=== PATIENT | male | born 1945 | race Caucasian/White ===

== ENCOUNTER 2018-05-15 08:52 | Emergency (ER) | payer MEDICARE, OTHER ==
[2018-05-15 09:02] VITALS: BP 146/81
[2018-05-15] MEDS ORDERED: LIDOCAINE PATCH 5% TOP STA (09:40)
--- NOTE | 2018-05-15 09:42 | ED Physician Documentation ---
History of Present Illness - Stated complaint Stated Complaint: BACK PX - Chief complaint Chief Complaint: Back Pain - Additonal information Additional information: hx from pt 73 male hx HNP periodically his back "goes out" recent move from [facility] pain to low left back with limited ROM similar to prior episodes he is hoping to get a medrol dose pack as that has worked well before no fever no abd pain no numbness including no saddle anesthesia no weakness no urinary sx Review of Systems Constitutional: denies: Fever Cardiac: denies: Chest pain / pressure Respiratory: denies: Dyspnea GI: denies: Abdominal Pain : denies: Incontinent Musculoskeletal: reports: Back pain Neurologic: denies: Focal weakness, Numbness Endocrine: denies: Easy bruising / bleeding Immunocompromised: denies: Immunocompromised PD PAST MEDICAL HISTORY - Past Medical History Past Medical History: No - Past Surgical History Past Surgical History: No - Present Medications Home Medications: Ambulatory Orders Medication Instructions Recorded Confirmed Amitriptyline [Elavil] 25 mg PO HS 05/15/18 05/15/18 Lidocaine Patch 5% [Lidoderm Patch] 1 patch TOP DAILY PRN #10 patch 05/15/18 Methylprednisolone [Medrol] 4 mg PO DAILY #21 tab.ds.pk 05/15/18 - Allergies Allergies/Adverse Reactions: Allergies Allergy/AdvReac Type Severity Reaction Status Date / Time No Known Drug Allergies Allergy Verified 05/15/18 09:02 - Social History Does the pt smoke?: No Smoking Status: Never smoker Does the pt drink ETOH?: No Does the pt have substance abuse?: No - Immunizations Immunizations are current?: Yes PD ED PE NORMAL - Vitals Vital signs reviewed: Yes - Neck Neck: Supple, no meningeal sign - Cardiac Cardiac: RRR - Respiratory Respiratory: No respiratory distress, Clear bilaterally - Abdomen Abdomen: Soft, Non tender, Other (no pulsatile mass) - Back Back: No spinal TTP, Other (TTP low left soft tissue near PIS, limited ROM, no focal redenss swelling warmth) - Neuro Neuro: Alert and oriented X 3, No motor deficit, No sensory deficit, Other (nl sensation, denies saddle anesthesia, hip flex knee ext foot dorsi plantar and great toe ext 5/5, neg SLR, no clonus, patellar DTR 2/4 nilo) Results - Vitals Vitals: Vital Signs - 24 hr 05/15/18 08:59 Temperature 36.3 C L Heart Rate 96 Respiratory 16 Rate Blood Pressure 146/81 H O2 Saturation 100 Oxygen O2 Source Room air PD MEDICAL DECISION MAKING - ED course ED course: muscular back pain with hx same 73 but no concerning features on hx and exam will tx symptomatically and dc Departure - Departure Disposition: Home, Self Care Clinical Impression: Back pain Qualifiers: Back pain location: low back pain Chronicity: acute Back pain laterality: left Sciatica presence: without sciatica Qualified Code(s): M54.5 - Low back pain Condition: Good Instructions: ED Neck Back Pain General Prescriptions: Lidocaine Patch 5% [Lidoderm Patch] 1 patch TOP DAILY PRN #10 patch PRN Reason: pain Methylprednisolone [Medrol] 4 mg PO DAILY #21 tab.ds.pk
== END 2018-05-15 09:55 | disposition home or self-care (01) ==
LOC: ED 08:52
DX: M54.5 Low back pain (principal)
CPT/HCPCS: 99283; A9270

== ENCOUNTER 2021-04-24 13:34 | Inpatient (IN) | payer MEDICARE, OTHER ==
[2021-04-24 14:35] LABS: BASOPHILS # (AUTO) 0.1 10^3/uL (0.0-0.1); BASOPHILS % (AUTO) 0.3 %; EOSINOPHILS % (AUTO) 0.1 %; HCT - HEMATOCRIT 46.4 % (42.0-52.0); HGB - HEMOGLOBIN 15.4 g/dL (14.0-18.0); LYMPHOCYTES # (AUTO) 2.2 10^3/uL (1.5-3.5); LYMPHOCYTES % (AUTO) 15.3 %; MEAN CORPUSCULAR HEMOGLOBIN 30.4 pg (27.0-31.0); MEAN CORPUSCULAR HGB CONC 33.2 g/dL (32.0-36.0); MEAN CORPUSCULAR VOLUME 91.7 fL (80.0-94.0); MEAN PLATELET VOLUME 8.5 fL (7.4-11.4); MONOCYTES # (AUTO) 0.6 10^3/uL (0.0-1.0); MONOCYTES % (AUTO) 4.4 %; NEUTROPHILS # (AUTO) 11.4 10^3/uL (1.5-6.6); NEUTROPHILS % (AUTO) 79.3 %; PLT - PLATELET COUNT 308 10^3/uL (130-450); RED BLOOD COUNT 5.06 10^6/uL (4.70-6.10); RED CELL DISTRIBUTION WIDTH 11.9 % (12.0-15.0); WHITE BLOOD COUNT 14.3 x10^3/uL (4.8-10.8)
[2021-04-24 14:49] LABS: ALBUMIN 4.5 g/dL (3.2-5.5); ALBUMIN/GLOBULIN RATIO 1.3 (1.0-2.2); CALCIUM 9.7 mg/dL (8.5-10.3); CREATININE 1.2 mg/dL (0.6-1.2); TOTAL PROTEIN 7.9 g/dL (6.7-8.2)
[2021-04-24 14:53] LABS: BILIRUBIN,URINE NEGATIVE (NEGATIVE); GLUCOSE, URINE (UA) NEGATIVE (NEGATIVE); KETONES,URINE (UA) TRACE mg/dL (NEGATIVE); LEUKOCYTE ESTERASE, URINE NEGATIVE (NEGATIVE); NITRITE,URINE NEGATIVE (NEGATIVE); OCCULT BLOOD,URINE NEGATIVE (NEGATIVE); PH,URINE 7.5 PH (5.0-7.5); PROTEIN,URINE NEGATIVE (NEGATIVE); UROBILINOGEN,URINE 0.2 (NORMAL) E.U./dL (NORMAL)
[2021-04-24] MEDS ORDERED: SODIUM CHLORIDE 0.9% 1,000 ML IV STA ×2 (14:58→20:16)
[2021-04-24] MEDS ORDERED: ONDANSETRON 4 MG/2 ML VIAL IVP STA ×2 (14:58→20:53)
[2021-04-24] MEDS ORDERED: HYDROmorphone 1 MG/ML CARPUJECT IVP STA ×3 (14:58→19:49)
[2021-04-24 15:00] LABS: CLARITY,URINE CLEAR (CLEAR)
--- NOTE | 2021-04-24 15:05 | ED Physician Documentation ---
History of Present Illness - Stated complaint Stated Complaint: STOMACH PX - Chief complaint Chief Complaint: Abd Pain - Additonal information Additional information: 76-year-old male presents emergency department for evaluation of acute severe left upper quadrant abdominal pain with associated uncontrolled nausea and vomiting. Patient went to bed feeling well and woke up feeling well. He ate cereal for breakfast and shortly thereafter developed this sudden abdominal pain. He has had uncontrolled retching. His reports that he has been burping uncontrollably which is new for him. 76-year-old male presents emergency department for evaluation of acute severe left upper quadrant abdominal pain with associated uncontrolled nausea and vomiting. Patient went to bed feeling well and woke up feeling well. He ate cereal for breakfast and shortly thereafter developed this sudden abdominal pain. He has had uncontrolled retching. His reports that he has been burping uncontrollably which is new for him. No pertinent past surgical history. He did have a myocardial infarction about 1 year ago. He reportedly received a stent in his LAD. He is denying chest pain or shortness of air at this time. Denies any fevers melena. No pertinent past surgical history. He did have a myocardial infarction about 1 year ago. He reportedly received a stent in his LAD. He is denying chest pain or shortness of air at this time. Denies any fevers melena. Review of Systems Constitutional: denies: Fever, Chills Eyes: reports: Reviewed and negative Ears: reports: Reviewed and negative Nose: reports: Reviewed and negative Throat: reports: Reviewed and negative Cardiac: reports: Reviewed and negative Respiratory: reports: Reviewed and negative GI: reports: Abdominal Pain, Nausea, Vomiting. denies: Constipation, Diarrhea, Hematemesis, Bloody / black stool : denies: Dysuria, Frequency, Hesitancy PD PAST MEDICAL HISTORY - Past Surgical History Past Surgical History: No - Present Medications Home Medications: Ambulatory Orders Medication Instructions Recorded Confirmed Atorvastatin Calcium 40 mg PO QPM 04/24/21 Clopidogrel [Plavix] 75 mg PO DAILY 04/24/21 Lisinopril [Zestril] 2.5 mg PO DAILY 04/24/21 Metoprolol Tartrate [Lopressor] 12.5 mg PO BID 04/24/21 - Allergies Allergies/Adverse Reactions: Allergies Allergy/AdvReac Type Severity Reaction Status Date / Time No Known Drug Allergies Allergy Verified 04/24/21 13:59 - Social History Does the pt smoke?: No Smoking Status: Never smoker Does the pt drink ETOH?: No Does the pt have substance abuse?: No - Immunizations Immunizations are current?: Yes PD ED PE EXPANDED - General General: Alert, In Pain - Cardiac Cardiac: Regular Rate, Radial strong equal, Pedal strong equal, Cap refill < 2 sec - Respiratory Respiratory: Clear to ausultation nilo. No: Distress, Labored - Abdomen Abdomen: Normal Bowel sounds, Tender to palpation, Rebound, Guarding, LLQ (Severe tenderness with light palpation to the left upper quadrant. Positive guarding and rebound.) - Derm Derm: Normal color, Warm and dry. No: Rash - Extremities Extremities: Normal. No: Deformity, Tenderness - Neuro Neuro: Alert and Oriented X 3, CNII-XII intact - GCS Eye Opening: Spontaneous Motor: Obeys Commands Verbal: Oriented Total: 15 Results - Vitals Vitals: Vital Signs - 24 hr 04/24/21 04/24/21 04/24/21 13:59 14:47 16:08 Temperature 36 C L 36.5 C Heart Rate 92 88 90 Respiratory 20 18 18 Rate Blood Pressure 121/68 121/68 140/74 H O2 Saturation 100 100 97 04/24/21 18:00 Temperature Heart Rate 100 Respiratory 22 Rate Blood Pressure 132/71 H O2 Saturation 97 Oxygen O2 Source Room air - EKG (time done) 1449 Rate: Rate (enter#) (89) Rhythm: NSR O'Brien: Normal Intervals: Normal RI QRS: Normal Ischemia: Normal ST segments Compare to prior EKG: Old EKG unavailable Computer interpretation: Agree with computer - Labs Labs: Laboratory Tests 04/24/21 04/24/21 04/24/21 14:28 14:29 14:29 WBC 14.3 H RBC 5.06 Hgb 15.4 Hct 46.4 MCV 91.7 MCH 30.4 MCHC 33.2 RDW 11.9 L Plt Count 308 MPV 8.5 Neut # (Auto) 11.4 H Lymph # (Auto) 2.2 [place] # (Auto) 0.6 Eos # (Auto) 0.0 Baso # (Auto) 0.1 Absolute Nucleated RBC 0.00 Nucleated RBC % 0.0 Sodium 138 Potassium 4.0 Chloride 96 L Carbon Dioxide 26 Anion Gap 16.0 H BUN 24 H Creatinine 1.2 Estimated GFR (MDRD) 59 L Glucose 143 H Lactic Acid Calcium 9.7 Total Bilirubin 1.0 AST 22 ALT 32 Alkaline Phosphatase 57 Troponin I High Sens Total Protein 7.9 Albumin 4.5 Globulin 3.4 Albumin/Globulin Ratio 1.3 Lipase 19 L Urine Color YELLOW Urine Clarity CLEAR Urine pH 7.5 Ur Specific [place] 1.020 Urine Protein NEGATIVE Urine Glucose (UA) NEGATIVE Urine Ketones TRACE Urine Occult Blood NEGATIVE Urine Nitrite NEGATIVE Urine Bilirubin NEGATIVE Urine Urobilinogen 0.2 (NORMAL) Ur Leukocyte Esterase NEGATIVE Ur Microscopic Review NOT INDICATED Urine Culture Comments NOT INDICATED 04/24/21 04/24/21 14:29 15:13 WBC RBC Hgb Hct MCV MCH MCHC RDW Plt Count MPV Neut # (Auto) Lymph # (Auto) [place] # (Auto) Eos # (Auto) Baso # (Auto) Absolute Nucleated RBC Nucleated RBC % Sodium Potassium Chloride Carbon Dioxide Anion Gap BUN Creatinine Estimated GFR (MDRD) Glucose Lactic Acid 1.6 Calcium Total Bilirubin AST ALT Alkaline Phosphatase Troponin I High Sens < 2.3 L Total Protein Albumin Globulin Albumin/Globulin Ratio Lipase Urine Color Urine Clarity Urine pH Ur Specific [place] Urine Protein Urine Glucose (UA) Urine Ketones Urine Occult Blood Urine Nitrite Urine Bilirubin Urine Urobilinogen Ur Leukocyte Esterase Ur Microscopic Review Urine Culture Comments - Rads (name of study) CT abd Radiology: Final report received (Small bowel obstruction. Suspect transition point in the right lower quadrant. Small volume of free fluid in the lower abdomen pelvis this is likely reactive. No pneumoperitoneum. Diverticulosis. No- itis. Hepatic hypodensities likely benign cyst. Large renal cyst bilaterally nonobstructing) PD MEDICAL DECISION MAKING - ED course Complexity details: reviewed old records, reviewed results, re-evaluated patient ED course: 76-year-old male who has a past medical history most significant for hypertension as well as coronary artery disease status post LAD stenting about 1 year ago presents emergency department for evaluation of acute left upper quadrant abdominal pain and uncontrolled nausea and vomiting that began shortly after eating breakfast this a.m. He denies any pertinent past surgical history. Screening labs are most significant for a mild leukocytosis however his electrolytes are otherwise preserved. Screening EKG is nonischemic and high- sensitivity troponin is negative. This gentleman was exquisitely tender in the left upper quadrant of his abdomen. A CT did show a small bowel obstruction with a transition point somewhere in the right lower quadrant. 1615: I have it ordered and nasogastric tube to be placed. Unfortunately given our local bed situation it is unlikely that this gentleman will be able to receive an inpatient bed at our hospital for quite some time. I have asked surgery to consult but in the short-term I will also evaluate for the possibility of transfer to an outlying facility that may have the ability to manage a small bowel obstruction. 1730: In an attempt to propel hsi care we have called [facility], [facility], [facility], and They have all indicated that there are no beds available for transfer. Some have requested that we call back in 24 hours. Others have placed us on a wait list. 1830: Patient has been seen by on-call surgeon Dr. Flores. She has verbally reported to me that she feels the patient is appropriate for inpatient admission for further evaluation and treatment of the small bowel obstruction. She recommends hospitalist to admit given his history of coronary artery disease that he is to be n.p.o. for now with NG tube to low continuous suction. I have spoken with Dr. Lo who stated that the night hospitalist with write admission orders. Pt will contine to hold in the ED until a inpatient bed is available Departure - Departure Disposition: [facility] DC/Emma
[2021-04-24] MEDS ORDERED: IOPAMIDOL-300 100 ML VIAL ONE (15:14)
--- NOTE | 2021-04-24 16:07 | CT Report ---
PROCEDURE: Abdomen/Pelvis W INDICATIONS: LUQ abd pain; n/v CONTRAST: IV CONTRAST: Isovue 300 ml: 100 PO CONTRAST: *NO PO CONTRAST TECHNIQUE: After the administration of intravenous contrast, 5 mm thick sections acquired from the diaphragms to the symphysis. 5 mm thick coronal and sagittal reformats were acquired. For radiation dose reducti on, the following was used: automated exposure control, adjustment of mA and/or kV according to cecy ent size. COMPARISON: None. FINDINGS: Image quality: Excellent. ABDOMEN: Lung bases: Bibasilar atelectasis. No pleural effusion. Heart size is normal. Small hiatal hernia. Solid organs: Liver and spleen are normal in size. Small hepatic hypodensities. The majority of thes e are well-circumscribed and have the appearance of benign cysts there is one cyst in the right lobe liver at the dome that is likely a benign cyst but not as hypodense as the other foci. Gallbladder i s not distended. No calcified gallstones. Biliary system is non dilated. Pancreas enhances normally . No adrenal nodules. Kidneys demonstrate normal size and enhancement, without hydronephrosis. Smal l nonobstructing kidney stones at the inferior pole the left kidney. Large simple renal cysts bilater ally. Right renal cyst measures 11.4 cm. Left renal cyst measures 9.8 cm. Possible trace peripheral c alcification. Peritoneum and bowel: Diverticulosis. No diverticulitis. The appendix is not dilated. Multiple dilate d loops of small bowel. Suspect a transition point the right lower quadrant. This is consistent with a small bowel obstruction. There is a small amount of fluid in the lower abdomen and pelvis. No pneum operitoneum. Nodes and vessels: No retroperitoneal or mesenteric adenopathy by size criteria. Aorta and inferior vena cava are normal in size. Miscellaneous: No ventral hernias. PELVIS: Genitourinary: Bladder is unremarkable. Right hydrocele. Prostatomegaly. Prostate calcifications. Miscellaneous: No inguinal hernias or adenopathy. Bones: No suspicious bony lesions. No vertebral body compression fractures. IMPRESSION: 1. Small bowel obstruction. Suspect transition point in the right lower quadrant. 2. Small volume of free fluid in the lower abdomen/pelvis. This is likely reactive. No pneumoperitone um. 3. Diverticulosis. 4. Hepatic hypodensities which are most likely benign cysts. 5. Large renal cysts bilaterally. Nonobstructing left kidney stones. 6. Right hydrocele. Prostatomegaly. Results were communicated to Dr. Meaghan Soria at 04/24/2021 4:05 PM PST. Reviewed by: Brock Ureña MD on 04/24/2021 4:06 PM PST Approved by: Brock Ureña MD on 04/24/2021 4:06 PM PST Station ID: [id number]
[2021-04-24] MEDS ORDERED: LIDOCAINE 2% URO-JET 5 ML SYRINGE UR STA (16:24)
[2021-04-24 20:04] LABS: B. PARAPERTUSSIS- RESP PCR PAN NOT DETECTED; B. PERTUSSIS- RESP PCR PANEL NOT DETECTED; C. PNEUMONIAE- RESP PCR PANEL NOT DETECTED; CORONAVIRUS 229E-RESP PCR NOT DETECTED; CORONAVIRUS HKU1-RESP PCR NOT DETECTED; CORONAVIRUS NL63-RESP PCR NOT DETECTED; CORONAVIRUS OC43-RESP PCR NOT DETECTED; HUMAN METAPNEUMOVIRUS NOT DETECTED; INFLUENZA A- RESP PCR PANEL NOT DETECTED; INFLUENZA B - RESP PCR PANEL NOT DETECTED; M. PNEUMONIAE- RESP PCR PANEL NOT DETECTED; PARAINFLUENZA VIRUS 1 NOT DETECTED; PARAINFLUENZA VIRUS 2 NOT DETECTED; PARAINFLUENZA VIRUS 3 NOT DETECTED; PARAINFLUENZA VIRUS 4 NOT DETECTED; RHINOVIRUS/ENTEROVIRUS NOT DETECTED; RSV- RESP PCR PANEL NOT DETECTED; SARS-CoV-2 -RESP PCR PANEL NOT DETECTED
[2021-04-24] MEDS ORDERED: SODIUM CHLORIDE FLUSH 0.9% 10 ML SYRINGE IVP PRN (20:23)
[2021-04-24] MEDS ORDERED: MORPHINE 2 MG/ML CARPUJECT IVP STA (20:53)
--- NOTE | 2021-04-24 20:54 | CONSULTATION NOTE ---
Surgery Consult - Admit Date Hospital Admission Date: 04/24/21 - Consult Date Consult Date: 04/24/21 - Chief Complaint Chief Complaint: 76M with abdominal pain and distension - Home Meds/Allergies Home Medications: Patient History Medication Instructions Recorded Confirmed Atorvastatin Calcium 40 mg PO QPM 04/24/21 Clopidogrel [Plavix] 75 mg PO DAILY 04/24/21 Lisinopril [Zestril] 2.5 mg PO DAILY 04/24/21 Metoprolol Tartrate [Lopressor] 12.5 mg PO BID 04/24/21 Allergies/Adverse Reactions: Allergies Allergy/AdvReac Type Severity Reaction Status Date / Time No Known Drug Allergies Allergy Verified 04/24/21 13:59 - Vital Signs Vital Signs: Last Vital Signs Temp 36.5 C 04/24/21 14:47 Pulse 100 04/24/21 20:00 Resp 22 04/24/21 20:00 BP 140/77 H 04/24/21 20:00 Pulse Ox 96 04/24/21 20:00 Intake & Output: Intake & Output 04/21/21 04/22/21 04/23/21 04/24/21 23:59 23:59 23:59 23:59 Intake Total 1000 Balance 1000 - Lab Results Result Diagrams: 04/24/21 14:29 04/24/21 14:29 - Consultation Note Consultation Note: Mr. Nieto is a 76 year old man with a history of CAD and DC 5 months ago s/p stent (on asa/plavix) who presents with abdominal pain, located in the left side, which began this morning after eating cereal. He denies emesis but was nauseated. He had a small BM shortly after the pain started, but this did not help the pain and he has not passed any gas since yesterday. The patient has no history of abdominal surgery. In the ED, patient was afebrile with normal vitals. Labs were remarkable for a WBC of 14 and creatinine of 1.2. CTAP with IV contrast demonstrated some dilated small bowel loops and a possible transition point in the right lower quadrant. No pneumoperitoneum. NG tube was placed and general surgery consulted. Exam: GENERAL: Elderly man in no acute distress HEENT: NG tube in place. Normocephalic, atraumatic. RESPIRATORY: Breathing comfortably on room air CARDIAC: Regular rate and rhythm. ABDOMINAL: Soft, mildly distended, mildly tender in the left abdomen, without rebound or guarding. No scars. No abdominal or inguinal hernias. EXTREMITIES: Normal tone and range of motion. NEUROLOGIC: Alert and oriented, no focal deficits. Assessment and Plan: 76 year old man with history of CAD and DC (s/p stent 5 months ago on DAPT) who presents with SBO. No indication for urgent surgery. Recommend NPO, IVF, and NG tube decompression. We will follow along. Jony Flores MD General Surgery
[2021-04-24] MEDS ORDERED: IOPAMIDOL-300 100 ML VIAL IVP ONE (21:06)
--- NOTE | 2021-04-24 21:26 | HISTORY & PHYSICAL EXAMINATION ---
Chief Complaint - Chief Complaint Chief Complaint: abd pain History of Present Illness - Admitted From Admitted From:: ED - History Obtained From History obtained from: ED provider and the patient - History of Present Illness HPI Comment/Other: 76-year-old WM with history of old VA, CAD with stent on aspirin and Plavix. Patient developed sudden abdominal pain after eating breakfast then had nausea with vomiting. He has continued abd pain and retching and nausea in the ED. The ED work-up reveals small bowel obstruction with dilated loops of small bowel and a transition point in the right lower quadrant. The patient denies ever having prior abdominal surgery. He has been seen by general surgery who recommends bowel rest and NG tube for decompression, no need for urgent surgery and surgery is following along with us. History - Past Medical History Cardiovascular: reports: Coronary artery disease, VA MRSA Hx?: No - Past Surgical History Cardiovascular: reports: Coronary stent - Family & Social History Living arrangement: At home Living Situation: With spouse/s.o. Meds/Allgy - Home Medications Home Medications: Ambulatory Orders Medication Instructions Recorded Confirmed Atorvastatin Calcium 40 mg PO QPM 04/24/21 Clopidogrel [Plavix] 75 mg PO DAILY 04/24/21 Lisinopril [Zestril] 2.5 mg PO DAILY 04/24/21 Metoprolol Tartrate [Lopressor] 12.5 mg PO BID 04/24/21 - Allergies Allergies/Adverse Reactions: Allergies Allergy/AdvReac Type Severity Reaction Status Date / Time No Known Drug Allergies Allergy Verified 04/24/21 13:59 Review of Systems - Gastrointestinal Gastrointestinal: reports: Abdominal pain, Nausea Exam - Vital Signs Reviewed Vital Signs: Yes Vital Signs: Vital Signs x48h Temp Pulse Resp BP Pulse Ox 04/24/21 20:00 100 22 140/77 H 96 04/24/21 18:00 100 22 132/71 H 97 04/24/21 16:08 90 18 140/74 H 97 04/24/21 14:47 36.5 C 88 18 121/68 100 04/24/21 13:59 36 C L 92 20 121/68 100 - Physical Exam General Appearance: positive: No acute distress Eyes Bilateral: positive: Normal inspection ENT: positive: No signs of dehydration Neck: positive: Nml inspection, No JVD Respiratory: positive: No respiratory distress Cardiovascular: positive: Regular rate & rhythm Abdomen: positive: Non-tender, No distention Skin: positive: Warm, Dry Neurologic/Psychiatric: positive: Oriented x3 Conclusion/Plan - Problem List (1) SBO (small bowel obstruction) Conclusion/Plan: Will admit the patient to MedSurg status, start bowel rest with n.p.o. status except for ice chips and give bowel rest with an NG tube for decompression. Give IV fluids while he is n.p.o. and follow daily electrolytes. Give IV pain meds and as needed antiemetics. General surgery is following along with us. (2) Old VA (myocardial infarction) Conclusion/Plan: Will hold the Plavix in case of need for urgent GI surgery. Continue with his other usual cardiac medications. - Lab Results Fish Bones: 04/24/21 14:29 04/24/21 14:29 - Diagnostic Imaging Results Diagnostic Imaging Results: positive: Final report reviewed - Other Other Results/Comments: Attestation: The patient is expected to be discharged or transferred to another facility within 96 hours: Yes
[2021-04-25] MEDS: HYDROmorphone 0.5 MG/0.5 ML SYRINGE IVP PRN ×8 (00:26→23:35)
[2021-04-25] MEDS: LACTATED RINGERS 1,000 ML IV SCH ×3 (00:27→18:09)
[2021-04-25] MEDS: ONDANSETRON 4 MG/2 ML VIAL IVP PRN ×2 (00:28→07:31)
[2021-04-25] MEDS: SODIUM CHLORIDE FLUSH 0.9% 10 ML SYRINGE IVP SCH ×3 (01:32→18:09)
[2021-04-25] MEDS ORDERED: METOPROLOL 5 MG/5 ML VIAL IVP ONE (02:00)
[2021-04-25] MEDS: PROCHLORPERAZINE 10 MG/2 ML VIAL IVP PRN ×2 (04:38→12:26)
[2021-04-25 05:41] LABS: BASOPHILS % (AUTO) 0.2 %; HCT - HEMATOCRIT 44.6 % (42.0-52.0); HGB - HEMOGLOBIN 14.8 g/dL (14.0-18.0); LYMPHOCYTES # (AUTO) 1.4 10^3/uL (1.5-3.5); LYMPHOCYTES % (AUTO) 12.8 %; MEAN CORPUSCULAR HEMOGLOBIN 30.8 pg (27.0-31.0); MEAN CORPUSCULAR HGB CONC 33.2 g/dL (32.0-36.0); MEAN CORPUSCULAR VOLUME 92.7 fL (80.0-94.0); MEAN PLATELET VOLUME 8.5 fL (7.4-11.4); MONOCYTES # (AUTO) 0.6 10^3/uL (0.0-1.0); MONOCYTES % (AUTO) 5.4 %; NEUTROPHILS # (AUTO) 8.9 10^3/uL (1.5-6.6); NEUTROPHILS % (AUTO) 81.2 %; PLT - PLATELET COUNT 258 10^3/uL (130-450); RED BLOOD COUNT 4.81 10^6/uL (4.70-6.10)
[2021-04-25 05:50] LABS: CALCIUM 8.5 mg/dL (8.5-10.3); POTASSIUM 4.1 mmol/L (3.5-5.0)
[2021-04-25] MEDS ORDERED: METOPROLOL 5 MG/5 ML VIAL IVP PRN (08:41)
--- NOTE | 2021-04-25 12:08 | PHARMACY PROGRESS NOTE ---
- Best Possible Medication History Admit Date and Time: 04/24/212020 Processed by: Pharmacy Medication History completed: Yes Patient Interview: Completed (CALLED , READ OFF MEDICATION BOTTLES) As the person ultimately responsible for medication therapy, providers are able to order a medication from an existing home medication list in [facility] via the "Reconcile Routine" prior to Confirmation of that medication by intranet support. Such practice is discouraged except when the physician, in their clinical judgment, deems that a medical need exists for a medication without regard to previous use.
[2021-04-25] MEDS ORDERED: BENZOCAINE/MENTHOL LOZENGE MM PRN (14:19)
--- NOTE | 2021-04-25 14:28 | PROVIDER PROGRESS NOTE ---
Assessment/Plan - Problem List (1) SBO (small bowel obstruction) Assessment/Plan: 04/25 pt still did not pass gas or bowel movement yet, but he report his abdominal pain is better and released after he had NG tube. discussed with pt and nurse, strongly encourage pt ambulate safely as he can, minimum reduced opiates usage as possible continue IVF, pain control, NPO, and NG tube management. pt complain of sore throat, add Cepacol for his sore throat pain control as needed. continue followup with surgeon's recommendations. (2) Old [place] (myocardial infarction) Conclusion/Plan: 04/25 continue to hold the Plavix/aspirin in case of need for urgent GI surgery. as soon as pt can tolerate diet, we will resume Plavix/aspirin and statin. pt had cardiac stent about 5 months ago. add PRN IV of metoprolol for BP and pause control. - Current Meds Current Meds: Current Medications Generic Name Dose Route Start Last Admin Trade Name Freq PRN Reason Stop Dose Admin Hydromorphone HCl 0.5 mg 04/24/21 20:23 04/25/21 12:26 Hydromorphone 0.5 Mg/0.5 Ml Syringe IVP 0.5 mg Q2H PRN Administration Pain 8 to 10 Lactated Ringer's 1,000 mls @ 100 mls/hr 04/24/21 21:00 04/25/21 07:36 Lr IV 100 mls/hr .Q10H ANTHONY Administration Ondansetron HCl 4 mg 04/24/21 20:23 04/25/21 07:31 Ondansetron 4 Mg/2 Ml Vial IVP 4 mg Q6HR PRN Administration Nausea / Vomiting Prochlorperazine Edisylate 10 mg 04/24/21 20:23 04/25/21 12:26 Prochlorperazine 10 Mg/2 Ml Vial IVP 10 mg Q6HR PRN Administration Nausea / Vomiting Sodium Chloride 10 ml 04/24/21 20:23 04/25/21 12:27 Sodium Chloride Flush 0.9% 10 Ml Syringe IVP 10 ml PRN PRN Administration NEEDED PER PROVIDER ORDERS Sodium Chloride 10 ml 04/25/21 01:00 04/25/21 09:27 Sodium Chloride Flush 0.9% 10 Ml Syringe IVP 10 ml 0100,0900,1700 ANTHONY Administration - Lab Result Fish Bone Diagrams: 04/25/21 05:19 04/25/21 05:19 - Additional Planning My Orders: My Active Orders 04/25/21 08:41 Metoprolol Inj [Lopressor Inj] 5 mg IVP Q6H PRN 04/25/21 08:44 Out of bed 6+ hours [RC] QID 04/25/21 12:04 Miscellaenous Nursing Order [RC] QSHIFT Ng [NG Tube Care] [RC] Q4HR 04/25/21 14:19 Benzocaine/Menthol [Cepacol] 1 lozenge MM Q2HR PRN 04/25/21 21:00 Metoprolol Tartrate [Lopressor] 12.5 mg PO BID Subjective - Subjective Patient Reports: Resting Comfortably Objective Vital Signs: Vital Signs - 24 hr 04/24/21 04/24/21 04/24/21 14:47 16:08 18:00 Temperature 36.5 C Heart Rate 88 90 100 Heart Rate [ Brachial] Respiratory 18 18 22 Rate Blood Pressure 121/68 140/74 H 132/71 H Blood Pressure [Right Brachial artery] O2 Saturation 100 97 97 04/24/21 04/24/21 04/25/21 20:00 22:00 00:24 Temperature Heart Rate 100 90 108 H Heart Rate [ Brachial] Respiratory 22 12 14 Rate Blood Pressure 140/77 H 134/72 H 130/85 H Blood Pressure [Right Brachial artery] O2 Saturation 96 100 98 04/25/21 04/25/21 04/25/21 01:34 02:00 03:00 Temperature Heart Rate 94 77 75 Heart Rate [ Brachial] Respiratory 12 12 14 Rate Blood Pressure 138/77 H 126/82 H Blood Pressure [Right Brachial artery] O2 Saturation 100 98 96 04/25/21 04/25/21 04/25/21 05:00 07:02 07:39 Temperature Heart Rate 90 88 102 H Heart Rate [ Brachial] Respiratory 12 16 16 Rate Blood Pressure 125/67 116/56 L 119/82 H Blood Pressure [Right Brachial artery] O2 Saturation 96 98 95 04/25/21 04/25/21 09:00 11:45 Temperature 36.7 C Heart Rate 109 H Heart Rate [ 88 Brachial] Respiratory 19 17 Rate Blood Pressure 130/68 Blood Pressure 145/71 H [Right Brachial artery] O2 Saturation 96 93 Oxygen O2 Source Room air I&O (Last 24 Hrs): Intake and Output Totals x24h 04/23/21 04/24/21 04/25/21 23:59 23:59 23:59 Intake Total 1000 1322 Balance 1000 1322 General: Alert, Oriented x3, Cooperative, No acute distress HEENT: Atraumatic Neck: Supple Lymphatic: no adenopathy Neuro: Alert, Non Focal, Oriented Times 3 Cardiovascular: Regular rate, Normal S1, Normal S2 Respiratory: Chest non-tender, No respiratory distress Abdomen: Normal bowel sounds, Soft, Other (tenderness at left lower quadrant of abdomen) Extremities: Normal pulses - Results Results: Laboratory Results WBC 11.0 x10^3/uL (4.8-10.8) H 04/25/21 05:19 RBC 4.81 10^6/uL (4.70-6.10) 04/25/21 05:19 Hgb 14.8 g/dL (14.0-18.0) 04/25/21 05:19 Hct 44.6 % (42.0-52.0) 04/25/21 05:19 MCV 92.7 fL (80.0-94.0) 04/25/21 05:19 MCH 30.8 pg (27.0-31.0) 04/25/21 05:19 MCHC 33.2 g/dL (32.0-36.0) 04/25/21 05:19 RDW 12.0 % (12.0-15.0) 04/25/21 05:19 Plt Count 258 10^3/uL (130-450) 04/25/21 05:19 MPV 8.5 fL (7.4-11.4) 04/25/21 05:19 Neut # (Auto) 8.9 10^3/uL (1.5-6.6) H 04/25/21 05:19 Lymph # (Auto) 1.4 10^3/uL (1.5-3.5) L 04/25/21 05:19 [place] # (Auto) 0.6 10^3/uL (0.0-1.0) 04/25/21 05:19 Eos # (Auto) 0.0 10^3/uL (0.0-0.7) 04/25/21 05:19 Baso # (Auto) 0.0 10^3/uL (0.0-0.1) 04/25/21 05:19 Absolute Nucleated RBC 0.00 x10^3/uL 04/25/21 05:19 Nucleated RBC % 0.0 /100WBC 04/25/21 05:19 Sodium 135 mmol/L (135-145) 04/25/21 05:19 Potassium 4.1 mmol/L (3.5-5.0) 04/25/21 05:19 Chloride 100 mmol/L (101-111) L 04/25/21 05:19 Carbon Dioxide 23 mmol/L (21-32) 04/25/21 05:19 Anion Gap 12.0 (6-13) 04/25/21 05:19 BUN 24 mg/dL (6-20) H 04/25/21 05:19 Creatinine 1.0 mg/dL (0.6-1.2) 04/25/21 05:19 Estimated GFR (MDRD) 73 (>89) L 04/25/21 05:19 Glucose 146 mg/dL (70-100) H 04/25/21 05:19 Lactic Acid 1.6 mmol/L (0.5-2.2) 04/24/21 15:13 Calcium 8.5 mg/dL (8.5-10.3) 04/25/21 05:19 Total Bilirubin 1.0 mg/dL (0.2-1.0) 04/24/21 14:29 AST 22 IU/L (10-42) 04/24/21 14:29 ALT 32 IU/L (10-60) 04/24/21 14:29 Alkaline Phosphatase 57 IU/L (42-121) 04/24/21 14:29 Troponin I High Sens < 2.3 ng/L (2.3-19.7) L 04/24/21 14:29 Total Protein 7.9 g/dL (6.7-8.2) 04/24/21 14:29 Albumin 4.5 g/dL (3.2-5.5) 04/24/21 14:29 Globulin 3.4 g/dL (2.1-4.2) 04/24/21 14:29 Albumin/Globulin Ratio 1.3 (1.0-2.2) 04/24/21 14: Lipase 19 U/L (22-51) L 04/24/21 14:29 Urine Color YELLOW 04/24/21 14:28 Urine Clarity CLEAR (CLEAR) 04/24/21 14:28 Urine pH 7.5 PH (5.0-7.5) 04/24/21 14:28 Ur Specific [place] 1.020 (1.002-1.030) 04/24/21 14:28 Urine Protein NEGATIVE mg/dL (NEGATIVE) 04/24/21 14:28 Urine Glucose (UA) NEGATIVE mg/dL (NEGATIVE) 04/24/21 14:28 Urine Ketones TRACE mg/dL (NEGATIVE) 04/24/21 14:28 Urine Occult Blood NEGATIVE (NEGATIVE) 04/24/21 14: Urine Nitrite NEGATIVE (NEGATIVE) 04/24/21 14: Urine Bilirubin NEGATIVE (NEGATIVE) 04/24/21 14:28 Urine Urobilinogen 0.2 (NORMAL) E.U./dL (NORMAL) 04/24/21 14:28 Ur Leukocyte Esterase NEGATIVE (NEGATIVE) 04/24/21 14:28 Ur Microscopic Review NOT INDICATED 04/24/21 14:28 Urine Culture Comments NOT INDICATED 04/24/21 14:28 Nasal Adenovirus (PCR) NOT DETECTED 04/24/21 18:40 Nasal B. parapertussis DNA (PCR) NOT DETECTED 04/24/21 18:40 Nasal Coronavir 229E PCR NOT DETECTED 04/24/21 18:40 Nasal Coronavir HKU1 PCR NOT DETECTED 04/24/21 18:40 Nasal Coronavir NL63 PCR NOT DETECTED 04/24/21 18:40 Nasal Coronavir OC43 PCR NOT DETECTED 04/24/21 18:40 Nasal Enterovir/Rhinovir PCR NOT DETECTED 04/24/21 18:40 Nasal Influenza B PCR NOT DETECTED 04/24/21 18:40 Nasal Influenza A PCR NOT DETECTED 04/24/21 18:40 Nasal Parainfluen 1 PCR NOT DETECTED 04/24/21 18:40 Nasal Parainfluen 2 PCR NOT DETECTED 04/24/21 18:40 Nasal Parainfluen 3 PCR NOT DETECTED 04/24/21 18:40 Nasal Parainfluen 4 PCR NOT DETECTED 04/24/21 18:40 Nasal RSV (PCR) NOT DETECTED 04/24/21 18:40 Nasal B.pertussis DNA PCR NOT DETECTED 04/24/21 18:40 Nasal C.pneumoniae (PCR) NOT DETECTED 04/24/21 18:40 Benny Human Metapneumo PCR NOT DETECTED 04/24/21 18:40 Nasal M.pneumoniae (PCR) NOT DETECTED 04/24/21 18:40 Nasal SARS-CoV-2 (PCR) NOT DETECTED 04/24/21 18:40 ABX Reporting Has patient been on IV antibiotics over the past 48 hours?: No Current Medications - Current Medications Current Medications: Active Medications Hydromorphone HCl (Hydromorphone 0.5 Mg/0.5 Ml Syringe) 0.5 mg IVP Q2H PRN PRN Reason: Pain 8 to 10 Last Admin: 04/25/21 12:26 Dose: 0.5 mg Documented by: Lactated Ringer's (Lr) 1,000 mls @ 100 mls/hr IV .Q10H ANTHONY Last Admin: 04/25/21 07:36 Dose: 100 mls/hr Documented by: Metoprolol Tartrate (Metoprolol 5 Mg/5 Ml Vial) 5 mg IVP Q6H PRN PRN Reason: Tachycardia Ondansetron HCl (Ondansetron 4 Mg/2 Ml Vial) 4 mg IVP Q6HR PRN PRN Reason: Nausea / Vomiting Last Admin: 04/25/21 07:31 Dose: 4 mg Documented by: Prochlorperazine Edisylate (Prochlorperazine 10 Mg/2 Ml Vial) 10 mg IVP Q6HR PRN PRN Reason: Nausea / Vomiting Last Admin: 04/25/21 12:26 Dose: 10 mg Documented by: Sodium Chloride (Sodium Chloride Flush 0.9% 10 Ml Syringe) 10 ml IVP PRN PRN PRN Reason: NEEDED PER PROVIDER ORDERS Last Admin: 04/25/21 12:27 Dose: 10 ml Documented by: Sodium Chloride (Sodium Chloride Flush 0.9% 10 Ml Syringe) 10 ml IVP 0100,0900,1700 [facility] Last Admin: 04/25/21 09:27 Dose: 10 ml Documented by: Throat Lozenges (Benzocaine/Menthol Lozenge) 1 lozenge MM Q2HR PRN PRN Reason: Mouth Sore Pain Atorvastatin Calcium 40 mg PO QPM 04/24/21 Clopidogrel [Plavix] 75 mg PO DAILY 04/24/21 Lisinopril [Zestril] 2.5 mg PO DAILY 04/24/21 Metoprolol Tartrate [Lopressor] 12.5 mg PO BID 04/24/21 Aspirin [Aspirin EC] 81 mg PO DAILY 04/25/21
[2021-04-25] MEDS ORDERED: ASPIRIN 300 MG SUPP PR SCH (16:42)
[2021-04-25] MEDS ORDERED: METOPROLOL TARTRATE 25 MG TABLET PO SCH (21:00)
[2021-04-26] MEDS: LACTATED RINGERS 1,000 ML IV SCH (03:50)
[2021-04-26] MEDS: HYDROmorphone 0.5 MG/0.5 ML SYRINGE IVP PRN ×2 (04:24→09:48)
[2021-04-26] MEDS: ONDANSETRON 4 MG/2 ML VIAL IVP PRN (05:07)
[2021-04-26] MEDS: SODIUM CHLORIDE FLUSH 0.9% 10 ML SYRINGE IVP SCH ×2 (05:30→09:48)
--- NOTE | 2021-04-26 09:22 | XRAY Report ---
PROCEDURE: Abdomen 1 View X-Ray INDICATIONS: if still SBO? TECHNIQUE: 1 view of the abdomen were acquired. COMPARISON: CT abdomen and pelvis dated 04/14/2021 FINDINGS: Surgical changes and devices: None. Bowel: There continues to be a dilated small bowel loop to the right of midline in the mid to lower a bdomen. Gas is present in the rectum. Findings are consistent with a partial small bowel obstruction. Soft tissues: No masses; visualized solid organ contours appear normal in size. No suspicious abdom inal calcifications. Bones: No suspicious bony abnormalities. IMPRESSION: Partial small bowel obstruction. Reviewed by: Jan Anderson MD on 04/26/2021 9:21 AM PST Approved by: Jan Anderson MD on 04/26/2021 9:21 AM PST Station ID: [id number]
[2021-04-26] MEDS: PROCHLORPERAZINE 10 MG/2 ML VIAL IVP PRN (09:48)
--- NOTE | 2021-04-26 10:11 | PROVIDER PROGRESS NOTE ---
Subjective - Prog Note Date Prog Note Date: 04/26/21 - Subjective Subjective: denies abdominal discomfort. not passing gas no nausea Objective - Vital Signs/Intake & Output Reviewed Vital Signs: Yes Vital Signs: Vital Signs x48h Temp Pulse Resp BP Pulse Ox 04/26/21 07:35 37.4 C 93 18 132/63 H 92 04/26/21 04:40 37.1 C 100 18 139/69 H 94 Intake & Output: Intake & Output 04/23/21 04/24/21 04/25/21 04/26/21 23:59 23:59 23:59 23:59 Intake Total 1000 2748.667 541.667 Output Total 50 Balance 1000 2698.667 541.667 - Objective General Appearance: positive: No acute distress, Alert Eyes Bilateral: positive: PERRL, EOMI Neck: positive: No JVD Respiratory: positive: No respiratory distress Abdomen: positive: Non-tender, No distention Neurologic/Psychiatric: positive: Oriented x3 - Lab Results Fish Bones: 04/25/21 05:19 04/25/21 05:19 - Diagnostic Imaging Diagnostic Imaging Results: positive: Read independently Assessment/Plan - Problem List (1) SBO (small bowel obstruction) Impression: minimal ng tube output which is clear. non distended abdomen. I have written for ngt removal and clears up to 250 ml per shift. He appears to have more of an ileus than a bowel obstruction. If not able to tolerate adequate nutrition in several days he may need tpn. I am hopeful tomorrow he will be able to tolerate clears and boost well.
[2021-04-26] MEDS ORDERED: ASPIRIN EC 81 MG TABLET PO SCH (11:00)
[2021-04-26] MEDS ORDERED: CLOPIDOGREL 75 MG TABLET PO SCH (11:00)
[2021-04-26 11:51] VITALS: BP 133/67
--- NOTE | 2021-04-26 14:09 | DISCHARGE SUMMARY ---
Discharge Summary Admit Date: 04/24/21 Discharge Date: 04/26/21 Discharging Provider: Darwin Plasencia Discharge Disposition: 07 Against Medical Advice Discharge Facility Name: home - DIAGNOSES Discharge Diagnoses with Status of Each Condition: (1) SBO (small bowel obstruction) KUB still show pt had partial SBO. but pt persist to want to go to home. pt signed AMA to home. advise pt if he still has symptoms, he may come back ER. (2) Old [place] (myocardial infarction) stable, pt may continue his home meds (3)AMA pt state he can "palliative manage" in his home. he want to sign AMA to go to home. pt was explained risks of AMA, but pt persist to want to go to home, and he signed AMA. advise pt if he still has symptoms, he may come back to ER. - HPI History of Present Illness: 76-year-old WM with history of old [place], CAD with stent on aspirin and Plavix. Patient developed sudden abdominal pain after eating breakfast then had nausea with vomiting. He has continued abd pain and retching and nausea in the ED. The ED work-up reveals small bowel obstruction with dilated loops of small bowel and a transition point in the right lower quadrant. The patient denies ever having prior abdominal surgery. He has been seen by general surgery who recommends bowel rest and NG tube for decompression, no need for urgent surgery and surgery is following along with us. - ALLERGIES Allergies/Adverse Reactions: Allergies Allergy/AdvReac Type Severity Reaction Status Date / Time No Known Drug Allergies Allergy Verified 04/24/21 13:59 - MEDICATIONS Home Medications: Ambulatory Orders Medication Instructions Recorded Confirmed Atorvastatin Calcium 40 mg PO QPM 04/24/21 04/26/21 Clopidogrel [Plavix] 75 mg PO DAILY 04/24/21 04/26/21 Lisinopril [Zestril] 2.5 mg PO DAILY 04/24/21 04/26/21 Metoprolol Tartrate [Lopressor] 12.5 mg PO BID 04/24/21 04/26/21 Aspirin [Aspirin EC] 81 mg PO DAILY 04/25/21 04/26/21 - PHYSICAL EXAM AT DISCHARGE Physical Exam Other/Comments: pt signed AMA and quickly left hospital to home. - LABS Result Diagrams: 04/25/21 05:19 04/25/21 05:19 - FOLLOW UP Follow Up: advise pt if he still has symptoms, he may come back to ER - TIME SPENT Time Spent in Discharge (Minutes): 30
[2021-04-26] MEDS ORDERED: METOPROLOL TARTRATE 25 MG TABLET PO SCH (21:00)
[2021-04-26] MEDS ORDERED: ATORVASTATIN 40 MG TABLET PO SCH (21:00)
== END 2021-04-26 14:00 | disposition left against medical advice (07) | DRG 390 ==
LOC: ED 13:34 → MS2 04-25 11:59
PROVIDERS: ADMIT Internal Medicine; ATTEND Nurse Practitioner Gerontology
DX: K56.609 Unspecified intestinal obstruction, unspecified as to partial versus complete obstruction (principal); K56.600 Partial intestinal obstruction, unspecified as to cause; I25.2 Old myocardial infarction; Z20.822 Contact with and (suspected) exposure to COVID-19; Z95.5 Presence of coronary angioplasty implant and graft; I25.10 Atherosclerotic heart disease of native coronary artery without angina pectoris; Z79.01 Long term (current) use of anticoagulants; Z79.82 Long term (current) use of aspirin; Z53.29 Procedure and treatment not carried out because of patient's decision for other reasons
CPT/HCPCS: 36415; 43753; 74018; 74177; 80048; 80053; 81003; 83605; 83690; 84484; 85025; 87631; 93005; 96374; 96375; 96376; 99284; 99285; A9270; J1170; J7120; Q9967; 0202U; 81001; 87086

== ENCOUNTER 2021-04-26 19:56 | Inpatient (IN) | payer MEDICARE ==
[2021-04-26 20:43] LABS: BASOPHILS % (AUTO) 0.4 %; EOSINOPHILS # (AUTO) 0.1 10^3/uL (0.0-0.7); EOSINOPHILS % (AUTO) 0.5 %; HCT - HEMATOCRIT 40.7 % (42.0-52.0); HGB - HEMOGLOBIN 13.5 g/dL (14.0-18.0); LYMPHOCYTES # (AUTO) 1.6 10^3/uL (1.5-3.5); MEAN CORPUSCULAR HEMOGLOBIN 30.8 pg (27.0-31.0); MEAN CORPUSCULAR HGB CONC 33.2 g/dL (32.0-36.0); MEAN CORPUSCULAR VOLUME 92.9 fL (80.0-94.0); MEAN PLATELET VOLUME 8.5 fL (7.4-11.4); MONOCYTES # (AUTO) 0.7 10^3/uL (0.0-1.0); MONOCYTES % (AUTO) 7.6 %; NEUTROPHILS # (AUTO) 6.9 10^3/uL (1.5-6.6); NEUTROPHILS % (AUTO) 74.2 %; PLT - PLATELET COUNT 237 10^3/uL (130-450); RED BLOOD COUNT 4.38 10^6/uL (4.70-6.10); RED CELL DISTRIBUTION WIDTH 11.9 % (12.0-15.0); WHITE BLOOD COUNT 9.3 x10^3/uL (4.8-10.8)
[2021-04-26 20:56] LABS: ALBUMIN 3.7 g/dL (3.2-5.5); ALBUMIN/GLOBULIN RATIO 1.3 (1.0-2.2); BILIRUBIN,TOTAL 1.2 mg/dL (0.2-1.0); CALCIUM 8.4 mg/dL (8.5-10.3); CREATININE 1.1 mg/dL (0.6-1.2); POTASSIUM 3.4 mmol/L (3.5-5.0); TOTAL PROTEIN 6.5 g/dL (6.7-8.2)
[2021-04-26] MEDS ORDERED: ONDANSETRON 4 MG/2 ML VIAL IVP STA (22:03)
[2021-04-26] MEDS ORDERED: SODIUM CHLORIDE 0.9% 1,000 ML IV STA (22:03)
--- NOTE | 2021-04-26 22:07 | ED Physician Documentation ---
PD HPI NVD - Stated complaint Stated Complaint: ABD PX - Chief complaint Chief Complaint: Abd Pain - History obtained from History obtained from: Patient - History of Present Illness Timing - onset: How many days ago (2) Timing - duration: Days (2) Timing - details: Gradual onset, Still present, Waxing and waning Associated symptoms: Abdominal pain. No: Fever Contributing factors: Other (left ama from the hospital today). No: Sick contact, Bad food, Travel, Recent antibiotics, Alcohol use, Anticoagulated, Diabetes Improved by: Laying still, Vomiting Worsened by: Moving, Position, Palpation Similar symptoms before: Diagnosis (SBO) Recently seen: Admitted - Additonal information Additional information: 76-year-old male with no prior history of abdominal surgery has developed a small bowel obstruction was seen in the emergency department here 2 days ago admitted in the hospital and he had an NG tube placed he had some improvement in his pain and symptoms and today he left AGAINST MEDICAL ADVICE feeling that he may build to treat this at home. He got home he had some flatus and felt that he was in the right and then subsequently developed worsening pain nausea and vomiting. His return to the emergency department this evening feeling that he should not of gone home. Review of Systems Constitutional: denies: Fever Eyes: denies: Decreased vision Ears: denies: Ear pain Nose: denies: Congestion Throat: denies: Sore throat Cardiac: denies: Chest pain / pressure, Palpitations Respiratory: denies: Dyspnea, Cough GI: reports: Abdominal Pain, Abdominal Swelling, Nausea, Vomiting. denies: Constipation, Diarrhea : denies: Dysuria, Frequency PD PAST MEDICAL HISTORY - Past Medical History Past Medical History: Yes Cardiovascular: Coronary artery disease, [place] Respiratory: None Neuro: None Endocrine/Autoimmune: None GI: Other : None HEENT: None Psych: None Musculoskeletal: None Derm: None Other Past Medical History: SBO - Past Surgical History Past Surgical History: Yes Cardiovascular: Coronary stent - Present Medications Home Medications: Ambulatory Orders Medication Instructions Recorded Confirmed Atorvastatin Calcium 40 mg PO QPM 04/24/21 04/26/21 Clopidogrel [Plavix] 75 mg PO DAILY 04/24/21 04/26/21 Lisinopril [Zestril] 2.5 mg PO DAILY 04/24/21 04/26/21 Metoprolol Tartrate [Lopressor] 12.5 mg PO BID 04/24/21 04/26/21 Aspirin [Aspirin EC] 81 mg PO DAILY 04/25/21 04/26/21 - Allergies Allergies/Adverse Reactions: Allergies Allergy/AdvReac Type Severity Reaction Status Date / Time No Known Drug Allergies Allergy Verified 04/24/21 13:59 - Social History Does the pt smoke?: No Smoking Status: Never smoker Does the pt drink ETOH?: No Does the pt have substance abuse?: No - Immunizations Immunizations are current?: Yes PD ED PE NORMAL - Vitals Vital signs reviewed: Yes - General General: Alert and oriented X 3, Well developed/nourished, Other (Deeply furloughed brow and flattend affect consistent with chronic pain) - HEENT HEENT: Atraumatic, PERRL, EOMI - Neck Neck: Supple, no meningeal sign, No bony TTP - Cardiac Cardiac: No murmur, Other (tachy to 110) - Respiratory Respiratory: No respiratory distress, Clear bilaterally - Abdomen Abdomen: Soft, Other (decreased bowel sounds distened and generally tender without garding or specific point tenderness.) - Back Back: No CVA TTP, No spinal TTP - Derm Derm: Normal color, Warm and dry, No rash - Extremities Extremities: No deformity, No edema - Neuro Neuro: Alert and oriented 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, 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, No motor deficit, No sensory deficit, Normal speech Eye Opening: Spontaneous Motor: Obeys Commands Verbal: Oriented GCS Score: 15 - Psych Psych: Normal mood, Other (affect is flattend) Results - Vitals Vitals: Vital Signs - 24 hr 04/26/21 04/26/21 20:08 22:35 Temperature 37.3 C Heart Rate 121 H 96 Respiratory 22 18 Rate Blood Pressure 138/79 H 142/86 H O2 Saturation 98 98 Oxygen O2 Source Room air - Labs Labs: Laboratory Tests 04/26/21 04/26/21 20:38 20:38 WBC 9.3 RBC 4.38 L Hgb 13.5 L Hct 40.7 L MCV 92.9 MCH 30.8 MCHC 33.2 RDW 11.9 L Plt Count 237 MPV 8.5 Neut # (Auto) 6.9 H Lymph # (Auto) 1.6 [place] # (Auto) 0.7 Eos # (Auto) 0.1 Baso # (Auto) 0.0 Absolute Nucleated RBC 0.00 Nucleated RBC % 0.0 Sodium 134 L Potassium 3.4 L Chloride 97 L Carbon Dioxide 26 Anion Gap 11.0 BUN 19 Creatinine 1.1 Estimated GFR (MDRD) 65 L Glucose 131 H Calcium 8.4 L Total Bilirubin 1.2 H AST 20 ALT 19 Alkaline Phosphatase 46 Total Protein 6.5 L Albumin 3.7 Globulin 2.8 Albumin/Globulin Ratio 1.3 Lipase 16 L Procedures - IVC sono (time) 2200 Bedside IVC sono: IVC measures (cm) (0.72), Dehydration (est 2 liter deficit) PD MEDICAL DECISION MAKING - ED course Complexity details: reviewed old records, reviewed results, re-evaluated patient, considered differential, d/w patient ED course: 76-year-old male with an recent admission into the hospital for small bowel obstruction has left the emergency has left hospital AGAINST MEDICAL ADVICE and after half a day at home he has returned with persistent symptoms. He is administered intravenous saline as his volume appears contracted and he is administered pain medication, nausea medicine and an NG tube was placed. Dr. Santos is consulted in the case and will place the patient back into the hospital. Departure - Departure Disposition: [facility] DC/Xfer Clinical Impression: SBO (small bowel obstruction)
[2021-04-26] MEDS ORDERED: HYDROmorphone 1 MG/ML CARPUJECT IVP STA (22:37)
[2021-04-26] MEDS ORDERED: SODIUM CHLORIDE FLUSH 0.9% 10 ML SYRINGE IVP PRN (23:29)
--- NOTE | 2021-04-26 23:32 | HISTORY & PHYSICAL EXAMINATION ---
Chief Complaint - Chief Complaint Chief Complaint: abd pain recurrent, says he "should not have left AMA" earlier today History of Present Illness - Admitted From Admitted From:: ED - History Obtained From History obtained from: ED provider - History of Present Illness HPI Comment/Other: 76-year-old WM with history of old [place] this past summer, CAD with stent on aspirin and Plavix. Patient presented to this ER 2 days ago with abdominal pain then had nausea with vomiting and was admitted for small bowel obstruction vs ileus. The patient denied ever having prior abdominal surgery. He was seen by general surgery. He improved somewhat with ng tube decompression, pain meds and with walking, and was on clear liquids, then decided to leave AMA, which was just earlier today. At home, his abdominal pain worsened and again he had nausea and vomited several times and thus he has returned to the ED. He stated he realizes it was wrong to leave AMA. He received pain meds, anti-emetics, iv fluids in the ED and ng tube has been placed. Imaging was not repeated. History - Past Medical History Cardiovascular: reports: Coronary artery disease, [place] Respiratory: reports: None Neuro: reports: None Endocrine/Autoimmune: reports: None GI: reports: Other : reports: None HEENT: reports: None Psych: reports: None Musculoskeletal: reports: None Derm: reports: None MRSA Hx?: No Other Past Medical History: SBO - Past Surgical History Cardiovascular: reports: Coronary stent - Family & Social History Living arrangement: At home Living Situation: With spouse/s.o. Meds/Allgy - Home Medications Home Medications: Ambulatory Orders Medication Instructions Recorded Confirmed Atorvastatin Calcium 40 mg PO QPM 04/24/21 04/26/21 Clopidogrel [Plavix] 75 mg PO DAILY 04/24/21 04/26/21 Lisinopril [Zestril] 2.5 mg PO DAILY 04/24/21 04/26/21 Metoprolol Tartrate [Lopressor] 12.5 mg PO BID 04/24/21 04/26/21 Aspirin [Aspirin EC] 81 mg PO DAILY 04/25/21 04/26/21 - Allergies Allergies/Adverse Reactions: Allergies Allergy/AdvReac Type Severity Reaction Status Date / Time No Known Drug Allergies Allergy Verified 04/24/21 13:59 Review of Systems - Gastrointestinal Gastrointestinal: reports: Abdominal pain, Nausea, Vomiting - All Other Systems All Other Systems: reports: Reviewed and negative Exam - Vital Signs Vital Signs: Vital Signs x48h Temp Pulse Resp BP Pulse Ox 04/26/21 22:35 96 18 142/86 H 98 04/26/21 20:08 37.3 C 121 H 22 138/79 H 98 - Physical Exam General Appearance: positive: Mild distress (currently nauseated and rates his a bd pain 5/10) Eyes Bilateral: positive: Normal inspection ENT: positive: Dry mucous membranes Neck: positive: Nml inspection Respiratory: positive: No respiratory distress, Breath sounds nml Cardiovascular: positive: Regular rate & rhythm, No murmur Abdomen: positive: Other (Mildly distended, tender minimally, no guarding or rebound, bowel sounds are present but faint in all 4 quadrants) Skin: positive: Warm, Dry Extremities: positive: No pedal edema Neurologic/Psychiatric: positive: Oriented x3 (non-focal) Conclusion/Plan - Problem List (1) SBO (small bowel obstruction) Conclusion/Plan: SBO vs ileus. Since he left AMA this morning, we will resume his same plan: ng tube for decompression and bowel rest, pain med and antiemetics prn, walk to try to produce peristalsis and improve the ileus vs SBO, than advance diet as tolerated. Give iv fluids while NPO. (2) Hx of coronary artery disease Conclusion/Plan: Oral meds will be on hold, substituted with iv forms. No Plavix, in case surgery is needed. - Lab Results Fish Bones: 04/26/21 20:38 04/26/21 20:38 - Other Other Results/Comments: Attestation: The patient is expected to be discharged or transferred to another facility within 96 hours: Yes.
[2021-04-27 00:47] LABS: B. PARAPERTUSSIS- RESP PCR PAN NOT DETECTED; B. PERTUSSIS- RESP PCR PANEL NOT DETECTED; C. PNEUMONIAE- RESP PCR PANEL NOT DETECTED; CORONAVIRUS 229E-RESP PCR NOT DETECTED; CORONAVIRUS HKU1-RESP PCR NOT DETECTED; CORONAVIRUS NL63-RESP PCR NOT DETECTED; CORONAVIRUS OC43-RESP PCR NOT DETECTED; HUMAN METAPNEUMOVIRUS NOT DETECTED; INFLUENZA A- RESP PCR PANEL NOT DETECTED; INFLUENZA B - RESP PCR PANEL NOT DETECTED; M. PNEUMONIAE- RESP PCR PANEL NOT DETECTED; PARAINFLUENZA VIRUS 1 NOT DETECTED; PARAINFLUENZA VIRUS 2 NOT DETECTED; PARAINFLUENZA VIRUS 3 NOT DETECTED; PARAINFLUENZA VIRUS 4 NOT DETECTED; RHINOVIRUS/ENTEROVIRUS NOT DETECTED; RSV- RESP PCR PANEL NOT DETECTED; SARS-CoV-2 -RESP PCR PANEL NOT DETECTED
[2021-04-27] MEDS: D5NS W/20 MEQ KCL 1,000 ML IV SCH ×3 (01:30→21:40)
[2021-04-27] MEDS: METOPROLOL 5 MG/5 ML VIAL IVP SCH ×5 (01:39→23:46)
[2021-04-27] MEDS: PROCHLORPERAZINE 10 MG/2 ML VIAL IVP PRN ×3 (01:43→20:00)
[2021-04-27] MEDS: SODIUM CHLORIDE FLUSH 0.9% 10 ML SYRINGE IVP SCH ×4 (01:45→23:57)
[2021-04-27] MEDS: HYDROmorphone 0.5 MG/0.5 ML SYRINGE IVP PRN ×4 (01:53→22:56)
[2021-04-27 04:37] LABS: GLUCOSE, URINE (UA) NEGATIVE (NEGATIVE); KETONES,URINE (UA) >=80 mg/dL (NEGATIVE); LEUKOCYTE ESTERASE, URINE NEGATIVE (NEGATIVE); NITRITE,URINE NEGATIVE (NEGATIVE); OCCULT BLOOD,URINE TRACE-INTA (NEGATIVE); PH,URINE 6.5 PH (5.0-7.5); PROTEIN,URINE NEGATIVE (NEGATIVE); UROBILINOGEN,URINE 1 (NORMAL) E.U./dL (NORMAL)
[2021-04-27 04:40] LABS: BILIRUBIN,URINE NEGATIVE (NEGATIVE); CLARITY,URINE CLEAR (CLEAR); ICTOTEST,URINE NEGATIVE
[2021-04-27 06:30] LABS: BASOPHILS % (AUTO) 0.2 %; EOSINOPHILS % (AUTO) 0.4 %; HCT - HEMATOCRIT 36.7 % (42.0-52.0); HGB - HEMOGLOBIN 12.1 g/dL (14.0-18.0); LYMPHOCYTES # (AUTO) 1.7 10^3/uL (1.5-3.5); LYMPHOCYTES % (AUTO) 19.8 %; MEAN CORPUSCULAR VOLUME 90.8 fL (80.0-94.0); MEAN PLATELET VOLUME 8.7 fL (7.4-11.4); MONOCYTES # (AUTO) 0.7 10^3/uL (0.0-1.0); NEUTROPHILS # (AUTO) 6.1 10^3/uL (1.5-6.6); NEUTROPHILS % (AUTO) 71.4 %; PLT - PLATELET COUNT 223 10^3/uL (130-450); RED BLOOD COUNT 4.04 10^6/uL (4.70-6.10); WHITE BLOOD COUNT 8.5 x10^3/uL (4.8-10.8)
[2021-04-27 06:43] LABS: CALCIUM 8.1 mg/dL (8.5-10.3); CREATININE 0.8 mg/dL (0.6-1.2); MAGNESIUM 2.1 mg/dL (1.7-2.8); POTASSIUM 3.5 mmol/L (3.5-5.0)
[2021-04-27] MEDS: ONDANSETRON 4 MG/2 ML VIAL IVP PRN ×2 (06:51→16:00)
--- NOTE | 2021-04-27 12:02 | XRAY Report ---
PROCEDURE: Abdomen 1 View X-Ray INDICATIONS: NG location? any improve for SBO? TECHNIQUE: 1 view of the abdomen were acquired. COMPARISON: April 26, 2021 FINDINGS: ABDOMEN: Redemonstrated dilatation of the small bowel, which may reflect ileus or partial obstruction . An enteric tube is seen extending below the left diaphragm with sidehole in the region of the gastr oesophageal junction. BONES/SOFT TISSUES: No acute abnormality. IMPRESSION: 1.Enteric tube as detailed above. Reviewed by: César Otero MD on 04/27/2021 12:00 PM [facility] Approved by: César Otero MD on 04/27/2021 12:00 PM [facility] Station ID: [id number]
--- NOTE | 2021-04-27 15:23 | PROVIDER PROGRESS NOTE ---
Assessment/Plan - Problem List (1) SBO (small bowel obstruction) Assessment/Plan: 04/27 pt report he return to hospital 6 hours after he signed AMA to home. he report he had abdominal pain, N/V at home, "I just can not hold any more." pt had good bowel sound. KUB show ileus or partial obstruction. 700cc dark green fluid from NG tube. continue NPO, IVF, NG tube, pain control, Antiemesis as needed, NG tube should be approximately 10 cm beyond the Gastro oesophageal junction as shown in KUB, but now NG tube is located at sidehole at gastroesophageal junction. continue consult with GI surgeon (2) Hx of coronary artery disease Conclusion/Plan: 04/27, Oral meds will be on hold, substituted with Aspirin CT form. pt had [place] and stent about 5 months ago, continue IV Metoprolol, add tele monitor. No Plavix, in case surgery is needed. - Current Meds Current Meds: Current Medications Generic Name Dose Route Start Last Admin Trade Name Freq PRN Reason Stop Dose Admin Hydromorphone HCl 0.5 mg 04/27/21 00:32 04/27/21 10:24 Hydromorphone 0.5 Mg/0.5 Ml Syringe IVP 0.5 mg Q2H PRN Administration Severe Pain Potassium Chloride/Dextrose/Sod Cl 1,000 mls @ 100 mls/hr 04/26/21 23:45 04/27/21 11:02 D5ns W/20 Meq Kcl IV 100 mls/hr .Q10H ANTHONY Administration Metoprolol Tartrate 5 mg 04/27/21 00:00 04/27/21 12:37 Metoprolol 5 Mg/5 Ml Vial IVP 5 mg Q6HR ANTHONY Administration Ondansetron HCl 4 mg 04/26/21 23:31 04/27/21 06:51 Ondansetron 4 Mg/2 Ml Vial IVP 4 mg Q6HR PRN Administration Nausea / Vomiting Prochlorperazine Edisylate 10 mg 04/27/21 00:33 04/27/21 08:10 Prochlorperazine 10 Mg/2 Ml Vial IVP 10 mg Q6HR PRN Administration Nausea / Vomiting Sodium Chloride 10 ml 04/27/21 01:00 04/27/21 11:03 Sodium Chloride Flush 0.9% 10 Ml Syringe IVP Not Given 0100,0900,1700 ANTHONY - Lab Result Fish Bone Diagrams: 04/27/21 06:13 04/27/21 06:13 - Additional Planning My Orders: My Active Orders 04/27/21 General Surgery Consult [CONS] Routine 04/27/21 09:08 Echo Transthoracic Complete [ECHO] Stat 04/27/21 14:42 Miscellaenous Nursing Order [RC] ONCE 04/28/21 09:00 Aspirin Supp [Aspirin] [address] DAILY Subjective - Subjective Patient Reports: Resting Comfortably Objective Vital Signs: Vital Signs - 24 hr 04/26/21 04/26/21 04/27/21 20:08 22:35 00:34 Temperature 37.3 C 36.8 C Heart Rate 121 H 96 Heart Rate [ 104 H Brachial] Respiratory 22 18 20 Rate Blood Pressure 138/79 H 142/86 H Blood Pressure [Left Brachial artery] Blood Pressure 160/76 H [Right Brachial artery] O2 Saturation 98 98 100 04/27/21 04/27/21 04/27/21 01:39 01:43 01:45 Temperature Heart Rate Heart Rate [ 98 95 Brachial] Respiratory Rate Blood Pressure 149/75 H Blood Pressure [Left Brachial artery] Blood Pressure 146/71 H 149/75 H [Right Brachial artery] O2 Saturation 04/27/21 04/27/21 04/27/21 01:50 02:00 06:57 Temperature Heart Rate Heart Rate [ 76 67 Brachial] Respiratory Rate Blood Pressure 142/80 H Blood Pressure [Left Brachial artery] Blood Pressure 134/68 H 130/68 [Right Brachial artery] O2 Saturation 04/27/21 04/27/21 04/27/21 06:59 07:04 07:16 Temperature 37.0 C Heart Rate Heart Rate [ 68 64 69 Brachial] Respiratory 18 Rate Blood Pressure Blood Pressure 129/66 [Left Brachial artery] Blood Pressure 135/71 H 137/73 H [Right Brachial artery] O2 Saturation 94 04/27/21 04/27/21 04/27/21 12:32 12:37 12:39 Temperature Heart Rate Heart Rate [ 87 93 Brachial] Respiratory Rate Blood Pressure 127/62 Blood Pressure 127/62 129/71 [Left Brachial artery] Blood Pressure [Right Brachial artery] O2 Saturation 96 04/27/21 04/27/21 04/27/21 12:45 12:50 12:55 Temperature Heart Rate Heart Rate [ 60 57 L 67 Brachial] Respiratory Rate Blood Pressure Blood Pressure 124/61 120/60 123/64 [Left Brachial artery] Blood Pressure [Right Brachial artery] O2 Saturation 04/27/21 04/27/21 13:09 13:25 Temperature Heart Rate Heart Rate [ 79 84 Brachial] Respiratory Rate Blood Pressure Blood Pressure 130/65 122/71 [Left Brachial artery] Blood Pressure [Right Brachial artery] O2 Saturation Oxygen O2 Source Room air I&O (Last 24 Hrs): Intake and Output Totals x24h 04/25/21 04/26/21 04/27/21 23:59 23:59 23:59 Intake Total 1000 1494.333 Output Total 700 Balance 1000 794.333 General: Alert, Oriented x3, No acute distress HEENT: Atraumatic Neck: Supple Lymphatic: no adenopathy Neuro: Alert, Non Focal, Oriented Times 3 Cardiovascular: Regular rate, Normal S1, Normal S2 Respiratory: Chest non-tender, No respiratory distress Abdomen: Normal bowel sounds, Soft Extremities: Normal pulses - Results Results: Laboratory Results WBC 8.5 x10^3/uL (4.8-10.8) 04/27/21 06:13 RBC 4.04 10^6/uL (4.70-6.10) L 04/27/21 06:13 Hgb 12.1 g/dL (14.0-18.0) L 04/27/21 06:13 Hct 36.7 % (42.0-52.0) L 04/27/21 06:13 MCV 90.8 fL (80.0-94.0) 04/27/21 06:13 MCH 30.0 pg (27.0-31.0) 04/27/21 06:13 MCHC 33.0 g/dL (32.0-36.0) 04/27/21 06:13 RDW 12.0 % (12.0-15.0) 04/27/21 06:13 Plt Count 223 10^3/uL (130-450) 04/27/21 06:13 MPV 8.7 fL (7.4-11.4) 04/27/21 06:13 Neut # (Auto) 6.1 10^3/uL (1.5-6.6) 04/27/21 06:13 Lymph # (Auto) 1.7 10^3/uL (1.5-3.5) 04/27/21 06:13 [place] # (Auto) 0.7 10^3/uL (0.0-1.0) 04/27/21 06:13 Eos # (Auto) 0.0 10^3/uL (0.0-0.7) 04/27/21 06:13 Baso # (Auto) 0.0 10^3/uL (0.0-0.1) 04/27/21 06:13 Absolute Nucleated RBC 0.00 x10^3/uL 04/27/21 06:13 Nucleated RBC % 0.0 /100WBC 04/27/21 06:13 Sodium 137 mmol/L (135-145) 04/27/21 06:13 Potassium 3.5 mmol/L (3.5-5.0) 04/27/21 06:13 Chloride 102 mmol/L (101-111) 04/27/21 06:13 Carbon Dioxide 26 mmol/L (21-32) 04/27/21 06:13 Anion Gap 9.0 (6-13) 04/27/21 06:13 BUN 17 mg/dL (6-20) 04/27/21 06:13 Creatinine 0.8 mg/dL (0.6-1.2) 04/27/21 06:13 Estimated GFR (MDRD) 94 (>89) 04/27/21 06:13 Glucose 140 mg/dL (70-100) H 04/27/21 06:13 Calcium 8.1 mg/dL (8.5-10.3) L 04/27/21 06:13 Magnesium 2.1 mg/dL (1.7-2.8) 04/27/21 06:13 Total Bilirubin 1.2 mg/dL (0.2-1.0) H 04/26/21 20:38 AST 20 IU/L (10-42) 04/26/21 20:38 ALT 19 IU/L (10-60) 04/26/21 20:38 Alkaline Phosphatase 46 IU/L (42-121) 04/26/21 20:38 Total Protein 6.5 g/dL (6.7-8.2) L 04/26/21 20:38 Albumin 3.7 g/dL (3.2-5.5) 04/26/21 20:38 Globulin 2.8 g/dL (2.1-4.2) 04/26/21 20:38 Albumin/Globulin Ratio 1.3 (1.0-2.2) 04/26/21 20:38 Lipase 16 U/L (22-51) L 04/26/21 20:38 Urine Color YELLOW 04/26/21 04:20 Urine Clarity CLEAR (CLEAR) 04/26/21 04:20 Urine pH 6.5 PH (5.0-7.5) 04/26/21 04:20 Ur Specific [place] 1.020 (1.002-1.030) 04/26/21 04:20 Urine Protein NEGATIVE mg/dL (NEGATIVE) 04/26/21 04:20 Urine Glucose (UA) NEGATIVE mg/dL (NEGATIVE) 04/26/21 04:20 Urine Ketones >=80 mg/dL (NEGATIVE) H 04/26/21 04:20 Urine Occult Blood TRACE-INTA (NEGATIVE) 04/26/21 04:20 Urine Nitrite NEGATIVE (NEGATIVE) 04/26/21 04:20 Urine Bilirubin NEGATIVE (NEGATIVE) 04/26/21 04:20 Urine Urobilinogen 1 (NORMAL) E.U./dL (NORMAL) 04/26/21 04:20 Ur Leukocyte Esterase NEGATIVE (NEGATIVE) 04/26/21 04:20 Ur Microscopic Review NOT INDICATED 04/26/21 04:20 Urine Culture Comments NOT INDICATED 04/26/21 04:20 Nasal Adenovirus (PCR) NOT DETECTED 04/26/21 23:47 Nasal B. parapertussis DNA (PCR) NOT DETECTED 04/26/21 23:47 Nasal Coronavir 229E PCR NOT DETECTED 04/26/21 23:47 Nasal Coronavir HKU1 PCR NOT DETECTED 04/26/21 23:47 Nasal Coronavir NL63 PCR NOT DETECTED 04/26/21 23:47 Nasal Coronavir OC43 PCR NOT DETECTED 04/26/21 23:47 Nasal Enterovir/Rhinovir PCR NOT DETECTED 04/26/21 23:47 Nasal Influenza B PCR NOT DETECTED 04/26/21 23:47 Nasal Influenza A PCR NOT DETECTED 04/26/21 23:47 Nasal Parainfluen 1 PCR NOT DETECTED 04/26/21 23:47 Nasal Parainfluen 2 PCR NOT DETECTED 04/26/21 23:47 Nasal Parainfluen 3 PCR NOT DETECTED 04/26/21 23:47 Nasal Parainfluen 4 PCR NOT DETECTED 04/26/21 23:47 Nasal RSV (PCR) NOT DETECTED 04/26/21 23:47 Nasal B.pertussis DNA PCR NOT DETECTED 04/26/21 23:47 Nasal C.pneumoniae (PCR) NOT DETECTED 04/26/21 23:47 [place] Human Metapneumo PCR NOT DETECTED 04/26/21 23:47 Nasal M.pneumoniae (PCR) NOT DETECTED 04/26/21 23:47 Nasal SARS-CoV-2 (PCR) NOT DETECTED 04/26/21 23:47 ABX Reporting Has patient been on IV antibiotics over the past 48 hours?: No Current Medications - Current Medications Current Medications: Active Medications Aspirin (Aspirin 300 Mg Supp) [address] DAILY [facility] Hydromorphone HCl (Hydromorphone 0.5 Mg/0.5 Ml Syringe) 0.5 mg IVP Q2H PRN PRN Reason: Severe Pain Last Admin: 04/27/21 10:24 Dose: 0.5 mg Documented by: Potassium Chloride/Dextrose/Sod Cl (D5ns W/20 Meq Kcl) 1,000 mls @ 100 mls/hr IV .Q10H [facility] Last Admin: 04/27/21 11:02 Dose: 100 mls/hr Documented by: Metoprolol Tartrate (Metoprolol 5 Mg/5 Ml Vial) 5 mg IVP Q6HR [facility] Last Admin: 04/27/21 12:37 Dose: 5 mg Documented by: Ondansetron HCl (Ondansetron 4 Mg/2 Ml Vial) 4 mg IVP Q6HR PRN PRN Reason: Nausea / Vomiting Last Admin: 04/27/21 06:51 Dose: 4 mg Documented by: Prochlorperazine Edisylate (Prochlorperazine 10 Mg/2 Ml Vial) 10 mg IVP Q6HR PRN PRN Reason: Nausea / Vomiting Last Admin: 04/27/21 08:10 Dose: 10 mg Documented by: Sodium Chloride (Sodium Chloride Flush 0.9% 10 Ml Syringe) 10 ml IVP PRN PRN PRN Reason: NEEDED PER PROVIDER ORDERS Sodium Chloride (Sodium Chloride Flush 0.9% 10 Ml Syringe) 10 ml IVP 0100,0900,1700 [facility] Last Admin: 04/27/21 11:03 Dose: Not Given Documented by: Atorvastatin Calcium 40 mg PO QPM 04/24/21 Clopidogrel [Plavix] 75 mg PO DAILY 04/24/21 Lisinopril [Zestril] 2.5 mg PO DAILY 04/24/21 Metoprolol Tartrate [Lopressor] 12.5 mg PO BID 04/24/21 Aspirin [Aspirin EC] 81 mg PO DAILY 04/25/21
[2021-04-27] MEDS ORDERED: PHENOL THROAT SPRAY 177 ML MM PRN (19:01)
[2021-04-28] MEDS: METOPROLOL 5 MG/5 ML VIAL IVP SCH ×4 (05:02→23:38)
[2021-04-28] MEDS: HYDROmorphone 0.5 MG/0.5 ML SYRINGE IVP PRN ×2 (05:07→08:50)
[2021-04-28] MEDS: PROCHLORPERAZINE 10 MG/2 ML VIAL IVP PRN ×4 (05:11→23:37)
[2021-04-28 07:05] LABS: CALCIUM 7.6 mg/dL (8.5-10.3); POTASSIUM 3.3 mmol/L (3.5-5.0)
[2021-04-28 07:16] LABS: BASOPHILS % (AUTO) 0.5 %; EOSINOPHILS # (AUTO) 0.1 10^3/uL (0.0-0.7); EOSINOPHILS % (AUTO) 1.2 %; HCT - HEMATOCRIT 33.6 % (42.0-52.0); HGB - HEMOGLOBIN 11.3 g/dL (14.0-18.0); LYMPHOCYTES # (AUTO) 1.2 10^3/uL (1.5-3.5); LYMPHOCYTES % (AUTO) 20.6 %; MEAN CORPUSCULAR HEMOGLOBIN 30.7 pg (27.0-31.0); MEAN CORPUSCULAR HGB CONC 33.6 g/dL (32.0-36.0); MEAN CORPUSCULAR VOLUME 91.3 fL (80.0-94.0); MEAN PLATELET VOLUME 8.9 fL (7.4-11.4); MONOCYTES # (AUTO) 0.5 10^3/uL (0.0-1.0); NEUTROPHILS # (AUTO) 3.8 10^3/uL (1.5-6.6); NEUTROPHILS % (AUTO) 67.8 %; PLT - PLATELET COUNT 211 10^3/uL (130-450); RED BLOOD COUNT 3.68 10^6/uL (4.70-6.10); RED CELL DISTRIBUTION WIDTH 11.9 % (12.0-15.0); WHITE BLOOD COUNT 5.7 x10^3/uL (4.8-10.8)
[2021-04-28] MEDS: POTASSIUM CHLOR 10 MEQ/100 ML 10 MEQ/100 ML BAG IV SCH ×2 (08:54→09:58)
[2021-04-28] MEDS ORDERED: ASPIRIN 300 MG SUPP PR SCH (09:00)
--- NOTE | 2021-04-28 09:53 | XRAY Report ---
PROCEDURE: Abdomen 1 View X-Ray INDICATIONS: if SBO improved TECHNIQUE: 1 view of the abdomen were acquired. COMPARISON: 04/27/2021 FINDINGS: Surgical changes and devices: None. Bowel: Dilated loops of small bowel are seen measuring up to 4 cm. No free air, pneumatosis, or nevin l venous gas. Soft tissues: No masses; visualized solid organ contours appear normal in size. No suspicious abdom inal calcifications. Bones: No suspicious bony abnormalities. IMPRESSION: Dilated air-filled loops of small bowel consistent with small bowel obstruction, [facility]. Reviewed by: Erasmo Santana on 04/28/2021 8:52 AM MIS Approved by: Erasmo Santana on 04/28/2021 8:52 AM [facility] Station ID: [id number]
[2021-04-28] MEDS: D5NS W/20 MEQ KCL 1,000 ML IV SCH ×2 (09:58→17:12)
[2021-04-28] MEDS: SODIUM CHLORIDE FLUSH 0.9% 10 ML SYRINGE IVP SCH ×3 (09:59→23:38)
--- NOTE | 2021-04-28 10:22 | CONSULTATION NOTE ---
Surgery Consult - Admit Date Hospital Admission Date: 04/26/21 - Consult Date Consult Date: 04/28/21 Requesting Provider: Wally - Chief Complaint Chief Complaint: N/V/abdominal distention - Home Meds/Allergies Home Medications: Patient History Medication Instructions Recorded Confirmed Atorvastatin Calcium 40 mg PO QPM 04/24/21 04/26/21 Clopidogrel [Plavix] 75 mg PO DAILY 04/24/21 04/26/21 Lisinopril [Zestril] 2.5 mg PO DAILY 04/24/21 04/26/21 Metoprolol Tartrate [Lopressor] 12.5 mg PO BID 04/24/21 04/26/21 Aspirin [Aspirin EC] 81 mg PO DAILY 04/25/21 04/26/21 Allergies/Adverse Reactions: Allergies Allergy/AdvReac Type Severity Reaction Status Date / Time No Known Drug Allergies Allergy Verified 04/24/21 13:59 - Vital Signs Vital Signs: Last Vital Signs Temp 36.8 C 04/28/21 07:43 Pulse 87 04/28/21 07:43 Resp 18 04/28/21 07:43 BP 111/57 L 04/28/21 07:43 Pulse Ox 93 04/28/21 07:43 Intake & Output: Intake & Output 04/25/21 04/26/21 04/27/21 04/28/21 23:59 23:59 23:59 23:59 Intake Total 1000 2524.333 1100 Output Total 900 Balance 1000 0654.649 7981 - Lab Results Result Diagrams: 04/28/21 06:36 04/28/21 06:36 - Consultation Note Consultation Note: 76 yo male has had N/V and abdominal distention for past 4-5 days. Admitted briefly here and CT done 04/24 showing probable SBO. Patient left AMA but returned six hours later because of persistent symptoms. NG placed with initial large output, then decreased output and NG pulled last night due to partial removal. Today he feels better and had a few small BMs last night, but abdominal films continue to show dilated loops of small bowel. No previous abdominal surgery. Hx of CAD s/p ND with stent placed about 6 months ago. On ASA and Plavix, plavix held. Exam: VS normal Alert and oriented Chest clear CV RRsM Abdomen: slightly distended, nontender, no masses Ext: no edema Abdominal xray today shows SB loops distended to 4 cm. Assess: Small bowel obstruction Hx of ND with stent placed 6 months ago. Cardiac echo OK. Plan: GG SBFT study today to rule out complete SBO
--- NOTE | 2021-04-28 11:22 | PROVIDER PROGRESS NOTE ---
Assessment/Plan - Problem List (1) SBO (small bowel obstruction) Assessment/Plan: 04/28 pt had no NG after he accident took off on today cloth hand. pt had small bowel movements. KUB show Dilated air-filled loops of small bowel consistent with small bowel obstruction. followup with surgeon, surgeon plan after having gastrografin study, have surgery for pt on today afternoon. will follow pt for s/p surgery care. called pt's and left message to her pt had [place] and stent done about 5 months ago. ECHO study show normal EF and no evidence for aortic stenosis. estimated risk of adverse outcome with non cardiac surgery is low risk. Estimated rate of myocardia infarction, pulmonary edema, ventricular fibrillation, cardiac arrest or complete heart block is 0.9% 04/27 pt report he return to hospital 6 hours after he signed AMA to home. he report he had abdominal pain, N/V at home, "I just can not hold any more." pt had good bowel sound. KUB show ileus or partial obstruction. 700cc dark green fluid from NG tube. continue NPO, IVF, NG tube, pain control, Antiemesis as needed, NG tube should be approximately 10 cm beyond the Gastro oesophageal junction as shown in KUB, but now NG tube is located at sidehole at gastroesophageal junction. continue consult with GI surgeon (2) Hx of coronary artery disease Conclusion/Plan: 04/28 pt is stable, denies chest pain. pt plan to have surgery on today, hold his home Plavix now, will resume home meds soon after surgery. 04/27, Oral meds will be on hold, substituted with Aspirin AL form. pt had [place] and stent about 5 months ago, continue IV Metoprolol, add tele monitor. No Plavix, in case surgery is needed. - Current Meds Current Meds: Current Medications Generic Name Dose Route Start Last Admin Trade Name Freq PRN Reason Stop Dose Admin Aspirin 300 mg 04/28/21 09:00 04/28/21 11:07 Aspirin 300 Mg Supp AL Not Given DAILY ANTHONY Hydromorphone HCl 0.5 mg 04/27/21 00:32 04/28/21 08:50 Hydromorphone 0.5 Mg/0.5 Ml Syringe IVP 0.5 mg Q2H PRN Administration Severe Pain Potassium Chloride/Dextrose/Sod Cl 1,000 mls @ 100 mls/hr 04/26/21 23:45 04/28/21 09:58 D5ns W/20 Meq Kcl IV 100 mls/hr .Q10H ANTHONY Administration Metoprolol Tartrate 5 mg 04/27/21 00:00 04/28/21 05:02 Metoprolol 5 Mg/5 Ml Vial IVP Not Given Q6HR ANTHONY Ondansetron HCl 4 mg 04/26/21 23:31 04/27/21 16:00 Ondansetron 4 Mg/2 Ml Vial IVP 4 mg Q6HR PRN Administration Nausea / Vomiting Phenol/Menthol 2 sprays 04/27/21 19:01 04/27/21 19:17 Phenol Throat [place] 177 Ml MM 2 sprays Q2HR PRN Administration Throat Pain Prochlorperazine Edisylate 10 mg 04/27/21 00:33 04/28/21 05:11 Prochlorperazine 10 Mg/2 Ml Vial IVP 10 mg Q6HR PRN Administration Nausea / Vomiting Sodium Chloride 10 ml 04/27/21 01:00 04/28/21 09:59 Sodium Chloride Flush 0.9% 10 Ml Syringe IVP Not Given 0100,0900,1700 ANTHONY - Lab Result Fish Bone Diagrams: 04/28/21 06:36 04/28/21 06:36 - Additional Planning My Orders: My Active Orders 04/27/21 15:30 Telemetry- [RC] Q4HR 04/27/21 19:01 phenoL [Chloraseptic] 2 sprays MM Q2HR PRN 04/28/21 09:00 Aspirin Supp [Aspirin] 300 mg AL DAILY Subjective - Subjective Patient Reports: Resting Comfortably Objective Vital Signs: Vital Signs - 24 hr 04/27/21 04/27/21 04/27/21 12:32 12:37 12:39 Temperature Heart Rate [ 87 93 Brachial] Respiratory Rate Blood Pressure 127/62 Blood Pressure 127/62 129/71 [Left Brachial artery] O2 Saturation 96 04/27/21 04/27/21 04/27/21 12:45 12:50 12:55 Temperature Heart Rate [ 60 57 L 67 Brachial] Respiratory Rate Blood Pressure Blood Pressure 124/61 120/60 123/64 [Left Brachial artery] O2 Saturation 04/27/21 04/27/21 04/27/21 13:09 13:25 16:30 Temperature 36.7 C Heart Rate [ 79 84 79 Brachial] Respiratory 16 Rate Blood Pressure Blood Pressure 130/65 122/71 133/70 H [Left Brachial artery] O2 Saturation 98 04/27/21 04/27/21 04/27/21 18:58 20:53 23:46 Temperature 36.6 C Heart Rate [ 72 Brachial] Respiratory 16 Rate Blood Pressure 143/72 H 107/61 Blood Pressure 119/72 [Left Brachial artery] O2 Saturation 96 04/27/21 04/28/21 04/28/21 23:50 04:36 05:02 Temperature 37.1 C 37.0 C Heart Rate [ 94 84 Brachial] Respiratory 16 20 Rate Blood Pressure 103/60 Blood Pressure 107/61 103/60 [Left Brachial artery] O2 Saturation 92 95 04/28/21 07:43 Temperature 36.8 C Heart Rate [ 87 Brachial] Respiratory 18 Rate Blood Pressure Blood Pressure 111/57 L [Left Brachial artery] O2 Saturation 93 Oxygen O2 Source Room air I&O (Last 24 Hrs): Intake and Output Totals x24h 04/26/21 04/27/21 04/28/21 23:59 23:59 23:59 Intake Total 1000 2524.333 1200 Output Total 900 Balance 1000 7765.213 1722 General: Alert, Oriented x3, Cooperative, No acute distress HEENT: Atraumatic Neck: Supple Lymphatic: no adenopathy Neuro: Alert, Non Focal, Oriented Times 3 Cardiovascular: Regular rate, Normal S1, Normal S2 Respiratory: Chest non-tender, No respiratory distress Abdomen: Normal bowel sounds, Soft, No tenderness Extremities: Normal pulses - Results Results: Laboratory Results WBC 5.7 x10^3/uL (4.8-10.8) 04/28/21 06:36 RBC 3.68 10^6/uL (4.70-6.10) L 04/28/21 06:36 Hgb 11.3 g/dL (14.0-18.0) L 04/28/21 06:36 Hct 33.6 % (42.0-52.0) L 04/28/21 06:36 MCV 91.3 fL (80.0-94.0) 04/28/21 06:36 MCH 30.7 pg (27.0-31.0) 04/28/21 06:36 MCHC 33.6 g/dL (32.0-36.0) 04/28/21 06:36 RDW 11.9 % (12.0-15.0) L 04/28/21 06:36 Plt Count 211 10^3/uL (130-450) 04/28/21 06:36 MPV 8.9 fL (7.4-11.4) 04/28/21 06:36 Neut # (Auto) 3.8 10^3/uL (1.5-6.6) 04/28/21 06:36 Lymph # (Auto) 1.2 10^3/uL (1.5-3.5) L 04/28/21 06:36 [place] # (Auto) 0.5 10^3/uL (0.0-1.0) 04/28/21 06:36 Eos # (Auto) 0.1 10^3/uL (0.0-0.7) 04/28/21 06:36 Baso # (Auto) 0.0 10^3/uL (0.0-0.1) 04/28/21 06:36 Absolute Nucleated RBC 0.00 x10^3/uL 04/28/21 06:36 Nucleated RBC % 0.0 /100WBC 04/28/21 06:36 Sodium 134 mmol/L (135-145) L 04/28/21 06:36 Potassium 3.3 mmol/L (3.5-5.0) L 04/28/21 06:36 Chloride 103 mmol/L (101-111) 04/28/21 06:36 Carbon Dioxide 25 mmol/L (21-32) 04/28/21 06:36 Anion Gap 6.0 (6-13) 04/28/21 06:36 BUN 11 mg/dL (6-20) 04/28/21 06:36 Creatinine 1.0 mg/dL (0.6-1.2) 04/28/21 06:36 Estimated GFR (MDRD) 73 (>89) L 04/28/21 06:36 Glucose 133 mg/dL (70-100) H 04/28/21 06:36 Calcium 7.6 mg/dL (8.5-10.3) L 04/28/21 06:36 Magnesium 2.1 mg/dL (1.7-2.8) 04/27/21 06:13 Total Bilirubin 1.2 mg/dL (0.2-1.0) H 04/26/21 20:38 AST 20 IU/L (10-42) 04/26/21 20:38 ALT 19 IU/L (10-60) 04/26/21 20:38 Alkaline Phosphatase 46 IU/L (42-121) 04/26/21 20:38 Total Protein 6.5 g/dL (6.7-8.2) L 04/26/21 20:38 Albumin 3.7 g/dL (3.2-5.5) 04/26/21 20:38 Globulin 2.8 g/dL (2.1-4.2) 04/26/21 20:38 Albumin/Globulin Ratio 1.3 (1.0-2.2) 04/26/21 20:38 Lipase 16 U/L (22-51) L 04/26/21 20:38 Urine Color YELLOW 04/26/21 04:20 Urine Clarity CLEAR (CLEAR) 04/26/21 04:20 Urine pH 6.5 PH (5.0-7.5) 04/26/21 04:20 Ur Specific [place] 1.020 (1.002-1.030) 04/26/21 04:20 Urine Protein NEGATIVE mg/dL (NEGATIVE) 04/26/21 04:20 Urine Glucose (UA) NEGATIVE mg/dL (NEGATIVE) 04/26/21 04:20 Urine Ketones >=80 mg/dL (NEGATIVE) H 04/26/21 04:20 Urine Occult Blood TRACE-INTA (NEGATIVE) 04/26/21 04:20 Urine Nitrite NEGATIVE (NEGATIVE) 04/26/21 04:20 Urine Bilirubin NEGATIVE (NEGATIVE) 04/26/21 04:20 Urine Urobilinogen 1 (NORMAL) E.U./dL (NORMAL) 04/26/21 04:20 Ur Leukocyte Esterase NEGATIVE (NEGATIVE) 04/26/21 04:20 Ur Microscopic Review NOT INDICATED 04/26/21 04:20 Urine Culture Comments NOT INDICATED 04/26/21 04:20 Nasal Adenovirus (PCR) NOT DETECTED 04/26/21 23:47 Nasal B. parapertussis DNA (PCR) NOT DETECTED 04/26/21 23:47 Nasal Coronavir 229E PCR NOT DETECTED 04/26/21 23:47 Nasal Coronavir HKU1 PCR NOT DETECTED 04/26/21 23:47 Nasal Coronavir NL63 PCR NOT DETECTED 04/26/21 23:47 Nasal Coronavir OC43 PCR NOT DETECTED 04/26/21 23:47 Nasal Enterovir/Rhinovir PCR NOT DETECTED 04/26/21 23:47 Nasal Influenza B PCR NOT DETECTED 04/26/21 23:47 Nasal Influenza A PCR NOT DETECTED 04/26/21 23:47 Nasal Parainfluen 1 PCR NOT DETECTED 04/26/21 23:47 Nasal Parainfluen 2 PCR NOT DETECTED 04/26/21 23:47 Nasal Parainfluen 3 PCR NOT DETECTED 04/26/21 23:47 Nasal Parainfluen 4 PCR NOT DETECTED 04/26/21 23:47 Nasal RSV (PCR) NOT DETECTED 04/26/21 23:47 Nasal B.pertussis DNA PCR NOT DETECTED 04/26/21 23:47 Nasal C.pneumoniae (PCR) NOT DETECTED 04/26/21 23:47 Benny Human Metapneumo PCR NOT DETECTED 04/26/21 23:47 Nasal M.pneumoniae (PCR) NOT DETECTED 04/26/21 23:47 Nasal SARS-CoV-2 (PCR) NOT DETECTED 04/26/21 23:47 ABX Reporting Has patient been on IV antibiotics over the past 48 hours?: No Current Medications - Current Medications Current Medications: Active Medications Aspirin (Aspirin 300 Mg Supp) 300 mg AL DAILY [facility] Last Admin: 04/28/21 11:07 Dose: Not Given Documented by: Hydromorphone HCl (Hydromorphone 0.5 Mg/0.5 Ml Syringe) 0.5 mg IVP Q2H PRN PRN Reason: Severe Pain Last Admin: 04/28/21 08:50 Dose: 0.5 mg Documented by: Potassium Chloride/Dextrose/Sod Cl (D5ns W/20 Meq Kcl) 1,000 mls @ 100 mls/hr IV .Q10H ANTHONY Last Admin: 04/28/21 09:58 Dose: 100 mls/hr Documented by: Metoprolol Tartrate (Metoprolol 5 Mg/5 Ml Vial) 5 mg IVP Q6HR ANTHONY Last Admin: 04/28/21 05:02 Dose: Not Given Documented by: Ondansetron HCl (Ondansetron 4 Mg/2 Ml Vial) 4 mg IVP Q6HR PRN PRN Reason: Nausea / Vomiting Last Admin: 04/27/21 16:00 Dose: 4 mg Documented by: Phenol/Menthol (Phenol Throat [place] 177 Ml) 2 sprays MM Q2HR PRN PRN Reason: Throat Pain Last Admin: 04/27/21 19:17 Dose: 2 sprays Documented by: Prochlorperazine Edisylate (Prochlorperazine 10 Mg/2 Ml Vial) 10 mg IVP Q6HR PRN PRN Reason: Nausea / Vomiting Last Admin: 04/28/21 11:24 Dose: 10 mg Documented by: Sodium Chloride (Sodium Chloride Flush 0.9% 10 Ml Syringe) 10 ml IVP PRN PRN PRN Reason: NEEDED PER PROVIDER ORDERS Sodium Chloride (Sodium Chloride Flush 0.9% 10 Ml Syringe) 10 ml IVP 0100,0900,1700 ANTHONY Last Admin: 04/28/21 09:59 Dose: Not Given Documented by: Atorvastatin Calcium 40 mg PO QPM 04/24/21 Clopidogrel [Plavix] 75 mg PO DAILY 04/24/21 Lisinopril [Zestril] 2.5 mg PO DAILY 04/24/21 Metoprolol Tartrate [Lopressor] 12.5 mg PO BID 04/24/21 Aspirin [Aspirin EC] 81 mg PO DAILY 04/25/21
[2021-04-28] MEDS: ONDANSETRON 4 MG/2 ML VIAL IVP PRN (12:35)
[2021-04-28] MEDS ORDERED: DIATR MEGLU/DIATRIZOATE SODIUM 120 ML BOTTLE PO ONE (14:30)
--- NOTE | 2021-04-28 15:23 | XRAY Report ---
PROCEDURE: Small Bowel Follow Through INDICATIONS: rule out SBO COMPARISON: CONTRAST: CONTRAST: Gastrografin FINDINGS: KUB: Preprocedural under water assistant film demonstrates air-filled loops of small and large bowel. No suspicious abdominal calcifications. Visualized solid organ contours appear normal. No suspicious bony abnorma lities. Small bowel: Gastrografin contrast reached the large bowel and is present in the rectum on the 4 hour film. Small bowel loops are mildly distended throughout. Mucosal folds are smooth and of normal thic kness. No strictures, intraluminal masses, or extrinsic mass effects are noted. IMPRESSION: Small bowel follow-through demonstrates Gastrografin progressing to the large bowel in 4 hours. Reviewed by: Erasmo Santana on 04/28/2021 2:22 PM [facility]IS Approved by: Erasmo Santana on 04/28/2021 2:22 PM [facility] Station ID: [id number]
--- NOTE | 2021-04-28 16:18 | PROVIDER PROGRESS NOTE ---
Assessment/Plan - Problem List (1) SBO (small bowel obstruction) Assessment/Plan: Gastrografin study shows contrast present in colon after 4 hours. Patient continues to have mild nausea but no vomiting. Abdomen not distended, not tender. A: SBO ruled out. P: D/C hydromorphone. Start clears as tolerated. - Current Meds Current Meds: Current Medications Generic Name Dose Route Start Last Admin Trade Name Freq PRN Reason Stop Dose Admin Aspirin 300 mg 04/28/21 09:00 04/28/21 11:07 Aspirin 300 Mg Supp TN Not Given DAILY ANTHONY Potassium Chloride/Dextrose/Sod Cl 1,000 mls @ 100 mls/hr 04/26/21 23:45 04/28/21 09:58 D5ns W/20 Meq Kcl IV 100 mls/hr .Q10H ANTHONY Administration Metoprolol Tartrate 5 mg 04/27/21 00:00 04/28/21 12:16 Metoprolol 5 Mg/5 Ml Vial IVP 5 mg Q6HR ANTHONY Administration Ondansetron HCl 4 mg 04/26/21 23:31 04/28/21 12:35 Ondansetron 4 Mg/2 Ml Vial IVP 4 mg Q6HR PRN Administration Nausea / Vomiting Phenol/Menthol 2 sprays 04/27/21 19:01 04/27/21 19:17 Phenol Throat [place] 177 Ml MM 2 sprays Q2HR PRN Administration Throat Pain Prochlorperazine Edisylate 10 mg 04/27/21 00:33 04/28/21 11:24 Prochlorperazine 10 Mg/2 Ml Vial IVP 10 mg Q6HR PRN Administration Nausea / Vomiting Sodium Chloride 10 ml 04/27/21 01:00 04/28/21 09:59 Sodium Chloride Flush 0.9% 10 Ml Syringe IVP Not Given 0100,0900,1700 ANTHONY - Lab Result Fish Bone Diagrams: 04/28/21 06:36 04/28/21 06:36 - Additional Planning My Orders: My Active Orders 04/28/21 Dinner Clear Liquid Diet [DIET] Objective Vital Signs: Vital Signs - 24 hr 04/27/21 04/27/21 04/27/21 16:30 18:58 20:53 Temperature 36.7 C 36.6 C Heart Rate [ 79 72 Brachial] Respiratory 16 16 Rate Blood Pressure 143/72 H Blood Pressure 133/70 H 119/72 [Left Brachial artery] O2 Saturation 98 96 04/27/21 04/27/21 04/28/21 23:46 23:50 04:36 Temperature 37.1 C 37.0 C Heart Rate [ 94 84 Brachial] Respiratory 16 20 Rate Blood Pressure 107/61 Blood Pressure 107/61 103/60 [Left Brachial artery] O2 Saturation 92 95 04/28/21 04/28/21 04/28/21 05:02 07:43 12:16 Temperature 36.8 C Heart Rate [ 87 Brachial] Respiratory 18 Rate Blood Pressure 103/60 129/67 Blood Pressure 111/57 L [Left Brachial artery] O2 Saturation 93 04/28/21 04/28/21 04/28/21 12:17 12:21 12:26 Temperature Heart Rate [ 79 66 59 L Brachial] Respiratory Rate Blood Pressure Blood Pressure 129/67 144/69 H 127/70 [Left Brachial artery] O2 Saturation 04/28/21 04/28/21 04/28/21 12:32 12:47 13:02 Temperature Heart Rate [ 57 L 79 76 Brachial] Respiratory Rate Blood Pressure Blood Pressure 122/60 139/70 H 138/75 H [Left Brachial artery] O2 Saturation 04/28/21 15:51 Temperature 36.5 C Heart Rate [ 86 Brachial] Respiratory 21 Rate Blood Pressure Blood Pressure 141/68 H [Left Brachial artery] O2 Saturation 97 Oxygen O2 Source Room air I&O (Last 24 Hrs): Intake and Output Totals x24h 04/26/21 04/27/21 04/28/21 23:59 23:59 23:59 Intake Total 1000 2524.333 1200 Output Total 900 Balance 1000 7047.967 9814 - Results Results: Laboratory Results WBC 5.7 x10^3/uL (4.8-10.8) 04/28/21 06:36 RBC 3.68 10^6/uL (4.70-6.10) L 04/28/21 06:36 Hgb 11.3 g/dL (14.0-18.0) L 04/28/21 06:36 Hct 33.6 % (42.0-52.0) L 04/28/21 06:36 MCV 91.3 fL (80.0-94.0) 04/28/21 06:36 MCH 30.7 pg (27.0-31.0) 04/28/21 06:36 MCHC 33.6 g/dL (32.0-36.0) 04/28/21 06:36 RDW 11.9 % (12.0-15.0) L 04/28/21 06:36 Plt Count 211 10^3/uL (130-450) 04/28/21 06:36 MPV 8.9 fL (7.4-11.4) 04/28/21 06:36 Neut # (Auto) 3.8 10^3/uL (1.5-6.6) 04/28/21 06:36 Lymph # (Auto) 1.2 10^3/uL (1.5-3.5) L 04/28/21 06:36 [place] # (Auto) 0.5 10^3/uL (0.0-1.0) 04/28/21 06:36 Eos # (Auto) 0.1 10^3/uL (0.0-0.7) 04/28/21 06:36 Baso # (Auto) 0.0 10^3/uL (0.0-0.1) 04/28/21 06:36 Absolute Nucleated RBC 0.00 x10^3/uL 04/28/21 06:36 Nucleated RBC % 0.0 /100WBC 04/28/21 06:36 INR (Fingerstick) 1.1 (0.8-1.2) 04/28/21 11:49 Sodium 134 mmol/L (135-145) L 04/28/21 06:36 Potassium 3.3 mmol/L (3.5-5.0) L 04/28/21 06:36 Chloride 103 mmol/L (101-111) 04/28/21 06:36 Carbon Dioxide 25 mmol/L (21-32) 04/28/21 06:36 Anion Gap 6.0 (6-13) 04/28/21 06:36 BUN 11 mg/dL (6-20) 04/28/21 06:36 Creatinine 1.0 mg/dL (0.6-1.2) 04/28/21 06:36 Estimated GFR (MDRD) 73 (>89) L 04/28/21 06:36 Glucose 133 mg/dL (70-100) H 04/28/21 06:36 Calcium 7.6 mg/dL (8.5-10.3) L 04/28/21 06:36 Magnesium 2.1 mg/dL (1.7-2.8) 04/27/21 06:13 Total Bilirubin 1.2 mg/dL (0.2-1.0) H 04/26/21 20:38 AST 20 IU/L (10-42) 04/26/21 20:38 ALT 19 IU/L (10-60) 04/26/21 20:38 Alkaline Phosphatase 46 IU/L (42-121) 04/26/21 20:38 Total Protein 6.5 g/dL (6.7-8.2) L 04/26/21 20:38 Albumin 3.7 g/dL (3.2-5.5) 04/26/21 20:38 Globulin 2.8 g/dL (2.1-4.2) 04/26/21 20:38 Albumin/Globulin Ratio 1.3 (1.0-2.2) 04/26/21 20:38 Lipase 16 U/L (22-51) L 04/26/21 20:38 Urine Color YELLOW 04/26/21 04:20 Urine Clarity CLEAR (CLEAR) 04/26/21 04:20 Urine pH 6.5 PH (5.0-7.5) 04/26/21 04:20 Ur Specific [place] 1.020 (1.002-1.030) 04/26/21 04:20 Urine Protein NEGATIVE mg/dL (NEGATIVE) 04/26/21 04:20 Urine Glucose (UA) NEGATIVE mg/dL (NEGATIVE) 04/26/21 04:20 Urine Ketones >=80 mg/dL (NEGATIVE) H 04/26/21 04:20 Urine Occult Blood TRACE-INTA (NEGATIVE) 04/26/21 04:20 Urine Nitrite NEGATIVE (NEGATIVE) 04/26/21 04:20 Urine Bilirubin NEGATIVE (NEGATIVE) 04/26/21 04:20 Urine Urobilinogen 1 (NORMAL) E.U./dL (NORMAL) 04/26/21 04:20 Ur Leukocyte Esterase NEGATIVE (NEGATIVE) 04/26/21 04:20 Ur Microscopic Review NOT INDICATED 04/26/21 04:20 Urine Culture Comments NOT INDICATED 04/26/21 04:20 Nasal Adenovirus (PCR) NOT DETECTED 04/26/21 23:47 Nasal B. parapertussis DNA (PCR) NOT DETECTED 04/26/21 23:47 Nasal Coronavir 229E PCR NOT DETECTED 04/26/21 23:47 Nasal Coronavir HKU1 PCR NOT DETECTED 04/26/21 23:47 Nasal Coronavir NL63 PCR NOT DETECTED 04/26/21 23:47 Nasal Coronavir OC43 PCR NOT DETECTED 04/26/21 23:47 Nasal Enterovir/Rhinovir PCR NOT DETECTED 04/26/21 23:47 Nasal Influenza B PCR NOT DETECTED 04/26/21 23:47 Nasal Influenza A PCR NOT DETECTED 04/26/21 23:47 Nasal Parainfluen 1 PCR NOT DETECTED 04/26/21 23:47 Nasal Parainfluen 2 PCR NOT DETECTED 04/26/21 23:47 Nasal Parainfluen 3 PCR NOT DETECTED 04/26/21 23:47 Nasal Parainfluen 4 PCR NOT DETECTED 04/26/21 23:47 Nasal RSV (PCR) NOT DETECTED 04/26/21 23:47 Nasal B.pertussis DNA PCR NOT DETECTED 04/26/21 23:47 Nasal C.pneumoniae (PCR) NOT DETECTED 04/26/21 23:47 [place]enny Human Metapneumo PCR NOT DETECTED 04/26/21 23:47 Nasal M.pneumoniae (PCR) NOT DETECTED 04/26/21 23:47 Nasal SARS-CoV-2 (PCR) NOT DETECTED 04/26/21 23:47 ABX Reporting Has patient been on IV antibiotics over the past 48 hours?: No
[2021-04-29] MEDS: D5NS W/20 MEQ KCL 1,000 ML IV SCH ×3 (02:56→23:45)
[2021-04-29] MEDS: ONDANSETRON 4 MG/2 ML VIAL IVP PRN ×2 (03:02→19:49)
[2021-04-29] MEDS: PROCHLORPERAZINE 10 MG/2 ML VIAL IVP PRN ×3 (05:34→15:33)
[2021-04-29] MEDS: METOPROLOL 5 MG/5 ML VIAL IVP SCH (05:34)
[2021-04-29 06:32] LABS: BASOPHILS % (AUTO) 0.5 %; EOSINOPHILS # (AUTO) 0.1 10^3/uL (0.0-0.7); HCT - HEMATOCRIT 36.3 % (42.0-52.0); HGB - HEMOGLOBIN 12.3 g/dL (14.0-18.0); LYMPHOCYTES # (AUTO) 1.4 10^3/uL (1.5-3.5); LYMPHOCYTES % (AUTO) 23.6 %; MEAN CORPUSCULAR HEMOGLOBIN 30.8 pg (27.0-31.0); MEAN CORPUSCULAR HGB CONC 33.9 g/dL (32.0-36.0); MEAN PLATELET VOLUME 8.8 fL (7.4-11.4); MONOCYTES # (AUTO) 0.5 10^3/uL (0.0-1.0); MONOCYTES % (AUTO) 8.4 %; NEUTROPHILS # (AUTO) 3.9 10^3/uL (1.5-6.6); NEUTROPHILS % (AUTO) 65.2 %; PLT - PLATELET COUNT 241 10^3/uL (130-450); RED BLOOD COUNT 3.99 10^6/uL (4.70-6.10); RED CELL DISTRIBUTION WIDTH 11.9 % (12.0-15.0); WHITE BLOOD COUNT 5.9 x10^3/uL (4.8-10.8)
[2021-04-29 06:42] LABS: CREATININE 0.8 mg/dL (0.6-1.2); POTASSIUM 3.2 mmol/L (3.5-5.0)
[2021-04-29] MEDS: POTASSIUM CHLOR 10 MEQ/100 ML 10 MEQ/100 ML BAG IV SCH ×4 (08:06→11:07)
[2021-04-29] MEDS ORDERED: ZINC OXIDE 20% OINT 30 GM TUBE TOP PRN (08:10)
[2021-04-29] MEDS: METOPROLOL TARTRATE 25 MG TABLET PO SCH ×2 (09:24→23:15)
[2021-04-29] MEDS: ASPIRIN EC 81 MG TABLET PO SCH (09:24)
--- NOTE | 2021-04-29 09:54 | PROVIDER PROGRESS NOTE ---
Assessment/Plan - Problem List (1) SBO (small bowel obstruction) Assessment/Plan: Patient had one episode of nausea and vomiting last night at 2 am. He feels better this morning. He continues to have loose bowel movements after the GG SBFT, which did not demonstrate obstruction. He is taking clear liquids today. Exam: Abdomen soft, nontender, not distended A: Resolving SBO Plan: Continue clear liquids as tolerated, slow diet advance D/C telemetry - Current Meds Current Meds: Current Medications Generic Name Dose Route Start Last Admin Trade Name Freq PRN Reason Stop Dose Admin Aspirin 81 mg 04/29/21 10:00 04/29/21 09:24 Aspirin Ec 81 Mg Tablet PO 81 mg DAILY ANTHONY Administration Clopidogrel Bisulfate 75 mg 04/29/21 10:00 04/29/21 09:24 Clopidogrel 75 Mg Tablet PO 75 mg DAILY ANTHONY Administration Potassium Chloride/Dextrose/Sod Cl 1,000 mls @ 100 mls/hr 04/26/21 23:45 04/29/21 02:56 D5ns W/20 Meq Kcl IV 100 mls/hr .Q10H ANTHONY Administration Potassium Chloride 10 meq in 100 mls @ 100 mls/hr 04/29/21 08:00 04/29/21 09:05 Potassium Chloride IV 04/29/21 11:59 100 mls/hr Q1H ANTHONY Administration Lisinopril 2.5 mg 04/29/21 10:00 04/29/21 09:25 Lisinopril 5 Mg Tablet PO 2.5 mg DAILY ANTHONY Administration Metoprolol Tartrate 5 mg 04/27/21 00:00 04/29/21 05:34 Metoprolol 5 Mg/5 Ml Vial IVP 5 mg Q6HR ANTHONY Administration Metoprolol Tartrate 12.5 mg 04/29/21 10:00 04/29/21 09:24 Metoprolol Tartrate 25 Mg Tablet PO 12.5 mg BID ANTHONY Administration Ondansetron HCl 4 mg 04/26/21 23:31 04/29/21 03:02 Ondansetron 4 Mg/2 Ml Vial IVP 4 mg Q6HR PRN Administration Nausea / Vomiting Phenol/Menthol 2 sprays 04/27/21 19:01 04/27/21 19:17 Phenol Throat [place] 177 Ml MM 2 sprays Q2HR PRN Administration Throat Pain Prochlorperazine Edisylate 10 mg 04/27/21 00:33 04/29/21 05:34 Prochlorperazine 10 Mg/2 Ml Vial IVP 10 mg Q6HR PRN Administration Nausea / Vomiting Sodium Chloride 10 ml 04/27/21 01:00 04/28/21 23:38 Sodium Chloride Flush 0.9% 10 Ml Syringe IVP 10 ml 0100,0900,1700 ANTHONY Administration - Lab Result Fish Bone Diagrams: 04/29/21 05:45 04/29/21 05:45 - Additional Planning My Orders: My Active Orders 04/28/21 Dinner Clear Liquid Diet [DIET] Objective Vital Signs: Vital Signs - 24 hr 04/28/21 04/28/21 04/28/21 12:16 12:17 12:21 Temperature Heart Rate [ 79 66 Brachial] Respiratory Rate Blood Pressure 129/67 Blood Pressure 129/67 144/69 H [Left Brachial artery] Blood Pressure [Right Brachial artery] O2 Saturation 04/28/21 04/28/21 04/28/21 12:26 12:32 12:47 Temperature Heart Rate [ 59 L 57 L 79 Brachial] Respiratory Rate Blood Pressure Blood Pressure 127/70 122/60 139/70 H [Left Brachial artery] Blood Pressure [Right Brachial artery] O2 Saturation 04/28/21 04/28/21 04/28/21 13:02 15:51 17:17 Temperature 36.5 C Heart Rate [ 76 86 Brachial] Respiratory 21 Rate Blood Pressure 135/61 H Blood Pressure 138/75 H 141/68 H [Left Brachial artery] Blood Pressure [Right Brachial artery] O2 Saturation 97 04/28/21 04/28/21 04/28/21 17:23 17:26 21:33 Temperature 36.7 C Heart Rate [ 81 63 90 Brachial] Respiratory 20 Rate Blood Pressure Blood Pressure 129/57 L 129/66 129/67 [Left Brachial artery] Blood Pressure 129/66 [Right Brachial artery] O2 Saturation 96 04/28/21 04/28/21 04/29/21 23:38 23:42 04:30 Temperature 36.6 C 36.7 C Heart Rate [ 84 77 Brachial] Respiratory 20 19 Rate Blood Pressure 133/77 H Blood Pressure 133/77 H 135/70 H [Left Brachial artery] Blood Pressure [Right Brachial artery] O2 Saturation 95 93 04/29/21 04/29/21 04/29/21 05:34 07:26 09:24 Temperature 36.5 C Heart Rate [ 81 Brachial] Respiratory 18 Rate Blood Pressure 135/70 H 140/79 H Blood Pressure 140/79 H [Left Brachial artery] Blood Pressure [Right Brachial artery] O2 Saturation 94 Oxygen O2 Source Room air I&O (Last 24 Hrs): Intake and Output Totals x24h 04/27/21 04/28/21 04/29/21 23:59 23:59 23:59 Intake Total 2524.333 8087.764 2426.666 Output Total 900 300 Balance 3495.011 7878.333 771.666 - Results Results: Laboratory Results WBC 5.9 x10^3/uL (4.8-10.8) 04/29/21 05:45 RBC 3.99 10^6/uL (4.70-6.10) L 04/29/21 05:45 Hgb 12.3 g/dL (14.0-18.0) L 04/29/21 05:45 Hct 36.3 % (42.0-52.0) L 04/29/21 05:45 MCV 91.0 fL (80.0-94.0) 04/29/21 05:45 MCH 30.8 pg (27.0-31.0) 04/29/21 05:45 MCHC 33.9 g/dL (32.0-36.0) 04/29/21 05:45 RDW 11.9 % (12.0-15.0) L 04/29/21 05:45 Plt Count 241 10^3/uL (130-450) 04/29/21 05:45 MPV 8.8 fL (7.4-11.4) 04/29/21 05:45 Neut # (Auto) 3.9 10^3/uL (1.5-6.6) 04/29/21 05:45 Lymph # (Auto) 1.4 10^3/uL (1.5-3.5) L 04/29/21 05:45 [place] # (Auto) 0.5 10^3/uL (0.0-1.0) 04/29/21 05:45 Eos # (Auto) 0.1 10^3/uL (0.0-0.7) 04/29/21 05:45 Baso # (Auto) 0.0 10^3/uL (0.0-0.1) 04/29/21 05:45 Absolute Nucleated RBC 0.00 x10^3/uL 04/29/21 05:45 Nucleated RBC % 0.0 /100WBC 04/29/21 05:45 INR (Fingerstick) 1.1 (0.8-1.2) 04/28/21 11:49 Sodium 136 mmol/L (135-145) 04/29/21 05:45 Potassium 3.2 mmol/L (3.5-5.0) L 04/29/21 05:45 Chloride 103 mmol/L (101-111) 04/29/21 05:45 Carbon Dioxide 24 mmol/L (21-32) 04/29/21 05:45 Anion Gap 9.0 (6-13) 04/29/21 05:45 BUN 8 mg/dL (6-20) 04/29/21 05:45 Creatinine 0.8 mg/dL (0.6-1.2) 04/29/21 05:45 Estimated GFR (MDRD) 94 (>89) 04/29/21 05:45 Glucose 133 mg/dL (70-100) H 04/29/21 05:45 Calcium 8.0 mg/dL (8.5-10.3) L 04/29/21 05:45 Magnesium 2.1 mg/dL (1.7-2.8) 04/27/21 06:13 Total Bilirubin 1.2 mg/dL (0.2-1.0) H 04/26/21 20:38 AST 20 IU/L (10-42) 04/26/21 20:38 ALT 19 IU/L (10-60) 04/26/21 20:38 Alkaline Phosphatase 46 IU/L (42-121) 04/26/21 20:38 Total Protein 6.5 g/dL (6.7-8.2) L 04/26/21 20:38 Albumin 3.7 g/dL (3.2-5.5) 04/26/21 20:38 Globulin 2.8 g/dL (2.1-4.2) 04/26/21 20:38 Albumin/Globulin Ratio 1.3 (1.0-2.2) 04/26/21 20:38 Lipase 16 U/L (22-51) L 04/26/21 20:38 Urine Color YELLOW 04/26/21 04:20 Urine Clarity CLEAR (CLEAR) 04/26/21 04:20 Urine pH 6.5 PH (5.0-7.5) 04/26/21 04:20 Ur Specific [place] 1.020 (1.002-1.030) 04/26/21 04:20 Urine Protein NEGATIVE mg/dL (NEGATIVE) 04/26/21 04:20 Urine Glucose (UA) NEGATIVE mg/dL (NEGATIVE) 04/26/21 04:20 Urine Ketones >=80 mg/dL (NEGATIVE) H 04/26/21 04:20 Urine Occult Blood TRACE-INTA (NEGATIVE) 04/26/21 04:20 Urine Nitrite NEGATIVE (NEGATIVE) 04/26/21 04:20 Urine Bilirubin NEGATIVE (NEGATIVE) 04/26/21 04:20 Urine Urobilinogen 1 (NORMAL) E.U./dL (NORMAL) 04/26/21 04:20 Ur Leukocyte Esterase NEGATIVE (NEGATIVE) 04/26/21 04:20 Ur Microscopic Review NOT INDICATED 04/26/21 04:20 Urine Culture Comments NOT INDICATED 04/26/21 04:20 Nasal Adenovirus (PCR) NOT DETECTED 04/26/21 23:47 Nasal B. parapertussis DNA (PCR) NOT DETECTED 04/26/21 23:47 Nasal Coronavir 229E PCR NOT DETECTED 04/26/21 23:47 Nasal Coronavir HKU1 PCR NOT DETECTED 04/26/21 23:47 Nasal Coronavir NL63 PCR NOT DETECTED 04/26/21 23:47 Nasal Coronavir OC43 PCR NOT DETECTED 04/26/21 23:47 Nasal Enterovir/Rhinovir PCR NOT DETECTED 04/26/21 23:47 Nasal Influenza B PCR NOT DETECTED 04/26/21 23:47 Nasal Influenza A PCR NOT DETECTED 04/26/21 23:47 Nasal Parainfluen 1 PCR NOT DETECTED 04/26/21 23:47 Nasal Parainfluen 2 PCR NOT DETECTED 04/26/21 23:47 Nasal Parainfluen 3 PCR NOT DETECTED 04/26/21 23:47 Nasal Parainfluen 4 PCR NOT DETECTED 04/26/21 23:47 Nasal RSV (PCR) NOT DETECTED 04/26/21 23:47 Nasal B.pertussis DNA PCR NOT DETECTED 04/26/21 23:47 Nasal C.pneumoniae (PCR) NOT DETECTED 04/26/21 23:47 [place]enny Human Metapneumo PCR NOT DETECTED 04/26/21 23:47 Nasal M.pneumoniae (PCR) NOT DETECTED 04/26/21 23:47 Nasal SARS-CoV-2 (PCR) NOT DETECTED 04/26/21 23:47 ABX Reporting Has patient been on IV antibiotics over the past 48 hours?: No
[2021-04-29] MEDS ORDERED: lisinopriL 5 MG TABLET PO SCH (10:00)
[2021-04-29] MEDS ORDERED: CLOPIDOGREL 75 MG TABLET PO SCH (10:00)
[2021-04-29] MEDS: SODIUM CHLORIDE FLUSH 0.9% 10 ML SYRINGE IVP SCH ×5 (11:10→23:49)
[2021-04-29] MEDS ORDERED: MAG HYDROX/AL HYDROX/SIMETH 30 ML UDC PO PRN (11:29)
--- NOTE | 2021-04-29 17:18 | PROVIDER PROGRESS NOTE ---
Assessment/Plan - Problem List (1) SBO (small bowel obstruction) Assessment/Plan: Patient had a Gastrografin challenge and small bowel follow-through yesterday. He has been having bowel movements earlier this morning. He was on a clear liquid diet this morning. Zofran and Compazine as needed. Repeat Lumbar x-ray ordered today after patient's episode of vomiting. Awaiting results. General surgery following (2) Hx of coronary artery disease Assessment/Plan: Patient underwent a PCI with stent placement 5 months ago. Aspirin daily, Plavix 75 mg p.o. daily, atorvastatin 40 mg p.o. every afternoon, lisinopril 2.5 mg p.o. daily, metoprolol tartrate 12.5 mg p.o. twice daily. All of the patient's cardiac Will resume today. - Current Meds Current Meds: Current Medications Generic Name Dose Route Start Last Admin Trade Name Freq PRN Reason Stop Dose Admin Al Hydroxide/Mg Hydroxide 30 ml 04/29/21 11:29 04/29/21 13:39 Mag Hydrox/Al Hydrox/Simeth 30 Ml Udc PO 30 ml Q4HR PRN Administration INDIGESTION Aspirin 81 mg 04/29/21 10:00 04/29/21 09:24 Aspirin Ec 81 Mg Tablet PO 81 mg DAILY ANTHONY Administration Clopidogrel Bisulfate 75 mg 04/29/21 10:00 04/29/21 09:24 Clopidogrel 75 Mg Tablet PO 75 mg DAILY ANTHONY Administration Potassium Chloride/Dextrose/Sod Cl 1,000 mls @ 100 mls/hr 04/26/21 23:45 04/29/21 12:36 D5ns W/20 Meq Kcl IV 100 mls/hr .Q10H ANTHONY Administration Lisinopril 2.5 mg 04/29/21 10:00 04/29/21 09:25 Lisinopril 5 Mg Tablet PO 2.5 mg DAILY ANTHONY Administration Metoprolol Tartrate 12.5 mg 04/29/21 10:00 04/29/21 09:24 Metoprolol Tartrate 25 Mg Tablet PO 12.5 mg BID ANTHONY Administration Ondansetron HCl 4 mg 04/26/21 23:31 04/29/21 03:02 Ondansetron 4 Mg/2 Ml Vial IVP 4 mg Q6HR PRN Administration Nausea / Vomiting Phenol/Menthol 2 sprays 04/27/21 19:01 04/27/21 19:17 Phenol Throat [place] 177 Ml MM 2 sprays Q2HR PRN Administration Throat Pain Prochlorperazine Edisylate 10 mg 04/27/21 00:33 04/29/21 15:33 Prochlorperazine 10 Mg/2 Ml Vial IVP 10 mg Q6HR PRN Administration Nausea / Vomiting Sodium Chloride 10 ml 04/27/21 01:00 04/29/21 11:10 Sodium Chloride Flush 0.9% 10 Ml Syringe IVP Not Given 0100,0900,1700 ANTHONY - Lab Result Fish Bone Diagrams: 04/29/21 05:45 04/29/21 05:45 - Additional Planning My Orders: My Active Orders 04/29/21 09:29 Telemetry-Discontinue [RC] .ONCE 04/29/21 10:00 Aspirin EC [Ecotrin] 81 mg PO DAILY Clopidogrel [Plavix] 75 mg PO DAILY Metoprolol Tartrate [Lopressor] 12.5 mg PO BID lisinopriL [Zestril] 2.5 mg PO DAILY 04/29/21 11:29 Mag Hydrox/Al Hydrox/Simeth [Mylanta Plus] 30 ml PO Q4HR PRN 04/29/21 21:00 Atorvastatin [Lipitor] 40 mg PO QPM Subjective - Subjective Patient Reports: Other (Patient appeared slightly uncomfortable at time of visit today. He complained of waves of nausea. He was on a clear liquid diet at the time. Later in the afternoon patient vomited. He also complained of feeling cold.) Objective Vital Signs: Vital Signs - 24 hr 04/28/21 04/28/21 04/28/21 17:17 17:23 17:26 Temperature Heart Rate [ 81 63 Brachial] Respiratory Rate Blood Pressure 135/61 H Blood Pressure 129/57 L 129/66 [Left Brachial artery] Blood Pressure 129/66 [Right Brachial artery] O2 Saturation 04/28/21 04/28/21 04/28/21 21:33 23:38 23:42 Temperature 36.7 C 36.6 C Heart Rate [ 90 84 Brachial] Respiratory 20 20 Rate Blood Pressure 133/77 H Blood Pressure 129/67 133/77 H [Left Brachial artery] Blood Pressure [Right Brachial artery] O2 Saturation 96 95 04/29/21 04/29/21 04/29/21 04:30 05:34 07:26 Temperature 36.7 C 36.5 C Heart Rate [ 77 81 Brachial] Respiratory 19 18 Rate Blood Pressure 135/70 H Blood Pressure 135/70 H 140/79 H [Left Brachial artery] Blood Pressure [Right Brachial artery] O2 Saturation 93 94 04/29/21 04/29/21 04/29/21 09:24 12:58 15:55 Temperature 36.4 C L 36.7 C Heart Rate [ 88 107 H Brachial] Respiratory 18 20 Rate Blood Pressure 140/79 H Blood Pressure 138/78 H [Left Brachial artery] Blood Pressure 138/74 H [Right Brachial artery] O2 Saturation 99 94 Oxygen O2 Source Room air I&O (Last 24 Hrs): Intake and Output Totals x24h 04/27/21 04/28/21 04/29/21 23:59 23:59 23:59 Intake Total 2524.333 1825.077 6340.333 Output Total 900 300 Balance 0872.115 7059.333 2238.333 General: Alert, Oriented x3, Mild distress HEENT: PERRLA, EOMI Neck: Supple, No JVD Neuro: Alert, Non Focal, Oriented Times 3 Cardiovascular: Regular rate, Normal S1, Normal S2 Respiratory: Chest non-tender, No respiratory distress, Breath sounds nml Abdomen: Normal bowel sounds, Soft, No tenderness Extremities: No clubbing, No cyanosis, No edema Skin: No rashes, No breakdown, No significant lesion - Results Results: Laboratory Results WBC 5.9 x10^3/uL (4.8-10.8) 04/29/21 05:45 RBC 3.99 10^6/uL (4.70-6.10) L 04/29/21 05:45 Hgb 12.3 g/dL (14.0-18.0) L 04/29/21 05:45 Hct 36.3 % (42.0-52.0) L 04/29/21 05:45 MCV 91.0 fL (80.0-94.0) 04/29/21 05:45 MCH 30.8 pg (27.0-31.0) 04/29/21 05:45 MCHC 33.9 g/dL (32.0-36.0) 04/29/21 05:45 RDW 11.9 % (12.0-15.0) L 04/29/21 05:45 Plt Count 241 10^3/uL (130-450) 04/29/21 05:45 MPV 8.8 fL (7.4-11.4) 04/29/21 05:45 Neut # (Auto) 3.9 10^3/uL (1.5-6.6) 04/29/21 05:45 Lymph # (Auto) 1.4 10^3/uL (1.5-3.5) L 04/29/21 05:45 [place] # (Auto) 0.5 10^3/uL (0.0-1.0) 04/29/21 05:45 Eos # (Auto) 0.1 10^3/uL (0.0-0.7) 04/29/21 05:45 Baso # (Auto) 0.0 10^3/uL (0.0-0.1) 04/29/21 05:45 Absolute Nucleated RBC 0.00 x10^3/uL 04/29/21 05:45 Nucleated RBC % 0.0 /100WBC 04/29/21 05:45 INR (Fingerstick) 1.1 (0.8-1.2) 04/28/21 11:49 Sodium 136 mmol/L (135-145) 04/29/21 05:45 Potassium 3.2 mmol/L (3.5-5.0) L 04/29/21 05:45 Chloride 103 mmol/L (101-111) 04/29/21 05:45 Carbon Dioxide 24 mmol/L (21-32) 04/29/21 05:45 Anion Gap 9.0 (6-13) 04/29/21 05:45 BUN 8 mg/dL (6-20) 04/29/21 05:45 Creatinine 0.8 mg/dL (0.6-1.2) 04/29/21 05:45 Estimated GFR (MDRD) 94 (>89) 04/29/21 05:45 Glucose 133 mg/dL (70-100) H 04/29/21 05:45 Calcium 8.0 mg/dL (8.5-10.3) L 04/29/21 05:45 Magnesium 2.1 mg/dL (1.7-2.8) 04/27/21 06:13 Total Bilirubin 1.2 mg/dL (0.2-1.0) H 04/26/21 20:38 AST 20 IU/L (10-42) 04/26/21 20:38 ALT 19 IU/L (10-60) 04/26/21 20:38 Alkaline Phosphatase 46 IU/L (42-121) 04/26/21 20:38 Total Protein 6.5 g/dL (6.7-8.2) L 04/26/21 20:38 Albumin 3.7 g/dL (3.2-5.5) 04/26/21 20:38 Globulin 2.8 g/dL (2.1-4.2) 04/26/21 20:38 Albumin/Globulin Ratio 1.3 (1.0-2.2) 04/26/21 20:38 Lipase 16 U/L (22-51) L 04/26/21 20:38 Urine Color YELLOW 04/26/21 04:20 Urine Clarity CLEAR (CLEAR) 04/26/21 04:20 Urine pH 6.5 PH (5.0-7.5) 04/26/21 04:20 Ur Specific [place] 1.020 (1.002-1.030) 04/26/21 04:20 Urine Protein NEGATIVE mg/dL (NEGATIVE) 04/26/21 04:20 Urine Glucose (UA) NEGATIVE mg/dL (NEGATIVE) 04/26/21 04:20 Urine Ketones >=80 mg/dL (NEGATIVE) H 04/26/21 04:20 Urine Occult Blood TRACE-INTA (NEGATIVE) 04/26/21 04:20 Urine Nitrite NEGATIVE (NEGATIVE) 04/26/21 04:20 Urine Bilirubin NEGATIVE (NEGATIVE) 04/26/21 04:20 Urine Urobilinogen 1 (NORMAL) E.U./dL (NORMAL) 04/26/21 04:20 Ur Leukocyte Esterase NEGATIVE (NEGATIVE) 04/26/21 04:20 Ur Microscopic Review NOT INDICATED 04/26/21 04:20 Urine Culture Comments NOT INDICATED 04/26/21 04:20 Nasal Adenovirus (PCR) NOT DETECTED 04/26/21 23:47 Nasal B. parapertussis DNA (PCR) NOT DETECTED 04/26/21 23:47 Nasal Coronavir 229E PCR NOT DETECTED 04/26/21 23:47 Nasal Coronavir HKU1 PCR NOT DETECTED 04/26/21 23:47 Nasal Coronavir NL63 PCR NOT DETECTED 04/26/21 23:47 Nasal Coronavir OC43 PCR NOT DETECTED 04/26/21 23:47 Nasal Enterovir/Rhinovir PCR NOT DETECTED 04/26/21 23:47 Nasal Influenza B PCR NOT DETECTED 04/26/21 23:47 Nasal Influenza A PCR NOT DETECTED 04/26/21 23:47 Nasal Parainfluen 1 PCR NOT DETECTED 04/26/21 23:47 Nasal Parainfluen 2 PCR NOT DETECTED 04/26/21 23:47 Nasal Parainfluen 3 PCR NOT DETECTED 04/26/21 23:47 Nasal Parainfluen 4 PCR NOT DETECTED 04/26/21 23:47 Nasal RSV (PCR) NOT DETECTED 04/26/21 23:47 Nasal B.pertussis DNA PCR NOT DETECTED 04/26/21 23:47 Nasal C.pneumoniae (PCR) NOT DETECTED 04/26/21 23:47 Benny Human Metapneumo PCR NOT DETECTED 04/26/21 23:47 Nasal M.pneumoniae (PCR) NOT DETECTED 04/26/21 23:47 Nasal SARS-CoV-2 (PCR) NOT DETECTED 04/26/21 23:47 ABX Reporting Has patient been on IV antibiotics over the past 48 hours?: No
--- NOTE | 2021-04-29 17:25 | XRAY Report ---
PROCEDURE: Abdomen 2 View X-Ray INDICATIONS: follow up SBO TECHNIQUE: 3 views of the abdomen were acquired. COMPARISON: 04/28/2021 FINDINGS: Surgical changes and devices: None. Bowel: There are dilated loops of air-filled small bowel similar to the prior x-rays and small bowel follow-through. No free air, pneumatosis, or portal venous gas. Soft tissues: No masses; visualized solid organ contours appear normal in size. No suspicious abdom inal calcifications. Bones: No suspicious bony abnormalities. IMPRESSION: Persistent dilated loops of small bowel and large bowel consistent with ileus or partial small bowel obstruction. Reviewed by: Erasmo Santana on 04/29/2021 4:24 PM MIS Approved by: Erasmo Santana on 04/29/2021 4:24 PM [facility] Station ID: [id number]
[2021-04-29] MEDS: HYDROmorphone 0.5 MG/0.5 ML SYRINGE IVP PRN (20:19)
[2021-04-29] MEDS: ATORVASTATIN 40 MG TABLET PO SCH (23:15)
[2021-04-29] MEDS ORDERED: METOPROLOL 5 MG/5 ML VIAL IVP STA (23:36)
[2021-04-30] MEDS: ONDANSETRON 4 MG/2 ML VIAL IVP PRN (05:50)
[2021-04-30 05:51] LABS: BASOPHILS % (AUTO) 0.3 %; EOSINOPHILS # (AUTO) 0.1 10^3/uL (0.0-0.7); EOSINOPHILS % (AUTO) 0.7 %; HCT - HEMATOCRIT 35.2 % (42.0-52.0); HGB - HEMOGLOBIN 11.8 g/dL (14.0-18.0); LYMPHOCYTES # (AUTO) 1.6 10^3/uL (1.5-3.5); LYMPHOCYTES % (AUTO) 23.3 %; MEAN CORPUSCULAR HEMOGLOBIN 30.3 pg (27.0-31.0); MEAN CORPUSCULAR HGB CONC 33.5 g/dL (32.0-36.0); MEAN CORPUSCULAR VOLUME 90.3 fL (80.0-94.0); MEAN PLATELET VOLUME 8.8 fL (7.4-11.4); MONOCYTES # (AUTO) 0.7 10^3/uL (0.0-1.0); NEUTROPHILS # (AUTO) 4.4 10^3/uL (1.5-6.6); NEUTROPHILS % (AUTO) 65.4 %; PLT - PLATELET COUNT 234 10^3/uL (130-450); WHITE BLOOD COUNT 6.8 x10^3/uL (4.8-10.8)
[2021-04-30] MEDS: SODIUM CHLORIDE FLUSH 0.9% 10 ML SYRINGE IVP SCH ×2 (05:51→18:15)
[2021-04-30 05:56] LABS: CALCIUM 7.8 mg/dL (8.5-10.3); POTASSIUM 3.3 mmol/L (3.5-5.0)
--- NOTE | 2021-04-30 07:53 | PROVIDER PROGRESS NOTE ---
Assessment/Plan - Problem List (1) SBO (small bowel obstruction) Assessment/Plan: 04/30 Underwent an exploratory laparotomy today 04/30/2021 A single adhesive band was found across the base of the mesentery of the small bowel. The involved small bowel had some ecchymosis on the antimesenteric side surface but was otherwise healthy and viable. The adhesion was lysed. A moderate amount of serosanguineous ascites was noted. We will continue to hold patient's Plavix. 04/29 Patient had a Gastrografin challenge and small bowel follow-through yesterday. He has been having bowel movements earlier this morning. He was on a clear liquid diet this morning. Zofran and Compazine as needed. Repeat Lumbar x-ray ordered today after patient's episode of vomiting. Awaiting results. General surgery following (2) Hx of coronary artery disease Assessment/Plan: Patient underwent a PCI with stent placement 5 months ago. Patient's Aspirin daily and Plavix 75 mg p.o. daily had been resumed on 04/29/21. It was held today 04/30/21. Will continue to hold, Will resume atorvastatin 40 mg p.o. every afternoon, lisinopril 2.5 mg p.o. daily and metoprolol tartrate 12.5 mg p.o. twice daily when patient able to tolerate oral intake. - Current Meds Current Meds: Current Medications Generic Name Dose Route Start Last Admin Trade Name Freq PRN Reason Stop Dose Admin Al Hydroxide/Mg Hydroxide 30 ml 04/29/21 11:29 04/29/21 13:39 Mag Hydrox/Al Hydrox/Simeth 30 Ml Udc PO 30 ml Q4HR PRN Administration INDIGESTION Aspirin 81 mg 04/29/21 10:00 04/29/21 09:24 Aspirin Ec 81 Mg Tablet PO 81 mg DAILY ANTHONY Administration Atorvastatin Calcium 40 mg 04/29/21 21:00 04/29/21 23:15 Atorvastatin 40 Mg Tablet PO Not Given QPM ANTHONY Hydromorphone HCl 0.5 mg 04/29/21 20:08 04/29/21 20:19 Hydromorphone 0.5 Mg/0.5 Ml Syringe IVP 0.5 mg Q3H PRN Administration PAIN 5-7 Potassium Chloride/Dextrose/Sod Cl 1,000 mls @ 100 mls/hr 04/26/21 23:45 04/29/21 23:45 D5ns W/20 Meq Kcl IV 100 mls/hr .Q10H ANTHONY Administration Metoprolol Tartrate 12.5 mg 04/29/21 10:00 04/29/21 23:15 Metoprolol Tartrate 25 Mg Tablet PO Not Given BID ANTHONY Ondansetron HCl 4 mg 04/26/21 23:31 04/30/21 05:50 Ondansetron 4 Mg/2 Ml Vial IVP 4 mg Q6HR PRN Administration Nausea / Vomiting Phenol/Menthol 2 sprays 04/27/21 19:01 04/27/21 19:17 Phenol Throat [place] 177 Ml MM 2 sprays Q2HR PRN Administration Throat Pain Prochlorperazine Edisylate 10 mg 04/27/21 00:33 04/29/21 15:33 Prochlorperazine 10 Mg/2 Ml Vial IVP 10 mg Q6HR PRN Administration Nausea / Vomiting Sodium Chloride 10 ml 04/27/21 01:00 04/30/21 05:51 Sodium Chloride Flush 0.9% 10 Ml Syringe IVP 10 ml 0100,0900,1700 ANTHONY Administration - Lab Result Fish Bone Diagrams: 04/30/21 05:05 04/30/21 05:05 - Additional Planning My Orders: My Active Orders 04/29/21 09:29 Telemetry-Discontinue [RC] .ONCE 04/29/21 10:00 Aspirin EC [Ecotrin] 81 mg PO DAILY Metoprolol Tartrate [Lopressor] 12.5 mg PO BID 04/29/21 11:29 Mag Hydrox/Al Hydrox/Simeth [Mylanta Plus] 30 ml PO Q4HR PRN 04/29/21 21:00 Atorvastatin [Lipitor] 40 mg PO QPM 04/30/21 08:00 Potassium Chloride/Water 10 mEq/100 mL q1h (Enter # of bags) Potassium Chlor 10 Meq/100 ml [Potassium Chloride] 10 meq in 100 ml IV Q1H Subjective - Subjective Patient Reports: Other (Patient was seated at bedside chair at time of exam. was also at bedside. He denied any abdominal pain. Denied nausea or vomiting.) Objective Vital Signs: Vital Signs - 24 hr 04/29/21 04/29/21 04/29/21 09:24 12:58 15:55 Temperature 36.4 C L 36.7 C Heart Rate [ 88 107 H Brachial] Respiratory 18 20 Rate Blood Pressure 140/79 H Blood Pressure 138/78 H [Left Brachial artery] Blood Pressure 138/74 H [Right Brachial artery] O2 Saturation 99 94 04/29/21 04/29/21 04/29/21 20:07 23:47 23:48 Temperature 36.4 C L 37.5 C Heart Rate [ 100 99 98 Brachial] Respiratory 20 16 Rate Blood Pressure 132/76 H Blood Pressure 154/78 H 154/77 H 132/76 H [Left Brachial artery] Blood Pressure [Right Brachial artery] O2 Saturation 95 97 04/29/21 04/29/21 04/30/21 23:53 23:58 00:03 Temperature Heart Rate [ 73 71 71 Brachial] Respiratory Rate Blood Pressure Blood Pressure 130/61 126/61 117/59 L [Left Brachial artery] Blood Pressure [Right Brachial artery] O2 Saturation 04/30/21 04/30/21 04/30/21 00:18 00:33 00:48 Temperature Heart Rate [ 72 74 86 Brachial] Respiratory Rate Blood Pressure Blood Pressure 115/56 L 115/58 L 125/66 [Left Brachial artery] Blood Pressure [Right Brachial artery] O2 Saturation 04/30/21 05:10 Temperature 37.0 C Heart Rate [ 87 Brachial] Respiratory 16 Rate Blood Pressure Blood Pressure 108/58 L [Left Brachial artery] Blood Pressure [Right Brachial artery] O2 Saturation 92 Oxygen O2 Source Room air I&O (Last 24 Hrs): Intake and Output Totals x24h 04/28/21 04/29/21 04/30/21 23:59 23:59 23:59 Intake Total 1481.738 1523.333 Output Total 330 Balance 9382.526 6392.333 Comments/Notes: General: Alert, Oriented x3, Mild distress HEENT: PERRLA, EOMI Neck: Supple, No JVD Neuro: Alert, Non Focal, Oriented Times 3 Cardiovascular: Regular rate, Normal S1, Normal S2 Respiratory: Chest non-tender, No respiratory distress, Breath sounds nml Abdomen: Normal bowel sounds, Soft, No tenderness Extremities: No clubbing, No cyanosis, No edema Skin: No rashes, No breakdown, No significant lesion - Results Results: Laboratory Results WBC 6.8 x10^3/uL (4.8-10.8) 04/30/21 05:05 RBC 3.90 10^6/uL (4.70-6.10) L 04/30/21 05:05 Hgb 11.8 g/dL (14.0-18.0) L 04/30/21 05:05 Hct 35.2 % (42.0-52.0) L 04/30/21 05:05 MCV 90.3 fL (80.0-94.0) 04/30/21 05:05 MCH 30.3 pg (27.0-31.0) 04/30/21 05:05 MCHC 33.5 g/dL (32.0-36.0) 04/30/21 05:05 RDW 12.0 % (12.0-15.0) 04/30/21 05:05 Plt Count 234 10^3/uL (130-450) 04/30/21 05:05 MPV 8.8 fL (7.4-11.4) 04/30/21 05:05 Neut # (Auto) 4.4 10^3/uL (1.5-6.6) 04/30/21 05:05 Lymph # (Auto) 1.6 10^3/uL (1.5-3.5) 04/30/21 05:05 [place] # (Auto) 0.7 10^3/uL (0.0-1.0) 04/30/21 05:05 Eos # (Auto) 0.1 10^3/uL (0.0-0.7) 04/30/21 05:05 Baso # (Auto) 0.0 10^3/uL (0.0-0.1) 04/30/21 05:05 Absolute Nucleated RBC 0.00 x10^3/uL 04/30/21 05:05 Nucleated RBC % 0.0 /100WBC 04/30/21 05:05 INR (Fingerstick) 1.1 (0.8-1.2) 04/28/21 11:49 Sodium 136 mmol/L (135-145) 04/30/21 05:05 Potassium 3.3 mmol/L (3.5-5.0) L 04/30/21 05:05 Chloride 103 mmol/L (101-111) 04/30/21 05:05 Carbon Dioxide 24 mmol/L (21-32) 04/30/21 05:05 Anion Gap 9.0 (6-13) 04/30/21 05:05 BUN 9 mg/dL (6-20) 04/30/21 05:05 Creatinine 1.0 mg/dL (0.6-1.2) 04/30/21 05:05 Estimated GFR (MDRD) 73 (>89) L 04/30/21 05:05 Glucose 132 mg/dL (70-100) H 04/30/21 05:05 Calcium 7.8 mg/dL (8.5-10.3) L 04/30/21 05:05 Magnesium 2.1 mg/dL (1.7-2.8) 04/27/21 06:13 Total Bilirubin 1.2 mg/dL (0.2-1.0) H 04/26/21 20:38 AST 20 IU/L (10-42) 04/26/21 20:38 ALT 19 IU/L (10-60) 04/26/21 20:38 Alkaline Phosphatase 46 IU/L (42-121) 04/26/21 20:38 Total Protein 6.5 g/dL (6.7-8.2) L 04/26/21 20:38 Albumin 3.7 g/dL (3.2-5.5) 04/26/21 20:38 Globulin 2.8 g/dL (2.1-4.2) 04/26/21 20:38 Albumin/Globulin Ratio 1.3 (1.0-2.2) 04/26/21 20:38 Lipase 16 U/L (22-51) L 04/26/21 20:38 Urine Color YELLOW 04/26/21 04:20 Urine Clarity CLEAR (CLEAR) 04/26/21 04:20 Urine pH 6.5 PH (5.0-7.5) 04/26/21 04:20 Ur Specific [place] 1.020 (1.002-1.030) 04/26/21 04:20 Urine Protein NEGATIVE mg/dL (NEGATIVE) 04/26/21 04:20 Urine Glucose (UA) NEGATIVE mg/dL (NEGATIVE) 04/26/21 04:20 Urine Ketones >=80 mg/dL (NEGATIVE) H 04/26/21 04:20 Urine Occult Blood TRACE-INTA (NEGATIVE) 04/26/21 04:20 Urine Nitrite NEGATIVE (NEGATIVE) 04/26/21 04:20 Urine Bilirubin NEGATIVE (NEGATIVE) 04/26/21 04:20 Urine Urobilinogen 1 (NORMAL) E.U./dL (NORMAL) 04/26/21 04:20 Ur Leukocyte Esterase NEGATIVE (NEGATIVE) 04/26/21 04:20 Ur Microscopic Review NOT INDICATED 04/26/21 04:20 Urine Culture Comments NOT INDICATED 04/26/21 04:20 Nasal Adenovirus (PCR) NOT DETECTED 04/26/21 23:47 Nasal B. parapertussis DNA (PCR) NOT DETECTED 04/26/21 23:47 Nasal Coronavir 229E PCR NOT DETECTED 04/26/21 23:47 Nasal Coronavir HKU1 PCR NOT DETECTED 04/26/21 23:47 Nasal Coronavir NL63 PCR NOT DETECTED 04/26/21 23:47 Nasal Coronavir OC43 PCR NOT DETECTED 04/26/21 23:47 Nasal Enterovir/Rhinovir PCR NOT DETECTED 04/26/21 23:47 Nasal Influenza B PCR NOT DETECTED 04/26/21 23:47 Nasal Influenza A PCR NOT DETECTED 04/26/21 23:47 Nasal Parainfluen 1 PCR NOT DETECTED 04/26/21 23:47 Nasal Parainfluen 2 PCR NOT DETECTED 04/26/21 23:47 Nasal Parainfluen 3 PCR NOT DETECTED 04/26/21 23:47 Nasal Parainfluen 4 PCR NOT DETECTED 04/26/21 23:47 Nasal RSV (PCR) NOT DETECTED 04/26/21 23:47 Nasal B.pertussis DNA PCR NOT DETECTED 04/26/21 23:47 Nasal C.pneumoniae (PCR) NOT DETECTED 04/26/21 23:47 [place] Human Metapneumo PCR NOT DETECTED 04/26/21 23:47 Nasal M.pneumoniae (PCR) NOT DETECTED 04/26/21 23:47 Nasal SARS-CoV-2 (PCR) NOT DETECTED 04/26/21 23:47 ABX Reporting Has patient been on IV antibiotics over the past 48 hours?: No
[2021-04-30] MEDS: POTASSIUM CHLOR 10 MEQ/100 ML 10 MEQ/100 ML BAG IV SCH ×4 (08:27→11:46)
[2021-04-30] MEDS: ASPIRIN EC 81 MG TABLET PO SCH (10:10)
[2021-04-30] MEDS: lisinopriL 5 MG TABLET PO SCH (10:11)
[2021-04-30] MEDS: METOPROLOL TARTRATE 25 MG TABLET PO SCH ×2 (10:13→21:24)
--- NOTE | 2021-04-30 10:58 | ANESTHESIA ---
Pre-Anesthesia VS, & Labs - Diagnosis bowel obstruction - Procedure Exploratory laparotomy, Vital Signs: Temp Pulse Resp BP Pulse Ox 36.6 C 74 16 114/69 96 04/30/21 08:08 04/30/21 08:08 04/30/21 08:08 04/30/21 10:13 04/30/21 08:08 Height: 5 ft 11 in Weight (kg): 74.843 kg Body Mass Index: 23.0 BMI Classification: Healthy weight - NPO >8 hours - Lab Results Current Lab Results: Laboratory Tests 04/30/21 05:05: Sodium 136, Potassium 3.3 L, Chloride 103, Carbon Dioxide 24, Anion Gap 9.0, BUN 9, Creatinine 1.0, Estimated GFR (MDRD) 73 L, Glucose 132 H, Calcium 7.8 L 04/30/21 05:05: WBC 6.8, RBC 3.90 L, Hgb 11.8 L, Hct 35.2 L, MCV 90.3, MCH 30.3, MCHC 33.5, RDW 12.0, Plt Count 234, MPV 8.8, Neut # (Auto) 4.4, Lymph # (Auto) 1.6, [place] # (Auto) 0.7, Eos # (Auto) 0.1, Baso # (Auto) 0.0, Absolute Nucleated RBC 0.00, Nucleated RBC % 0.0 04/29/21 05:45: Sodium 136, Potassium 3.2 L, Chloride 103, Carbon Dioxide 24, Anion Gap 9.0, BUN 8, Creatinine 0.8, Estimated GFR (MDRD) 94, Glucose 133 H, Calcium 8.0 L 04/29/21 05:45: WBC 5.9, RBC 3.99 L, Hgb 12.3 L, Hct 36.3 L, MCV 91.0, MCH 30.8, MCHC 33.9, RDW 11.9 L, Plt Count 241, MPV 8.8, Neut # (Auto) 3.9, Lymph # (Auto) 1.4 L, [place] # (Auto) 0.5, Eos # (Auto) 0.1, Baso # (Auto) 0.0, Absolute Nucleated RBC 0.00, Nucleated RBC % 0.0 04/28/21 11:49: INR (Fingerstick) 1.1 04/28/21 06:36: Sodium 134 L, Potassium 3.3 L, Chloride 103, Carbon Dioxide 25, Anion Gap 6.0, BUN 11, Creatinine 1.0, Estimated GFR (MDRD) 73 L, Glucose 133 H, Calcium 7.6 L 04/28/21 06:36: WBC 5.7, RBC 3.68 L, Hgb 11.3 L, Hct 33.6 L, MCV 91.3, MCH 30.7, MCHC 33.6, RDW 11.9 L, Plt Count 211, MPV 8.9, Neut # (Auto) 3.8, Lymph # (Auto) 1.2 L, [place] # (Auto) 0.5, Eos # (Auto) 0.1, Baso # (Auto) 0.0, Absolute Nucleated RBC 0.00, Nucleated RBC % 0.0 04/27/21 06:13: Sodium 137, Potassium 3.5, Chloride 102, Carbon Dioxide 26, Anion Gap 9.0, BUN 17, Creatinine 0.8, Estimated GFR (MDRD) 94, Glucose 140 H, Calcium 8.1 L, Magnesium 2.1 04/27/21 06:13: WBC 8.5, RBC 4.04 L, Hgb 12.1 L, Hct 36.7 L, MCV 90.8, MCH 30.0, MCHC 33.0, RDW 12.0, Plt Count 223, MPV 8.7, Neut # (Auto) 6.1, Lymph # (Auto) 1.7, [place] # (Auto) 0.7, Eos # (Auto) 0.0, Baso # (Auto) 0.0, Absolute Nucleated RBC 0.00, Nucleated RBC % 0.0 04/26/21 20:38: Sodium 134 L, Potassium 3.4 L, Chloride 97 L, Carbon Dioxide 26, Anion Gap 11.0, BUN 19, Creatinine 1.1, Estimated GFR (MDRD) 65 L, Glucose 131 H , Calcium 8.4 L, Total Bilirubin 1.2 H, AST 20, ALT 19, Alkaline Phosphatase 46, Total Protein 6.5 L, Albumin 3.7, Globulin 2.8, Albumin/Globulin Ratio 1.3, Lipase 16 L 04/26/21 20:38: WBC 9.3, RBC 4.38 L, Hgb 13.5 L, Hct 40.7 L, MCV 92.9, MCH 30.8, MCHC 33.2, RDW 11.9 L, Plt Count 237, MPV 8.5, Neut # (Auto) 6.9 H, Lymph # (Auto) 1.6, [place] # (Auto) 0.7, Eos # (Auto) 0.1, Baso # (Auto) 0.0, Absolute Nucleated RBC 0.00, Nucleated RBC % 0.0 Lab results reviewed: Yes Fish Bones: 04/30/21 05:05 04/30/21 05:05 Home Medications and Allergies Active Medications Al Hydroxide/Mg Hydroxide (Mag Hydrox/Al Hydrox/Simeth 30 Ml Udc) 30 ml PO Q4HR PRN PRN Reason: INDIGESTION Last Admin: 04/29/21 13:39 Dose: 30 ml Documented by: Aspirin (Aspirin Ec 81 Mg Tablet) 81 mg PO DAILY COUNTS INCLUDE 234 BEDS AT THE [facility] Last Admin: 04/30/21 10:10 Dose: Not Given Documented by: Atorvastatin Calcium (Atorvastatin 40 Mg Tablet) 40 mg PO QPM COUNTS INCLUDE 234 BEDS AT THE [facility] Last Admin: 04/29/21 23:15 Dose: Not Given Documented by: Hydromorphone HCl (Hydromorphone 0.5 Mg/0.5 Ml Syringe) 0.5 mg IVP Q3H PRN PRN Reason: PAIN 5-7 Last Admin: 04/29/21 20:19 Dose: 0.5 mg Documented by: Potassium Chloride/Dextrose/Sod Cl (D5ns W/20 Meq Kcl) 1,000 mls @ 100 mls/hr IV .Q10H COUNTS INCLUDE 234 BEDS AT THE [facility] Last Infusion: 04/30/21 08:55 Dose: 0 mls/hr Documented by: Potassium Chloride (Potassium Chloride) 10 meq in 100 mls @ 100 mls/hr IV Q1H COUNTS INCLUDE 234 BEDS AT THE [facility] Stop: 04/30/21 11:59 Last Admin: 04/30/21 10:40 Dose: 100 mls/hr Documented by: Lisinopril (Lisinopril 5 Mg Tablet) 2.5 mg PO DAILY COUNTS INCLUDE 234 BEDS AT THE [facility] Last Admin: 04/30/21 10:11 Dose: Not Given Documented by: Metoprolol Tartrate (Metoprolol Tartrate 25 Mg Tablet) 12.5 mg PO BID COUNTS INCLUDE 234 BEDS AT THE [facility] Last Admin: 04/30/21 10:13 Dose: Not Given Documented by: Multi-Ingredient Ointment (Zinc Oxide 20% Oint 30 Gm Tube) 1 applic TOP PRN PRN PRN Reason: Skin Care Ondansetron HCl (Ondansetron 4 Mg/2 Ml Vial) 4 mg IVP Q6HR PRN PRN Reason: Nausea / Vomiting Last Admin: 04/30/21 05:50 Dose: 4 mg Documented by: Phenol/Menthol (Phenol Throat [place] 177 Ml) 2 sprays MM Q2HR PRN PRN Reason: Throat Pain Last Admin: 04/27/21 19:17 Dose: 2 sprays Documented by: Prochlorperazine Edisylate (Prochlorperazine 10 Mg/2 Ml Vial) 10 mg IVP Q6HR PRN PRN Reason: Nausea / Vomiting Last Admin: 04/29/21 15:33 Dose: 10 mg Documented by: Sodium Chloride (Sodium Chloride Flush 0.9% 10 Ml Syringe) 10 ml IVP PRN PRN PRN Reason: NEEDED PER PROVIDER ORDERS Sodium Chloride (Sodium Chloride Flush 0.9% 10 Ml Syringe) 10 ml IVP 0100,0900,1700 ANTHONY Last Admin: 04/30/21 05:51 Dose: 10 ml Documented by: Atorvastatin Calcium 40 mg PO QPM 04/24/21 Clopidogrel [Plavix] 75 mg PO DAILY 04/24/21 Lisinopril [Zestril] 2.5 mg PO DAILY 04/24/21 Metoprolol Tartrate [Lopressor] 12.5 mg PO BID 04/24/21 Aspirin [Aspirin EC] 81 mg PO DAILY 04/25/21 Allergies/Adverse Reactions: Allergies Allergy/AdvReac Type Severity Reaction Status Date / Time No Known Drug Allergies Allergy Verified 04/24/21 13:59 Anes History & Medical History - Anesthetic History Anesthesia Complications: reports: No previous complications Family history of Anesthesia Complications: Denies Family history of Malignant Hyperthermia: Denies - Medical History Cardiovascular: reports: Coronary artery disease (stent 10/2020), [place] Pulmonary: reports: None Gastrointestinal: reports: Other Urinary: reports: None Neuro: reports: None Musculoskeletal: reports: None Endocrine/Autoimmune: reports: None Blood Disorders: reports: None Skin: reports: None Smoking Status: Former smoker Other Past Medical History: SBO - Surgical History Cardiothoracic: reports: Coronary stent Results - Echo Results Echo Results: Report reviewed Exam General: Alert, Oriented x3, Cooperative, No acute distress Dental: WNL Mouth Openin Fingerbreadth Neck Mobility: Normal Mallampati classification: II Respiratory: Lungs clear, Normal breath sounds, No respiratory distress, No accessory muscle use Cardiovascular: Regular rate, Normal S1, Normal S2, No murmurs Plan Anesthesia Type: General Consent for Procedure(s) Verified and Reviewed: Yes Code Status: Attempt Resuscitation ASA classification: 3-Severe systemic disease Is this case an emergency?: No
[2021-04-30] MEDS ORDERED: SCOPOLAMINE PATCH TOP ONE (12:52)
[2021-04-30] MEDS ORDERED: ONDANSETRON 4 MG/2 ML VIAL ONE (13:04)
[2021-04-30] MEDS ORDERED: LIDOCAINE-MPF 2% 5 ML VIAL ONE (13:04)
[2021-04-30] MEDS ORDERED: fentaNYL 100 MCG/2 ML VIAL ONE ×2 (13:04→16:02)
[2021-04-30] MEDS ORDERED: PROPOFOL 200 MG/20 ML VIAL IVP ONE (13:04)
[2021-04-30] MEDS ORDERED: ROCURONIUM 50 MG/5 ML VIAL ONE (13:04)
[2021-04-30] MEDS ORDERED: DEXAMETHASONE 4 MG/ML VIAL ONE (13:04)
--- NOTE | 2021-04-30 13:39 | PROVIDER PROGRESS NOTE ---
Assessment/Plan - Problem List (1) SBO (small bowel obstruction) Assessment/Plan: Patient had abdominal pain and vomiting last night. Clear liquids held. Exam: Abdomen unchanged- no guarding or rigidity, mild distension. Abdominal films: unchanged, dilated SB loops Assess: SBO, high grade, not complete as gastrografin passed, but patient unable to take po and has persistentN/V. Plan: Ex lap today, possible small bowel resection. Patient consented. One dose of plavix given yesterday noted. - Current Meds Current Meds: Current Medications Generic Name Dose Route Start Last Admin Trade Name Freq PRN Reason Stop Dose Admin Al Hydroxide/Mg Hydroxide 30 ml 04/29/21 11:29 04/29/21 13:39 Mag Hydrox/Al Hydrox/Simeth 30 Ml Udc PO 30 ml Q4HR PRN Administration INDIGESTION Aspirin 81 mg 04/29/21 10:00 04/30/21 10:10 Aspirin Ec 81 Mg Tablet PO Not Given DAILY ANTHONY Atorvastatin Calcium 40 mg 04/29/21 21:00 04/29/21 23:15 Atorvastatin 40 Mg Tablet PO Not Given QPM ANTHONY Hydromorphone HCl 0.5 mg 04/29/21 20:08 04/29/21 20:19 Hydromorphone 0.5 Mg/0.5 Ml Syringe IVP 0.5 mg Q3H PRN Administration PAIN 5-7 Potassium Chloride/Dextrose/Sod Cl 1,000 mls @ 100 mls/hr 04/26/21 23:45 04/30/21 08:55 D5ns W/20 Meq Kcl IV 0 mls/hr .Q10H ANTHONY Infusion Lisinopril 2.5 mg 04/29/21 20:09 04/30/21 10:11 Lisinopril 5 Mg Tablet PO Not Given DAILY ANTHONY Metoprolol Tartrate 12.5 mg 04/29/21 10:00 04/30/21 10:13 Metoprolol Tartrate 25 Mg Tablet PO Not Given BID ANTHONY Ondansetron HCl 4 mg 04/26/21 23:31 04/30/21 05:50 Ondansetron 4 Mg/2 Ml Vial IVP 4 mg Q6HR PRN Administration Nausea / Vomiting Phenol/Menthol 2 sprays 04/27/21 19:01 04/27/21 19:17 Phenol Throat [place] 177 Ml MM 2 sprays Q2HR PRN Administration Throat Pain Prochlorperazine Edisylate 10 mg 04/27/21 00:33 04/29/21 15:33 Prochlorperazine 10 Mg/2 Ml Vial IVP 10 mg Q6HR PRN Administration Nausea / Vomiting Sodium Chloride 10 ml 04/27/21 01:00 04/30/21 05:51 Sodium Chloride Flush 0.9% 10 Ml Syringe IVP 10 ml 0100,0900,1700 [facility] Administration - Lab Result Fish Bone Diagrams: 04/30/21 05:05 04/30/21 05:05 Objective Vital Signs: Vital Signs - 24 hr 04/29/21 04/29/21 04/29/21 15:55 20:07 23:47 Temperature 36.7 C 36.4 C L 37.5 C Heart Rate [ 107 H 100 99 Brachial] Respiratory 20 20 16 Rate Blood Pressure Blood Pressure 138/78 H 154/78 H 154/77 H [Left Brachial artery] O2 Saturation 94 95 97 04/29/21 04/29/21 04/29/21 23:48 23:53 23:58 Temperature Heart Rate [ 98 73 71 Brachial] Respiratory Rate Blood Pressure 132/76 H Blood Pressure 132/76 H 130/61 126/61 [Left Brachial artery] O2 Saturation 04/30/21 04/30/21 04/30/21 00:03 00:18 00:33 Temperature Heart Rate [ 71 72 74 Brachial] Respiratory Rate Blood Pressure Blood Pressure 117/59 L 115/56 L 115/58 L [Left Brachial artery] O2 Saturation 04/30/21 04/30/21 04/30/21 00:48 05:10 08:08 Temperature 37.0 C 36.6 C Heart Rate [ 86 87 74 Brachial] Respiratory 16 16 Rate Blood Pressure Blood Pressure 125/66 108/58 L 114/64 [Left Brachial artery] O2 Saturation 92 96 04/30/21 04/30/21 10:13 11:42 Temperature 36.8 C Heart Rate [ 89 Brachial] Respiratory 18 Rate Blood Pressure 114/69 Blood Pressure 118/76 [Left Brachial artery] O2 Saturation 97 Oxygen O2 Source Room air I&O (Last 24 Hrs): Intake and Output Totals x24h 04/28/21 04/29/21 04/30/21 23:59 23:59 23:59 Intake Total 8897.369 5369.333 2100.000 Output Total 330 Balance 7571.053 2588.333 2100.000 - Results Results: Laboratory Results WBC 6.8 x10^3/uL (4.8-10.8) 04/30/21 05:05 RBC 3.90 10^6/uL (4.70-6.10) L 04/30/21 05:05 Hgb 11.8 g/dL (14.0-18.0) L 04/30/21 05:05 Hct 35.2 % (42.0-52.0) L 04/30/21 05:05 MCV 90.3 fL (80.0-94.0) 04/30/21 05:05 MCH 30.3 pg (27.0-31.0) 04/30/21 05:05 MCHC 33.5 g/dL (32.0-36.0) 04/30/21 05:05 RDW 12.0 % (12.0-15.0) 04/30/21 05:05 Plt Count 234 10^3/uL (130-450) 04/30/21 05:05 MPV 8.8 fL (7.4-11.4) 04/30/21 05:05 Neut # (Auto) 4.4 10^3/uL (1.5-6.6) 04/30/21 05:05 Lymph # (Auto) 1.6 10^3/uL (1.5-3.5) 04/30/21 05:05 [place] # (Auto) 0.7 10^3/uL (0.0-1.0) 04/30/21 05:05 Eos # (Auto) 0.1 10^3/uL (0.0-0.7) 04/30/21 05:05 Baso # (Auto) 0.0 10^3/uL (0.0-0.1) 04/30/21 05:05 Absolute Nucleated RBC 0.00 x10^3/uL 04/30/21 05:05 Nucleated RBC % 0.0 /100WBC 04/30/21 05:05 INR (Fingerstick) 1.1 (0.8-1.2) 04/28/21 11:49 Sodium 136 mmol/L (135-145) 04/30/21 05:05 Potassium 3.3 mmol/L (3.5-5.0) L 04/30/21 05:05 Chloride 103 mmol/L (101-111) 04/30/21 05:05 Carbon Dioxide 24 mmol/L (21-32) 04/30/21 05:05 Anion Gap 9.0 (6-13) 04/30/21 05:05 BUN 9 mg/dL (6-20) 04/30/21 05:05 Creatinine 1.0 mg/dL (0.6-1.2) 04/30/21 05:05 Estimated GFR (MDRD) 73 (>89) L 04/30/21 05:05 Glucose 132 mg/dL (70-100) H 04/30/21 05:05 Calcium 7.8 mg/dL (8.5-10.3) L 04/30/21 05:05 Magnesium 2.1 mg/dL (1.7-2.8) 04/27/21 06:13 Total Bilirubin 1.2 mg/dL (0.2-1.0) H 04/26/21 20:38 AST 20 IU/L (10-42) 04/26/21 20:38 ALT 19 IU/L (10-60) 04/26/21 20:38 Alkaline Phosphatase 46 IU/L (42-121) 04/26/21 20:38 Total Protein 6.5 g/dL (6.7-8.2) L 04/26/21 20:38 Albumin 3.7 g/dL (3.2-5.5) 04/26/21 20:38 Globulin 2.8 g/dL (2.1-4.2) 04/26/21 20:38 Albumin/Globulin Ratio 1.3 (1.0-2.2) 04/26/21 20:38 Lipase 16 U/L (22-51) L 04/26/21 20:38 Urine Color YELLOW 04/26/21 04:20 Urine Clarity CLEAR (CLEAR) 04/26/21 04:20 Urine pH 6.5 PH (5.0-7.5) 04/26/21 04:20 Ur Specific [place] 1.020 (1.002-1.030) 04/26/21 04:20 Urine Protein NEGATIVE mg/dL (NEGATIVE) 04/26/21 04:20 Urine Glucose (UA) NEGATIVE mg/dL (NEGATIVE) 04/26/21 04:20 Urine Ketones >=80 mg/dL (NEGATIVE) H 04/26/21 04:20 Urine Occult Blood TRACE-INTA (NEGATIVE) 04/26/21 04:20 Urine Nitrite NEGATIVE (NEGATIVE) 04/26/21 04:20 Urine Bilirubin NEGATIVE (NEGATIVE) 04/26/21 04:20 Urine Urobilinogen 1 (NORMAL) E.U./dL (NORMAL) 04/26/21 04:20 Ur Leukocyte Esterase NEGATIVE (NEGATIVE) 04/26/21 04:20 Ur Microscopic Review NOT INDICATED 04/26/21 04:20 Urine Culture Comments NOT INDICATED 04/26/21 04:20 Nasal Adenovirus (PCR) NOT DETECTED 04/26/21 23:47 Nasal B. parapertussis DNA (PCR) NOT DETECTED 04/26/21 23:47 Nasal Coronavir 229E PCR NOT DETECTED 04/26/21 23:47 Nasal Coronavir HKU1 PCR NOT DETECTED 04/26/21 23:47 Nasal Coronavir NL63 PCR NOT DETECTED 04/26/21 23:47 Nasal Coronavir OC43 PCR NOT DETECTED 04/26/21 23:47 Nasal Enterovir/Rhinovir PCR NOT DETECTED 04/26/21 23:47 Nasal Influenza B PCR NOT DETECTED 04/26/21 23:47 Nasal Influenza A PCR NOT DETECTED 04/26/21 23:47 Nasal Parainfluen 1 PCR NOT DETECTED 04/26/21 23:47 Nasal Parainfluen 2 PCR NOT DETECTED 04/26/21 23:47 Nasal Parainfluen 3 PCR NOT DETECTED 04/26/21 23:47 Nasal Parainfluen 4 PCR NOT DETECTED 04/26/21 23:47 Nasal RSV (PCR) NOT DETECTED 04/26/21 23:47 Nasal B.pertussis DNA PCR NOT DETECTED 04/26/21 23:47 Nasal C.pneumoniae (PCR) NOT DETECTED 04/26/21 23:47 Benny Human Metapneumo PCR NOT DETECTED 04/26/21 23:47 Nasal M.pneumoniae (PCR) NOT DETECTED 04/26/21 23:47 Nasal SARS-CoV-2 (PCR) NOT DETECTED 04/26/21 23:47 ABX Reporting Has patient been on IV antibiotics over the past 48 hours?: No
[2021-04-30] MEDS ORDERED: ceFAZolin 1 GM VIAL ONE (14:28)
[2021-04-30] MEDS ORDERED: BUPIVACAINE 0.25% PF 30 ML VIAL SUBQ ONE (14:45)
[2021-04-30] MEDS ORDERED: SUGAMMADEX 200 MG/2 ML VIAL IVP ONE (15:00)
--- NOTE | 2021-04-30 15:08 | OPERATIVE REPORT ---
Operative Report - General Admit Date: 04/26/21 Procedure Date: 04/30/21 Planned Procedure: Exploratory laparotomy Pre-Op Diagnosis: Small bowel obstruction Procedure Performed: Exploratory laparotomy with lysis of adhesions Post Op Diagnosis: Small bowel obstruction secondary to adhesions - Procedure Note Primary Surgeon: Anshu Thomas MD Secondary Surgeon: salma Anesthesia Provider: Clark GREGORIO Anesthesia Technique: General ET tube Estimated Blood Loss (mL): 30 Indications: This 76-year-old male was admitted with a history of abdominal pain, nausea, vomiting. He had a CT scan which suggested a possible small bowel obstruction. He left the hospital AMA but then returned the same day and had a nasogastric tube placed with improvement in symptoms. He had a Gastrografin small bowel follow-through on April 28 which showed passage of contrast into the colon on the forearm film. He was then started on clear liquids which he tolerated poorly. He had waves of nausea and some abdominal pain with the clear liquid diet. Plain abdominal films showed persistent dilated loops of small bowel and the patient was advised to have exploratory laparotomy. Findings: A single adhesive band was found across the base of the mesentery of the small bowel. The involved small bowel had some ecchymosis on the antimesenteric surface but was otherwise healthy and viable. There was a moderate amount of serosanguineous ascites.The small bowel was run from the ligament of Treitz to the ileocecal valve and no other abnormalities were found. Complications: none - Other Other Information/Narrative: The patient was taken to the operating room where general anesthesia was induced and the patient was intubated. The abdomen was prepped with ChloraPrep and sterilely draped in usual fashion. A Carter catheter was placed for surgery. A midline incision was made from the umbilicus to the symphysis pubis with a scalpel and cautery dissection was carried through the subcutaneous fat and the midline fascia. The peritoneum was entered sharply and findings were as above. The adhesive band at the base of the mesentery of the small bowel was lysed and the small bowel was eviscerated and carefully evaluated from ligament of Treitz to the ileocecal valve. 2 L of warm saline irrigation were used to irrigate the abdomen. The midline fascia was then closed with a running #2 double-stranded PDS suture and skin was closed with clips. A Mepilex dressing was placed over the midline incision and the patient was extubated and taken to recovery room in stable condition. Carter catheter was removed at the conclusion of the procedure.
[2021-04-30] MEDS ORDERED: LACTATED RINGERS 1,000 ML IV ONE (15:11)
[2021-04-30] MEDS ORDERED: NALOXONE 0.4 MG/ML VIAL IVP PRN (15:21)
[2021-04-30] MEDS ORDERED: MORPHINE 2 MG/ML CARPUJECT IVP PRN (15:21)
[2021-04-30] MEDS ORDERED: METOCLOPRAMIDE 10 MG/2 ML VIAL IVP PRN (15:21)
[2021-04-30] MEDS ORDERED: ATROPINE ABBOJECT 1 MG/10 ML SYRINGE IVP PRN (15:21)
[2021-04-30] MEDS ORDERED: fentaNYL 100 MCG/2 ML VIAL IVP PRN (15:21)
[2021-04-30] MEDS ORDERED: ONDANSETRON 4 MG/2 ML VIAL IVP PRN (15:21)
[2021-04-30] MEDS ORDERED: ePHEDrine 50 MG/ML VIAL IVP PRN (15:21)
[2021-04-30] MEDS: HYDROmorphone 0.5 MG/0.5 ML SYRINGE IVP PRN ×6 (15:33→22:07)
[2021-04-30] MEDS ORDERED: HYDROmorphone 1 MG/ML CARPUJECT ONE ×2 (15:35→15:55)
[2021-04-30] MEDS ORDERED: LACTATED RINGERS 1,000 ML IV SCH (16:00)
[2021-04-30] MEDS ORDERED: ACETAMINOPHEN 1,000 MG/100 ML 100 ML IV ONE ×2 (16:15→16:21)
[2021-04-30] MEDS: D5NS W/20 MEQ KCL 1,000 ML IV SCH ×2 (17:45→18:14)
[2021-04-30] MEDS: ATORVASTATIN 40 MG TABLET PO SCH (21:24)
[2021-05-01] MEDS: HYDROmorphone 0.5 MG/0.5 ML SYRINGE IVP PRN ×2 (01:43→06:22)
[2021-05-01] MEDS: ONDANSETRON 4 MG/2 ML VIAL IVP PRN ×2 (01:43→14:21)
[2021-05-01] MEDS: D5NS W/20 MEQ KCL 1,000 ML IV SCH (04:03)
[2021-05-01] MEDS: SODIUM CHLORIDE FLUSH 0.9% 10 ML SYRINGE IVP SCH ×3 (04:09→16:40)
[2021-05-01 06:12] LABS: BASOPHILS % (AUTO) 0.3 %; EOSINOPHILS # (AUTO) 0.1 10^3/uL (0.0-0.7); HCT - HEMATOCRIT 37.5 % (42.0-52.0); HGB - HEMOGLOBIN 12.7 g/dL (14.0-18.0); LYMPHOCYTES # (AUTO) 2.5 10^3/uL (1.5-3.5); LYMPHOCYTES % (AUTO) 28.7 %; MEAN CORPUSCULAR HEMOGLOBIN 30.7 pg (27.0-31.0); MEAN CORPUSCULAR HGB CONC 33.9 g/dL (32.0-36.0); MEAN CORPUSCULAR VOLUME 90.6 fL (80.0-94.0); MEAN PLATELET VOLUME 8.8 fL (7.4-11.4); MONOCYTES # (AUTO) 0.7 10^3/uL (0.0-1.0); MONOCYTES % (AUTO) 7.4 %; NEUTROPHILS # (AUTO) 5.5 10^3/uL (1.5-6.6); NEUTROPHILS % (AUTO) 62.3 %; PLT - PLATELET COUNT 253 10^3/uL (130-450); RED BLOOD COUNT 4.14 10^6/uL (4.70-6.10); WHITE BLOOD COUNT 8.8 x10^3/uL (4.8-10.8)
[2021-05-01 06:21] LABS: CREATININE 0.9 mg/dL (0.6-1.2); POTASSIUM 3.3 mmol/L (3.5-5.0)
[2021-05-01] MEDS: POTASSIUM CHLOR 10 MEQ/100 ML 10 MEQ/100 ML BAG IV SCH ×2 (08:06→09:18)
[2021-05-01] MEDS: ASPIRIN EC 81 MG TABLET PO SCH (08:07)
[2021-05-01] MEDS: METOPROLOL TARTRATE 25 MG TABLET PO SCH ×2 (08:08→20:26)
[2021-05-01] MEDS: lisinopriL 5 MG TABLET PO SCH (08:10)
[2021-05-01] MEDS: ENOXAPARIN 40 MG/0.4 ML SYRINGE SUBQ SCH (08:12)
[2021-05-01] MEDS ORDERED: CLOPIDOGREL 75 MG TABLET PO SCH (09:00)
[2021-05-01] MEDS: HYDROmorphone 1 MG/ML CARPUJECT IVP PRN ×2 (09:19→20:29)
--- NOTE | 2021-05-01 12:06 | PROVIDER PROGRESS NOTE ---
Assessment/Plan - Problem List (1) SBO (small bowel obstruction) Assessment/Plan: 05/01 Day 1 Status post of Exploratory laparotomy with lysis of adhesions surgery. pt report surgery site pain, denies nausea or vomiting and fever, or chill. he report he did not pass gas or bowel movement yet. pt has good bowel sound at whole abdomen, his bowel is soft. now pt is NPO. We will continue intravenous IV fluids. We will follow up with surgeon recommendations. Continue pain control, add incentive spirometry, encourage safely ambulate. (2) Hx of coronary artery disease Conclusion/Plan: 05/01 pt denies chest pain. Patientis hemodynamic stable. today it is day1 s/p of surgery, we may resume Plavis on tomorrow, add Lovenox, continue aspirin and Lipitor. 04/28 pt is stable, denies chest pain. pt plan to have surgery on today, hold his home Plavix now, will resume home meds soon after surgery. 04/27, Oral meds will be on hold, substituted with Aspirin [place] form. pt had SC and stent about 5 months ago, continue IV Metoprolol, add tele monitor. No Plavix, in case surgery is needed. - Current Meds Current Meds: Current Medications Generic Name Dose Route Start Last Admin Trade Name Freq PRN Reason Stop Dose Admin Al Hydroxide/Mg Hydroxide 30 ml 04/29/21 11:29 04/29/21 13:39 Mag Hydrox/Al Hydrox/Simeth 30 Ml Udc PO 30 ml Q4HR PRN Administration INDIGESTION Aspirin 81 mg 04/29/21 10:00 05/01/21 08:07 Aspirin Ec 81 Mg Tablet PO 81 mg DAILY ANTHONY Administration Atorvastatin Calcium 40 mg 04/29/21 21:00 04/30/21 21:24 Atorvastatin 40 Mg Tablet PO 40 mg QPM ANTHONY Administration Enoxaparin Sodium 40 mg 05/01/21 09:00 05/01/21 08:12 Enoxaparin 40 Mg/0.4 Ml Syringe SUBQ 40 mg DAILY ANTHONY Administration Hydromorphone HCl 1 mg 05/01/21 09:05 05/01/21 09:19 Hydromorphone 1 Mg/Ml Carpuject IVP 1 mg Q4H PRN Administration PAIN 5-7 Potassium Chloride/Dextrose/Sod Cl 1,000 mls @ 100 mls/hr 04/26/21 23:45 05/01/21 11:00 D5ns W/20 Meq Kcl IV 0 mls/hr .Q10H ANTHONY Infusion Lisinopril 2.5 mg 04/29/21 20:09 05/01/21 08:10 Lisinopril 5 Mg Tablet PO 2.5 mg DAILY ANTHONY Administration Metoprolol Tartrate 12.5 mg 04/29/21 10:00 05/01/21 08:08 Metoprolol Tartrate 25 Mg Tablet PO 12.5 mg BID ANTHONY Administration Ondansetron HCl 4 mg 04/26/21 23:31 05/01/21 01:43 Ondansetron 4 Mg/2 Ml Vial IVP 4 mg Q6HR PRN Administration Nausea / Vomiting Phenol/Menthol 2 sprays 04/27/21 19:01 04/27/21 19:17 Phenol Throat [place] 177 Ml MM 2 sprays Q2HR PRN Administration Throat Pain Prochlorperazine Edisylate 10 mg 04/27/21 00:33 04/29/21 15:33 Prochlorperazine 10 Mg/2 Ml Vial IVP 10 mg Q6HR PRN Administration Nausea / Vomiting Sodium Chloride 10 ml 04/30/21 17:00 05/01/21 08:11 Sodium Chloride Flush 0.9% 10 Ml Syringe IVP 10 ml 0100,0900,1700 ANTHONY Administration - Lab Result Fish Bone Diagrams: 05/01/21 05:30 05/01/21 05:30 - Additional Planning My Orders: My Active Orders 05/01/21 09:00 Enoxaparin [Lovenox] 40 mg SUBQ DAILY 05/01/21 09:05 HYDROmorphone 1MG CARP [Dilaudid 1Mg Carp] 1 mg IVP Q4H PRN 05/02/21 05:00 BMP - BASIC METABOLIC PANEL [CHEM] DAILYLAB CBC - COMP BLD CT W/AUTO DIFF [HEME] DAILYLAB 05/03/21 05:00 BMP - BASIC METABOLIC PANEL [CHEM] DAILYLAB CBC - COMP BLD CT W/AUTO DIFF [HEME] DAILYLAB Subjective - Subjective Patient Reports: Resting Comfortably Objective Vital Signs: Vital Signs - 24 hr 04/30/21 04/30/21 04/30/21 15:11 15:15 15:26 Temperature 36.5 C Heart Rate 88 99 90 Heart Rate [ Brachial] Respiratory 24 25 H 25 H Rate Blood Pressure 130/77 151/86 H 131/77 H Blood Pressure [Left Brachial artery] Blood Pressure [Right Brachial artery] O2 Saturation 100 100 100 04/30/21 04/30/21 04/30/21 15:30 15:36 15:40 Temperature 36.5 C Heart Rate 91 87 93 Heart Rate [ Brachial] Respiratory 20 22 20 Rate Blood Pressure 134/90 H 135/89 H 144/82 H Blood Pressure [Left Brachial artery] Blood Pressure [Right Brachial artery] O2 Saturation 97 96 95 04/30/21 04/30/21 04/30/21 15:46 15:51 16:00 Temperature Heart Rate 87 86 76 Heart Rate [ Brachial] Respiratory 24 24 10 L Rate Blood Pressure 136/83 H 147/78 H 137/74 H Blood Pressure [Left Brachial artery] Blood Pressure [Right Brachial artery] O2 Saturation 94 94 94 04/30/21 04/30/21 04/30/21 16:05 16:10 16:15 Temperature 36.7 C Heart Rate 68 86 71 Heart Rate [ Brachial] Respiratory 12 14 15 Rate Blood Pressure 136/69 H 149/76 H 135/73 H Blood Pressure [Left Brachial artery] Blood Pressure [Right Brachial artery] O2 Saturation 95 95 95 04/30/21 04/30/21 04/30/21 16:20 16:39 17:10 Temperature 37.1 C 36.6 C Heart Rate 73 Heart Rate [ 86 83 Brachial] Respiratory 12 14 16 Rate Blood Pressure 137/69 H Blood Pressure 141/75 H 132/72 H [Left Brachial artery] Blood Pressure [Right Brachial artery] O2 Saturation 94 94 94 04/30/21 04/30/21 04/30/21 18:54 21:21 21:24 Temperature 36.7 C 36.7 C Heart Rate Heart Rate [ 80 71 Brachial] Respiratory 14 18 Rate Blood Pressure 146/77 H Blood Pressure 128/74 [Left Brachial artery] Blood Pressure 146/77 H [Right Brachial artery] O2 Saturation 95 98 04/30/21 04/30/21 05/01/21 22:07 23:50 05:47 Temperature 36.7 C 36.8 C Heart Rate Heart Rate [ 78 75 Brachial] Respiratory 18 18 18 Rate Blood Pressure Blood Pressure 128/84 H 145/66 H [Left Brachial artery] Blood Pressure [Right Brachial artery] O2 Saturation 96 95 95 05/01/21 05/01/21 07:44 08:08 Temperature 36.8 C Heart Rate Heart Rate [ 70 Brachial] Respiratory 18 Rate Blood Pressure 132/63 H Blood Pressure 132/63 H [Left Brachial artery] Blood Pressure [Right Brachial artery] O2 Saturation 94 Oxygen O2 Source Room air I&O (Last 24 Hrs): Intake and Output Totals x24h 04/29/21 04/30/21 05/01/21 23:59 23:59 23:59 Intake Total 3538.333 2200.000 1776.667 Output Total 179 620 4997 Balance 3208.333 1225.000 -498.333 General: Alert, Oriented x3, Cooperative, No acute distress HEENT: Atraumatic Neck: Supple Lymphatic: no adenopathy Neuro: Alert, Non Focal, Oriented Times 3 Cardiovascular: Regular rate, Normal S1, Normal S2 Respiratory: Chest non-tender, No respiratory distress Abdomen: Normal bowel sounds, Soft, No tenderness Extremities: Normal pulses - Results Results: Laboratory Results WBC 8.8 x10^3/uL (4.8-10.8) 05/01/21 05:30 RBC 4.14 10^6/uL (4.70-6.10) L 05/01/21 05:30 Hgb 12.7 g/dL (14.0-18.0) L 05/01/21 05:30 Hct 37.5 % (42.0-52.0) L 05/01/21 05:30 MCV 90.6 fL (80.0-94.0) 05/01/21 05:30 MCH 30.7 pg (27.0-31.0) 05/01/21 05:30 MCHC 33.9 g/dL (32.0-36.0) 05/01/21 05:30 RDW 12.0 % (12.0-15.0) 05/01/21 05:30 Plt Count 253 10^3/uL (130-450) 05/01/21 05:30 MPV 8.8 fL (7.4-11.4) 05/01/21 05:30 Neut # (Auto) 5.5 10^3/uL (1.5-6.6) 05/01/21 05:30 Lymph # (Auto) 2.5 10^3/uL (1.5-3.5) 05/01/21 05:30 [place] # (Auto) 0.7 10^3/uL (0.0-1.0) 05/01/21 05:30 Eos # (Auto) 0.1 10^3/uL (0.0-0.7) 05/01/21 05:30 Baso # (Auto) 0.0 10^3/uL (0.0-0.1) 05/01/21 05:30 Absolute Nucleated RBC 0.00 x10^3/uL 05/01/21 05:30 Nucleated RBC % 0.0 /100WBC 05/01/21 05:30 INR (Fingerstick) 1.1 (0.8-1.2) 04/28/21 11:49 Sodium 133 mmol/L (135-145) L 05/01/21 05:30 Potassium 3.3 mmol/L (3.5-5.0) L 05/01/21 05:30 Chloride 99 mmol/L (101-111) L 05/01/21 05:30 Carbon Dioxide 24 mmol/L (21-32) 05/01/21 05:30 Anion Gap 10.0 (6-13) 05/01/21 05:30 BUN 9 mg/dL (6-20) 05/01/21 05:30 Creatinine 0.9 mg/dL (0.6-1.2) 05/01/21 05:30 Estimated GFR (MDRD) 82 (>89) L 05/01/21 05:30 Glucose 120 mg/dL (70-100) H 05/01/21 05:30 Calcium 8.0 mg/dL (8.5-10.3) L 05/01/21 05:30 Magnesium 2.1 mg/dL (1.7-2.8) 04/27/21 06:13 Total Bilirubin 1.2 mg/dL (0.2-1.0) H 04/26/21 20:38 AST 20 IU/L (10-42) 04/26/21 20:38 ALT 19 IU/L (10-60) 04/26/21 20:38 Alkaline Phosphatase 46 IU/L (42-121) 04/26/21 20:38 Total Protein 6.5 g/dL (6.7-8.2) L 04/26/21 20:38 Albumin 3.7 g/dL (3.2-5.5) 04/26/21 20:38 Globulin 2.8 g/dL (2.1-4.2) 04/26/21 20:38 Albumin/Globulin Ratio 1.3 (1.0-2.2) 04/26/21 20:38 Lipase 16 U/L (22-51) L 04/26/21 20:38 Urine Color YELLOW 04/26/21 04:20 Urine Clarity CLEAR (CLEAR) 04/26/21 04:20 Urine pH 6.5 PH (5.0-7.5) 04/26/21 04:20 Ur Specific [place] 1.020 (1.002-1.030) 04/26/21 04:20 Urine Protein NEGATIVE mg/dL (NEGATIVE) 04/26/21 04:20 Urine Glucose (UA) NEGATIVE mg/dL (NEGATIVE) 04/26/21 04:20 Urine Ketones >=80 mg/dL (NEGATIVE) H 04/26/21 04:20 Urine Occult Blood TRACE-INTA (NEGATIVE) 04/26/21 04:20 Urine Nitrite NEGATIVE (NEGATIVE) 04/26/21 04:20 Urine Bilirubin NEGATIVE (NEGATIVE) 04/26/21 04:20 Urine Urobilinogen 1 (NORMAL) E.U./dL (NORMAL) 04/26/21 04:20 Ur Leukocyte Esterase NEGATIVE (NEGATIVE) 04/26/21 04:20 Ur Microscopic Review NOT INDICATED 04/26/21 04:20 Urine Culture Comments NOT INDICATED 04/26/21 04:20 Nasal Adenovirus (PCR) NOT DETECTED 04/26/21 23:47 Nasal B. parapertussis DNA (PCR) NOT DETECTED 04/26/21 23:47 Nasal Coronavir 229E PCR NOT DETECTED 04/26/21 23:47 Nasal Coronavir HKU1 PCR NOT DETECTED 04/26/21 23:47 Nasal Coronavir NL63 PCR NOT DETECTED 04/26/21 23:47 Nasal Coronavir OC43 PCR NOT DETECTED 04/26/21 23:47 Nasal Enterovir/Rhinovir PCR NOT DETECTED 04/26/21 23:47 Nasal Influenza B PCR NOT DETECTED 04/26/21 23:47 Nasal Influenza A PCR NOT DETECTED 04/26/21 23:47 Nasal Parainfluen 1 PCR NOT DETECTED 04/26/21 23:47 Nasal Parainfluen 2 PCR NOT DETECTED 04/26/21 23:47 Nasal Parainfluen 3 PCR NOT DETECTED 04/26/21 23:47 Nasal Parainfluen 4 PCR NOT DETECTED 04/26/21 23:47 Nasal RSV (PCR) NOT DETECTED 04/26/21 23:47 Nasal B.pertussis DNA PCR NOT DETECTED 04/26/21 23:47 Nasal C.pneumoniae (PCR) NOT DETECTED 04/26/21 23:47 Benny Human Metapneumo PCR NOT DETECTED 04/26/21 23:47 Nasal M.pneumoniae (PCR) NOT DETECTED 04/26/21 23:47 Nasal SARS-CoV-2 (PCR) NOT DETECTED 04/26/21 23:47 ABX Reporting Has patient been on IV antibiotics over the past 48 hours?: No Current Medications - Current Medications Current Medications: Active Medications Al Hydroxide/Mg Hydroxide (Mag Hydrox/Al Hydrox/Simeth 30 Ml Udc) 30 ml PO Q4HR PRN PRN Reason: INDIGESTION Last Admin: 04/29/21 13:39 Dose: 30 ml Documented by: Aspirin (Aspirin Ec 81 Mg Tablet) 81 mg PO DAILY [facility] Last Admin: 05/01/21 08:07 Dose: 81 mg Documented by: Atorvastatin Calcium (Atorvastatin 40 Mg Tablet) 40 mg PO QPM [facility] Last Admin: 04/30/21 21:24 Dose: 40 mg Documented by: Enoxaparin Sodium (Enoxaparin 40 Mg/0.4 Ml Syringe) 40 mg SUBQ DAILY [facility] Last Admin: 05/01/21 08:12 Dose: 40 mg Documented by: Hydromorphone HCl (Hydromorphone 1 Mg/Ml Carpuject) 1 mg IVP Q4H PRN PRN Reason: PAIN 5-7 Last Admin: 05/01/21 09:19 Dose: 1 mg Documented by: Potassium Chloride/Dextrose/Sod Cl (D5ns W/20 Meq Kcl) 1,000 mls @ 100 mls/hr IV .Q10H [facility] Last Infusion: 05/01/21 11:00 Dose: 0 mls/hr Documented by: Lisinopril (Lisinopril 5 Mg Tablet) 2.5 mg PO DAILY [facility] Last Admin: 05/01/21 08:10 Dose: 2.5 mg Documented by: Metoprolol Tartrate (Metoprolol Tartrate 25 Mg Tablet) 12.5 mg PO BID [facility] Last Admin: 05/01/21 08:08 Dose: 12.5 mg Documented by: Multi-Ingredient Ointment (Zinc Oxide 20% Oint 30 Gm Tube) 1 applic TOP PRN PRN PRN Reason: Skin Care Ondansetron HCl (Ondansetron 4 Mg/2 Ml Vial) 4 mg IVP Q6HR PRN PRN Reason: Nausea / Vomiting Last Admin: 05/01/21 01:43 Dose: 4 mg Documented by: Phenol/Menthol (Phenol Throat [place] 177 Ml) 2 sprays MM Q2HR PRN PRN Reason: Throat Pain Last Admin: 04/27/21 19:17 Dose: 2 sprays Documented by: Prochlorperazine Edisylate (Prochlorperazine 10 Mg/2 Ml Vial) 10 mg IVP Q6HR PRN PRN Reason: Nausea / Vomiting Last Admin: 04/29/21 15:33 Dose: 10 mg Documented by: Sodium Chloride (Sodium Chloride Flush 0.9% 10 Ml Syringe) 10 ml IVP 0100,0900,1700 [facility] Last Admin: 05/01/21 08:11 Dose: 10 ml Documented by: Sodium Chloride (Sodium Chloride Flush 0.9% 10 Ml Syringe) 10 ml IVP PRN PRN PRN Reason: NEEDED PER PROVIDER ORDERS Atorvastatin Calcium 40 mg PO QPM 04/24/21 Clopidogrel [Plavix] 75 mg PO DAILY 04/24/21 Lisinopril [Zestril] 2.5 mg PO DAILY 04/24/21 Metoprolol Tartrate [Lopressor] 12.5 mg PO BID 04/24/21 Aspirin [Aspirin EC] 81 mg PO DAILY 04/25/21
--- NOTE | 2021-05-01 13:49 | PROVIDER PROGRESS NOTE ---
Subjective - Subjective Pt reports feeling: No change (no signficant nausea. incisional pain.) Objective - Vital Signs/Intake & Output Reviewed Vital Signs: Yes Vital Signs: Vital Signs x48h Temp Pulse Resp BP BP Pulse Ox 05/01/21 08:08 132/63 H 05/01/21 07:44 36.8 C 70 18 132/63 H 94 05/01/21 05:47 36.8 C 75 18 145/66 H 95 Intake & Output: Intake & Output 04/28/21 04/29/21 04/30/21 05/01/21 23:59 23:59 23:59 23:59 Intake Total 5194.133 3813.333 2200.000 1876.667 Output Total 951 413 5112 Balance 9778.961 8320.333 1225.000 -648.333 - Objective General Appearance: positive: No acute distress, Alert Eyes Bilateral: positive: PERRL, EOMI Neck: positive: No JVD Respiratory: positive: No respiratory distress Abdomen: positive: No distention Neurologic/Psychiatric: positive: Oriented x3 - Lab Results Fish Bones: 05/01/21 05:30 05/01/21 05:30 Other Labs: Lab Results x24hrs 05/01/21 05/01/21 Range/Units 05:30 05:30 WBC 8.8 (4.8-10.8) x10^3/uL RBC 4.14 L (4.70-6.10) 10^6/uL Hgb 12.7 L (14.0-18.0) g/dL Hct 37.5 L (42.0-52.0) % MCV 90.6 (80.0-94.0) fL MCH 30.7 (27.0-31.0) pg MCHC 33.9 (32.0-36.0) g/dL RDW 12.0 (12.0-15.0) % Plt Count 253 (130-450) 10^3/uL MPV 8.8 (7.4-11.4) fL Neut # (Auto) 5.5 (1.5-6.6) 10^3/uL Lymph # (Auto) 2.5 (1.5-3.5) 10^3/uL [place] # (Auto) 0.7 (0.0-1.0) 10^3/uL Eos # (Auto) 0.1 (0.0-0.7) 10^3/uL Baso # (Auto) 0.0 (0.0-0.1) 10^3/uL Absolute Nucleated RBC 0.00 x10^3/uL Nucleated RBC % 0.0 /100WBC Sodium 133 L (135-145) mmol/L Potassium 3.3 L (3.5-5.0) mmol/L Chloride 99 L (101-111) mmol/L Carbon Dioxide 24 (21-32) mmol/L Anion Gap 10.0 (6-13) BUN 9 (6-20) mg/dL Creatinine 0.9 (0.6-1.2) mg/dL Estimated GFR (MDRD) 82 L (>89) Glucose 120 H (70-100) mg/dL Calcium 8.0 L (8.5-10.3) mg/dL Assessment/Plan - Problem List (1) SBO (small bowel obstruction) Impression: no significant nausea. plan thin liquid boost as tolerated. I have ordered this. if not able to tolerate some nutrition soon he may need tpn. this is discussed with him and his .
[2021-05-01] MEDS: PROCHLORPERAZINE 10 MG/2 ML VIAL IVP PRN (18:13)
[2021-05-01] MEDS: SODIUM CHLORIDE FLUSH 0.9% 10 ML SYRINGE IVP PRN ×2 (18:14→20:29)
[2021-05-01] MEDS: ATORVASTATIN 40 MG TABLET PO SCH (20:26)
[2021-05-02] MEDS: SODIUM CHLORIDE FLUSH 0.9% 10 ML SYRINGE IVP SCH ×3 (01:12→17:28)
[2021-05-02] MEDS: HYDROmorphone 1 MG/ML CARPUJECT IVP PRN ×3 (02:08→13:29)
[2021-05-02 07:40] LABS: BASOPHILS % (AUTO) 0.4 %; EOSINOPHILS # (AUTO) 0.2 10^3/uL (0.0-0.7); EOSINOPHILS % (AUTO) 1.5 %; HCT - HEMATOCRIT 45.7 % (42.0-52.0); LYMPHOCYTES # (AUTO) 2.5 10^3/uL (1.5-3.5); LYMPHOCYTES % (AUTO) 24.8 %; MEAN CORPUSCULAR HEMOGLOBIN 30.3 pg (27.0-31.0); MEAN CORPUSCULAR HGB CONC 32.8 g/dL (32.0-36.0); MEAN CORPUSCULAR VOLUME 92.3 fL (80.0-94.0); MEAN PLATELET VOLUME 8.6 fL (7.4-11.4); MONOCYTES # (AUTO) 0.8 10^3/uL (0.0-1.0); MONOCYTES % (AUTO) 8.5 %; NEUTROPHILS # (AUTO) 6.4 10^3/uL (1.5-6.6); NEUTROPHILS % (AUTO) 64.3 %; PLT - PLATELET COUNT 285 10^3/uL (130-450); RED BLOOD COUNT 4.95 10^6/uL (4.70-6.10); RED CELL DISTRIBUTION WIDTH 12.3 % (12.0-15.0); WHITE BLOOD COUNT 9.9 x10^3/uL (4.8-10.8)
[2021-05-02 07:46] LABS: CALCIUM 8.1 mg/dL (8.5-10.3); POTASSIUM 3.7 mmol/L (3.5-5.0)
--- NOTE | 2021-05-02 07:55 | PROVIDER PROGRESS NOTE ---
Subjective - Prog Note Date Prog Note Date: 05/02/21 - Subjective Pt reports feeling: Improved (denies nausea. feeling better) Objective - Vital Signs/Intake & Output Reviewed Vital Signs: Yes Vital Signs: Vital Signs x48h Temp Pulse Resp BP Pulse Ox 05/02/21 00:33 37 C 65 18 106/60 93 Intake & Output: Intake & Output 04/29/21 04/30/21 05/01/21 05/02/21 23:59 23:59 23:59 23:59 Intake Total 3538.333 2200.000 2281.667 Output Total 802 029 5822 200 Balance 3208.333 1225.000 -1268.333 -200 - Objective General Appearance: positive: Alert, Mild distress ENT: positive: No signs of dehydration Neck: positive: No JVD Respiratory: positive: No respiratory distress Abdomen: positive: Non-tender, No distention Neurologic/Psychiatric: positive: Oriented x3 - Lab Results Fish Bones: 05/02/21 07:10 05/02/21 07:10 Other Labs: Lab Results x24hrs 05/02/21 05/02/21 Range/Units 07:10 07:10 WBC 9.9 (4.8-10.8) x10^3/uL RBC 4.95 (4.70-6.10) 10^6/uL Hgb 15.0 (14.0-18.0) g/dL Hct 45.7 (42.0-52.0) % MCV 92.3 (80.0-94.0) fL MCH 30.3 (27.0-31.0) pg MCHC 32.8 (32.0-36.0) g/dL RDW 12.3 (12.0-15.0) % Plt Count 285 (130-450) 10^3/uL MPV 8.6 (7.4-11.4) fL Neut # (Auto) 6.4 (1.5-6.6) 10^3/uL Lymph # (Auto) 2.5 (1.5-3.5) 10^3/uL [place] # (Auto) 0.8 (0.0-1.0) 10^3/uL Eos # (Auto) 0.2 (0.0-0.7) 10^3/uL Baso # (Auto) 0.0 (0.0-0.1) 10^3/uL Absolute Nucleated RBC 0.00 x10^3/uL Nucleated RBC % 0.0 /100WBC Sodium 131 L (135-145) mmol/L Potassium 3.7 (3.5-5.0) mmol/L Chloride 98 L (101-111) mmol/L Carbon Dioxide 22 (21-32) mmol/L Anion Gap 11.0 (6-13) BUN 15 (6-20) mg/dL Creatinine 1.0 (0.6-1.2) mg/dL Estimated GFR (MDRD) 73 L (>89) Glucose 90 (70-100) mg/dL Calcium 8.1 L (8.5-10.3) mg/dL Assessment/Plan - Problem List (1) SBO (small bowel obstruction) Impression: slowly improving diet as tolerated
[2021-05-02] MEDS: CLOPIDOGREL 75 MG TABLET PO SCH (08:07)
[2021-05-02] MEDS: ASPIRIN EC 81 MG TABLET PO SCH (08:07)
[2021-05-02] MEDS: METOPROLOL TARTRATE 25 MG TABLET PO SCH ×2 (08:08→21:30)
[2021-05-02] MEDS: ENOXAPARIN 40 MG/0.4 ML SYRINGE SUBQ SCH (08:10)
[2021-05-02] MEDS: lisinopriL 5 MG TABLET PO SCH (08:13)
--- NOTE | 2021-05-02 14:17 | PROVIDER PROGRESS NOTE ---
Assessment/Plan - Problem List (1) SBO (small bowel obstruction) Assessment/Plan: 05/02 Patient had 40% of his breakfast with full liquid diet, patient denied nausea or vomiting, denies abdominal pain. but patient also report no pass gas or bowel movement yet. Slowly improved, will continue consult with GI surgeon, Encourage patient ambulate Safely. 05/01 Day 1 Status post of Exploratory laparotomy with lysis of adhesions surgery. pt report surgery site pain, denies nausea or vomiting and fever, or chill. he report he did not pass gas or bowel movement yet. pt has good bowel sound at whole abdomen, his bowel is soft. now pt is NPO. We will continue intravenous IV fluids. We will follow up with surgeon recommendations. Continue pain control, add incentive spirometry, encourage safely ambulate. (2) Hx of coronary artery disease Conclusion/Plan: 1220, resume home medication aspirin, Plavix, statin, Lisinopril, metoprolol 05/01 pt denies chest pain. Patientis hemodynamic stable. today it is day1 s/p of surgery, we may resume Plavis on tomorrow, add Lovenox, continue aspirin and Lipitor. 04/28 pt is stable, denies chest pain. pt plan to have surgery on today, hold his home Plavix now, will resume home meds soon after surgery. 04/27, Oral meds will be on hold, substituted with Aspirin [place] form. pt had [place] and stent about 5 months ago, continue IV Metoprolol, add tele monitor. No Plavix, in case surgery is needed. - Current Meds Current Meds: Current Medications Generic Name Dose Route Start Last Admin Trade Name Baron PRN Reason Stop Dose Admin Al Hydroxide/Mg Hydroxide 30 ml 04/29/21 11:29 04/29/21 13:39 Mag Hydrox/Al Hydrox/Simeth 30 Ml Udc PO 30 ml Q4HR PRN Administration INDIGESTION Aspirin 81 mg 04/29/21 10:00 05/02/21 08:07 Aspirin Ec 81 Mg Tablet PO 81 mg DAILY ANTHONY Administration Atorvastatin Calcium 40 mg 04/29/21 21:00 05/01/21 20:26 Atorvastatin 40 Mg Tablet PO 40 mg QPM ANTHONY Administration Clopidogrel Bisulfate 75 mg 05/02/21 09:00 05/02/21 08:07 Clopidogrel 75 Mg Tablet PO 75 mg DAILY ANTHONY Administration Enoxaparin Sodium 40 mg 05/01/21 09:00 05/02/21 08:10 Enoxaparin 40 Mg/0.4 Ml Syringe SUBQ 40 mg DAILY ANTHONY Administration Hydromorphone HCl 1 mg 05/01/21 09:05 05/02/21 13:29 Hydromorphone 1 Mg/Ml Carpuject IVP 1 mg Q4H PRN Administration PAIN 5-7 Lisinopril 2.5 mg 04/29/21 20:09 05/02/21 08:13 Lisinopril 5 Mg Tablet PO Not Given DAILY ANTHONY Metoprolol Tartrate 12.5 mg 04/29/21 10:00 05/02/21 08:08 Metoprolol Tartrate 25 Mg Tablet PO 12.5 mg BID ANTHONY Administration Ondansetron HCl 4 mg 04/26/21 23:31 05/01/21 14:21 Ondansetron 4 Mg/2 Ml Vial IVP 4 mg Q6HR PRN Administration Nausea / Vomiting Phenol/Menthol 2 sprays 04/27/21 19:01 04/27/21 19:17 Phenol Throat [place] 177 Ml MM 2 sprays Q2HR PRN Administration Throat Pain Prochlorperazine Edisylate 10 mg 04/27/21 00:33 05/01/21 18:13 Prochlorperazine 10 Mg/2 Ml Vial IVP 10 mg Q6HR PRN Administration Nausea / Vomiting Sodium Chloride 10 ml 04/30/21 17:00 05/02/21 08:10 Sodium Chloride Flush 0.9% 10 Ml Syringe IVP 10 ml 0100,0900,1700 ANTHONY Administration Sodium Chloride 10 ml 04/30/21 15:15 05/01/21 20:29 Sodium Chloride Flush 0.9% 10 Ml Syringe IVP 10 ml PRN PRN Administration NEEDED PER PROVIDER ORDERS - Lab Result Fish Bone Diagrams: 05/02/21 07:10 05/02/21 07:10 - Additional Planning My Orders: My Active Orders 05/02/21 09:00 Clopidogrel [Plavix] 75 mg PO DAILY 05/03/21 05:00 BMP - BASIC METABOLIC PANEL [CHEM] DAILYLAB CBC - COMP BLD CT W/AUTO DIFF [HEME] DAILYLAB Subjective - Subjective Patient Reports: Feeling Better, Resting Comfortably Objective Vital Signs: Vital Signs - 24 hr 05/01/21 05/01/21 05/01/21 15:48 20:10 20:26 Temperature 36.7 C 36.4 C L Heart Rate [ 84 120 H Brachial] Respiratory 24 18 Rate Blood Pressure 132/84 H Blood Pressure 126/68 [Left Brachial artery] Blood Pressure 132/84 H [Right Brachial artery] O2 Saturation 97 98 05/02/21 05/02/21 00:33 07:56 Temperature 37 C 36.6 C Heart Rate [ 65 73 Brachial] Respiratory 18 20 Rate Blood Pressure Blood Pressure [Left Brachial artery] Blood Pressure 106/60 112/56 L [Right Brachial artery] O2 Saturation 93 94 Oxygen O2 Source Room air I&O (Last 24 Hrs): Intake and Output Totals x24h 04/30/21 05/01/21 05/02/21 23:59 23:59 23:59 Intake Total 2200.000 2281.667 280 Output Total 975 3550 200 Balance 1225.000 -1268.333 80 General: Alert, Oriented x3, Cooperative, No acute distress HEENT: Atraumatic Neck: Supple Lymphatic: no adenopathy Neuro: Alert, Non Focal, Oriented Times 3 Cardiovascular: Regular rate, Normal S1, Normal S2 Respiratory: Chest non-tender, No respiratory distress Abdomen: Normal bowel sounds, Soft Extremities: Normal pulses - Results Results: Laboratory Results WBC 9.9 x10^3/uL (4.8-10.8) 05/02/21 07:10 RBC 4.95 10^6/uL (4.70-6.10) 05/02/21 07:10 Hgb 15.0 g/dL (14.0-18.0) 05/02/21 07:10 Hct 45.7 % (42.0-52.0) 05/02/21 07:10 MCV 92.3 fL (80.0-94.0) 05/02/21 07:10 MCH 30.3 pg (27.0-31.0) 05/02/21 07:10 MCHC 32.8 g/dL (32.0-36.0) 05/02/21 07:10 RDW 12.3 % (12.0-15.0) 05/02/21 07:10 Plt Count 285 10^3/uL (130-450) 05/02/21 07:10 MPV 8.6 fL (7.4-11.4) 05/02/21 07:10 Neut # (Auto) 6.4 10^3/uL (1.5-6.6) 05/02/21 07:10 Lymph # (Auto) 2.5 10^3/uL (1.5-3.5) 05/02/21 07:10 [place] # (Auto) 0.8 10^3/uL (0.0-1.0) 05/02/21 07:10 Eos # (Auto) 0.2 10^3/uL (0.0-0.7) 05/02/21 07:10 Baso # (Auto) 0.0 10^3/uL (0.0-0.1) 05/02/21 07:10 Absolute Nucleated RBC 0.00 x10^3/uL 05/02/21 07:10 Nucleated RBC % 0.0 /100WBC 05/02/21 07:10 INR (Fingerstick) 1.1 (0.8-1.2) 04/28/21 11:49 Sodium 131 mmol/L (135-145) L 05/02/21 07:10 Potassium 3.7 mmol/L (3.5-5.0) 05/02/21 07:10 Chloride 98 mmol/L (101-111) L 05/02/21 07:10 Carbon Dioxide 22 mmol/L (21-32) 05/02/21 07:10 Anion Gap 11.0 (6-13) 05/02/21 07:10 BUN 15 mg/dL (6-20) 05/02/21 07:10 Creatinine 1.0 mg/dL (0.6-1.2) 05/02/21 07:10 Estimated GFR (MDRD) 73 (>89) L 05/02/21 07:10 Glucose 90 mg/dL (70-100) 05/02/21 07:10 Calcium 8.1 mg/dL (8.5-10.3) L 05/02/21 07:10 Magnesium 2.1 mg/dL (1.7-2.8) 04/27/21 06:13 Total Bilirubin 1.2 mg/dL (0.2-1.0) H 04/26/21 20:38 AST 20 IU/L (10-42) 04/26/21 20:38 ALT 19 IU/L (10-60) 04/26/21 20:38 Alkaline Phosphatase 46 IU/L (42-121) 04/26/21 20:38 Total Protein 6.5 g/dL (6.7-8.2) L 04/26/21 20:38 Albumin 3.7 g/dL (3.2-5.5) 04/26/21 20:38 Globulin 2.8 g/dL (2.1-4.2) 04/26/21 20:38 Albumin/Globulin Ratio 1.3 (1.0-2.2) 04/26/21 20:38 Lipase 16 U/L (22-51) L 04/26/21 20:38 Urine Color YELLOW 04/26/21 04:20 Urine Clarity CLEAR (CLEAR) 04/26/21 04:20 Urine pH 6.5 PH (5.0-7.5) 04/26/21 04:20 Ur Specific [place] 1.020 (1.002-1.030) 04/26/21 04:20 Urine Protein NEGATIVE mg/dL (NEGATIVE) 04/26/21 04:20 Urine Glucose (UA) NEGATIVE mg/dL (NEGATIVE) 04/26/21 04:20 Urine Ketones >=80 mg/dL (NEGATIVE) H 04/26/21 04:20 Urine Occult Blood TRACE-INTA (NEGATIVE) 04/26/21 04:20 Urine Nitrite NEGATIVE (NEGATIVE) 04/26/21 04:20 Urine Bilirubin NEGATIVE (NEGATIVE) 04/26/21 04:20 Urine Urobilinogen 1 (NORMAL) E.U./dL (NORMAL) 04/26/21 04:20 Ur Leukocyte Esterase NEGATIVE (NEGATIVE) 04/26/21 04:20 Ur Microscopic Review NOT INDICATED 04/26/21 04:20 Urine Culture Comments NOT INDICATED 04/26/21 04:20 Nasal Adenovirus (PCR) NOT DETECTED 04/26/21 23:47 Nasal B. parapertussis DNA (PCR) NOT DETECTED 04/26/21 23:47 Nasal Coronavir 229E PCR NOT DETECTED 04/26/21 23:47 Nasal Coronavir HKU1 PCR NOT DETECTED 04/26/21 23:47 Nasal Coronavir NL63 PCR NOT DETECTED 04/26/21 23:47 Nasal Coronavir OC43 PCR NOT DETECTED 04/26/21 23:47 Nasal Enterovir/Rhinovir PCR NOT DETECTED 04/26/21 23:47 Nasal Influenza B PCR NOT DETECTED 04/26/21 23:47 Nasal Influenza A PCR NOT DETECTED 04/26/21 23:47 Nasal Parainfluen 1 PCR NOT DETECTED 04/26/21 23:47 Nasal Parainfluen 2 PCR NOT DETECTED 04/26/21 23:47 Nasal Parainfluen 3 PCR NOT DETECTED 04/26/21 23:47 Nasal Parainfluen 4 PCR NOT DETECTED 04/26/21 23:47 Nasal RSV (PCR) NOT DETECTED 04/26/21 23:47 Nasal B.pertussis DNA PCR NOT DETECTED 04/26/21 23:47 Nasal C.pneumoniae (PCR) NOT DETECTED 04/26/21 23:47 Benny Human Metapneumo PCR NOT DETECTED 04/26/21 23:47 Nasal M.pneumoniae (PCR) NOT DETECTED 04/26/21 23:47 Nasal SARS-CoV-2 (PCR) NOT DETECTED 04/26/21 23:47 ABX Reporting Has patient been on IV antibiotics over the past 48 hours?: No Current Medications - Current Medications Current Medications: Active Medications Al Hydroxide/Mg Hydroxide (Mag Hydrox/Al Hydrox/Simeth 30 Ml Udc) 30 ml PO Q4HR PRN PRN Reason: INDIGESTION Last Admin: 04/29/21 13:39 Dose: 30 ml Documented by: Aspirin (Aspirin Ec 81 Mg Tablet) 81 mg PO DAILY [facility] Last Admin: 05/02/21 08:07 Dose: 81 mg Documented by: Atorvastatin Calcium (Atorvastatin 40 Mg Tablet) 40 mg PO QPM [facility] Last Admin: 05/01/21 20:26 Dose: 40 mg Documented by: Clopidogrel Bisulfate (Clopidogrel 75 Mg Tablet) 75 mg PO DAILY [facility] Last Admin: 05/02/21 08:07 Dose: 75 mg Documented by: Enoxaparin Sodium (Enoxaparin 40 Mg/0.4 Ml Syringe) 40 mg SUBQ DAILY [facility] Last Admin: 05/02/21 08:10 Dose: 40 mg Documented by: Hydromorphone HCl (Hydromorphone 1 Mg/Ml Carpuject) 1 mg IVP Q4H PRN PRN Reason: PAIN 5-7 Last Admin: 05/02/21 13:29 Dose: 1 mg Documented by: Lisinopril (Lisinopril 5 Mg Tablet) 2.5 mg PO DAILY [facility] Last Admin: 05/02/21 08:13 Dose: Not Given Documented by: Metoprolol Tartrate (Metoprolol Tartrate 25 Mg Tablet) 12.5 mg PO BID [facility] Last Admin: 05/02/21 08:08 Dose: 12.5 mg Documented by: Multi-Ingredient Ointment (Zinc Oxide 20% Oint 30 Gm Tube) 1 applic TOP PRN PRN PRN Reason: Skin Care Ondansetron HCl (Ondansetron 4 Mg/2 Ml Vial) 4 mg IVP Q6HR PRN PRN Reason: Nausea / Vomiting Last Admin: 05/01/21 14:21 Dose: 4 mg Documented by: Phenol/Menthol (Phenol Throat [place] 177 Ml) 2 sprays MM Q2HR PRN PRN Reason: Throat Pain Last Admin: 04/27/21 19:17 Dose: 2 sprays Documented by: Prochlorperazine Edisylate (Prochlorperazine 10 Mg/2 Ml Vial) 10 mg IVP Q6HR PRN PRN Reason: Nausea / Vomiting Last Admin: 05/01/21 18:13 Dose: 10 mg Documented by: Sodium Chloride (Sodium Chloride Flush 0.9% 10 Ml Syringe) 10 ml IVP 0100,0900,1700 [facility] Last Admin: 05/02/21 08:10 Dose: 10 ml Documented by: Sodium Chloride (Sodium Chloride Flush 0.9% 10 Ml Syringe) 10 ml IVP PRN PRN PRN Reason: NEEDED PER PROVIDER ORDERS Last Admin: 05/01/21 20:29 Dose: 10 ml Documented by: Atorvastatin Calcium 40 mg PO QPM 04/24/21 Clopidogrel [Plavix] 75 mg PO DAILY 04/24/21 Lisinopril [Zestril] 2.5 mg PO DAILY 04/24/21 Metoprolol Tartrate [Lopressor] 12.5 mg PO BID 04/24/21 Aspirin [Aspirin EC] 81 mg PO DAILY 04/25/21
[2021-05-02] MEDS: SODIUM CHLORIDE 0.9% 1,000 ML IV SCH (19:25)
[2021-05-02] MEDS: ONDANSETRON 4 MG/2 ML VIAL IVP PRN (19:30)
[2021-05-02] MEDS: ATORVASTATIN 40 MG TABLET PO SCH (21:30)
[2021-05-03] MEDS: HYDROmorphone 1 MG/ML CARPUJECT IVP PRN ×3 (00:18→20:24)
[2021-05-03] MEDS: SODIUM CHLORIDE FLUSH 0.9% 10 ML SYRINGE IVP SCH ×4 (00:19→23:27)
[2021-05-03 06:25] LABS: BASOPHILS # (AUTO) 0.1 10^3/uL (0.0-0.1); BASOPHILS % (AUTO) 0.5 %; EOSINOPHILS # (AUTO) 0.3 10^3/uL (0.0-0.7); EOSINOPHILS % (AUTO) 2.5 %; HCT - HEMATOCRIT 42.8 % (42.0-52.0); HGB - HEMOGLOBIN 14.3 g/dL (14.0-18.0); LYMPHOCYTES # (AUTO) 4.7 10^3/uL (1.5-3.5); LYMPHOCYTES % (AUTO) 40.3 %; MEAN CORPUSCULAR HEMOGLOBIN 30.6 pg (27.0-31.0); MEAN CORPUSCULAR HGB CONC 33.4 g/dL (32.0-36.0); MEAN CORPUSCULAR VOLUME 91.5 fL (80.0-94.0); MEAN PLATELET VOLUME 8.6 fL (7.4-11.4); MONOCYTES # (AUTO) 0.9 10^3/uL (0.0-1.0); MONOCYTES % (AUTO) 7.3 %; NEUTROPHILS # (AUTO) 5.8 10^3/uL (1.5-6.6); NEUTROPHILS % (AUTO) 49.1 %; PLT - PLATELET COUNT 413 10^3/uL (130-450); RED BLOOD COUNT 4.68 10^6/uL (4.70-6.10); RED CELL DISTRIBUTION WIDTH 12.2 % (12.0-15.0); WHITE BLOOD COUNT 11.8 x10^3/uL (4.8-10.8)
[2021-05-03 06:33] LABS: CALCIUM 8.4 mg/dL (8.5-10.3); CREATININE 1.1 mg/dL (0.6-1.2); POTASSIUM 3.3 mmol/L (3.5-5.0)
[2021-05-03] MEDS: SODIUM CHLORIDE 0.9% 1,000 ML IV SCH (08:57)
[2021-05-03] MEDS: CLOPIDOGREL 75 MG TABLET PO SCH (08:58)
[2021-05-03] MEDS: ENOXAPARIN 40 MG/0.4 ML SYRINGE SUBQ SCH (08:58)
[2021-05-03] MEDS: ASPIRIN EC 81 MG TABLET PO SCH (08:58)
[2021-05-03] MEDS: METOPROLOL TARTRATE 25 MG TABLET PO SCH ×2 (09:00→20:21)
[2021-05-03] MEDS: lisinopriL 5 MG TABLET PO SCH (09:01)
--- NOTE | 2021-05-03 11:34 | PROVIDER PROGRESS NOTE ---
Assessment/Plan - Problem List (1) SBO (small bowel obstruction) Assessment/Plan: 05/03, improved. pt ate 60 % of his full liquid diet, pt report he pass lots of gas but still no bowel movement yet. pt denies abdominal pain, denies nausea or vomiting. we will continue consult and followup with surgeon's recommendations, pain control, encourage pt ambulate safely 05/02 Patient had 40% of his breakfast with full liquid diet, patient denied nausea or vomiting, denies abdominal pain. but patient also report no pass gas or bowel movement yet. Slowly improved, will continue consult with GI surgeon, Encourage patient ambulate Safely. 05/01 Day 1 Status post of Exploratory laparotomy with lysis of adhesions surgery. pt report surgery site pain, denies nausea or vomiting and fever, or chill. he report he did not pass gas or bowel movement yet. pt has good bowel sound at whole abdomen, his bowel is soft. now pt is NPO. We will continue intravenous IV fluids. We will follow up with surgeon recommendations. Continue pain control, add incentive spirometry, encourage safely ambulate. (2) Hx of coronary artery disease Conclusion/Plan: 1220, resume home medication aspirin, Plavix, statin, Lisinopril, metoprolol 05/01 pt denies chest pain. Patientis hemodynamic stable. today it is day1 s/p of surgery, we may resume Plavis on tomorrow, add Lovenox, continue aspirin and Lipitor. 04/28 pt is stable, denies chest pain. pt plan to have surgery on today, hold his home Plavix now, will resume home meds soon after surgery. 04/27, Oral meds will be on hold, substituted with Aspirin [place] form. pt had [place] and stent about 5 months ago, continue IV Metoprolol, add tele monitor. No Plavix, in case surgery is needed. - Current Meds Current Meds: Current Medications Generic Name Dose Route Start Last Admin Trade Name Freq PRN Reason Stop Dose Admin Al Hydroxide/Mg Hydroxide 30 ml 04/29/21 11:29 04/29/21 13:39 Mag Hydrox/Al Hydrox/Simeth 30 Ml Udc PO 30 ml Q4HR PRN Administration INDIGESTION Aspirin 81 mg 04/29/21 10:00 05/03/21 08:58 Aspirin Ec 81 Mg Tablet PO 81 mg DAILY ANTHONY Administration Atorvastatin Calcium 40 mg 04/29/21:00 05/02/21 21:30 Atorvastatin 40 Mg Tablet PO 40 mg QPM ANTHONY Administration Clopidogrel Bisulfate 75 mg 05/02/21 09:00 05/03/21 08:58 Clopidogrel 75 Mg Tablet PO 75 mg DAILY ANTHONY Administration Enoxaparin Sodium 40 mg 05/01/21 09:00 05/03/21 08:58 Enoxaparin 40 Mg/0.4 Ml Syringe SUBQ 40 mg DAILY ANTHONY Administration Hydromorphone HCl 1 mg 05/01/21 09:05 05/03/21 04:22 Hydromorphone 1 Mg/Ml Carpuject IVP 1 mg Q4H PRN Administration PAIN 5-7 Sodium Chloride 1,000 mls @ 75 mls/hr 05/02/21 19:00 05/03/21 08:57 Normal Saline 0.9% IV 05/03/21 21:39 75 mls/hr .[id number] ANTHONY Administration Lisinopril 2.5 mg 04/29/21 20:09 05/03/21 09:01 Lisinopril 5 Mg Tablet PO 2.5 mg DAILY ANTHONY Administration Metoprolol Tartrate 12.5 mg 04/29/21 10:00 05/03/21 09:00 Metoprolol Tartrate 25 Mg Tablet PO 12.5 mg BID ANTHONY Administration Ondansetron HCl 4 mg 04/26/21 23:31 05/02/21 19:30 Ondansetron 4 Mg/2 Ml Vial IVP 4 mg Q6HR PRN Administration Nausea / Vomiting Phenol/Menthol 2 sprays 04/27/21 19:01 04/27/21 19:17 Phenol Throat [place] 177 Ml MM 2 sprays Q2HR PRN Administration Throat Pain Prochlorperazine Edisylate 10 mg 04/27/21 00:33 05/01/21 18:13 Prochlorperazine 10 Mg/2 Ml Vial IVP 10 mg Q6HR PRN Administration Nausea / Vomiting Sodium Chloride 10 ml 04/30/21 17:00 05/03/21 09:05 Sodium Chloride Flush 0.9% 10 Ml Syringe IVP Not Given 0100,0900,1700 ANTHONY Sodium Chloride 10 ml 04/30/21 15:15 05/01/21 20:29 Sodium Chloride Flush 0.9% 10 Ml Syringe IVP 10 ml PRN PRN Administration NEEDED PER PROVIDER ORDERS - Lab Result Fish Bone Diagrams: 05/03/21 06:13 05/03/21 06:13 - Additional Planning My Orders: My Active Orders 05/02/21 15:04 Miscellaenous Nursing Order [RC] ONCE 05/02/21 19:00 Sodium Chloride 0.9% [Normal Saline 0.9%] 1,000 ml IV 75 mls/hr 05/03/21 07:33 Incentive Spirometry - RT [RC] TID Out of bed 6+ hours [RC] QID Subjective - Subjective Patient Reports: Feeling Better, Resting Comfortably Objective Vital Signs: Vital Signs - 24 hr 05/02/21 05/02/21 05/02/21 16:22 20:44 23:49 Temperature 36.7 C 36.7 C 37.2 C Heart Rate Heart Rate [ 81 90 84 Brachial] Respiratory 20 24 18 Rate Blood Pressure Blood Pressure 131/72 H 128/70 108/40 L [Left Brachial artery] O2 Saturation 97 93 91 L 05/03/21 05/03/21 05/03/21 07:48 09:00 10:18 Temperature 36.5 C Heart Rate 85 Heart Rate [ 91 Brachial] Respiratory 20 18 Rate Blood Pressure 132/77 H Blood Pressure 132/77 H [Left Brachial artery] O2 Saturation 94 95 Oxygen O2 Source Room air I&O (Last 24 Hrs): Intake and Output Totals x24h 05/01/21 05/02/21 05/03/21 23:59 23:59 23:59 Intake Total 2281.400 363 0057 Output Total 3550 500 800 Balance -1268.333 -120 360 General: Alert, Oriented x3, Cooperative, No acute distress HEENT: Atraumatic Neck: Supple Lymphatic: no adenopathy Neuro: Alert, Non Focal, Oriented Times 3 Cardiovascular: Regular rate, Normal S1, Normal S2 Respiratory: Chest non-tender, No respiratory distress, Breath sounds nml Abdomen: Normal bowel sounds, Soft, No tenderness Extremities: Normal pulses - Results Results: Laboratory Results WBC 11.8 x10^3/uL (4.8-10.8) H 05/03/21 06:13 RBC 4.68 10^6/uL (4.70-6.10) L 05/03/21 06:13 Hgb 14.3 g/dL (14.0-18.0) 05/03/21 06:13 Hct 42.8 % (42.0-52.0) 05/03/21 06:13 MCV 91.5 fL (80.0-94.0) 05/03/21 06:13 MCH 30.6 pg (27.0-31.0) 05/03/21 06:13 MCHC 33.4 g/dL (32.0-36.0) 05/03/21 06:13 RDW 12.2 % (12.0-15.0) 05/03/21 06:13 Plt Count 413 10^3/uL (130-450) 05/03/21 06:13 MPV 8.6 fL (7.4-11.4) 05/03/21 06:13 Neut # (Auto) 5.8 10^3/uL (1.5-6.6) 05/03/21 06:13 Lymph # (Auto) 4.7 10^3/uL (1.5-3.5) H 05/03/21 06:13 [place] # (Auto) 0.9 10^3/uL (0.0-1.0) 05/03/21 06:13 Eos # (Auto) 0.3 10^3/uL (0.0-0.7) 05/03/21 06:13 Baso # (Auto) 0.1 10^3/uL (0.0-0.1) 05/03/21 06:13 Absolute Nucleated RBC 0.00 x10^3/uL 05/03/21 06:13 Nucleated RBC % 0.0 /100WBC 05/03/21 06:13 INR (Fingerstick) 1.1 (0.8-1.2) 04/28/21 11:49 Sodium 133 mmol/L (135-145) L 05/03/21 06:13 Potassium 3.3 mmol/L (3.5-5.0) L 05/03/21 06:13 Chloride 96 mmol/L (101-111) L 05/03/21 06:13 Carbon Dioxide 25 mmol/L (21-32) 05/03/21 06:13 Anion Gap 12.0 (6-13) 05/03/21 06:13 BUN 16 mg/dL (6-20) 05/03/21 06:13 Creatinine 1.1 mg/dL (0.6-1.2) 05/03/21 06:13 Estimated GFR (MDRD) 65 (>89) L 05/03/21 06:13 Glucose 107 mg/dL (70-100) H 05/03/21 06:13 Calcium 8.4 mg/dL (8.5-10.3) L 05/03/21 06:13 Magnesium 2.1 mg/dL (1.7-2.8) 04/27/21 06:13 Total Bilirubin 1.2 mg/dL (0.2-1.0) H 04/26/21 20:38 AST 20 IU/L (10-42) 04/26/21 20:38 ALT 19 IU/L (10-60) 04/26/21 20:38 Alkaline Phosphatase 46 IU/L (42-121) 04/26/21 20:38 Total Protein 6.5 g/dL (6.7-8.2) L 04/26/21 20:38 Albumin 3.7 g/dL (3.2-5.5) 04/26/21 20:38 Globulin 2.8 g/dL (2.1-4.2) 04/26/21 20:38 Albumin/Globulin Ratio 1.3 (1.0-2.2) 04/26/21 20:38 Lipase 16 U/L (22-51) L 04/26/21 20:38 Urine Color YELLOW 04/26/21 04:20 Urine Clarity CLEAR (CLEAR) 04/26/21 04:20 Urine pH 6.5 PH (5.0-7.5) 04/26/21 04:20 Ur Specific [place] 1.020 (1.002-1.030) 04/26/21 04:20 Urine Protein NEGATIVE mg/dL (NEGATIVE) 04/26/21 04:20 Urine Glucose (UA) NEGATIVE mg/dL (NEGATIVE) 04/26/21 04:20 Urine Ketones >=80 mg/dL (NEGATIVE) H 04/26/21 04:20 Urine Occult Blood TRACE-INTA (NEGATIVE) 04/26/21 04:20 Urine Nitrite NEGATIVE (NEGATIVE) 04/26/21 04:20 Urine Bilirubin NEGATIVE (NEGATIVE) 04/26/21 04:20 Urine Urobilinogen 1 (NORMAL) E.U./dL (NORMAL) 04/26/21 04:20 Ur Leukocyte Esterase NEGATIVE (NEGATIVE) 04/26/21 04:20 Ur Microscopic Review NOT INDICATED 04/26/21 04:20 Urine Culture Comments NOT INDICATED 04/26/21 04:20 Nasal Adenovirus (PCR) NOT DETECTED 04/26/21 23:47 Nasal B. parapertussis DNA (PCR) NOT DETECTED 04/26/21 23:47 Nasal Coronavir 229E PCR NOT DETECTED 04/26/21 23:47 Nasal Coronavir HKU1 PCR NOT DETECTED 04/26/21 23:47 Nasal Coronavir NL63 PCR NOT DETECTED 04/26/21 23:47 Nasal Coronavir OC43 PCR NOT DETECTED 04/26/21 23:47 Nasal Enterovir/Rhinovir PCR NOT DETECTED 04/26/21 23:47 Nasal Influenza B PCR NOT DETECTED 04/26/21 23:47 Nasal Influenza A PCR NOT DETECTED 04/26/21 23:47 Nasal Parainfluen 1 PCR NOT DETECTED 04/26/21 23:47 Nasal Parainfluen 2 PCR NOT DETECTED 04/26/21 23:47 Nasal Parainfluen 3 PCR NOT DETECTED 04/26/21 23:47 Nasal Parainfluen 4 PCR NOT DETECTED 04/26/21 23:47 Nasal RSV (PCR) NOT DETECTED 04/26/21 23:47 Nasal B.pertussis DNA PCR NOT DETECTED 04/26/21 23:47 Nasal C.pneumoniae (PCR) NOT DETECTED 04/26/21 23:47 Benny Human Metapneumo PCR NOT DETECTED 04/26/21 23:47 Nasal M.pneumoniae (PCR) NOT DETECTED 04/26/21 23:47 Nasal SARS-CoV-2 (PCR) NOT DETECTED 04/26/21 23:47 ABX Reporting Has patient been on IV antibiotics over the past 48 hours?: No
--- NOTE | 2021-05-03 17:02 | PROVIDER PROGRESS NOTE ---
Subjective - Prog Note Date Prog Note Date: 05/03/21 - Subjective Pt reports feeling: Improved (tolerating full liquid diet. ambulating more. no nausea) Objective - Vital Signs/Intake & Output Reviewed Vital Signs: Yes Vital Signs: Vital Signs x48h Temp Pulse Pulse Resp BP BP Pulse Ox 05/03/21 15:48 36.9 C 80 20 126/66 95 05/03/21 14:58 36.8 C 89 18 127/78 97 05/03/21 10:18 85 18 95 05/03/21 09:00 132/77 H Intake & Output: Intake & Output 04/30/21 05/01/21 05/02/21 05/03/21 23:59 23:59 23:59 23:59 Intake Total 2200.000 2281.074 630 9183 Output Total 975 3550 500 1000 Balance 1225.000 -1268.333 -120 410 - Objective General Appearance: positive: No acute distress Eyes Bilateral: positive: PERRL, EOMI Respiratory: positive: No respiratory distress Abdomen: positive: Non-tender, No distention, Other (dressing c/d/i no erythema) Neurologic/Psychiatric: positive: Oriented x3 - Lab Results Fish Bones: 05/03/21 06:13 05/03/21 06:13 Other Labs: Lab Results x24hrs 05/03/21 05/03/21 Range/Units 06:13 06:13 WBC 11.8 H (4.8-10.8) x10^3/uL RBC 4.68 L (4.70-6.10) 10^6/uL Hgb 14.3 (14.0-18.0) g/dL Hct 42.8 (42.0-52.0) % MCV 91.5 (80.0-94.0) fL MCH 30.6 (27.0-31.0) pg MCHC 33.4 (32.0-36.0) g/dL RDW 12.2 (12.0-15.0) % Plt Count 413 (130-450) 10^3/uL MPV 8.6 (7.4-11.4) fL Neut # (Auto) 5.8 (1.5-6.6) 10^3/uL Lymph # (Auto) 4.7 H (1.5-3.5) 10^3/uL [place] # (Auto) 0.9 (0.0-1.0) 10^3/uL Eos # (Auto) 0.3 (0.0-0.7) 10^3/uL Baso # (Auto) 0.1 (0.0-0.1) 10^3/uL Absolute Nucleated RBC 0.00 x10^3/uL Nucleated RBC % 0.0 /100WBC Sodium 133 L (135-145) mmol/L Potassium 3.3 L (3.5-5.0) mmol/L Chloride 96 L (101-111) mmol/L Carbon Dioxide 25 (21-32) mmol/L Anion Gap 12.0 (6-13) BUN 16 (6-20) mg/dL Creatinine 1.1 (0.6-1.2) mg/dL Estimated GFR (MDRD) 65 L (>89) Glucose 107 H (70-100) mg/dL Calcium 8.4 L (8.5-10.3) mg/dL Assessment/Plan - Problem List (1) SBO (small bowel obstruction) Impression: doing well. slowly advancing diet as tolerated. anticipate home tomorrow and follow up surgery office next week for staple removal he should call the office friday and make a follow up appt [phone]
[2021-05-03] MEDS: ATORVASTATIN 40 MG TABLET PO SCH (20:21)
[2021-05-03] MEDS: SODIUM CHLORIDE FLUSH 0.9% 10 ML SYRINGE IVP PRN (21:40)
[2021-05-04] MEDS: HYDROmorphone 1 MG/ML CARPUJECT IVP PRN (00:48)
[2021-05-04] MEDS ORDERED: POTASSIUM CHLORIDE 20 MEQ TABLET PO ONE (07:15)
[2021-05-04 07:57] VITALS: BP 124/69
[2021-05-04] MEDS ORDERED: SODIUM CHLORIDE 0.9% 1,000 ML IV SCH (08:00)
[2021-05-04] MEDS: lisinopriL 5 MG TABLET PO SCH (08:16)
[2021-05-04] MEDS: ASPIRIN EC 81 MG TABLET PO SCH (08:16)
[2021-05-04] MEDS: METOPROLOL TARTRATE 25 MG TABLET PO SCH (08:17)
[2021-05-04] MEDS: ENOXAPARIN 40 MG/0.4 ML SYRINGE SUBQ SCH (08:18)
[2021-05-04] MEDS: SODIUM CHLORIDE FLUSH 0.9% 10 ML SYRINGE IVP SCH (08:18)
[2021-05-04] MEDS: CLOPIDOGREL 75 MG TABLET PO SCH (08:18)
--- NOTE | 2021-05-04 09:00 | Discharge Plan ---
Discharge Plan Problem Reviewed?: Yes Disposition: Home, Self Care Condition: Stable Diet: Soft Activity Restrictions: Activity as Tolerated Shower Restrictions: No (fall precaution) Instruction Topics: Obstruction Sm Bowel Health Concerns: small bowel obstruction Plan of Treatment: You were found to have small bowel obstruction. You had surgery for your small bowel obstruction. Now you tolerated diet without nausea, vomiting, abdominal pain, and you have bowel movement. You may try to eat smaller amounts of food more, Chew your food very well, Avoid high-fibre foods and raw vegetables and fruits with skins, husks, strings, or seeds. You may Resume your home medications, followup with your PCP in one to two weeks. Care Goals: Stabilization and resolve of your small bowel obstruction Assessment: discussed the care plan with you, answered your questions, you understood Additional Instructions or Follow Up instructions: You may follow-up with your PCP in 1 to 2 weeks. should your symptoms return or worsen, you may present to ER or call 911 for help No Smoking: If you smoke, Please STOP! Call for help.
--- NOTE | 2021-05-04 09:05 | DISCHARGE SUMMARY ---
"Discharge Summary Admit Date: 04/26/21 Discharge Date: 05/04/21 Discharging Provider: Dawrin Plasencia Condition at Discharge: Stable Discharge Disposition: 01 Home, Self Care Discharge Facility Name: home - DIAGNOSES Discharge Diagnoses with Status of Each Condition: (1) SBO (small bowel obstruction) resolved. You had surgery for your small bowel obstruction. you tolerated diet without nausea, vomiting, abdominal pain, and you have bowel movement. Called Dr. Thomas, he agreed pt can be d/c home on today. (2) Hx of coronary artery disease stable, resume home meds, followup with PCP and his director of consumer marketing as out-pt. - HPI History of Present Illness: refer from Krysta Cleveland's HPI on 04/26/21 76-year-old WM with history of old [place] this past summer, CAD with stent on aspirin and Plavix. Patient presented to this ER 2 days ago with abdominal pain then had nausea with vomiting and was admitted for small bowel obstruction vs ileus. The patient denied ever having prior abdominal surgery. He was seen by general surgery. He improved somewhat with ng tube decompression, pain meds and with walking, and was on clear liquids, then decided to leave AMA, which was just earlier today. At home, his abdominal pain worsened and again he had nausea and vomited several times and thus he has returned to the ED. He stated he realizes it was wrong to leave AMA. He received pain meds, anti-emetics, iv fluids in the ED and ng tube has been placed. Imaging was not repeated. - CONSULTS | PROCEDURES Consultations: Dr. Thomas Procedures: Exploratory laparotomy with lysis of adhesions - ALLERGIES Allergies/Adverse Reactions: Allergies Allergy/AdvReac Type Severity Reaction Status Date / Time No Known Drug Allergies Allergy Verified 04/24/21 13:59 - MEDICATIONS Home Medications: Ambulatory Orders Medication Instructions Recorded Confirmed Atorvastatin Calcium 40 mg PO QPM 04/24/21 04/26/21 Clopidogrel [Plavix] 75 mg PO DAILY 04/24/21 04/26/21 Lisinopril [Zestril] 2.5 mg PO DAILY 04/24/21 04/26/21 Metoprolol Tartrate [Lopressor] 12.5 mg PO BID 04/24/21 04/26/21 Aspirin [Aspirin EC] 81 mg PO DAILY 04/25/21 04/26/21 - PHYSICAL EXAM AT DISCHARGE General Appearance: positive: No acute distress, Alert. negative: Lethargic Eyes Bilateral: positive: Normal inspection, No lid inflammation ENT: positive: ENT inspection nml, No signs of dehydration. negative: Purulent nasal drainage Neck: positive: Nml inspection, Trachea midline. negative: Tracheal deviation Respiratory: positive: Chest non-tender, No respiratory distress, Breath sounds nml. negative: Wheezes Cardiovascular: positive: Regular rate & rhythm. negative: Tachycardia, Bradycardia, Systolic murmur Peripheral Pulses: positive: 2+ Abdomen: positive: Non-tender, Nml bowel sounds, No distention. negative: Tenderness Back: positive: Nml inspection Skin: positive: Color nml, Warm, Dry. negative: Cyanosis Extremities: positive: Non-tender, Full ROM, Nml appearance Neurologic/Psychiatric: positive: Oriented x3, Motor nml, Sensation nml, Mood/affect nml. negative: Weakness, Sensory loss, Facial droop, Slurred/abnml speech, Depressed mood/affect - LABS Result Diagrams: 05/03/21 06:13 05/03/21 06:13 - FOLLOW UP Follow Up: You were found to have small bowel obstruction. You had surgery for your small bowel obstruction. Now you tolerated diet without nausea, vomiting, abdominal pain, and you have bowel movement. You may try to eat smaller amounts of food more, Chew your food very well, Avoid high-fibre foods and raw vegetables and fruits with skins, husks, strings, or seeds. You may Resume your home medications, followup with your PCP in one to two weeks. You may follow-up with your PCP in 1 to 2 weeks. should your symptoms return or worsen, you may present to ER or call 911 for help - TIME SPENT Time Spent in Discharge (Minutes): 30"
--- NOTE | 2021-05-08 11:55 | ANESTHESIA POST OP EVALUATION ---
Anesthesia Post Eval - Post Anesthesia Eval Vitals: Last Vital Signs Temp 36.3 C L 05/04/21 07:56 Pulse 93 05/04/21 07:56 Resp 16 05/04/21 07:56 BP 124/69 05/04/21 08:17 Pulse Ox 98 05/04/21 07:56 CV Function Including HR & BP: Stable Pain Control: Satisfactory Nausea & Vomiting: Negative Mental Status: Baseline Respiratory Status: Airway Patent Hydration Status: Satisfactory Anesthesia Complications: None
== END 2021-05-04 10:16 | disposition home or self-care (01) | DRG 337 ==
LOC: ED 19:56 → MS2 23:29
PROVIDERS: ADMIT Internal Medicine; ATTEND Nurse Practitioner Gerontology
PROC: 0DN80ZZ Release Small Intestine, Open Approach (ICD-10-PCS; principal; 2021-04-26)
DX: K56.609 Unspecified intestinal obstruction, unspecified as to partial versus complete obstruction (principal); K56.51 Intestinal adhesions [bands], with partial obstruction; I25.10 Atherosclerotic heart disease of native coronary artery without angina pectoris; I25.2 Old myocardial infarction; Z79.02 Long term (current) use of antithrombotics/antiplatelets; Z79.82 Long term (current) use of aspirin; Z95.5 Presence of coronary angioplasty implant and graft
CPT/HCPCS: 36415; 43753; 74018; 74019; 74250; 80048; 80053; 81003; 83690; 83735; 85025; 85610; 87631; 93306; 96361; 96374; 96375; 99284; 99285; A9270; J0131; J1170; J1650; J3490; J7120; Q9963; 0202U; 81001; 87086

== ENCOUNTER 2021-05-06 14:21 | Emergency (ER) | payer MEDICARE ==
--- NOTE | 2021-05-06 14:47 | ED Physician Documentation ---
History of Present Illness - Stated complaint Stated Complaint: S/P SURGERY-FEVER - Chief complaint Chief Complaint: General - History obtained from History obtained from: Patient - Additonal information Additional information: 76-year-old gentleman with history of NH is 6 days postop from small bowel obstruction repair with lysis of adhesions. Today he started to feel nauseated which he had been feeling and had a temperature of 100.0 at home. His bowels are working normally. He does have a runny nose and a mild cough. Review of Systems Ten Systems: 10 systems reviewed and negative Constitutional: denies: Fever, Chills Nose: reports: Reviewed and negative Throat: reports: Reviewed and negative PD PAST MEDICAL HISTORY - Past Medical History Cardiovascular: Coronary artery disease (stent 10/2020), [place] Respiratory: None Neuro: None Endocrine/Autoimmune: None GI: Other : None HEENT: None Psych: None Musculoskeletal: None Derm: None - Past Surgical History Past Surgical History: Yes Cardiovascular: Coronary stent - Present Medications Home Medications: Ambulatory Orders Medication Instructions Recorded Confirmed Atorvastatin Calcium 40 mg PO QPM 04/24/21 04/26/21 Clopidogrel [Plavix] 75 mg PO DAILY 04/24/21 04/26/21 Lisinopril [Zestril] 2.5 mg PO DAILY 04/24/21 04/26/21 Metoprolol Tartrate [Lopressor] 12.5 mg PO BID 04/24/21 04/26/21 Aspirin [Aspirin EC] 81 mg PO DAILY 04/25/21 04/26/21 Ondansetron Odt [Zofran] 4 mg TL Q6H PRN #10 tablet 05/06/21 - Allergies Allergies/Adverse Reactions: Allergies Allergy/AdvReac Type Severity Reaction Status Date / Time No Known Drug Allergies Allergy Verified 05/06/21 14:39 - Social History Does the pt smoke?: No Smoking Status: Former smoker Does the pt drink ETOH?: No Does the pt have substance abuse?: No - Immunizations Immunizations are current?: Yes PD ED PE NORMAL - Vitals Vital signs reviewed: Yes - General General: Alert and oriented X 3, No acute distress - HEENT HEENT: Other (runny nose) - Cardiac Cardiac: RRR, No murmur - Respiratory Respiratory: No respiratory distress, Clear bilaterally - Abdomen Abdomen: Normal bowel sounds, Soft, Other (Ex lap incision with lele in place, appropriate bruising but no signs of infection. Mild diffuse tenderness which may be appropriate for his postop status.) - Derm Derm: Normal color, Warm and dry - Neuro Neuro: Alert and oriented X 3, Normal speech - Psych Psych: Normal mood, Normal affect Results - Vitals Vitals: Vital Signs - 24 hr 05/06/21 05/06/21 14:31 15:43 Temperature 36.9 C Heart Rate 84 70 Respiratory 16 15 Rate Blood Pressure 107/66 122/75 O2 Saturation 100 97 Oxygen O2 Source Room air - Labs Labs: Laboratory Tests 05/06/21 05/06/21 14:57 14:57 WBC 8.4 RBC 4.37 L Hgb 13.4 L Hct 40.2 L MCV 92.0 MCH 30.7 MCHC 33.3 RDW 12.1 Plt Count 358 MPV 8.5 Neut # (Auto) 5.7 Lymph # (Auto) 1.7 [place] # (Auto) 0.7 Eos # (Auto) 0.1 Baso # (Auto) 0.0 Absolute Nucleated RBC 0.00 Nucleated RBC % 0.0 Sodium 137 Potassium 3.7 Chloride 99 L Carbon Dioxide 25 Anion Gap 13.0 BUN 16 Creatinine 1.1 Estimated GFR (MDRD) 65 L Glucose 133 H Calcium 8.8 PD MEDICAL DECISION MAKING - ED course ED course: He was seen by Dr. Thomas, his surgeon who felt there was nothing serious going on and recommended we provide some Zofran and close return precautions which were done. Departure - Departure Disposition: 01 Home, Self Care Clinical Impression: Nausea Condition: Good Record reviewed to determine appropriate education?: Yes Instructions: ED Post Op Pain Prescriptions: Ondansetron Odt [Zofran] 4 mg TL Q6H PRN #10 tablet PRN Reason: Nausea / Vomiting Comments: Followup with Dr Thomas as scheduled. Return if worse Discharge Date/Time: 05/06/21 15:50
[2021-05-06 15:02] LABS: BASOPHILS % (AUTO) 0.5 %; EOSINOPHILS # (AUTO) 0.1 10^3/uL (0.0-0.7); EOSINOPHILS % (AUTO) 1.4 %; HCT - HEMATOCRIT 40.2 % (42.0-52.0); HGB - HEMOGLOBIN 13.4 g/dL (14.0-18.0); LYMPHOCYTES # (AUTO) 1.7 10^3/uL (1.5-3.5); LYMPHOCYTES % (AUTO) 20.2 %; MEAN CORPUSCULAR HEMOGLOBIN 30.7 pg (27.0-31.0); MEAN CORPUSCULAR HGB CONC 33.3 g/dL (32.0-36.0); MEAN PLATELET VOLUME 8.5 fL (7.4-11.4); MONOCYTES # (AUTO) 0.7 10^3/uL (0.0-1.0); MONOCYTES % (AUTO) 8.8 %; NEUTROPHILS # (AUTO) 5.7 10^3/uL (1.5-6.6); NEUTROPHILS % (AUTO) 68.6 %; PLT - PLATELET COUNT 358 10^3/uL (130-450); RED BLOOD COUNT 4.37 10^6/uL (4.70-6.10); RED CELL DISTRIBUTION WIDTH 12.1 % (12.0-15.0); WHITE BLOOD COUNT 8.4 x10^3/uL (4.8-10.8)
[2021-05-06 15:12] LABS: CALCIUM 8.8 mg/dL (8.5-10.3); CREATININE 1.1 mg/dL (0.6-1.2); POTASSIUM 3.7 mmol/L (3.5-5.0)
[2021-05-06] MEDS ORDERED: ONDANSETRON ODT 4 MG TABLET TL STA (15:26)
--- NOTE | 2021-05-06 15:38 | CONSULTATION NOTE ---
Surgery Consult - Consult Date Consult Date: 05/06/21 Requesting Provider: Kori - Chief Complaint Chief Complaint: postop fever, nausea - Home Meds/Allergies Home Medications: Patient History Medication Instructions Recorded Confirmed Atorvastatin Calcium 40 mg PO QPM 04/24/21 04/26/21 Clopidogrel [Plavix] 75 mg PO DAILY 04/24/21 04/26/21 Lisinopril [Zestril] 2.5 mg PO DAILY 04/24/21 04/26/21 Metoprolol Tartrate [Lopressor] 12.5 mg PO BID 04/24/21 04/26/21 Aspirin [Aspirin EC] 81 mg PO DAILY 04/25/21 04/26/21 Allergies/Adverse Reactions: Allergies Allergy/AdvReac Type Severity Reaction Status Date / Time No Known Drug Allergies Allergy Verified 05/06/21 14:39 - Vital Signs Vital Signs: Last Vital Signs Temp 36.9 C 05/06/21 14:31 Pulse 84 05/06/21 14:31 Resp 16 05/06/21 14:31 BP 107/66 05/06/21 14:31 Pulse Ox 100 05/06/21 14:31 - Lab Results Result Diagrams: 05/06/21 14:57 05/06/21 14:57 - Consultation Note Consultation Note: This 76-year-old male is 6 days status post exploratory laparotomy with lysis of adhesions for small bowel obstruction. He was discharged from the hospital 2 days ago. He ate a general diet once he went home with chicken and dumplings t he first day home and small steaks yesterday. This morning he woke and felt nauseated. He had no vomiting. He had no abdominal pain. He has had regular bowel movements this discharge. His took his temperature at home and it was 100 degrees. So he came to the emergency room for evaluation. He is on Plavix, 6 months after coronary artery stent placement Physical exam: Afebrile. Alert and cooperative with exam. Abdomen not distended. Soft and nontender. There is some ecchymosis around his midline incision with a small area of blood oozing from the mid incision but no erythema or signs of drainage. Laboratory studies showed normal white count. Assessment: 6 days status post exploratory laparotomy through a midline abdominal incision with nausea but no vomiting. No evidence for fever or wound infection or peritonitis. Plan: The patient will be given Zofran in the emergency room and sent home with this medication if it is effective in controlling his nausea. He was advised that his diet advance was probably too rapid and he should go back to a clear liquid or full liquid diet at this time. He will call tomorrow to make a follow-up visit in the clinic to have his lele removed and to be rechecked. The oozing from his incision is not surprising given his use of Plavix and he was instructed to change the dressing and apply compress if there is additional oozing.
[2021-05-06 15:46] VITALS: BP 122/75
== END 2021-05-06 15:50 | disposition home or self-care (01) ==
LOC: ED 14:21
DX: R11.0 Nausea (principal); Z87.891 Personal history of nicotine dependence; Z98.890 Other specified postprocedural states
CPT/HCPCS: 36415; 80048; 85025; 99283; Q0162

== ENCOUNTER 2021-05-07 02:26 | Inpatient (IN) | payer MEDICARE ==
[2021-05-07] MEDS ORDERED: MORPHINE 2 MG/ML CARPUJECT IVP STA ×2 (04:43→06:20)
[2021-05-07] MEDS ORDERED: ONDANSETRON 4 MG/2 ML VIAL IVP STA (04:48)
[2021-05-07] MEDS ORDERED: FAMOTIDINE 20 MG/2 ML VIAL IVP STA (04:48)
[2021-05-07] MEDS ORDERED: SODIUM CHLORIDE 0.9% 1,000 ML IV STA (04:48)
--- NOTE | 2021-05-07 04:48 | ED Physician Documentation ---
History of Present Illness - Stated complaint Stated Complaint: ABD PX - Chief complaint Chief Complaint: Abd Pain - History obtained from History obtained from: Patient - Additonal information Additional information: 76yM with pmh SBO s/p surgery with Dr. Thomas pod 7 p/w sudden onset periumbilical abd pain waking him from sleep at 11pm last night, 8/10 at the time and peaking at 2am, prompting him to come in. Patient was seen here yesterday for possible fever and uri symptoms but states "that was a fake temperature". Endorses severe aching constant periumbilical pain similar to when he had the SBO, radiating diffusely to midabdomen, without relieving symptoms. worse with pressing. no fevers. patient had a stringy BM at 1am. +nausea but no vomiting. Review of Systems Ten Systems: 10 systems reviewed and negative Constitutional: denies: Fever GI: reports: Abdominal Pain, Nausea. denies: Vomiting PD PAST MEDICAL HISTORY - Past Medical History Past Medical History: Yes Cardiovascular: Coronary artery disease, [place] Respiratory: None Neuro: None Endocrine/Autoimmune: None GI: Other : None HEENT: None Psych: None Musculoskeletal: None Derm: None - Past Surgical History Past Surgical History: Yes Cardiovascular: Coronary stent - Present Medications Home Medications: Ambulatory Orders Medication Instructions Recorded Confirmed Atorvastatin Calcium 40 mg PO QPM 04/24/21 05/07/21 Clopidogrel [Plavix] 75 mg PO DAILY 04/24/21 05/07/21 Lisinopril [Zestril] 2.5 mg PO DAILY 04/24/21 05/07/21 Metoprolol Tartrate [Lopressor] 12.5 mg PO BID 04/24/21 05/07/21 Aspirin [Aspirin EC] 81 mg PO DAILY 04/25/21 05/07/21 Ondansetron Odt [Zofran] 4 mg TL Q6H PRN #10 tablet 05/06/21 05/07/21 - Allergies Allergies/Adverse Reactions: Allergies Allergy/AdvReac Type Severity Reaction Status Date / Time No Known Drug Allergies Allergy Verified 05/07/21 02:51 - Social History Does the pt smoke?: No Smoking Status: Never smoker Does the pt drink ETOH?: No Does the pt have substance abuse?: No - Immunizations Immunizations are current?: Yes PD ED PE NORMAL - Vitals Vital signs reviewed: Yes - General General: Alert and oriented X 3, Well developed/nourished, Other (uncomfortable appearing) - HEENT HEENT: Atraumatic, PERRL, EOMI - Neck Neck: Supple, no meningeal sign - Cardiac Cardiac: RRR - Respiratory Respiratory: No respiratory distress, Clear bilaterally - Abdomen Abdomen: Other (diffusely ttp. lele clean and in place. no wound site infection. ) - Derm Derm: Normal color, Warm and dry, Other (midline abdominal wound healing well) - Extremities Extremities: No deformity - Neuro Neuro: Alert and oriented X 3 - Psych Psych: Normal mood, Normal affect Results - Vitals Vitals: Vital Signs - 24 hr 05/07/21 05/07/21 05/07/21 02:40 04:08 06:00 Temperature 36.4 C L 37.0 C Heart Rate 94 84 79 Respiratory 18 15 15 Rate Blood Pressure 121/71 138/78 H 122/66 O2 Saturation 100 97 100 Oxygen O2 Source Room air - Labs Labs: Laboratory Tests 05/07/21 05/07/21 04:40 04:40 WBC 9.5 RBC 4.41 L Hgb 13.8 L Hct 40.1 L MCV 90.9 MCH 31.3 H MCHC 34.4 RDW 12.1 Plt Count 373 MPV 8.5 Neut # (Auto) 7.0 H Lymph # (Auto) 1.8 [place] # (Auto) 0.6 Eos # (Auto) 0.1 Baso # (Auto) 0.0 Absolute Nucleated RBC 0.00 Nucleated RBC % 0.0 Sodium 138 Potassium 3.9 Chloride 102 Carbon Dioxide 25 Anion Gap 11.0 BUN 15 Creatinine 0.9 Estimated GFR (MDRD) 82 L Glucose 130 H Calcium 8.6 Total Bilirubin 0.6 AST 56 H ALT 84 H Alkaline Phosphatase 88 Total Protein 6.8 Albumin 3.7 Globulin 3.1 Albumin/Globulin Ratio 1.2 Lipase 22 PD MEDICAL DECISION MAKING - ED course ED course: 76yM p/w abdominal pain s/o SBO surgery 7 days ago. will obtain labs, imaging, evaluate. Patient with persistent pain s/p morphine. rates it /10. will give 2nd dose of morphine. CT with persistent or recurrent SBO with air fluid levels. d/w Dr. Thomas who will see the patient.
[2021-05-07 04:57] LABS: BASOPHILS % (AUTO) 0.4 %; EOSINOPHILS # (AUTO) 0.1 10^3/uL (0.0-0.7); EOSINOPHILS % (AUTO) 0.5 %; HCT - HEMATOCRIT 40.1 % (42.0-52.0); HGB - HEMOGLOBIN 13.8 g/dL (14.0-18.0); LYMPHOCYTES # (AUTO) 1.8 10^3/uL (1.5-3.5); MEAN CORPUSCULAR HEMOGLOBIN 31.3 pg (27.0-31.0); MEAN CORPUSCULAR HGB CONC 34.4 g/dL (32.0-36.0); MEAN CORPUSCULAR VOLUME 90.9 fL (80.0-94.0); MEAN PLATELET VOLUME 8.5 fL (7.4-11.4); MONOCYTES # (AUTO) 0.6 10^3/uL (0.0-1.0); NEUTROPHILS % (AUTO) 73.5 %; PLT - PLATELET COUNT 373 10^3/uL (130-450); RED BLOOD COUNT 4.41 10^6/uL (4.70-6.10); RED CELL DISTRIBUTION WIDTH 12.1 % (12.0-15.0); WHITE BLOOD COUNT 9.5 x10^3/uL (4.8-10.8)
[2021-05-07] MEDS ORDERED: IOPAMIDOL-300 50 ML VIAL ONE (05:01)
[2021-05-07 05:08] LABS: ALBUMIN 3.7 g/dL (3.2-5.5); ALBUMIN/GLOBULIN RATIO 1.2 (1.0-2.2); BILIRUBIN,TOTAL 0.6 mg/dL (0.2-1.0); CALCIUM 8.6 mg/dL (8.5-10.3); CREATININE 0.9 mg/dL (0.6-1.2); POTASSIUM 3.9 mmol/L (3.5-5.0); TOTAL PROTEIN 6.8 g/dL (6.7-8.2)
[2021-05-07] MEDS ORDERED: IOPAMIDOL-300 100 ML VIAL ONE (05:21)
[2021-05-07] MEDS ORDERED: IOPAMIDOL-300 100 ML VIAL IVP ONE (05:53)
[2021-05-07 06:29] LABS: BILIRUBIN,URINE NEGATIVE (NEGATIVE); GLUCOSE, URINE (UA) NEGATIVE (NEGATIVE); KETONES,URINE (UA) NEGATIVE (NEGATIVE); LEUKOCYTE ESTERASE, URINE NEGATIVE (NEGATIVE); NITRITE,URINE NEGATIVE (NEGATIVE); OCCULT BLOOD,URINE NEGATIVE (NEGATIVE); PROTEIN,URINE NEGATIVE (NEGATIVE); UROBILINOGEN,URINE 0.2 (NORMAL) E.U./dL (NORMAL)
[2021-05-07 06:35] LABS: CLARITY,URINE CLEAR (CLEAR)
--- NOTE | 2021-05-07 07:21 | SURGERY HX AND PHYSICAL(T) ---
Surgical History & Physical - Chief Complaint/HPI Chief Complaint: abdominal pain History of Present Illness: 76 yo male on Plavix six months post angioplasty and stent had an exploratory laparotomy one week ago for SBO secondary to an adhesive band across the base of two or three loops of small bowel. He did well postop and was discharged home three days ago. He advanced his diet quicly and came in yesterday with complaint of nausea, no abdominal pain, and had a benign abdominal exam. He was given Zofran and sent home with caution to stay on liquids. He then had an episode of abdominal cramping pain very similar to his initial presentation and came back to the ER. No vomiting. He took his Plavix yesterday. - PMH/PSH/Social Hx Does the pt have a hx of MRSA?: No Neurological History: None Eyes, Ears, Nose, Throat: None Cardiovascular: Coronary artery disease, [place] Respiratory: None Skin: None Endocrine/Autoimmune: None Gastrointestinal: Other Urinary: None Musculoskeletal: None Blood Disorders: None Psychiatric: None Cardiothoracic: Coronary stent Smoking Status: Never smoker Does the pt drink ETOH?: No Does the pt have substance abuse?: No - Home Meds and Allergies Home Medications: Atorvastatin Calcium 40 mg PO QPM 04/24/21 Clopidogrel [Plavix] 75 mg PO DAILY 04/24/21 Lisinopril [Zestril] 2.5 mg PO DAILY 04/24/21 Metoprolol Tartrate [Lopressor] 12.5 mg PO BID 04/24/21 Aspirin [Aspirin EC] 81 mg PO DAILY 04/25/21 Allergies/Adverse Reactions: Allergies Allergy/AdvReac Type Severity Reaction Status Date / Time No Known Drug Allergies Allergy Verified 05/07/21 02:51 - Review of Systems Gastrointestinal: Abdominal pain - Vital Signs Heart Rate: 79 Blood Pressure: 122/66 Temperature: 37.0 C Respiratory Rate: 15 O2 Saturation: 100 Weight (kg): 69.853 kg Height: 1.8 m - Physical Exam General Appearance: positive: No acute distress ENT: positive: ENT inspection nml Respiratory: positive: No respiratory distress Cardiovascular: positive: Regular rate & rhythm Abdomen: positive: Other (Mild distention, no guarding or rebound. Soft, but mild tenderness.) Comments/Other: CT scan abdomen and pelvis reviewed and shows some mildly distended loop of small bowel. Distal SB is not dilated. Some fluid in pelvis and RLL atelectasis. - Patient Review Patient Review: Problems were reviewed with the patient during this visit. Medications were reviewed with the patient during this visit. Allergies were reviewed this patient during this visit. Pertinent Tests Reviewed: All pertitent test for this patient were reviewed. - Assessment & Plan Assessment and Plan: 76 yo male presenting with abdominal pain one week after ex lap and lysis of adhesions. Abdominal exam does not show peritonitis but mildly distended with some diffuse tenderness. Patient had a BM at home before coming to hospital. Suspect ileus versus repeat obstruction. Will place NGT, consult hospitalist, admit for IV fluids, repeat films in AM. Will sign patient out to Dr Mancera this morning.
--- NOTE | 2021-05-07 07:53 | CT Report ---
PROCEDURE: Abdomen/Pelvis W INDICATIONS: pod 7, SBO surgery CONTRAST: IV CONTRAST: Isovue 300 ml: 100 PO CONTRAST: *NO PO CONTRAST TECHNIQUE: After the administration of IV contrast, 5 mm thick sections acquired from the diaphragms to the symp hysis. 5 mm thick coronal and sagittal reformats were acquired. For radiation dose reduction, the f ollowing was used: automated exposure control, adjustment of mA and/or kV according to patient size. COMPARISON: X-ray abdomen 04/29/2021, CT abdomen pelvis 04/24/2021 FINDINGS: Image quality: Excellent. ABDOMEN: Lung bases: Lung bases demonstrate minimal effusion with superimposed consolidative changes in the r ight base with minimal dependent change in the left base. Heart size is normal. Solid organs: Liver demonstrates diffuse steatosis. Low-attenuation foci are present, unchanged. The spleen is normal in size and enhancement. Gallbladder is unremarkable Biliary system is non dilate d. Pancreas enhances normally. No adrenal nodules. Kidneys demonstrate normal size and enhancement , without hydronephrosis. Bilateral exophytic renal cysts are present, unchanged. Multiple punctate calcifications are present within the inferior pole of the left kidney without obstruction, without c hange Peritoneum and bowel: Bowel loops demonstrate moderate colonic diverticula particularly within the r ight colon. No free air. Mild dependent free pelvic fluid is present. There are dilated loops of smal l bowel largest measuring approximately 3.6 cm, increased from prior exam at which time largest bowel loop dimension measures approximately 2.9 cm. The ascending and transverse colon, as well as proxima l left colon appears thickened and are poorly distended. Surgical midline infraumbilical surgical venessa nges are noted. Nodes and vessels: No retroperitoneal or mesenteric adenopathy by size criteria. Aorta and inferior vena cava are normal in size. Miscellaneous: No ventral hernias. PELVIS: Genitourinary: Bladder wall thickness is normal. Right hydrocele is present. Prostate is enlarged w ith calcifications. Miscellaneous: Small fat-containing inguinal hernias. Bones: No suspicious bony lesions. No vertebral body compression fractures. IMPRESSION: 1. Partial small bowel obstruction with bowel loops appearing more prominent when compared to prior e xam. 2. Appearance of thickening within the ascending, transverse and proximal descending colon as above. While this is suspected to be secondary to incomplete distention, inflammatory change cannot be defin itively excluded. 3. Colonic diverticula. 4. Minimal right effusion with superimposed dependent change likely atelectasis. 5. Unchanged hepatic cysts. The above findings are concordant with preliminary report. Reviewed by: Giana Jalloh MD on 05/07/2021 7:52 AM PST Approved by: Giana Jalloh MD on 05/07/2021 7:52 AM PST Station ID: [id number]
--- NOTE | 2021-05-07 08:00 | CONSULTATION NOTE ---
Referring Provider Name of Referring Provider:: Dr. Anshu Thomas Consult Date: 05/07/21 Chief Complaint - Chief Complaint Chief Complaint: Nausea and abdominal pain History of Present Illness - Admitted From Admitted From:: Home - History Obtained From Records Reviewed: Yes History obtained from: Patient, General Surgeon, EMR - History of Present Illness HPI Comment/Other: This is a 76-year-old male with a past medical history significant for coronary artery disease with stenting in October 2020, small bowel obstruction status post exploratory laparotomy with lysis of adhesions who presents today complaining of nausea and vomiting. He was admitted last week for the small bowel obstruction and after failing conservative management, he went to the OR on the for an expiratory laparotomy with lysis of adhesions. He did well postoperatively and was discharged home. He now presents emerged from yesterday due to nausea. He was discharged home but later returned due to ongoing nausea and abdominal pain and repeat CT revealed ileus versus partial small bowel obstruction. He states since he has been home, he has had minimal appetite and has not ate very much. He has felt nauseous with occasional vomiting. He has had abdominal pain at the site of the incision. He does not feel much better compared to his initial presentation about 2 weeks ago. He is frustrated and worried about his lack of improvement. He reports no fevers, chills. Denies any dyspnea, dysuria, hematuria. He has been taking aspirin and Plavix. Given his medical comorbidities, medicine was consulted for admission. We discussed goals of care and he would like to be a full code. History - Past Medical History Cardiovascular: reports: Coronary artery disease, [place] Respiratory: reports: None Neuro: reports: None Endocrine/Autoimmune: reports: None GI: reports: Other (Small bowel obstruction) : reports: None HEENT: reports: None Psych: reports: None Musculoskeletal: reports: None Derm: reports: None MRSA Hx?: No - Past Surgical History General: reports: Bowel surgery (Expiratory laparotomy with lysis of adhesions) Cardiovascular: reports: Coronary stent, Cardiac catheterization - Family & Social History Family History Comment/Other: He reports his mother from dementia. Living arrangement: At home Living Situation: With spouse/s.o. Social History Notes: He smoked in the past but quit over 20 years ago. Reports no drug or alcohol use. Meds/Allgy - Home Medications Home Medications: Ambulatory Orders Medication Instructions Recorded Confirmed Atorvastatin Calcium 40 mg PO QPM 04/24/21 05/07/21 Clopidogrel [Plavix] 75 mg PO DAILY 04/24/21 05/07/21 Lisinopril [Zestril] 2.5 mg PO DAILY 04/24/21 05/07/21 Metoprolol Tartrate [Lopressor] 12.5 mg PO BID 04/24/21 05/07/21 Aspirin [Aspirin EC] 81 mg PO DAILY 04/25/21 05/07/21 Ondansetron Odt [Zofran] 4 mg TL Q6H PRN #10 tablet 05/06/21 05/07/21 - Allergies Allergies/Adverse Reactions: Allergies Allergy/AdvReac Type Severity Reaction Status Date / Time No Known Drug Allergies Allergy Verified 05/07/21 02:51 Review of Systems - Constitutional Constitutional: denies: Fever, Chills - Ears, Nose & Throat Ears, Nose & Throat: denies: Nasal discharge, Postnasal drainage - Cardiovascular Cariovascular: denies: Chest pain, Exertional dyspnea, Decr. exercise tolerance - Respiratory Respiratory: denies: Cough, SOB at rest, SOB with exertion - Gastrointestinal Gastrointestinal: reports: Abdominal pain, Change in bowel habits, Nausea, Vomiting. denies: Diarrhea - Genitourinary Genitourinary: denies: Dysuria, Frequency, Urgency - Neurological Neurological: denies: Focal weakness - Hematologic/Lymphatic Hematologic/Lymphatic: reports: Bruising - All Other Systems All Other Systems: reports: Reviewed and negative Exam - Vital Signs Reviewed Vital Signs: Yes Vital Signs: Vital Signs x48h Temp Pulse Resp BP Pulse Ox 05/07/21 07:39 76 15 177/90 H 93 05/07/21 07:27 37.0 C 79 15 122/66 100 05/07/21 06:00 79 15 122/66 100 05/07/21 04:08 37.0 C 84 15 138/78 H 97 05/07/21 02:40 36.4 C L 94 18 121/71 100 - Physical Exam General Appearance: positive: Alert, Mild distress Eyes Bilateral: positive: Conjunctivae nml ENT: positive: ENT inspection nml, Other (NG tube in place.) Neck: positive: Nml inspection Respiratory: positive: No respiratory distress. negative: Wheezes, Rales Cardiovascular: positive: Regular rate & rhythm, No murmur. negative: Tachycardia Abdomen: positive: Nml bowel sounds, No distention, Tenderness (Over mid abdomen.), Other (Incision with surrounding ecchymosis. No erythema.) Skin: positive: Warm, Dry Extremities: positive: No pedal edema Neurologic/Psychiatric: negative: Disoriented to person, Disoriented to place Conclusion/Plan - Problem List (1) Ileus Conclusion/Plan: He has ileus after the small bowel obstruction with exploratory laparotomy and lysis of adhesions. The NG tube has been placed with minimal output. We will keep him n.p.o. and general surgery is considering starting TPN. Pain control with Dilaudid as needed. Zofran and Compazine as needed for nausea. Continue IV fluids. Management as per general surgery. (2) Hx of coronary artery disease Conclusion/Plan: He is known history of coronary artery disease with stenting in October 2020. Given it has been 6 months, it is okay to hold the Plavix for the time being. We will recommend continuing the aspirin and if he can take this p.o. and this can be given rectally. 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 - Lab Results Lab results reviewed: Yes Fish Bones: 05/07/21 04:40 05/07/21 04:40 - Diagnostic Imaging Results Diagnostic Imaging Results: positive: Final report reviewed
[2021-05-07] MEDS: SODIUM CHLORIDE FLUSH 0.9% 10 ML SYRINGE IVP SCH ×2 (09:18→16:05)
[2021-05-07] MEDS: LACTATED RINGERS 1,000 ML IV SCH ×2 (09:18→18:54)
[2021-05-07 10:13] LABS: B. PARAPERTUSSIS- RESP PCR PAN NOT DETECTED; B. PERTUSSIS- RESP PCR PANEL NOT DETECTED; C. PNEUMONIAE- RESP PCR PANEL NOT DETECTED; CORONAVIRUS 229E-RESP PCR NOT DETECTED; CORONAVIRUS HKU1-RESP PCR NOT DETECTED; CORONAVIRUS NL63-RESP PCR NOT DETECTED; CORONAVIRUS OC43-RESP PCR NOT DETECTED; HUMAN METAPNEUMOVIRUS NOT DETECTED; INFLUENZA A- RESP PCR PANEL NOT DETECTED; INFLUENZA B - RESP PCR PANEL NOT DETECTED; M. PNEUMONIAE- RESP PCR PANEL NOT DETECTED; PARAINFLUENZA VIRUS 1 NOT DETECTED; PARAINFLUENZA VIRUS 2 NOT DETECTED; PARAINFLUENZA VIRUS 3 NOT DETECTED; PARAINFLUENZA VIRUS 4 NOT DETECTED; RHINOVIRUS/ENTEROVIRUS NOT DETECTED; RSV- RESP PCR PANEL NOT DETECTED; SARS-CoV-2 -RESP PCR PANEL NOT DETECTED
--- NOTE | 2021-05-07 10:56 | PHARMACY PROGRESS NOTE ---
- Best Possible Medication History Admit Date and Time: 05/07/21 0751 Processed by: Nursing Medication History completed: Yes Secondary Source(s): Insurance records, Previous admit records As the person ultimately responsible for medication therapy, providers are able to order a medication from an existing home medication list in [facility] via the "Reconcile Routine" prior to Confirmation of that medication by administrative support clerk. Such practice is discouraged except when the physician, in their clinical judgment, deems that a medical need exists for a medication without regard to previous use.
[2021-05-07] MEDS: MORPHINE 2 MG/ML CARPUJECT IVP PRN ×3 (11:20→16:10)
[2021-05-07] MEDS: ONDANSETRON 4 MG/2 ML VIAL IVP PRN ×2 (11:23→16:03)
[2021-05-07] MEDS: BENZOCAINE/MENTHOL LOZENGE MM PRN (11:58)
--- NOTE | 2021-05-07 12:34 | XRAY Report ---
PROCEDURE: Chest for Line Placement INDICATIONS: NG tube placement for verification TECHNIQUE: One view of the chest was acquired. COMPARISON: None FINDINGS: Surgical changes and devices: Nasogastric tube is present distal tip projecting below the left hemidi aphragm. Lungs and pleura: No pleural effusions or pneumothorax. Lungs are clear. Mediastinum: Mediastinal contours appear normal. Heart size is mildly prominent. Bones and chest wall: No suspicious bony lesions. Overlying soft tissues appear unremarkable. IMPRESSION: No acute pulmonary process. Reviewed by: Giana Jalloh MD on 05/07/2021 12:33 PM PST Approved by: Giana Jalloh MD on 05/07/2021 12:33 PM PST Station ID: [id number]
[2021-05-07] MEDS ORDERED: HYDROmorphone 2 MG/ML VIAL IVP PRN (18:16)
[2021-05-07] MEDS: PROCHLORPERAZINE 10 MG/2 ML VIAL IVP PRN (22:16)
[2021-05-07] MEDS: LORazepam 2 MG/ML VIAL IVP PRN (22:16)
[2021-05-08] MEDS: HYDROmorphone 2 MG/ML VIAL IVP PRN ×5 (01:08→20:10)
[2021-05-08] MEDS: SODIUM CHLORIDE FLUSH 0.9% 10 ML SYRINGE IVP SCH ×4 (01:09→23:16)
[2021-05-08] MEDS: LORazepam 2 MG/ML VIAL IVP PRN ×2 (03:46→23:15)
[2021-05-08] MEDS: LACTATED RINGERS 1,000 ML IV SCH (03:46)
[2021-05-08] MEDS: ONDANSETRON 4 MG/2 ML VIAL IVP PRN ×2 (03:46→15:56)
[2021-05-08 06:17] LABS: BASOPHILS % (AUTO) 0.3 %; EOSINOPHILS # (AUTO) 0.1 10^3/uL (0.0-0.7); EOSINOPHILS % (AUTO) 0.5 %; HCT - HEMATOCRIT 41.2 % (42.0-52.0); HGB - HEMOGLOBIN 13.7 g/dL (14.0-18.0); LYMPHOCYTES % (AUTO) 21.8 %; MEAN CORPUSCULAR HEMOGLOBIN 30.2 pg (27.0-31.0); MEAN CORPUSCULAR HGB CONC 33.3 g/dL (32.0-36.0); MEAN CORPUSCULAR VOLUME 90.9 fL (80.0-94.0); MEAN PLATELET VOLUME 8.4 fL (7.4-11.4); MONOCYTES # (AUTO) 0.6 10^3/uL (0.0-1.0); NEUTROPHILS # (AUTO) 6.4 10^3/uL (1.5-6.6); PLT - PLATELET COUNT 368 10^3/uL (130-450); RED BLOOD COUNT 4.53 10^6/uL (4.70-6.10); RED CELL DISTRIBUTION WIDTH 12.2 % (12.0-15.0); WHITE BLOOD COUNT 9.1 x10^3/uL (4.8-10.8)
[2021-05-08 06:27] LABS: CALCIUM 8.3 mg/dL (8.5-10.3)
[2021-05-08] MEDS: LACTOBACILLUS RHAMNOSUS GG CAPSULE PO SCH (10:45)
[2021-05-08] MEDS ORDERED: DEXTROSE 5%-0.9% NACL 1,000 ML IV SCH (11:00)
--- NOTE | 2021-05-08 11:02 | PROVIDER PROGRESS NOTE ---
Assessment/Plan - Problem List (1) Ileus Assessment/Plan: 05/08, pt still has 700cc fluid from NG tube, mild hypoactive bowel sound. surgeon order PICC line and consult with cow trimmer for TPN (2) Hx of coronary artery disease Conclusion/Plan: stable, resume home Aspirin by FL, switch to IV of Metoprolol of pt's home PO Metoprolol. tele monitor for first 24 hours, Continue DVT prophylaxis. pt had cardiac stenting in October 2020, it is okay to hold the Plavix for now. 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 - Current Meds Current Meds: Current Medications Generic Name Dose Route Start Last Admin Trade Name Freq PRN Reason Stop Dose Admin Hydromorphone HCl 1 mg 05/07/21 18:58 05/08/21 08:10 Hydromorphone 2 Mg/Ml Vial IVP 1 mg Q4H PRN Administration PAIN Lactobacillus Rhamnosus 1 cap 05/08/21 09:00 05/08/21 10:45 Lactobacillus Rhamnosus Gg Capsule PO Not Given DAILY ANTHONY Lorazepam 0.5 mg 05/07/21 18:33 05/08/21 03:46 Lorazepam 2 Mg/Ml Vial IVP 0.5 mg Q2H PRN Administration Anxiety Ondansetron HCl 4 mg 05/07/21 11:12 05/08/21 03:46 Ondansetron 4 Mg/2 Ml Vial IVP 4 mg Q4HR PRN Administration Nausea / Vomiting Prochlorperazine Edisylate 10 mg 05/07/21 18:23 05/07/21 22:16 Prochlorperazine 10 Mg/2 Ml Vial IVP 10 mg Q6HR PRN Administration Nausea / Vomiting Sodium Chloride 10 ml 05/07/21 09:00 05/08/21 01:09 Sodium Chloride Flush 0.9% 10 Ml Syringe IVP Not Given 0100,0900,1700 ANTHONY Throat Lozenges 1 lozenge 05/07/21 11:46 05/07/21 11:58 Benzocaine/Menthol Lozenge MM 1 lozenge Q2HR PRN Administration Throat pain - Lab Result Fish Bone Diagrams: 05/08/21 05:55 05/08/21 05:55 - Additional Planning My Orders: My Active Orders 05/08/21 11:00 Aspirin Supp [Aspirin] 300 mg FL DAILY Dextrose 5%-0.9% NaCl [D5ns] 1,000 ml IV 100 mls/hr 05/09/21 09:00 Enoxaparin [Lovenox] 40 mg SUBQ DAILY Subjective - Subjective Patient Reports: Resting Comfortably Objective Vital Signs: Vital Signs - 24 hr 05/07/21 05/07/21 05/07/21 13:00 16:10 21:05 Temperature 36.2 C L 36.6 C Heart Rate [ Brachial] Heart Rate [ 96 92 72 Radial] Respiratory 18 18 19 Rate Blood Pressure [Left Brachial artery] Blood Pressure 150/71 H 139/75 H 144/68 H [Left] O2 Saturation 97 93 95 05/07/21 05/08/21 05/08/21 21:06 00:32 06:21 Temperature 36.7 C 37.0 C 37.1 C Heart Rate [ 95 82 Brachial] Heart Rate [ Radial] Respiratory 17 16 Rate Blood Pressure 154/82 H 127/62 [Left Brachial artery] Blood Pressure [Left] O2 Saturation 95 97 05/08/21 07:57 Temperature 36.8 C Heart Rate [ 102 H Brachial] Heart Rate [ Radial] Respiratory 18 Rate Blood Pressure 147/76 H [Left Brachial artery] Blood Pressure [Left] O2 Saturation 95 Oxygen O2 Source Room air I&O (Last 24 Hrs): Intake and Output Totals x24h 05/06/21 05/07/21 05/08/21 23:59 23:59 23:59 Intake Total 1980 916.667 Output Total 450 650 Balance 1530 266.667 General: Alert, Oriented x3, Cooperative, No acute distress HEENT: Atraumatic Neck: Supple Lymphatic: no adenopathy Neuro: Alert, Non Focal, Oriented Times 3 Cardiovascular: Regular rate, Normal S1, Normal S2 Respiratory: Chest non-tender, No respiratory distress Abdomen: Soft, Other (hypoactive bowel sound) Extremities: Normal pulses - Results Results: Laboratory Results WBC 9.1 x10^3/uL (4.8-10.8) 05/08/21 05:55 RBC 4.53 10^6/uL (4.70-6.10) L 05/08/21 05:55 Hgb 13.7 g/dL (14.0-18.0) L 05/08/21 05:55 Hct 41.2 % (42.0-52.0) L 05/08/21 05:55 MCV 90.9 fL (80.0-94.0) 05/08/21 05:55 MCH 30.2 pg (27.0-31.0) 05/08/21 05:55 MCHC 33.3 g/dL (32.0-36.0) 05/08/21 05:55 RDW 12.2 % (12.0-15.0) 05/08/21 05:55 Plt Count 368 10^3/uL (130-450) 05/08/21 05:55 MPV 8.4 fL (7.4-11.4) 05/08/21 05:55 Neut # (Auto) 6.4 10^3/uL (1.5-6.6) 05/08/21 05:55 Lymph # (Auto) 2.0 10^3/uL (1.5-3.5) 05/08/21 05:55 [place] # (Auto) 0.6 10^3/uL (0.0-1.0) 05/08/21 05:55 Eos # (Auto) 0.1 10^3/uL (0.0-0.7) 05/08/21 05:55 Baso # (Auto) 0.0 10^3/uL (0.0-0.1) 05/08/21 05:55 Absolute Nucleated RBC 0.00 x10^3/uL 05/08/21 05:55 Nucleated RBC % 0.0 /100WBC 05/08/21 05:55 Sodium 135 mmol/L (135-145) 05/08/21 05:55 Potassium 4.0 mmol/L (3.5-5.0) 05/08/21 05:55 Chloride 99 mmol/L (101-111) L 05/08/21 05:55 Carbon Dioxide 27 mmol/L (21-32) 05/08/21 05:55 Anion Gap 9.0 (6-13) 05/08/21 05:55 BUN 16 mg/dL (6-20) 05/08/21 05:55 Creatinine 1.0 mg/dL (0.6-1.2) 05/08/21 05:55 Estimated GFR (MDRD) 73 (>89) L 05/08/21 05:55 Glucose 119 mg/dL (70-100) H 05/08/21 05:55 Calcium 8.3 mg/dL (8.5-10.3) L 05/08/21 05:55 Total Bilirubin 0.6 mg/dL (0.2-1.0) 05/07/21 04:40 AST 56 IU/L (10-42) H 05/07/21 04:40 ALT 84 IU/L (10-60) H 05/07/21 04:40 Alkaline Phosphatase 88 IU/L (42-121) 05/07/21 04:40 Total Protein 6.8 g/dL (6.7-8.2) 05/07/21 04:40 Albumin 3.7 g/dL (3.2-5.5) 05/07/21 04:40 Globulin 3.1 g/dL (2.1-4.2) 05/07/21 04:40 Albumin/Globulin Ratio 1.2 (1.0-2.2) 05/07/21 04:40 Lipase 22 U/L (22-51) 05/07/21 04:40 Urine Color YELLOW 05/07/21 05:20 Urine Clarity CLEAR (CLEAR) 05/07/21 05:20 Urine pH 6.0 PH (5.0-7.5) 05/07/21 05:20 Ur Specific [place] 1.015 (1.002-1.030) 05/07/21 05:20 Urine Protein NEGATIVE mg/dL (NEGATIVE) 05/07/21 05:20 Urine Glucose (UA) NEGATIVE mg/dL (NEGATIVE) 05/07/21 05:20 Urine Ketones NEGATIVE mg/dL (NEGATIVE) 05/07/21 05:20 Urine Occult Blood NEGATIVE (NEGATIVE) 05/07/21 05:20 Urine Nitrite NEGATIVE (NEGATIVE) 05/07/21 05:20 Urine Bilirubin NEGATIVE (NEGATIVE) 05/07/21 05:20 Urine Urobilinogen 0.2 (NORMAL) E.U./dL (NORMAL) 05/07/21 05:20 Ur Leukocyte Esterase NEGATIVE (NEGATIVE) 05/07/21 05:20 Ur Microscopic Review NOT INDICATED 05/07/21 05:20 Urine Culture Comments NOT INDICATED 05/07/21 05:20 Nasal Adenovirus (PCR) NOT DETECTED 05/07/21 08:30 Nasal B. parapertussis DNA (PCR) NOT DETECTED 05/07/21 08:30 Nasal Coronavir 229E PCR NOT DETECTED 05/07/21 08:30 Nasal Coronavir HKU1 PCR NOT DETECTED 05/07/21 08:30 Nasal Coronavir NL63 PCR NOT DETECTED 05/07/21 08:30 Nasal Coronavir OC43 PCR NOT DETECTED 05/07/21 08:30 Nasal Enterovir/Rhinovir PCR NOT DETECTED 05/07/21 08:30 Nasal Influenza B PCR NOT DETECTED 05/07/21 08:30 Nasal Influenza A PCR NOT DETECTED 05/07/21 08:30 Nasal Parainfluen 1 PCR NOT DETECTED 05/07/21 08:30 Nasal Parainfluen 2 PCR NOT DETECTED 05/07/21 08:30 Nasal Parainfluen 3 PCR NOT DETECTED 05/07/21 08:30 Nasal Parainfluen 4 PCR NOT DETECTED 05/07/21 08:30 Nasal RSV (PCR) NOT DETECTED 05/07/21 08:30 Nasal B.pertussis DNA PCR NOT DETECTED 05/07/21 08:30 Nasal C.pneumoniae (PCR) NOT DETECTED 05/07/21 08:30 Benny Human Metapneumo PCR NOT DETECTED 05/07/21 08:30 Nasal M.pneumoniae (PCR) NOT DETECTED 05/07/21 08:30 Nasal SARS-CoV-2 (PCR) NOT DETECTED 05/07/21 08:30 ABX Reporting Has patient been on IV antibiotics over the past 48 hours?: No Current Medications - Current Medications Current Medications: Active Medications Aspirin (Aspirin 300 Mg Supp) 300 mg FL DAILY ANTHONY Enoxaparin Sodium (Enoxaparin 40 Mg/0.4 Ml Syringe) 40 mg SUBQ DAILY ANTHONY Hydromorphone HCl (Hydromorphone 2 Mg/Ml Vial) 1 mg IVP Q4H PRN PRN Reason: PAIN Last Admin: 05/08/21 08:10 Dose: 1 mg Documented by: Dextrose/Sodium Chloride (D5ns) 1,000 mls @ 100 mls/hr IV .Q10H ANTHONY Lactobacillus Rhamnosus (Lactobacillus Rhamnosus Gg Capsule) 1 cap PO DAILY ANTHONY Last Admin: 05/08/21 10:45 Dose: Not Given Documented by: Lorazepam (Lorazepam 2 Mg/Ml Vial) 0.5 mg IVP Q2H PRN PRN Reason: Anxiety Last Admin: 05/08/21 03:46 Dose: 0.5 mg Documented by: Metoprolol Tartrate (Metoprolol 5 Mg/5 Ml Vial) 5 mg IVP Q6HR ANTHONY Ondansetron HCl (Ondansetron 4 Mg/2 Ml Vial) 4 mg IVP Q4HR PRN PRN Reason: Nausea / Vomiting Last Admin: 05/08/21 03:46 Dose: 4 mg Documented by: Prochlorperazine Edisylate (Prochlorperazine 10 Mg/2 Ml Vial) 10 mg IVP Q6HR PRN PRN Reason: Nausea / Vomiting Last Admin: 05/07/21 22:16 Dose: 10 mg Documented by: Sodium Chloride (Sodium Chloride Flush 0.9% 10 Ml Syringe) 10 ml IVP PRN PRN PRN Reason: NEEDED PER PROVIDER ORDERS Sodium Chloride (Sodium Chloride Flush 0.9% 10 Ml Syringe) 10 ml IVP 0100,0900,1700 ANTHONY Last Admin: 05/08/21 01:09 Dose: Not Given Documented by: Throat Lozenges (Benzocaine/Menthol Lozenge) 1 lozenge MM Q2HR PRN PRN Reason: Throat pain Last Admin: 05/07/21 11:58 Dose: 1 lozenge Documented by: Atorvastatin Calcium 40 mg PO QPM 04/24/21 Clopidogrel [Plavix] 75 mg PO DAILY 04/24/21 Lisinopril [Zestril] 2.5 mg PO DAILY 04/24/21 Metoprolol Tartrate [Lopressor] 12.5 mg PO BID 04/24/21 Aspirin [Aspirin EC] 81 mg PO DAILY 04/25/21
--- NOTE | 2021-05-08 11:31 | XRAY Report ---
PROCEDURE: Abdomen 1 View X-Ray INDICATIONS: SBO TECHNIQUE: 1 view of the abdomen were acquired. COMPARISON: 04/28/2021 and 04/29/2021 FINDINGS: Surgical changes and devices: Nasogastric tube is in placed and appropriately positioned. Multiple ve rtical skin lele are noted in the lower abdomen/pelvis. Bowel: No pneumoperitoneum. Persistent but decreased degree of gaseous distention of multiple loops of small bowel. Soft tissues: No masses; visualized solid organ contours appear normal in size. No suspicious abdom inal calcifications. Bones: No suspicious bony abnormalities. IMPRESSION: Interval postsurgical changes of the lower abdomen/pelvis with placement of nasogastric tube. Persist ent but decreased degree of small bowel distention throughout the imaged abdomen. Findings may repres ent resolving small bowel obstruction although postsurgical ileus may have a similar appearance. Jaime mmend continued clinical surveillance with follow-up imaging as needed. Reviewed by: Pratik Boothe MD on 05/08/2021 11:29 AM PST Approved by: Pratik Boothe MD on 05/08/2021 11:29 AM PST Station ID: [id number]
--- NOTE | 2021-05-08 11:48 | PROVIDER PROGRESS NOTE ---
Subjective - General Admit Date: 05/07/21 Procedure Date: 04/30/21 Post Op Days: 8 - Review of Systems Wound/Incisions: positive: Healing well, No drainage General: positive: Weakness, Fatigue HEENT: positive: No symptoms Pulmonary: positive: No symptoms Cardiovascular: positive: No symptoms Gastrointestinal: positive: Abdominal pain. negative: Nausea, Vomiting Genitourinary: positive: No symptoms All Other Systems: positive: Reviewed and negative Objective - Patient Data Reviewed Vital Signs: Yes Vital Signs: Vital Signs x48h Temp Pulse Resp BP Pulse Ox 05/08/21 11:16 36.6 C 79 18 132/64 H 96 05/08/21 07:57 36.8 C 102 H 18 147/76 H 95 05/08/21 06:21 37.1 C 82 16 127/62 97 Weight: Weight 05/06/21 05/07/21 05/08/21 23:59 23:59 23:59 Weight (kg) 69.853 kg Intake & Output: Intake and Output Totals x24h 05/06/21 05/07/21 05/08/21 23:59 23:59 23:59 Intake Total 1980 916.667 Output Total 450 650 Balance 1530 266.667 - Lab Results Lab Results: 05/08/21 05:55 05/08/21 05:55 Other Lab Results: Lab Results x24hrs 05/08/21 05/08/21 Range/Units 05:55 05:55 WBC 9.1 (4.8-10.8) x10^3/uL RBC 4.53 L (4.70-6.10) 10^6/uL Hgb 13.7 L (14.0-18.0) g/dL Hct 41.2 L (42.0-52.0) % MCV 90.9 (80.0-94.0) fL MCH 30.2 (27.0-31.0) pg MCHC 33.3 (32.0-36.0) g/dL RDW 12.2 (12.0-15.0) % Plt Count 368 (130-450) 10^3/uL MPV 8.4 (7.4-11.4) fL Neut # (Auto) 6.4 (1.5-6.6) 10^3/uL Lymph # (Auto) 2.0 (1.5-3.5) 10^3/uL [place] # (Auto) 0.6 (0.0-1.0) 10^3/uL Eos # (Auto) 0.1 (0.0-0.7) 10^3/uL Baso # (Auto) 0.0 (0.0-0.1) 10^3/uL Absolute Nucleated RBC 0.00 x10^3/uL Nucleated RBC % 0.0 /100WBC Sodium 135 (135-145) mmol/L Potassium 4.0 (3.5-5.0) mmol/L Chloride 99 L (101-111) mmol/L Carbon Dioxide 27 (21-32) mmol/L Anion Gap 9.0 (6-13) BUN 16 (6-20) mg/dL Creatinine 1.0 (0.6-1.2) mg/dL Estimated GFR (MDRD) 73 L (>89) Glucose 119 H (70-100) mg/dL Calcium 8.3 L (8.5-10.3) mg/dL - Current Medications Current Medications: Current Medications Generic Name Dose Route Start Last Admin Trade Name Freq PRN Reason Stop Dose Admin Hydromorphone HCl 1 mg 05/07/21 18:58 05/08/21 08:10 Hydromorphone 2 Mg/Ml Vial IVP 1 mg Q4H PRN Administration PAIN Lactobacillus Rhamnosus 1 cap 05/08/21 09:00 05/08/21 10:45 Lactobacillus Rhamnosus Gg Capsule PO Not Given DAILY ANTHONY Lorazepam 0.5 mg 05/07/21 18:33 05/08/21 03:46 Lorazepam 2 Mg/Ml Vial IVP 0.5 mg Q2H PRN Administration Anxiety Ondansetron HCl 4 mg 05/07/21 11:12 05/08/21 03:46 Ondansetron 4 Mg/2 Ml Vial IVP 4 mg Q4HR PRN Administration Nausea / Vomiting Prochlorperazine Edisylate 10 mg 05/07/21 18:23 05/07/21 22:16 Prochlorperazine 10 Mg/2 Ml Vial IVP 10 mg Q6HR PRN Administration Nausea / Vomiting Sodium Chloride 10 ml 05/07/21 09:00 05/08/21 01:09 Sodium Chloride Flush 0.9% 10 Ml Syringe IVP Not Given 0100,0900,1700 [facility] Throat Lozenges 1 lozenge 05/07/21 11:46 05/07/21 11:58 Benzocaine/Menthol Lozenge MM 1 lozenge Q2HR PRN Administration Throat pain - Physical Exam Wound/Incisions: positive: Healing well General Appearance: positive: No acute distress, Lethargic Abdomen: positive: Tenderness, Other (Appropriately tender and bruised with mild distension. Active bowel sounds) Neurologic/Psychiatric: positive: Oriented x3 Comments/Other: Feeling a little better this morning. Much less anxious. Reports that he still has pain that comes and sharp waves. The pain is always located right around the incision in the middle of his abdomen he is not had any more nausea. No more vomiting. He is not aware of having passed any flatus. 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 1. Impossible to know for sure, but diet choices may have contributed to the recurrent obstruction. Patient did have steak and chicken dumplings following discharge. He was feeling well until he began eating heavier foods.CT scan shows a transition region in the mid abdomen near the incision. No definite transition point, but distal bowel is decompressed 2. PICC line requested for today. 3. Dietitian consult for TPN in the setting of prolonged ileus. 4. Difficult to know how much pain is due to bruising and how much due to cramping or ileus symptoms. The acute nausea issue seems to have improved significantly.Definitely need to leave the NG tube in place. 5. Would definitely favor conservative management with nutritional support as long as he is making any forward progress. 6. OK to resume rectal aspirin
[2021-05-08] MEDS: METOPROLOL 5 MG/5 ML VIAL IVP SCH ×3 (12:18→23:16)
[2021-05-08] MEDS: ASPIRIN 300 MG SUPP PR SCH (12:18)
--- NOTE | 2021-05-08 13:26 | ANESTHESIA PROCEDURE NOTE ---
Anesth Central Line Template - Central Line Central Line Preparation: Consent Obtained, Unable to obtain consent, Time out completed, Ultrasound used, Sterile prep and drape Central line location: Right Cephalic Central line type: PICC Double Lumen Central line catheter tip site resides: Superior vena cava (SVC) Central line aftercare: Secured, Placement confirmed, No pneumothorax, No complications, Bundle checklist complete, Pt tolerated well
[2021-05-08] MEDS: PROCHLORPERAZINE 10 MG/2 ML VIAL IVP PRN (13:30)
--- NOTE | 2021-05-08 13:41 | XRAY Report ---
PROCEDURE: Chest for Line Placement INDICATIONS: picc line placement TECHNIQUE: One view of the chest was acquired. COMPARISON: None FINDINGS: Surgical changes and devices: Right-sided PICC line tip near the cavoatrial junction. No pneumothorax . The nasogastric tube in stomach. Lungs and pleura: No pleural effusions or pneumothorax. Lungs are clear. Mediastinum: Mediastinal contours appear normal. Heart size is normal. Bones and chest wall: No suspicious bony lesions. Overlying soft tissues appear unremarkable. IMPRESSION: Right-sided PICC line tip near the cavoatrial junction. No pneumothorax Reviewed by: Constantin Omalley MD on 05/08/2021 12:40 PM AKST Approved by: Constantin Omalley MD on 05/08/2021 12:40 PM AKST Station ID: [id number]
[2021-05-08] MEDS: BENZOCAINE/MENTHOL LOZENGE MM PRN (15:55)
[2021-05-08] MEDS ORDERED: PPN (CLINIMIX E 4.25/5) 2,000 ML with MULTIVITAMIN 10 ML, TRACE ELEMENTS 1 ML IV SCH ×3 (19:00)
[2021-05-08] MEDS: OLIV IV SCH (19:28)
[2021-05-08] MEDS: MCT IV SCH (19:28)
[2021-05-08] MEDS: FAT EMUL IV SCH (19:28)
[2021-05-08] MEDS: SOY IV SCH (19:28)
[2021-05-08] MEDS: FISH OIL IV SCH (19:28)
[2021-05-08] MEDS: SODIUM CHLORIDE FLUSH 0.9% 10 ML SYRINGE IVP PRN ×2 (19:29→20:11)
[2021-05-09] MEDS: SODIUM CHLORIDE FLUSH 0.9% 10 ML SYRINGE IVP PRN ×5 (00:07→21:05)
[2021-05-09] MEDS: HYDROmorphone 2 MG/ML VIAL IVP PRN ×4 (00:07→14:21)
[2021-05-09] MEDS: BENZOCAINE/MENTHOL LOZENGE MM PRN ×2 (03:42→09:34)
[2021-05-09 06:05] LABS: BASOPHILS % (AUTO) 0.4 %; EOSINOPHILS # (AUTO) 0.1 10^3/uL (0.0-0.7); HCT - HEMATOCRIT 39.4 % (42.0-52.0); HGB - HEMOGLOBIN 12.9 g/dL (14.0-18.0); LYMPHOCYTES # (AUTO) 1.5 10^3/uL (1.5-3.5); LYMPHOCYTES % (AUTO) 18.2 %; MEAN CORPUSCULAR HEMOGLOBIN 30.1 pg (27.0-31.0); MEAN CORPUSCULAR HGB CONC 32.7 g/dL (32.0-36.0); MEAN CORPUSCULAR VOLUME 92.1 fL (80.0-94.0); MEAN PLATELET VOLUME 8.5 fL (7.4-11.4); MONOCYTES # (AUTO) 0.7 10^3/uL (0.0-1.0); NEUTROPHILS # (AUTO) 5.8 10^3/uL (1.5-6.6); PLT - PLATELET COUNT 383 10^3/uL (130-450); RED BLOOD COUNT 4.28 10^6/uL (4.70-6.10); RED CELL DISTRIBUTION WIDTH 12.2 % (12.0-15.0); WHITE BLOOD COUNT 8.1 x10^3/uL (4.8-10.8)
[2021-05-09 06:14] LABS: CALCIUM 8.4 mg/dL (8.5-10.3); POTASSIUM 3.8 mmol/L (3.5-5.0)
[2021-05-09] MEDS: METOPROLOL 5 MG/5 ML VIAL IVP SCH ×3 (06:32→18:25)
[2021-05-09 07:45] LABS: MAGNESIUM 2.5 mg/dL (1.7-2.8); PHOSPHORUS 3.5 mg/dL (2.5-4.6)
[2021-05-09] MEDS ORDERED: ZOLPIDEM 5 MG TABLET PO PRN (08:50)
[2021-05-09] MEDS ORDERED: DIATR MEGLU/DIATRIZOATE SODIUM 120 ML BOTTLE PO ONE (09:52)
[2021-05-09] MEDS: SODIUM CHLORIDE FLUSH 0.9% 10 ML SYRINGE IVP SCH ×2 (10:16→17:06)
[2021-05-09] MEDS: ASPIRIN 300 MG SUPP PR SCH (10:32)
[2021-05-09] MEDS: ENOXAPARIN 40 MG/0.4 ML SYRINGE SUBQ SCH (10:36)
[2021-05-09] MEDS: LACTOBACILLUS RHAMNOSUS GG CAPSULE PO SCH (10:38)
[2021-05-09] MEDS: PANTOPRAZOLE 40 MG VIAL IVP SCH ×2 (12:14→21:05)
--- NOTE | 2021-05-09 12:34 | PROVIDER PROGRESS NOTE ---
Subjective - General Admit Date: 05/07/21 Procedure Date: 04/30/21 Post Op Days: 9 - Review of Systems Wound/Incisions: positive: Healing well General: positive: Weakness, Fatigue HEENT: positive: Headaches, Sore throat, Other (Complaining of an earache in his right ear from the NG tube. He reports the tube is so painful its almost unbearable.) Pulmonary: positive: No symptoms Cardiovascular: positive: No symptoms Gastrointestinal: positive: Abdominal pain. negative: Nausea, Vomiting Genitourinary: positive: No symptoms All Other Systems: positive: Reviewed and negative - Other Other Information/Narrative: Godwin reports he is not feeling very well today. He says he has a headache and an earache from the NG tube in his nose is very sore. I note that he has been rating his pain at a 7. I asked him today if that was abdominal pain or headache and ear pain. He tells me that it is primarily headache and ear pain and he feels he needs the pain medication because he is sleep deprived. He is denying any abdominal pain. He reports that occasionally he gets a twinge to the left side of the incision. Mostly, he is very frustrated and scared.He does not think he is passed any flatus. Objective - Patient Data Reviewed Vital Signs: Yes Vital Signs: Vital Signs x48h Temp Pulse Resp BP BP Pulse Ox 05/09/21 12:27 120/64 05/09/21 11:50 37.1 C 85 16 120/64 95 05/09/21 07:02 36.9 C 92 16 124/79 99 05/09/21 06:32 120/80 05/09/21 05:03 37 C 79 18 120/80 94 Weight: Weight 05/07/21 05/08/21 05/09/21 23:59 23:59 23:59 Weight (kg) 69.853 kg 69.853 kg Intake & Output: Intake and Output Totals x24h 05/07/21 05/08/21 05/09/21 23:59 23:59 23:59 Intake Total 1979 2560.334 250.0 Output Total 450 2150 1650 Balance 1530 410.334 -1400.0 - Lab Results Lab Results: 05/09/21 05:35 05/09/21 05:35 Other Lab Results: Lab Results x24hrs 05/09/21 05/09/21 05/09/21 Range/Units 11:45 07:22 05:50 WBC (4.8-10.8) x10^3/uL RBC (4.70-6.10) 10^6/uL Hgb (14.0-18.0) g/dL Hct (42.0-52.0) % MCV (80.0-94.0) fL MCH (27.0-31.0) pg MCHC (32.0-36.0) g/dL RDW (12.0-15.0) % Plt Count (130-450) 10^3/uL MPV (7.4-11.4) fL Neut # (Auto) (1.5-6.6) 10^3/uL Lymph # (Auto) (1.5-3.5) 10^3/uL [place] # (Auto) (0.0-1.0) 10^3/uL Eos # (Auto) (0.0-0.7) 10^3/uL Baso # (Auto) (0.0-0.1) 10^3/uL Absolute Nucleated RBC x10^3/uL Nucleated RBC % /100WBC Sodium (135-145) mmol/L Potassium (3.5-5.0) mmol/L Chloride (101-111) mmol/L Carbon Dioxide (21-32) mmol/L Anion Gap (6-13) BUN (6-20) mg/dL Creatinine (0.6-1.2) mg/dL Estimated GFR (MDRD) (>89) Glucose (70-100) mg/dL POC Whole Bld Glucose 119 H 125 H (70 - 100) mg/dL Calcium (8.5-10.3) mg/dL Phosphorus (2.5-4.6) mg/dL Magnesium (1.7-2.8) mg/dL Troponin I High Sens 9.1 (2.3-19.7) ng/L 05/09/21 05/09/21 05/09/21 Range/Units 05:50 05:35 05:35 WBC 8.1 (4.8-10.8) x10^3/uL RBC 4.28 L (4.70-6.10) 10^6/uL Hgb 12.9 L (14.0-18.0) g/dL Hct 39.4 L (42.0-52.0) % MCV 92.1 (80.0-94.0) fL MCH 30.1 (27.0-31.0) pg MCHC 32.7 (32.0-36.0) g/dL RDW 12.2 (12.0-15.0) % Plt Count 383 (130-450) 10^3/uL MPV 8.5 (7.4-11.4) fL Neut # (Auto) 5.8 (1.5-6.6) 10^3/uL Lymph # (Auto) 1.5 (1.5-3.5) 10^3/uL [place] # (Auto) 0.7 (0.0-1.0) 10^3/uL Eos # (Auto) 0.1 (0.0-0.7) 10^3/uL Baso # (Auto) 0.0 (0.0-0.1) 10^3/uL Absolute Nucleated RBC 0.00 x10^3/uL Nucleated RBC % 0.0 /100WBC Sodium 138 (135-145) mmol/L Potassium 3.8 (3.5-5.0) mmol/L Chloride 96 L (101-111) mmol/L Carbon Dioxide 32 (21-32) mmol/L Anion Gap 10.0 (6-13) BUN 18 (6-20) mg/dL Creatinine 1.0 (0.6-1.2) mg/dL Estimated GFR (MDRD) 73 L (>89) Glucose 133 H (70-100) mg/dL POC Whole Bld Glucose (70 - 100) mg/dL Calcium 8.4 L (8.5-10.3) mg/dL Phosphorus 3.5 (2.5-4.6) mg/dL Magnesium 2.5 (1.7-2.8) mg/dL Troponin I High Sens (2.3-19.7) ng/L 05/09/21 05/08/21 05/08/21 Range/Units 04:41 23:34 17:25 WBC (4.8-10.8) x10^3/uL RBC (4.70-6.10) 10^6/uL Hgb (14.0-18.0) g/dL Hct (42.0-52.0) % MCV (80.0-94.0) fL MCH (27.0-31.0) pg MCHC (32.0-36.0) g/dL RDW (12.0-15.0) % Plt Count (130-450) 10^3/uL MPV (7.4-11.4) fL Neut # (Auto) (1.5-6.6) 10^3/uL Lymph # (Auto) (1.5-3.5) 10^3/uL [place] # (Auto) (0.0-1.0) 10^3/uL Eos # (Auto) (0.0-0.7) 10^3/uL Baso # (Auto) (0.0-0.1) 10^3/uL Absolute Nucleated RBC x10^3/uL Nucleated RBC % /100WBC Sodium (135-145) mmol/L Potassium (3.5-5.0) mmol/L Chloride (101-111) mmol/L Carbon Dioxide (21-32) mmol/L Anion Gap (6-13) BUN (6-20) mg/dL Creatinine (0.6-1.2) mg/dL Estimated GFR (MDRD) (>89) Glucose (70-100) mg/dL POC Whole Bld Glucose 108 H 138 H 105 H (70 - 100) mg/dL Calcium (8.5-10.3) mg/dL Phosphorus (2.5-4.6) mg/dL Magnesium (1.7-2.8) mg/dL Troponin I High Sens (2.3-19.7) ng/L - Imaging Results Imaging Results Comments: X-ray done yesterday had an improved appearance. Much less distention of small bowel. - Current Medications Current Medications: Current Medications Generic Name Dose Route Start Last Admin Trade Name Freq PRN Reason Stop Dose Admin Aspirin 300 mg 05/08/21 11:00 05/09/21 10:32 Aspirin 300 Mg Supp [place] 300 mg DAILY ANTHONY Administration Enoxaparin Sodium 40 mg 05/09/21 09:00 05/09/21 10:36 Enoxaparin 40 Mg/0.4 Ml Syringe SUBQ 40 mg DAILY ANTHONY Administration Hydromorphone HCl 1 mg 05/07/21 18:58 05/09/21 08:34 Hydromorphone 2 Mg/Ml Vial IVP 1 mg Q4H PRN Administration PAIN Multivitamins 10 ml/ TRACE 2,011 mls @ 83 mls/hr 05/08/21 19:00 05/08/21 21:59 ELEMENTS 1 ml/ Amino Acids/ IV 05/09/21 18:59 83 mls/hr Electrolytes/Dextrose TPN/PPN ANTHONY Infusion Fat Emulsion-Soy/MCT/[place]/Fish Oil 250 ml in 250 mls @ 21 mls/hr 05/08/21 19:00 05/09/21 07:10 Smoflipid 20% Iv Fat Emulsion IV Infused 1900 ANTHONY Infusion Lactobacillus Rhamnosus 1 cap 05/08/21 09:00 05/09/21 10:38 Lactobacillus Rhamnosus Gg Capsule PO Not Given DAILY ANTHONY Lorazepam 0.5 mg 05/07/21 18:33 05/08/21 23:15 Lorazepam 2 Mg/Ml Vial IVP 0.5 mg Q2H PRN Administration Anxiety Metoprolol Tartrate 5 mg 05/08/21 12:00 05/09/21 12:27 Metoprolol 5 Mg/5 Ml Vial IVP 5 mg Q6HR ANTHONY Administration Ondansetron HCl 4 mg 05/07/21 11:12 05/08/21 15:56 Ondansetron 4 Mg/2 Ml Vial IVP 4 mg Q4HR PRN Administration Nausea / Vomiting Pantoprazole Sodium 40 mg 05/09/21 10:00 05/09/21 12:14 Pantoprazole 40 Mg Vial IVP 40 mg BID ANTHONY Administration Prochlorperazine Edisylate 10 mg 05/07/21 18:23 05/08/21 13:30 Prochlorperazine 10 Mg/2 Ml Vial IVP 10 mg Q6HR PRN Administration Nausea / Vomiting Sodium Chloride 10 ml 05/07/21 07:51 05/09/21 12:16 Sodium Chloride Flush 0.9% 10 Ml Syringe IVP 10 ml PRN PRN Administration NEEDED PER PROVIDER ORDERS Sodium Chloride 10 ml 05/07/21 09:00 05/09/21 10:16 Sodium Chloride Flush 0.9% 10 Ml Syringe IVP 10 ml 0100,0900,1700 ANTHONY Administration Throat Lozenges 1 lozenge 05/07/21 11:46 05/09/21 09:34 Benzocaine/Menthol Lozenge MM 1 lozenge Q2HR PRN Administration Throat pain - Physical Exam Wound/Incisions: positive: Healing well General Appearance: positive: Alert, Mild distress Eyes Bilateral: positive: Normal inspection ENT: positive: Other (Significant bloody drainage is noted from the right nare where the NG tube is.) Neck: positive: Nml inspection Respiratory: positive: Chest non-tender, No respiratory distress, Breath sounds nml Cardiovascular: positive: Regular rate & rhythm Abdomen: positive: Nml bowel sounds, No distention, Tenderness (Appropriate postop tenderness) Skin: positive: Color nml (Some bruising around the midline incision) Neurologic/Psychiatric: positive: Oriented x3, CN's nml (2-12) ABX Reporting Has patient been on IV antibiotics over the past 48 hours?: No Impression/Plan - Problem List Problem List: Revolving postoperative ileus after laparotomy for small bowel obstruction 1. Continue PPN/TPN for about 14 days of nutritional deficiency 2. His NG tube output is minimal now but it is thick and bloody in appearance. I will start twice daily PPI as he needs to continue on his aspirin for his relatively fresh stent. 3.As things appear to be improving, we will try some Gastrografin through his NG tube with a abdominal film to follow a couple of hours later. Hopefully we can help push through the solid pieces of food that may be stuck in a narrowed area.He would be overall greatly relieved and improved if we could remove the NG tube. 4.I spoke with both the patient and his per telephone and discussed our plan. If we are able to improve bowel function with the Gastrografin, our idea would be to remove the NG tube in the next 24 hours or so and let him have sips of liquids. If this goes well, he can advance to a full liquid diet. My plan will be to send him home after a visit with a ict support and test engineers for a full liquid high-protein diet to last 2 or 3 weeks. He can follow-up in the clinic and we can decide when he can go back to his usual eating pattern.For now, we need to stay the course.
[2021-05-09] MEDS: ACETAMINOPHEN 1,000 MG/100 ML 100 ML IV SCH ×2 (12:35→18:04)
--- NOTE | 2021-05-09 13:17 | XRAY Report ---
PROCEDURE: Abdomen 1 View X-Ray INDICATIONS: BOWEL OBSTRUCTION TECHNIQUE: 1 view of the abdomen were acquired. COMPARISON: 05/08/2021 plain film. FINDINGS: Surgical changes and devices: Vertical staple line projects over the left lower quadrant. Bowel: No pneumoperitoneum. There are a few mildly distended small bowel loops within the left hemia bdomen. Contrast within the stomach is present. Soft tissues: No masses; visualized solid organ contours appear normal in size. No suspicious abdom inal calcifications. Bones: No suspicious bony abnormalities. IMPRESSION: No significant change in small bowel distention, consistent with the given history of albert wel obstruction. Reviewed by: Makayla Bird MD on 05/09/2021 1:16 PM PST Approved by: Makayla Bird MD on 05/09/2021 1:16 PM [facility] Station ID: [id number]
--- NOTE | 2021-05-09 15:04 | PROVIDER PROGRESS NOTE ---
Assessment/Plan - Problem List (1) Ileus Assessment/Plan: 05/09 pt report he did not have much sleep on last night, anxiety and worry about his medical conditions. pt also report he feel ache and uncomfortable on his throat and ear which is likely caused by NG tube. pt still has 1200cc fluid from NG. Xray of abdomen show progress and reduced degree of small bowel distention. pt ask for sleep pill, add Ambien. Call pt's per her request, explained and discussed the care plan, she understood. continue surgeon consultation. encourage pt ambulation safely, continue TPN, NG tube now, and NPO. 05/08, pt still has 700cc fluid from NG tube, mild hypoactive bowel sound. surgeon order PICC line and consult with key holder for TPN (2) Hx of coronary artery disease Conclusion/Plan: 05/09, pt was report to have unsuspension V-T on last night when pt is cough. EKG show SR, troponin and Electrolytes are in the normal range. Continue intravenous metoprolol, Continue aspirin [place], continue tele monitor. pt denies chest pain. stable, resume home Aspirin by [place], switch to IV of Metoprolol of pt's home PO Metoprolol. tele monitor for first 24 hours, Continue DVT prophylaxis. pt had cardiac stenting in October 2020, it is okay to hold the Plavix for now. Ultimately his Plavix can be resumed once it is okay with general surgery, pt may have a discussion with his rehabilitation psychologist regarding long-term dual antiplatelets. - Current Meds Current Meds: Current Medications Generic Name Dose Route Start Last Admin Trade Name Freq PRN Reason Stop Dose Admin Aspirin 300 mg 05/08/21 11:00 05/09/21 10:32 Aspirin 300 Mg Supp [place] 300 mg DAILY ANTHONY Administration Enoxaparin Sodium 40 mg 05/09/21 09:00 05/09/21 10:36 Enoxaparin 40 Mg/0.4 Ml Syringe SUBQ 40 mg DAILY ANTHONY Administration Hydromorphone HCl 1 mg 05/07/21 18:58 05/09/21 14:21 Hydromorphone 2 Mg/Ml Vial IVP 1 mg Q4H PRN Administration PAIN Multivitamins 10 ml/ TRACE 2,011 mls @ 83 mls/hr 05/08/21 19:00 05/08/21 21:59 ELEMENTS 1 ml/ Amino Acids/ IV 05/09/21 18:59 83 mls/hr Electrolytes/Dextrose TPN/PPN ANTHONY Infusion Fat Emulsion-Soy/MCT/Elim/Fish Oil 250 ml in 250 mls @ 21 mls/hr 05/08/21 19:00 05/09/21 07:10 Smoflipid 20% Iv Fat Emulsion IV Infused 1900 ANTHONY Infusion Acetaminophen 100 mls @ 400 mls/hr 05/09/21 12:00 05/09/21 14:14 Ofirmev IV Infused Q6HR ANTHONY Infusion Lactobacillus Rhamnosus 1 cap 05/08/21 09:00 05/09/21 10:38 Lactobacillus Rhamnosus Gg Capsule PO Not Given DAILY ANTHONY Lorazepam 0.5 mg 05/07/21 18:33 05/08/21 23:15 Lorazepam 2 Mg/Ml Vial IVP 0.5 mg Q2H PRN Administration Anxiety Metoprolol Tartrate 5 mg 05/08/21 12:00 05/09/21 12:27 Metoprolol 5 Mg/5 Ml Vial IVP 5 mg Q6HR ANTHONY Administration Ondansetron HCl 4 mg 05/07/21 11:12 05/08/21 15:56 Ondansetron 4 Mg/2 Ml Vial IVP 4 mg Q4HR PRN Administration Nausea / Vomiting Pantoprazole Sodium 40 mg 05/09/21 10:00 05/09/21 12:14 Pantoprazole 40 Mg Vial IVP 40 mg BID ANTHONY Administration Prochlorperazine Edisylate 10 mg 05/07/21 18:23 05/08/21 13:30 Prochlorperazine 10 Mg/2 Ml Vial IVP 10 mg Q6HR PRN Administration Nausea / Vomiting Sodium Chloride 10 ml 05/07/21 07:51 05/09/21 12:33 Sodium Chloride Flush 0.9% 10 Ml Syringe IVP 20 ml PRN PRN Administration NEEDED PER PROVIDER ORDERS Sodium Chloride 10 ml 05/07/21 09:00 05/09/21 10:16 Sodium Chloride Flush 0.9% 10 Ml Syringe IVP 10 ml 0100,0900,1700 ANTHONY Administration Throat Lozenges 1 lozenge 05/07/21 11:46 05/09/21 09:34 Benzocaine/Menthol Lozenge MM 1 lozenge Q2HR PRN Administration Throat pain - Lab Result Fish Bone Diagrams: 05/09/21 05:35 05/09/21 05:35 - Additional Planning My Orders: My Active Orders 05/08/21 18:59 Out of bed 4+ hours [RC] QID 05/09/21 07:34 Telemetry- [RC] Q4HR 05/09/21 08:50 Zolpidem [Ambien] 5 mg PO QPM PRN 05/09/21 09:00 Enoxaparin [Lovenox] 40 mg SUBQ DAILY Subjective - Subjective Patient Reports: Other (anxiety) Objective Vital Signs: Vital Signs - 24 hr 05/08/21 05/08/21 05/08/21 16:10 17:25 17:27 Temperature 36.7 C Heart Rate [ 69 Brachial] Heart Rate [ 74 72 Monitoring electrodes] Respiratory 18 Rate Blood Pressure Blood Pressure 119/57 L 100/68 127/59 L [Left Brachial artery] O2 Saturation 92 05/08/21 05/08/21 05/08/21 17:28 17:31 20:03 Temperature 37.2 C Heart Rate [ 72 Brachial] Heart Rate [ 68 Monitoring electrodes] Respiratory 17 Rate Blood Pressure 127/59 L Blood Pressure 121/59 L 127/67 [Left Brachial artery] O2 Saturation 96 05/08/21 05/08/21 05/08/21 23:11 23:16 23:25 Temperature 37.0 C Heart Rate [ Brachial] Heart Rate [ 77 69 70 Monitoring electrodes] Respiratory 18 Rate Blood Pressure 129/64 Blood Pressure 129/64 124/58 L 112/55 L [Left Brachial artery] O2 Saturation 95 05/09/21 05/09/21 05/09/21 05:03 06:32 07:02 Temperature 37 C 36.9 C Heart Rate [ 79 92 Brachial] Heart Rate [ Monitoring electrodes] Respiratory 18 16 Rate Blood Pressure 120/80 Blood Pressure 120/80 124/79 [Left Brachial artery] O2 Saturation 94 99 05/09/21 05/09/21 05/09/21 11:45 11:50 12:20 Temperature 37.1 C 37.1 C Heart Rate [ 85 76 Brachial] Heart Rate [ 85 Monitoring electrodes] Respiratory 18 16 20 Rate Blood Pressure Blood Pressure 120/62 120/64 120/64 [Left Brachial artery] O2 Saturation 95 95 05/09/21 05/09/21 12:27 12:52 Temperature Heart Rate [ 63 Brachial] Heart Rate [ Monitoring electrodes] Respiratory Rate Blood Pressure 120/64 Blood Pressure 107/58 L [Left Brachial artery] O2 Saturation Oxygen O2 Source Room air I&O (Last 24 Hrs): Intake and Output Totals x24h 05/07/21 05/08/21 05/09/21 23:59 23:59 23:59 Intake Total 1980 2560.334 350.0 Output Total 450 2150 1650 Balance 1530 410.334 -1300.0 General: Alert, Oriented x3, Cooperative, Mild distress HEENT: Atraumatic Neck: Supple Lymphatic: no adenopathy Neuro: Alert, Non Focal, Oriented Times 3 Cardiovascular: Regular rate, Normal S1, Normal S2 Respiratory: Chest non-tender, No respiratory distress Abdomen: Normal bowel sounds, Soft, No tenderness Extremities: Normal pulses - Results Results: Laboratory Results WBC 8.1 x10^3/uL (4.8-10.8) 05/09/21 05:35 RBC 4.28 10^6/uL (4.70-6.10) L 05/09/21 05:35 Hgb 12.9 g/dL (14.0-18.0) L 05/09/21 05:35 Hct 39.4 % (42.0-52.0) L 05/09/21 05:35 MCV 92.1 fL (80.0-94.0) 05/09/21 05:35 MCH 30.1 pg (27.0-31.0) 05/09/21 05:35 MCHC 32.7 g/dL (32.0-36.0) 05/09/21 05:35 RDW 12.2 % (12.0-15.0) 05/09/21 05:35 Plt Count 383 10^3/uL (130-450) 05/09/21 05:35 MPV 8.5 fL (7.4-11.4) 05/09/21 05:35 Neut # (Auto) 5.8 10^3/uL (1.5-6.6) 05/09/21 05:35 Lymph # (Auto) 1.5 10^3/uL (1.5-3.5) 05/09/21 05:35 [place] # (Auto) 0.7 10^3/uL (0.0-1.0) 05/09/21 05:35 Eos # (Auto) 0.1 10^3/uL (0.0-0.7) 05/09/21 05:35 Baso # (Auto) 0.0 10^3/uL (0.0-0.1) 05/09/21 05:35 Absolute Nucleated RBC 0.00 x10^3/uL 05/09/21 05:35 Nucleated RBC % 0.0 /100WBC 05/09/21 05:35 Sodium 138 mmol/L (135-145) 05/09/21 05:35 Potassium 3.8 mmol/L (3.5-5.0) 05/09/21 05:35 Chloride 96 mmol/L (101-111) L 05/09/21 05:35 Carbon Dioxide 32 mmol/L (21-32) 05/09/21 05:35 Anion Gap 10.0 (6-13) 05/09/21 05:35 BUN 18 mg/dL (6-20) 05/09/21 05:35 Creatinine 1.0 mg/dL (0.6-1.2) 05/09/21 05:35 Estimated GFR (MDRD) 73 (>89) L 05/09/21 05:35 Glucose 133 mg/dL (70-100) H 05/09/21 05:35 POC Whole Bld Glucose 119 mg/dL (70 - 100) H 05/09/21 11:45 Calcium 8.4 mg/dL (8.5-10.3) L 05/09/21 05:35 Phosphorus 3.5 mg/dL (2.5-4.6) 05/09/21 05:50 Magnesium 2.5 mg/dL (1.7-2.8) 05/09/21 05:50 Total Bilirubin 0.6 mg/dL (0.2-1.0) 05/07/21 04:40 AST 56 IU/L (10-42) H 05/07/21 04:40 ALT 84 IU/L (10-60) H 05/07/21 04:40 Alkaline Phosphatase 88 IU/L (42-121) 05/07/21 04:40 Troponin I High Sens 9.1 ng/L (2.3-19.7) 05/09/21 05:50 Total Protein 6.8 g/dL (6.7-8.2) 05/07/21 04:40 Albumin 3.7 g/dL (3.2-5.5) 05/07/21 04:40 Globulin 3.1 g/dL (2.1-4.2) 05/07/21 04:40 Albumin/Globulin Ratio 1.2 (1.0-2.2) 05/07/21 04:40 Lipase 22 U/L (22-51) 05/07/21 04:40 Urine Color YELLOW 05/07/21 05:20 Urine Clarity CLEAR (CLEAR) 05/07/21 05:20 Urine pH 6.0 PH (5.0-7.5) 05/07/21 05:20 Ur Specific [place] 1.015 (1.002-1.030) 05/07/21 05:20 Urine Protein NEGATIVE mg/dL (NEGATIVE) 05/07/21 05:20 Urine Glucose (UA) NEGATIVE mg/dL (NEGATIVE) 05/07/21 05:20 Urine Ketones NEGATIVE mg/dL (NEGATIVE) 05/07/21 05:20 Urine Occult Blood NEGATIVE (NEGATIVE) 05/07/21 05:20 Urine Nitrite NEGATIVE (NEGATIVE) 05/07/21 05:20 Urine Bilirubin NEGATIVE (NEGATIVE) 05/07/21 05:20 Urine Urobilinogen 0.2 (NORMAL) E.U./dL (NORMAL) 05/07/21 05:20 Ur Leukocyte Esterase NEGATIVE (NEGATIVE) 05/07/21 05:20 Ur Microscopic Review NOT INDICATED 05/07/21 05:20 Urine Culture Comments NOT INDICATED 05/07/21 05:20 Nasal Adenovirus (PCR) NOT DETECTED 05/07/21 08:30 Nasal B. parapertussis DNA (PCR) NOT DETECTED 05/07/21 08:30 Nasal Coronavir 229E PCR NOT DETECTED 05/07/21 08:30 Nasal Coronavir HKU1 PCR NOT DETECTED 05/07/21 08:30 Nasal Coronavir NL63 PCR NOT DETECTED 05/07/21 08:30 Nasal Coronavir OC43 PCR NOT DETECTED 05/07/21 08:30 Nasal Enterovir/Rhinovir PCR NOT DETECTED 05/07/21 08:30 Nasal Influenza B PCR NOT DETECTED 05/07/21 08:30 Nasal Influenza A PCR NOT DETECTED 05/07/21 08:30 Nasal Parainfluen 1 PCR NOT DETECTED 05/07/21 08:30 Nasal Parainfluen 2 PCR NOT DETECTED 05/07/21 08:30 Nasal Parainfluen 3 PCR NOT DETECTED 05/07/21 08:30 Nasal Parainfluen 4 PCR NOT DETECTED 05/07/21 08:30 Nasal RSV (PCR) NOT DETECTED 05/07/21 08:30 Nasal B.pertussis DNA PCR NOT DETECTED 05/07/21 08:30 Nasal C.pneumoniae (PCR) NOT DETECTED 05/07/21 08:30 Benny Human Metapneumo PCR NOT DETECTED 05/07/21 08:30 Nasal M.pneumoniae (PCR) NOT DETECTED 05/07/21 08:30 Nasal SARS-CoV-2 (PCR) NOT DETECTED 05/07/21 08:30 - Procedures Procedures: Procedures RELEASE SMALL INTESTINE, OPEN APPROACH (04/26/21) ABX Reporting Has patient been on IV antibiotics over the past 48 hours?: No Current Medications - Current Medications Current Medications: Active Medications Aspirin (Aspirin 300 Mg Supp) 300 mg [place] DAILY [facility] Last Admin: 05/09/21 10:32 Dose: 300 mg Documented by: Enoxaparin Sodium (Enoxaparin 40 Mg/0.4 Ml Syringe) 40 mg SUBQ DAILY [facility] Last Admin: 05/09/21 10:36 Dose: 40 mg Documented by: Hydromorphone HCl (Hydromorphone 2 Mg/Ml Vial) 1 mg IVP Q4H PRN PRN Reason: PAIN Last Admin: 05/09/21 14:21 Dose: 1 mg Documented by: Multivitamins 10 ml/ TRACE ELEMENTS 1 ml/ Amino Acids/Electrolytes/Dextrose 2,011 mls @ 83 mls/hr IV TPN/PPN [facility] Stop: 05/09/21 18:59 Last Infusion: 05/08/21 21:59 Dose: 83 mls/hr Documented by: Fat Emulsion-Soy/MCT/Elim/Fish Oil (Smoflipid 20% Iv Fat Emulsion) 250 ml in 250 mls @ 21 mls/hr IV 1900 [facility] Last Infusion: 05/09/21 07:10 Dose: Infused Documented by: Acetaminophen (Ofirmev) 100 mls @ 400 mls/hr IV Q6HR [facility] Last Infusion: 05/09/21 14:14 Dose: Infused Documented by: Multivitamins 10 ml/ TRACE ELEMENTS 1 ml/ Amino Ac/Electrol/Dextrose/Calcium 2,011 mls @ 75 mls/hr IV TPN/PPN [facility] Lactobacillus Rhamnosus (Lactobacillus Rhamnosus Gg Capsule) 1 cap PO DAILY [facility] Last Admin: 05/09/21 10:38 Dose: Not Given Documented by: Lorazepam (Lorazepam 2 Mg/Ml Vial) 0.5 mg IVP Q2H PRN PRN Reason: Anxiety Last Admin: 05/08/21 23:15 Dose: 0.5 mg Documented by: Metoprolol Tartrate (Metoprolol 5 Mg/5 Ml Vial) 5 mg IVP Q6HR [facility] Last Admin: 05/09/21 12:27 Dose: 5 mg Documented by: Ondansetron HCl (Ondansetron 4 Mg/2 Ml Vial) 4 mg IVP Q4HR PRN PRN Reason: Nausea / Vomiting Last Admin: 05/08/21 15:56 Dose: 4 mg Documented by: Pantoprazole Sodium (Pantoprazole 40 Mg Vial) 40 mg IVP BID [facility] Last Admin: 05/09/21 12:14 Dose: 40 mg Documented by: Prochlorperazine Edisylate (Prochlorperazine 10 Mg/2 Ml Vial) 10 mg IVP Q6HR PRN PRN Reason: Nausea / Vomiting Last Admin: 05/08/21 13:30 Dose: 10 mg Documented by: Sodium Chloride (Sodium Chloride Flush 0.9% 10 Ml Syringe) 10 ml IVP PRN PRN PRN Reason: NEEDED PER PROVIDER ORDERS Last Admin: 05/09/21 12:33 Dose: 20 ml Documented by: Sodium Chloride (Sodium Chloride Flush 0.9% 10 Ml Syringe) 10 ml IVP 0100,0900,1700 [facility] Last Admin: 05/09/21 10:16 Dose: 10 ml Documented by: Throat Lozenges (Benzocaine/Menthol Lozenge) 1 lozenge MM Q2HR PRN PRN Reason: Throat pain Last Admin: 05/09/21 09:34 Dose: 1 lozenge Documented by: Zolpidem Tartrate (Zolpidem 5 Mg Tablet) 5 mg PO QPM PRN PRN Reason: Insomnia Atorvastatin Calcium 40 mg PO QPM 04/24/21 Clopidogrel [Plavix] 75 mg PO DAILY 04/24/21 Lisinopril [Zestril] 2.5 mg PO DAILY 04/24/21 Metoprolol Tartrate [Lopressor] 12.5 mg PO BID 04/24/21 Aspirin [Aspirin EC] 81 mg PO DAILY 04/25/21
[2021-05-09] MEDS ORDERED: HYDROmorphone 0.5 MG/0.5 ML SYRINGE IVP PRN (16:18)
[2021-05-09] MEDS ORDERED: METOCLOPRAMIDE 10 MG TABLET PO SCH (17:00)
[2021-05-09] MEDS: LORazepam 2 MG/ML VIAL IVP PRN (17:05)
[2021-05-09] MEDS: METOCLOPRAMIDE 10 MG/2 ML VIAL IVP SCH ×2 (17:06→22:07)
[2021-05-09] MEDS: ONDANSETRON 4 MG/2 ML VIAL IVP PRN (18:21)
[2021-05-09] MEDS: FAT EMUL IV SCH (18:53)
[2021-05-09] MEDS: TPN (CLINIMIX E 5/15) 2,000 ML with MULTIVITAMIN 10 ML, TRACE ELEMENTS 1 ML IV SCH ×3 (18:53)
[2021-05-09] MEDS: FISH OIL IV SCH (18:53)
[2021-05-09] MEDS: OLIV IV SCH (18:53)
[2021-05-09] MEDS: MCT IV SCH (18:53)
[2021-05-09] MEDS: SOY IV SCH (18:53)
[2021-05-10] MEDS: ACETAMINOPHEN 1,000 MG/100 ML 100 ML IV SCH ×4 (00:25→17:48)
[2021-05-10] MEDS: METOPROLOL 5 MG/5 ML VIAL IVP SCH ×4 (00:27→20:11)
[2021-05-10] MEDS: SODIUM CHLORIDE FLUSH 0.9% 10 ML SYRINGE IVP SCH ×3 (00:28→17:48)
[2021-05-10 05:47] LABS: BASOPHILS % (AUTO) 0.2 %; EOSINOPHILS # (AUTO) 0.1 10^3/uL (0.0-0.7); HGB - HEMOGLOBIN 13.5 g/dL (14.0-18.0); LYMPHOCYTES # (AUTO) 1.2 10^3/uL (1.5-3.5); LYMPHOCYTES % (AUTO) 12.1 %; MEAN CORPUSCULAR HEMOGLOBIN 30.9 pg (27.0-31.0); MEAN CORPUSCULAR HGB CONC 34.6 g/dL (32.0-36.0); MEAN CORPUSCULAR VOLUME 89.2 fL (80.0-94.0); MEAN PLATELET VOLUME 8.5 fL (7.4-11.4); MONOCYTES # (AUTO) 0.6 10^3/uL (0.0-1.0); MONOCYTES % (AUTO) 5.9 %; NEUTROPHILS % (AUTO) 80.5 %; PLT - PLATELET COUNT 419 10^3/uL (130-450); RED BLOOD COUNT 4.37 10^6/uL (4.70-6.10)
[2021-05-10 05:56] LABS: ALBUMIN 3.2 g/dL (3.2-5.5); BILIRUBIN,TOTAL 0.4 mg/dL (0.2-1.0); CALCIUM 8.4 mg/dL (8.5-10.3); CREATININE 0.9 mg/dL (0.6-1.2); MAGNESIUM 2.4 mg/dL (1.7-2.8); PHOSPHORUS 3.9 mg/dL (2.5-4.6); POTASSIUM 3.3 mmol/L (3.5-5.0); TOTAL PROTEIN 6.4 g/dL (6.7-8.2)
[2021-05-10] MEDS: METOCLOPRAMIDE 10 MG/2 ML VIAL IVP SCH ×2 (06:08→13:24)
[2021-05-10] MEDS: SODIUM CHLORIDE FLUSH 0.9% 10 ML SYRINGE IVP PRN (06:13)
--- NOTE | 2021-05-10 09:11 | ANESTHESIA ---
Pre-Anesthesia VS, & Labs - Diagnosis small bowel obstruction - Procedure Exploratory laparotomoy Vital Signs: Temp Pulse Resp BP Pulse Ox 36.8 C 78 18 120/67 94 05/10/21 09:07 05/10/21 09:07 05/10/21 09:07 05/10/21 09:07 05/10/21 09:07 Height: 5 ft 11 in Weight (kg): 69.853 kg Body Mass Index: 21.4 BMI Classification: Healthy weight - NPO >8 hours - Lab Results Current Lab Results: Laboratory Tests 05/10/21 05:46: POC Whole Bld Glucose 168 H 05/10/21 05:34: Sodium 131 L, Potassium 3.3 L, Chloride 93 L, Carbon Dioxide 28, Anion Gap 10.0, BUN 28 H, Creatinine 0.9, Estimated GFR (MDRD) 82 L, Glucose 166 H, Calcium 8.4 L, Phosphorus 3.9, Magnesium 2.4, Total Bilirubin 0.4, AST 16, ALT 33, Alkaline Phosphatase 63, Total Protein 6.4 L, Albumin 3.2, Globulin 3.2, Albumin/Globulin Ratio 1.0, Prealbumin 17 L, Triglycerides 112 05/10/21 05:34: WBC 10.0, RBC 4.37 L, Hgb 13.5 L, Hct 39.0 L, MCV 89.2, MCH 30.9, MCHC 34.6, RDW 12.0, Plt Count 419, MPV 8.5, Neut # (Auto) 8.0 H, Lymph # (Auto) 1.2 L, Rice # (Auto) 0.6, Eos # (Auto) 0.1, Baso # (Auto) 0.0, Absolute Nucleated RBC 0.00, Nucleated RBC % 0.0 05/10/21 00:22: POC Whole Bld Glucose 174 H 05/09/21 17:28: POC Whole Bld Glucose 134 H 05/09/21 11:45: POC Whole Bld Glucose 119 H 05/09/21 07:22: POC Whole Bld Glucose 125 H 05/09/21 05:50: Troponin I High Sens 9.1 05/09/21 05:50: Phosphorus 3.5, Magnesium 2.5 05/09/21 05:35: Sodium 138, Potassium 3.8, Chloride 96 L, Carbon Dioxide 32, Anion Gap 10.0, BUN 18, Creatinine 1.0, Estimated GFR (MDRD) 73 L, Glucose 133 H , Calcium 8.4 L 05/09/21 05:35: WBC 8.1, RBC 4.28 L, Hgb 12.9 L, Hct 39.4 L, MCV 92.1, MCH 30.1, MCHC 32.7, RDW 12.2, Plt Count 383, MPV 8.5, Neut # (Auto) 5.8, Lymph # (Auto) 1.5, Rice # (Auto) 0.7, Eos # (Auto) 0.1, Baso # (Auto) 0.0, Absolute Nucleated RBC 0.00, Nucleated RBC % 0.0 05/09/21 04:41: POC Whole Bld Glucose 108 H 05/08/21 23:34: POC Whole Bld Glucose 138 H 05/08/21 17:25: POC Whole Bld Glucose 105 H 05/08/21 05:55: Sodium 135, Potassium 4.0, Chloride 99 L, Carbon Dioxide 27, Anion Gap 9.0, BUN 16, Creatinine 1.0, Estimated GFR (MDRD) 73 L, Glucose 119 H, Calcium 8.3 L 05/08/21 05:55: WBC 9.1, RBC 4.53 L, Hgb 13.7 L, Hct 41.2 L, MCV 90.9, MCH 30.2, MCHC 33.3, RDW 12.2, Plt Count 368, MPV 8.4, Neut # (Auto) 6.4, Lymph # (Auto) 2.0, Rice # (Auto) 0.6, Eos # (Auto) 0.1, Baso # (Auto) 0.0, Absolute Nucleated RBC 0.00, Nucleated RBC % 0.0 05/07/21 04:40: Sodium 138, Potassium 3.9, Chloride 102, Carbon Dioxide 25, Anion Gap 11.0, BUN 15, Creatinine 0.9, Estimated GFR (MDRD) 82 L, Glucose 130 H , Calcium 8.6, Total Bilirubin 0.6, AST 56 H, ALT 84 H, Alkaline Phosphatase 88, Total Protein 6.8, Albumin 3.7, Globulin 3.1, Albumin/Globulin Ratio 1.2, Lipase 22 05/07/21 04:40: WBC 9.5, RBC 4.41 L, Hgb 13.8 L, Hct 40.1 L, MCV 90.9, MCH 31.3 H, MCHC 34.4, RDW 12.1, Plt Count 373, MPV 8.5, Neut # (Auto) 7.0 H, Lymph # (Auto) 1.8, Rice # (Auto) 0.6, Eos # (Auto) 0.1, Baso # (Auto) 0.0, Absolute Nucleated RBC 0.00, Nucleated RBC % 0.0 Lab results reviewed: Yes Fish Bones: 05/10/21 05:34 05/10/21 05:34 Home Medications and Allergies Active Medications Aspirin (Aspirin 300 Mg Supp) 300 mg [place] DAILY ANTHONY Last Admin: 05/09/21 10:32 Dose: 300 mg Documented by: Enoxaparin Sodium (Enoxaparin 40 Mg/0.4 Ml Syringe) 40 mg SUBQ DAILY ANTHONY Last Admin: 05/09/21 10:36 Dose: 40 mg Documented by: Hydromorphone HCl (Hydromorphone 0.5 Mg/0.5 Ml Syringe) 0.5 mg IVP Q4H PRN PRN Reason: PAIN Fat Emulsion-Soy/MCT/[place]/Fish Oil (Smoflipid 20% Iv Fat Emulsion) 250 ml in 250 mls @ 21 mls/hr IV 1900 [facility] Last Infusion: 05/10/21 07:00 Dose: Infused Documented by: Acetaminophen (Ofirmev) 100 mls @ 400 mls/hr IV Q6HR ANTHONY Last Infusion: 05/10/21 06:40 Dose: Infused Documented by: Multivitamins 10 ml/ TRACE ELEMENTS 1 ml/ Amino Ac/Electrol/Dextrose/Calcium 2,011 mls @ 75 mls/hr IV TPN/PPN ANTHONY Last Infusion: 05/09/21 22:23 Dose: 75 mls/hr Documented by: Potassium Chloride (Potassium Chloride) 10 meq in 100 mls @ 100 mls/hr IV Q1H [facility] Stop: 05/10/21 09:59 Lactobacillus Rhamnosus (Lactobacillus Rhamnosus Gg Capsule) 1 cap PO DAILY ANTHONY Last Admin: 05/09/21 10:38 Dose: Not Given Documented by: Lorazepam (Lorazepam 2 Mg/Ml Vial) 0.5 mg IVP Q2H PRN PRN Reason: Anxiety Last Admin: 05/09/21 17:05 Dose: 0.5 mg Documented by: Metoclopramide HCl (Metoclopramide 10 Mg/2 Ml Vial) 5 mg IVP Q8HR [facility] Last Admin: 05/10/21 06:08 Dose: 5 mg Documented by: Metoprolol Tartrate (Metoprolol 5 Mg/5 Ml Vial) 5 mg IVP Q6HR [facility] Last Admin: 05/10/21 06:08 Dose: 5 mg Documented by: Ondansetron HCl (Ondansetron 4 Mg/2 Ml Vial) 4 mg IVP Q4HR PRN PRN Reason: Nausea / Vomiting Last Admin: 05/09/21 18:21 Dose: 4 mg Documented by: Pantoprazole Sodium (Pantoprazole 40 Mg Vial) 40 mg IVP BID [facility] Last Admin: 05/09/21 21:05 Dose: 40 mg Documented by: Prochlorperazine Edisylate (Prochlorperazine 10 Mg/2 Ml Vial) 10 mg IVP Q6HR PRN PRN Reason: Nausea / Vomiting Last Admin: 05/08/21 13:30 Dose: 10 mg Documented by: Sodium Chloride (Sodium Chloride Flush 0.9% 10 Ml Syringe) 10 ml IVP PRN PRN PRN Reason: NEEDED PER PROVIDER ORDERS Last Admin: 05/10/21 06:13 Dose: 10 ml Documented by: Sodium Chloride (Sodium Chloride Flush 0.9% 10 Ml Syringe) 10 ml IVP 0100,090 0,1700 [facility] Last Admin: 05/10/21 00:28 Dose: 10 ml Documented by: Throat Lozenges (Benzocaine/Menthol Lozenge) 1 lozenge MM Q2HR PRN PRN Reason: Throat pain Last Admin: 05/09/21 09:34 Dose: 1 lozenge Documented by: Zolpidem Tartrate (Zolpidem 5 Mg Tablet) 5 mg PO QPM PRN PRN Reason: Insomnia Atorvastatin Calcium 40 mg PO QPM 04/24/21 Clopidogrel [Plavix] 75 mg PO DAILY 04/24/21 Lisinopril [Zestril] 2.5 mg PO DAILY 04/24/21 Metoprolol Tartrate [Lopressor] 12.5 mg PO BID 04/24/21 Aspirin [Aspirin EC] 81 mg PO DAILY 04/25/21 Allergies/Adverse Reactions: Allergies Allergy/AdvReac Type Severity Reaction Status Date / Time No Known Drug Allergies Allergy Verified 05/07/21 02:51 Anes History & Medical History - Anesthetic History Anesthesia Complications: reports: No previous complications Family history of Anesthesia Complications: Denies Family history of Malignant Hyperthermia: Denies - Medical History Cardiovascular: reports: Coronary artery disease (stent 10/2020), [place] Pulmonary: reports: None Gastrointestinal: reports: Other (Small bowel obstruction) Urinary: reports: None Neuro: reports: None Musculoskeletal: reports: None Endocrine/Autoimmune: reports: None Blood Disorders: reports: None Skin: reports: None Smoking Status: Former smoker - Surgical History General: reports: Bowel surgery (Expiratory laparotomy with lysis of adhesions) Cardiothoracic: reports: Coronary stent, Cardiac catheterization Exam General: Alert, Oriented x3, Cooperative, No acute distress Dental: WNL Mouth Openin Fingerbreadth Neck Mobility: Normal Mallampati classification: II Respiratory: Lungs clear, Normal breath sounds, No respiratory distress, No accessory muscle use Cardiovascular: Regular rate, Normal S1, Normal S2, No murmurs Plan Anesthesia Type: General, Transverse Abdominis Plane (TAP) Block Consent for Procedure(s) Verified and Reviewed: Yes Code Status: Attempt Resuscitation ASA classification: 2-Mild systemic disease Is this case an emergency?: Yes
[2021-05-10] MEDS: ENOXAPARIN 40 MG/0.4 ML SYRINGE SUBQ SCH (09:12)
[2021-05-10] MEDS: ASPIRIN 300 MG SUPP PR SCH (09:12)
[2021-05-10] MEDS: POTASSIUM CHLOR 10 MEQ/100 ML 10 MEQ/100 ML BAG IV SCH ×2 (09:12→13:05)
[2021-05-10] MEDS: LACTOBACILLUS RHAMNOSUS GG CAPSULE PO SCH (09:13)
[2021-05-10] MEDS: PANTOPRAZOLE 40 MG VIAL IVP SCH ×2 (09:13→20:33)
--- NOTE | 2021-05-10 09:21 | PROVIDER PROGRESS NOTE ---
Subjective - General Admit Date: 05/09/21 Procedure Date: 04/30/21 Post Op Days: 10 Procedure Performed: Exploratory laparotomy - Review of Systems Wound/Incisions: positive: Healing well General: positive: Weakness, Fatigue HEENT: positive: Headaches, Sore throat, Other (Complaining of an earache in his right ear from the NG tube. He reports the tube is so painful its almost unbearable.) Pulmonary: positive: No symptoms Cardiovascular: positive: No symptoms Gastrointestinal: positive: Abdominal pain. negative: Nausea, Vomiting Genitourinary: positive: No symptoms All Other Systems: positive: Reviewed and negative - Other Other Information/Narrative: Godwin had a significant set back last night with vomiting even though NGT was in place and working. He is understandably frustrated. Objective - Patient Data Vital Signs: Vital Signs x48h Temp Pulse Pulse Resp BP BP Pulse Ox 05/10/21 09:07 36.8 C 78 18 120/67 94 05/10/21 06:08 129/70 05/10/21 05:49 37 C 93 18 129/70 91 L Weight: Weight 05/08/21 05/09/21 05/10/21 23:59 23:59 23:59 Weight (kg) 69.853 kg 69.853 kg Intake & Output: Intake and Output Totals x24h 05/08/21 05/09/21 05/10/21 23:59 23:59 23:59 Intake Total 2560.334 2590.333 436.5 Output Total 2150 2200 500 Balance 410.334 390.333 -63.5 - Lab Results Lab Results: 05/10/21 05:34 05/10/21 05:34 Other Lab Results: Lab Results x24hrs 05/10/21 05/10/21 05/10/21 Range/Units 05:46 05:34 05:34 WBC 10.0 (4.8-10.8) x10^3/uL RBC 4.37 L (4.70-6.10) 10^6/uL Hgb 13.5 L (14.0-18.0) g/dL Hct 39.0 L (42.0-52.0) % MCV 89.2 (80.0-94.0) fL MCH 30.9 (27.0-31.0) pg MCHC 34.6 (32.0-36.0) g/dL RDW 12.0 (12.0-15.0) % Plt Count 419 (130-450) 10^3/uL MPV 8.5 (7.4-11.4) fL Neut # (Auto) 8.0 H (1.5-6.6) 10^3/uL Lymph # (Auto) 1.2 L (1.5-3.5) 10^3/uL [place] # (Auto) 0.6 (0.0-1.0) 10^3/uL Eos # (Auto) 0.1 (0.0-0.7) 10^3/uL Baso # (Auto) 0.0 (0.0-0.1) 10^3/uL Absolute Nucleated RBC 0.00 x10^3/uL Nucleated RBC % 0.0 /100WBC Sodium 131 L (135-145) mmol/L Potassium 3.3 L (3.5-5.0) mmol/L Chloride 93 L (101-111) mmol/L Carbon Dioxide 28 (21-32) mmol/L Anion Gap 10.0 (6-13) BUN 28 H (6-20) mg/dL Creatinine 0.9 (0.6-1.2) mg/dL Estimated GFR (MDRD) 82 L (>89) Glucose 166 H (70-100) mg/dL POC Whole Bld Glucose 168 H (70 - 100) mg/dL Calcium 8.4 L (8.5-10.3) mg/dL Phosphorus 3.9 (2.5-4.6) mg/dL Magnesium 2.4 (1.7-2.8) mg/dL Total Bilirubin 0.4 (0.2-1.0) mg/dL AST 16 (10-42) IU/L ALT 33 (10-60) IU/L Alkaline Phosphatase 63 (42-121) IU/L Total Protein 6.4 L (6.7-8.2) g/dL Albumin 3.2 (3.2-5.5) g/dL Globulin 3.2 (2.1-4.2) g/dL Albumin/Globulin Ratio 1.0 (1.0-2.2) Prealbumin 17 L (18-45) mg/dL Triglycerides 112 ( - 149) mg/dL 05/10/21 05/09/21 05/09/21 Range/Units 00:22 17:28 11:45 WBC (4.8-10.8) x10^3/uL RBC (4.70-6.10) 10^6/uL Hgb (14.0-18.0) g/dL Hct (42.0-52.0) % MCV (80.0-94.0) fL MCH (27.0-31.0) pg MCHC (32.0-36.0) g/dL RDW (12.0-15.0) % Plt Count (130-450) 10^3/uL MPV (7.4-11.4) fL Neut # (Auto) (1.5-6.6) 10^3/uL Lymph # (Auto) (1.5-3.5) 10^3/uL [place] # (Auto) (0.0-1.0) 10^3/uL Eos # (Auto) (0.0-0.7) 10^3/uL Baso # (Auto) (0.0-0.1) 10^3/uL Absolute Nucleated RBC x10^3/uL Nucleated RBC % /100WBC Sodium (135-145) mmol/L Potassium (3.5-5.0) mmol/L Chloride (101-111) mmol/L Carbon Dioxide (21-32) mmol/L Anion Gap (6-13) BUN (6-20) mg/dL Creatinine (0.6-1.2) mg/dL Estimated GFR (MDRD) (>89) Glucose (70-100) mg/dL POC Whole Bld Glucose 174 H 134 H 119 H (70 - 100) mg/dL Calcium (8.5-10.3) mg/dL Phosphorus (2.5-4.6) mg/dL Magnesium (1.7-2.8) mg/dL Total Bilirubin (0.2-1.0) mg/dL AST (10-42) IU/L ALT (10-60) IU/L Alkaline Phosphatase (42-121) IU/L Total Protein (6.7-8.2) g/dL Albumin (3.2-5.5) g/dL Globulin (2.1-4.2) g/dL Albumin/Globulin Ratio (1.0-2.2) Prealbumin (18-45) mg/dL Triglycerides ( - 149) mg/dL - Current Medications Current Medications: Current Medications Generic Name Dose Route Start Last Admin Trade Name Freq PRN Reason Stop Dose Admin Aspirin 300 mg 05/08/21 11:00 05/10/21 09:12 Aspirin 300 Mg Supp [place] Not Given DAILY ANTHONY Enoxaparin Sodium 40 mg 05/09/21 09:00 05/10/21 09:12 Enoxaparin 40 Mg/0.4 Ml Syringe SUBQ Not Given DAILY ANTHONY Fat Emulsion-Soy/MCT/[place]/Fish Oil 250 ml in 250 mls @ 21 mls/hr 05/08/21 19:00 05/10/21 07:00 Smoflipid 20% Iv Fat Emulsion IV Infused 1900 ANTHONY Infusion Acetaminophen 100 mls @ 400 mls/hr 05/09/21 12:00 05/10/21 06:40 Ofirmev IV Infused Q6HR ANTHONY Infusion Multivitamins 10 ml/ TRACE 2,011 mls @ 75 mls/hr 05/09/21 19:00 05/09/21 22:23 ELEMENTS 1 ml/ Amino Ac/ IV 75 mls/hr Electrol/Dextrose/Calcium TPN/PPN ANTHONY Infusion Potassium Chloride 10 meq in 100 mls @ 100 mls/hr 05/10/21 08:00 05/10/21 09:12 Potassium Chloride IV 05/10/21 09:59 100 mls/hr Q1H ANTHONY Administration Lactobacillus Rhamnosus 1 cap 05/08/21 09:00 05/10/21 09:13 Lactobacillus Rhamnosus Gg Capsule PO Not Given DAILY ANTHONY Lorazepam 0.5 mg 05/07/21 18:33 05/09/21 17:05 Lorazepam 2 Mg/Ml Vial IVP 0.5 mg Q2H PRN Administration Anxiety Metoclopramide HCl 5 mg 05/09/21 17:00 05/10/21 06:08 Metoclopramide 10 Mg/2 Ml Vial IVP 5 mg Q8HR ANTHONY Administration Metoprolol Tartrate 5 mg 05/08/21 12:00 05/10/21 06:08 Metoprolol 5 Mg/5 Ml Vial IVP 5 mg Q6HR ANTHONY Administration Ondansetron HCl 4 mg 05/07/21 11:12 05/09/21 18:21 Ondansetron 4 Mg/2 Ml Vial IVP 4 mg Q4HR PRN Administration Nausea / Vomiting Pantoprazole Sodium 40 mg 05/09/21 10:00 05/10/21 09:13 Pantoprazole 40 Mg Vial IVP 40 mg BID ANTHONY Administration Prochlorperazine Edisylate 10 mg 05/07/21 18:23 05/08/21 13:30 Prochlorperazine 10 Mg/2 Ml Vial IVP 10 mg Q6HR PRN Administration Nausea / Vomiting Sodium Chloride 10 ml 05/07/21 07:51 05/10/21 06:13 Sodium Chloride Flush 0.9% 10 Ml Syringe IVP 10 ml PRN PRN Administration NEEDED PER PROVIDER ORDERS Sodium Chloride 10 ml 05/07/21 09:00 05/10/21 09:13 Sodium Chloride Flush 0.9% 10 Ml Syringe IVP 10 ml 0100,0900,1700 ANTHONY Administration Throat Lozenges 1 lozenge 05/07/21 11:46 05/09/21 09:34 Benzocaine/Menthol Lozenge MM 1 lozenge Q2HR PRN Administration Throat pain - Physical Exam Wound/Incisions: positive: Healing well General Appearance: positive: No acute distress, Alert Eyes Bilateral: positive: Normal inspection, PERRL, EOMI ENT: positive: ENT inspection nml, Pharynx nml Neck: positive: Nml inspection Respiratory: positive: No respiratory distress, Breath sounds nml Cardiovascular: positive: Regular rate & rhythm Abdomen: positive: Tenderness. negative: No distention Back: positive: Nml inspection Skin: positive: Color nml Extremities: positive: Non-tender Neurologic/Psychiatric: positive: Oriented x3 ABX Reporting Has patient been on IV antibiotics over the past 48 hours?: No
[2021-05-10] MEDS ORDERED: BUPIVACAINE 0.5% PF 10 ML VIAL ONE (09:47)
[2021-05-10] MEDS ORDERED: LIDOCAINE MPF 2%-EPI 1:200000 20 ML VIAL ONE (09:47)
[2021-05-10] MEDS ORDERED: ROCURONIUM 50 MG/5 ML VIAL ONE (10:05)
[2021-05-10] MEDS ORDERED: fentaNYL 100 MCG/2 ML VIAL ONE ×2 (10:06→12:29)
[2021-05-10] MEDS ORDERED: ceFAZolin 1 GM VIAL ONE (10:50)
[2021-05-10] MEDS ORDERED: PHENYLEPHRINE 10 MG/ML VIAL ONE (10:50)
[2021-05-10] MEDS ORDERED: ROPIVACAINE 0.5% PF 20 ML AMPULE ONE (10:50)
[2021-05-10] MEDS ORDERED: PROPOFOL 200 MG/20 ML VIAL IVP ONE (10:50)
[2021-05-10] MEDS ORDERED: SODIUM CHLORIDE 0.9% 10 ML VIAL IVP ONE (10:51)
[2021-05-10] MEDS ORDERED: DEXAMETHASONE 4 MG/ML VIAL ONE (10:52)
[2021-05-10] MEDS ORDERED: ACETAMINOPHEN 1,000 MG/100 ML 100 ML IV ONE (10:53)
[2021-05-10] MEDS ORDERED: ONDANSETRON 4 MG/2 ML VIAL ONE (10:58)
[2021-05-10] MEDS ORDERED: LIDOCAINE MPF 2%-EPI 1:200000 20 ML VIAL SUBQ ONE (11:02)
[2021-05-10] MEDS ORDERED: BUPIVACAINE 0.5% PF 10 ML VIAL SUBQ ONE (11:02)
[2021-05-10] MEDS ORDERED: SUGAMMADEX 200 MG/2 ML VIAL IVP ONE (11:05)
--- NOTE | 2021-05-10 11:21 | OPERATIVE REPORT ---
Operative Report - General Admit Date: 05/09/21 Procedure Date: 05/10/21 Planned Procedure: Exploratory laparotomy with indicated procedures Pre-Op Diagnosis: Recurrent high-grade small bowel obstruction Procedure Performed: Exploratory laparotomy with lysis of adhesions Post Op Diagnosis: High-grade small bowel obstruction secondary to internal hernia and adhesio - Procedure Note Primary Surgeon: Fiordaliza Anesthesia Provider: JG Ross Pathology: None Estimated Blood Loss (mL): 15 Findings: Dense adhesive bands and inflammatory reaction in the central small bowel creating near complete obstruction with internal hernia. Complications: None apparent - Other Other Information/Narrative: Obtaining informed consent, the patient is brought the operating room and placed in the supine position on the following successful induction of general endotracheal anesthesia, appropriate padding of all bony prominences, and placement of appropriate monitors, the abdomen is prepped and draped in the standard surgical fashion. A timeout was held per scope protocol. All elements of the surgical safety checklist were followed before, during, and after the procedure. The existing abdominal incision was reopened by removing the clips, carefully removing the existing fascial sutures, and entering under direct vision. We encountered serosanguineous fluid with no foul odor. We immediately encountered very dilated bowel in the superior portion of the incision and very decompressed bowel in the more inferior portion. We began a careful evaluation. Following the dilated bowel distally. We identified a very tight adhesive band creating an internal hernia with near complete obstruction of the distal bowel. This was lysed sharply with immediate inflation of the distal bowel. We continued evaluation proximally to the ligament of Treitz opening all adhesive bands and checking each area of the bowel for leaks or strictures. Distally we continued our evaluation to the ileocecal valve and found no other areas of obstruction or narrowing.All of the inflammation and adhesive bands were not located centrally. This would be approximately the mid jejunum.The remainder of the small bowel is healthy in appearance without any evidence of obstruction or bands.No enterotomies were created during the procedure and there was no spillage of any contaminated material. The abdomen was irrigated with warm saline solution and aspirated free of all fluid and particulate matter. The peritoneum was closed with running Vicryl suture. The fascia was closed with looped PDS, and nylon s utures were placed in the skin. All sponge, needle, and instrument counts were correct at the conclusion of the case. The patient was allowed to wake from anesthesia without difficulty and taken to the postanesthesia care unit in satisfactory condition
[2021-05-10] MEDS ORDERED: LACTATED RINGERS 1,000 ML IV ONE (11:33)
[2021-05-10] MEDS ORDERED: ATROPINE ABBOJECT 1 MG/10 ML SYRINGE IVP PRN (11:53)
[2021-05-10] MEDS ORDERED: ONDANSETRON 4 MG/2 ML VIAL IVP PRN (11:53)
[2021-05-10] MEDS ORDERED: ePHEDrine 50 MG/ML VIAL IVP PRN (11:53)
[2021-05-10] MEDS ORDERED: HYDROmorphone 0.5 MG/0.5 ML SYRINGE IVP PRN (11:53)
[2021-05-10] MEDS ORDERED: MORPHINE 2 MG/ML CARPUJECT IVP PRN (11:53)
[2021-05-10] MEDS ORDERED: fentaNYL 100 MCG/2 ML VIAL IVP PRN (11:53)
[2021-05-10] MEDS ORDERED: NALOXONE 0.4 MG/ML VIAL IVP PRN (11:53)
[2021-05-10] MEDS ORDERED: LACTATED RINGERS 1,000 ML IV SCH (12:00)
--- NOTE | 2021-05-10 12:00 | PROVIDER PROGRESS NOTE ---
Assessment/Plan - Problem List (1) SBO (small bowel obstruction) Assessment/Plan: 05/10 pt continue have over 1000cc fluid from NG tube, KUB still reveal SBP pattern. surgeon took pt for surgery on today morning, we will continue help medical management for pt, continue NPO 05/09 pt report he did not have much sleep on last night, anxiety and worry about his medical conditions. pt also report he feel ache and uncomfortable on his throat and ear which is likely caused by NG tube. pt still has 1200cc fluid from NG. Xray of abdomen show progress and reduced degree of small bowel distention. pt ask for sleep pill, add Ambien. Call pt's per her request, explained and discussed the care plan, she understood. continue surgeon consultation. encourage pt ambulation safely, continue TPN, NG tube now, and NPO. 05/08, pt still has 700cc fluid from NG tube, mild hypoactive bowel sound. surgeon order PICC line and consult with bread baker for TPN (2) Hx of coronary artery disease Conclusion/Plan: 05/09 stable, denies chest pain, continue Aspirin AK, continue IV metoprolol and tele monitor pt. 05/09, pt was report to have unsuspension V-T on last night when pt is cough. EKG show SR, troponin and Electrolytes are in the normal range. Continue intrav enous metoprolol, Continue aspirin AK, continue tele monitor. pt denies chest pain. stable, resume home Aspirin by AK, switch to IV of Metoprolol of pt's home PO Metoprolol. tele monitor for first 24 hours, Continue DVT prophylaxis. pt had cardiac stenting in October 2020, it is okay to hold the Plavix for now. 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 - Current Meds Current Meds: Current Medications Generic Name Dose Route Start Last Admin Trade Name Freq PRN Reason Stop Dose Admin Aspirin 300 mg 05/08/21 11:00 05/10/21 09:12 Aspirin 300 Mg Supp AK Not Given DAILY ANTHONY Enoxaparin Sodium 40 mg 05/09/21 09:00 05/10/21 09:12 Enoxaparin 40 Mg/0.4 Ml Syringe SUBQ Not Given DAILY [facility] Fat Emulsion-Soy/MCT/[place]/Fish Oil 250 ml in 250 mls @ 21 mls/hr 05/08/21 19:00 05/10/21 07:00 Smoflipid 20% Iv Fat Emulsion IV Infused 1900 ANTHONY Infusion Acetaminophen 100 mls @ 400 mls/hr 05/09/21 12:00 05/10/21 06:40 Ofirmev IV Infused Q6HR ANTHONY Infusion Multivitamins 10 ml/ TRACE 2,011 mls @ 75 mls/hr 05/09/21 19:00 05/09/21 22:23 ELEMENTS 1 ml/ Amino Ac/ IV 75 mls/hr Electrol/Dextrose/Calcium TPN/PPN ANTHONY Infusion Lactobacillus Rhamnosus 1 cap 05/08/21 09:00 05/10/21 09:13 Lactobacillus Rhamnosus Gg Capsule PO Not Given DAILY ANTHONY Lorazepam 0.5 mg 05/07/21 18:33 05/09/21 17:05 Lorazepam 2 Mg/Ml Vial IVP 0.5 mg Q2H PRN Administration Anxiety Metoclopramide HCl 5 mg 05/09/21 17:00 05/10/21 06:08 Metoclopramide 10 Mg/2 Ml Vial IVP 5 mg Q8HR ANTHONY Administration Metoprolol Tartrate 5 mg 05/08/21 12:00 05/10/21 06:08 Metoprolol 5 Mg/5 Ml Vial IVP 5 mg Q6HR ANTHONY Administration Ondansetron HCl 4 mg 05/07/21 11:12 05/09/21 18:21 Ondansetron 4 Mg/2 Ml Vial IVP 4 mg Q4HR PRN Administration Nausea / Vomiting Pantoprazole Sodium 40 mg 05/09/21 10:00 05/10/21 09:13 Pantoprazole 40 Mg Vial IVP 40 mg BID ANTHONY Administration Prochlorperazine Edisylate 10 mg 05/07/21 18:23 05/08/21 13:30 Prochlorperazine 10 Mg/2 Ml Vial IVP 10 mg Q6HR PRN Administration Nausea / Vomiting Sodium Chloride 10 ml 05/07/21 07:51 05/10/21 06:13 Sodium Chloride Flush 0.9% 10 Ml Syringe IVP 10 ml PRN PRN Administration NEEDED PER PROVIDER ORDERS Sodium Chloride 10 ml 05/07/21 09:00 05/10/21 09:13 Sodium Chloride Flush 0.9% 10 Ml Syringe IVP 10 ml 0100,0900,1700 ANTHONY Administration Throat Lozenges 1 lozenge 05/07/21 11:46 05/09/21 09:34 Benzocaine/Menthol Lozenge MM 1 lozenge Q2HR PRN Administration Throat pain - Lab Result Fish Bone Diagrams: 05/10/21 05:34 05/10/21 05:34 - Additional Planning My Orders: My Active Orders 05/09/21 17:00 Metoclopramide Inj [Reglan Inj] 5 mg IVP Q8HR Subjective - Subjective Patient Reports: Abdominal Pain Objective Vital Signs: Vital Signs - 24 hr 05/09/21 05/09/21 05/09/21 12:20 12:27 12:52 Temperature 37.1 C Heart Rate Heart Rate [ 76 63 Brachial] Heart Rate [ Monitoring electrodes] Respiratory 20 Rate Blood Pressure 120/64 Blood Pressure 120/64 107/58 L [Left Brachial artery] Blood Pressure [Left] O2 Saturation 05/09/21 05/09/21 05/09/21 17:00 18:25 18:30 Temperature 37.1 C Heart Rate Heart Rate [ 97 83 80 Brachial] Heart Rate [ Monitoring electrodes] Respiratory 18 Rate Blood Pressure 113/75 Blood Pressure 136/81 H 117/71 [Left Brachial artery] Blood Pressure 113/75 [Left] O2 Saturation 95 05/09/21 05/09/21 05/09/21 18:35 18:40 18:55 Temperature Heart Rate Heart Rate [ 65 64 66 Brachial] Heart Rate [ Monitoring electrodes] Respiratory Rate Blood Pressure Blood Pressure 114/62 103/58 L 108/58 L [Left Brachial artery] Blood Pressure [Left] O2 Saturation 05/09/21 05/09/21 05/09/21 19:10 19:25 20:17 Temperature 36.6 C Heart Rate Heart Rate [ 67 77 88 Brachial] Heart Rate [ Monitoring electrodes] Respiratory 18 Rate Blood Pressure Blood Pressure 103/62 100/64 108/53 L [Left Brachial artery] Blood Pressure [Left] O2 Saturation 95 05/10/21 05/10/21 05/10/21 00:06 00:27 05:49 Temperature 37.2 C 37 C Heart Rate Heart Rate [ 98 Brachial] Heart Rate [ 93 Monitoring electrodes] Respiratory 18 18 Rate Blood Pressure 122/75 Blood Pressure 122/75 129/70 [Left Brachial artery] Blood Pressure [Left] O2 Saturation 93 91 L 05/10/21 05/10/21 05/10/21 06:08 09:07 11:33 Temperature 36.8 C 36.3 C L Heart Rate 101 H Heart Rate [ 78 Brachial] Heart Rate [ Monitoring electrodes] Respiratory 18 20 Rate Blood Pressure 129/70 130/81 H Blood Pressure 120/67 [Left Brachial artery] Blood Pressure [Left] O2 Saturation 94 100 05/10/21 05/10/21 05/10/21 11:35 11:41 11:45 Temperature Heart Rate 100 101 H 97 Heart Rate [ Brachial] Heart Rate [ Monitoring electrodes] Respiratory 22 26 H 22 Rate Blood Pressure 133/81 H 122/69 118/70 Blood Pressure [Left Brachial artery] Blood Pressure [Left] O2 Saturation 100 99 96 05/10/21 05/10/21 11:50 11:56 Temperature 36.5 C Heart Rate 98 96 Heart Rate [ Brachial] Heart Rate [ Monitoring electrodes] Respiratory 20 21 Rate Blood Pressure 122/69 128/68 Blood Pressure [Left Brachial artery] Blood Pressure [Left] O2 Saturation 96 97 Oxygen O2 Source Room air I&O (Last 24 Hrs): Intake and Output Totals x24h 05/08/21 05/09/21 05/10/21 23:59 23:59 23:59 Intake Total 2560.334 2590.333 536.5 Output Total 2150 2200 500 Balance 410.334 390.333 36.5 General: Alert, Oriented x3, Cooperative, Mild distress HEENT: Atraumatic Neck: Supple Lymphatic: no adenopathy Neuro: Alert, Non Focal, Oriented Times 3 Cardiovascular: Regular rate, Normal S1, Normal S2 Respiratory: Chest non-tender, No respiratory distress Abdomen: Normal bowel sounds, Soft Extremities: Normal pulses - Results Results: Laboratory Results WBC 10.0 x10^3/uL (4.8-10.8) 05/10/21 05:34 RBC 4.37 10^6/uL (4.70-6.10) L 05/10/21 05:34 Hgb 13.5 g/dL (14.0-18.0) L 05/10/21 05:34 Hct 39.0 % (42.0-52.0) L 05/10/21 05:34 MCV 89.2 fL (80.0-94.0) 05/10/21 05:34 MCH 30.9 pg (27.0-31.0) 05/10/21 05:34 MCHC 34.6 g/dL (32.0-36.0) 05/10/21 05:34 RDW 12.0 % (12.0-15.0) 05/10/21 05:34 Plt Count 419 10^3/uL (130-450) 05/10/21 05:34 MPV 8.5 fL (7.4-11.4) 05/10/21 05:34 Neut # (Auto) 8.0 10^3/uL (1.5-6.6) H 05/10/21 05:34 Lymph # (Auto) 1.2 10^3/uL (1.5-3.5) L 05/10/21 05:34 [place] # (Auto) 0.6 10^3/uL (0.0-1.0) 05/10/21 05:34 Eos # (Auto) 0.1 10^3/uL (0.0-0.7) 05/10/21 05:34 Baso # (Auto) 0.0 10^3/uL (0.0-0.1) 05/10/21 05:34 Absolute Nucleated RBC 0.00 x10^3/uL 05/10/21 05:34 Nucleated RBC % 0.0 /100WBC 05/10/21 05:34 Sodium 131 mmol/L (135-145) L 05/10/21 05:34 Potassium 3.3 mmol/L (3.5-5.0) L 05/10/21 05:34 Chloride 93 mmol/L (101-111) L 05/10/21 05:34 Carbon Dioxide 28 mmol/L (21-32) 05/10/21 05:34 Anion Gap 10.0 (6-13) 05/10/21 05:34 BUN 28 mg/dL (6-20) H 05/10/21 05:34 Creatinine 0.9 mg/dL (0.6-1.2) 05/10/21 05:34 Estimated GFR (MDRD) 82 (>89) L 05/10/21 05:34 Glucose 166 mg/dL (70-100) H 05/10/21 05:34 POC Whole Bld Glucose 168 mg/dL (70 - 100) H 05/10/21 05:46 Calcium 8.4 mg/dL (8.5-10.3) L 05/10/21 05:34 Ionized Calcium 5.1 mg/dL (4.8-5.6) 05/07/21 04:40 Phosphorus 3.9 mg/dL (2.5-4.6) 05/10/21 05:34 Magnesium 2.4 mg/dL (1.7-2.8) 05/10/21 05:34 Total Bilirubin 0.4 mg/dL (0.2-1.0) 05/10/21 05:34 AST 16 IU/L (10-42) 05/10/21 05:34 ALT 33 IU/L (10-60) 05/10/21 05:34 Alkaline Phosphatase 63 IU/L (42-121) 05/10/21 05:34 Troponin I High Sens 9.1 ng/L (2.3-19.7) 05/09/21 05:50 Total Protein 6.4 g/dL (6.7-8.2) L 05/10/21 05:34 Albumin 3.2 g/dL (3.2-5.5) 05/10/21 05:34 Globulin 3.2 g/dL (2.1-4.2) 05/10/21 05:34 Albumin/Globulin Ratio 1.0 (1.0-2.2) 05/10/21 05:34 Prealbumin 17 mg/dL (18-45) L 05/10/21 05:34 Triglycerides 112 mg/dL (-149) 05/10/21 05:34 Lipase 22 U/L (22-51) 05/07/21 04:40 Urine Color YELLOW 05/07/21 05:20 Urine Clarity CLEAR (CLEAR) 05/07/21 05:20 Urine pH 6.0 PH (5.0-7.5) 05/07/21 05:20 Ur Specific [place] 1.015 (1.002-1.030) 05/07/21 05:20 Urine Protein NEGATIVE mg/dL (NEGATIVE) 05/07/21 05:20 Urine Glucose (UA) NEGATIVE mg/dL (NEGATIVE) 05/07/21 05:20 Urine Ketones NEGATIVE mg/dL (NEGATIVE) 05/07/21 05:20 Urine Occult Blood NEGATIVE (NEGATIVE) 05/07/21 05:20 Urine Nitrite NEGATIVE (NEGATIVE) 05/07/21 05:20 Urine Bilirubin NEGATIVE (NEGATIVE) 05/07/21 05:20 Urine Urobilinogen 0.2 (NORMAL) E.U./dL (NORMAL) 05/07/21 05:20 Ur Leukocyte Esterase NEGATIVE (NEGATIVE) 05/07/21 05:20 Ur Microscopic Review NOT INDICATED 05/07/21 05:20 Urine Culture Comments NOT INDICATED 05/07/21 05:20 Nasal Adenovirus (PCR) NOT DETECTED 05/07/21 08:30 Nasal B. parapertussis DNA (PCR) NOT DETECTED 05/07/21 08:30 Nasal Coronavir 229E PCR NOT DETECTED 05/07/21 08:30 Nasal Coronavir HKU1 PCR NOT DETECTED 05/07/21 08:30 Nasal Coronavir NL63 PCR NOT DETECTED 05/07/21 08:30 Nasal Coronavir OC43 PCR NOT DETECTED 05/07/21 08:30 Nasal Enterovir/Rhinovir PCR NOT DETECTED 05/07/21 08:30 Nasal Influenza B PCR NOT DETECTED 05/07/21 08:30 Nasal Influenza A PCR NOT DETECTED 05/07/21 08:30 Nasal Parainfluen 1 PCR NOT DETECTED 05/07/21 08:30 Nasal Parainfluen 2 PCR NOT DETECTED 05/07/21 08:30 Nasal Parainfluen 3 PCR NOT DETECTED 05/07/21 08:30 Nasal Parainfluen 4 PCR NOT DETECTED 05/07/21 08:30 Nasal RSV (PCR) NOT DETECTED 05/07/21 08:30 Nasal B.pertussis DNA PCR NOT DETECTED 05/07/21 08:30 Nasal C.pneumoniae (PCR) NOT DETECTED 05/07/21 08:30 Benny Human Metapneumo PCR NOT DETECTED 05/07/21 08:30 Nasal M.pneumoniae (PCR) NOT DETECTED 05/07/21 08:30 Nasal SARS-CoV-2 (PCR) NOT DETECTED 05/07/21 08:30 - Procedures Procedures: Procedures RELEASE SMALL INTESTINE, OPEN APPROACH (04/26/21) ABX Reporting Has patient been on IV antibiotics over the past 48 hours?: No Current Medications - Current Medications Current Medications: Active Medications Aspirin (Aspirin 300 Mg Supp) 300 mg AK DAILY ANTHONY Last Admin: 05/10/21 09:12 Dose: Not Given Documented by: Atropine Sulfate (Atropine Abboject 1 Mg/10 Ml Syringe) 0.5 mg IVP Q5M PRN PRN Reason: Bradycardia Stop: 05/11/21 11:53 Enoxaparin Sodium (Enoxaparin 40 Mg/0.4 Ml Syringe) 40 mg SUBQ DAILY [facility] Last Admin: 05/10/21 09:12 Dose: Not Given Documented by: Ephedrine Sulfate (Ephedrine 50 Mg/Ml Vial) 10 mg IVP Q5M PRN PRN Reason: HYPOTENSION Stop: 05/11/21 11:53 Fentanyl (Fentanyl 100 Mcg/2 Ml Vial) 25 - 50 mcg IVP Q5M PRN PRN Reason: BREAKTHROUGH PAIN (2nd Choice) Stop: 05/11/21 11:53 Hydromorphone HCl (Hydromorphone 1 Mg/Ml Carpuject) 1 mg IVP Q2H PRN PRN Reason: PAIN Hydromorphone HCl (Hydromorphone 0.5 Mg/0.5 Ml Syringe) 0.2 - 0.6 mg IVP Q5M PRN PRN Reason: PAIN (First Choice) Stop: 05/11/21 11:53 Fat Emulsion-Soy/MCT/[place]/Fish Oil (Smoflipid 20% Iv Fat Emulsion) 250 ml in 250 mls @ 21 mls/hr IV 1900 [facility] Last Infusion: 05/10/21 07:00 Dose: Infused Documented by: Acetaminophen (Ofirmev) 100 mls @ 400 mls/hr IV Q6HR [facility] Last Infusion: 05/10/21 06:40 Dose: Infused Documented by: Multivitamins 10 ml/ TRACE ELEMENTS 1 ml/ Amino Ac/Electrol/Dextrose/Calcium 2,011 mls @ 75 mls/hr IV TPN/PPN [facility] Last Infusion: 05/09/21 22:23 Dose: 75 mls/hr Documented by: Lactated Ringer's (Lr) 1,000 mls @ 100 mls/hr IV .Q10H [facility] Stop: 05/10/21 21:59 Lactobacillus Rhamnosus (Lactobacillus Rhamnosus Gg Capsule) 1 cap PO DAILY [facility] Last Admin: 05/10/21 09:13 Dose: Not Given Documented by: Lorazepam (Lorazepam 2 Mg/Ml Vial) 0.5 mg IVP Q2H PRN PRN Reason: Anxiety Last Admin: 05/09/21 17:05 Dose: 0.5 mg Documented by: Metoclopramide HCl (Metoclopramide 10 Mg/2 Ml Vial) 5 mg IVP Q8HR [facility] Last Admin: 05/10/21 06:08 Dose: 5 mg Documented by: Metoprolol Tartrate (Metoprolol 5 Mg/5 Ml Vial) 5 mg IVP Q6HR [facility] Last Admin: 05/10/21 06:08 Dose: 5 mg Documented by: Morphine Sulfate (Morphine 2 Mg/Ml Carpuject) 2 - 4 mg IVP Q5M PRN PRN Reason: PAIN (3rd Choice) Stop: 05/11/21 11:53 Naloxone HCl (Naloxone 0.4 Mg/Ml Vial) 0.1 mg IVP Q2M PRN PRN Reason: RESP RATE <8 Stop: 05/11/21 11:53 Ondansetron HCl (Ondansetron 4 Mg/2 Ml Vial) 4 mg IVP Q4HR PRN PRN Reason: Nausea / Vomiting Last Admin: 05/09/21 18:21 Dose: 4 mg Documented by: Ondansetron HCl (Ondansetron 4 Mg/2 Ml Vial) 4 mg IVP ONCE PRN PRN Reason: N/V (First Choice) Stop: 05/11/21 11:53 Pantoprazole Sodium (Pantoprazole 40 Mg Vial) 40 mg IVP BID [facility] Last Admin: 05/10/21 09:13 Dose: 40 mg Documented by: Prochlorperazine Edisylate (Prochlorperazine 10 Mg/2 Ml Vial) 10 mg IVP Q6HR PRN PRN Reason: Nausea / Vomiting Last Admin: 05/08/21 13:30 Dose: 10 mg Documented by: Sodium Chloride (Sodium Chloride Flush 0.9% 10 Ml Syringe) 10 ml IVP PRN PRN PRN Reason: NEEDED PER PROVIDER ORDERS Last Admin: 05/10/21 06:13 Dose: 10 ml Documented by: Sodium Chloride (Sodium Chloride Flush 0.9% 10 Ml Syringe) 10 ml IVP 0100,0900,1700 [facility] Last Admin: 05/10/21 09:13 Dose: 10 ml Documented by: Throat Lozenges (Benzocaine/Menthol Lozenge) 1 lozenge MM Q2HR PRN PRN Reason: Throat pain Last Admin: 05/09/21 09:34 Dose: 1 lozenge Documented by: Zolpidem Tartrate (Zolpidem 5 Mg Tablet) 5 mg PO QPM PRN PRN Reason: Insomnia Atorvastatin Calcium 40 mg PO QPM 04/24/21 Clopidogrel [Plavix] 75 mg PO DAILY 04/24/21 Lisinopril [Zestril] 2.5 mg PO DAILY 04/24/21 Metoprolol Tartrate [Lopressor] 12.5 mg PO BID 04/24/21 Aspirin [Aspirin EC] 81 mg PO DAILY 04/25/21
[2021-05-10] MEDS ORDERED: HYDROmorphone 0.5 MG/0.5 ML SYRINGE ONE ×2 (12:01→12:16)
--- NOTE | 2021-05-10 13:55 | ANESTHESIA POST OP EVALUATION ---
Anesthesia Post Eval - Post Anesthesia Eval Vitals: Last Vital Signs Temp 36.6 C 05/10/21 13:20 Pulse 68 05/10/21 13:20 Resp 17 05/10/21 13:20 BP 108/56 L 05/10/21 13:20 Pulse Ox 96 05/10/21 13:20 CV Function Including HR & BP: Stable Pain Control: Satisfactory Nausea & Vomiting: Negative Mental Status: Baseline Respiratory Status: Airway Patent Hydration Status: Satisfactory Anesthesia Complications: None
[2021-05-10] MEDS: HYDROmorphone 1 MG/ML CARPUJECT IVP PRN ×3 (15:29→22:30)
[2021-05-10] MEDS: FISH OIL IV SCH (18:57)
[2021-05-10] MEDS: OLIV IV SCH (18:57)
[2021-05-10] MEDS: TPN (CLINIMIX E 5/15) 2,000 ML with MULTIVITAMIN 10 ML, TRACE ELEMENTS 1 ML IV SCH ×3 (18:57)
[2021-05-10] MEDS: MCT IV SCH (18:57)
[2021-05-10] MEDS: FAT EMUL IV SCH (18:57)
[2021-05-10] MEDS: SOY IV SCH (18:57)
[2021-05-11] MEDS: ACETAMINOPHEN 1,000 MG/100 ML 100 ML IV SCH ×4 (00:12→18:11)
[2021-05-11] MEDS: METOPROLOL 5 MG/5 ML VIAL IVP SCH ×4 (00:13→18:11)
[2021-05-11] MEDS: SODIUM CHLORIDE FLUSH 0.9% 10 ML SYRINGE IVP SCH ×3 (00:18→18:11)
[2021-05-11] MEDS: HYDROmorphone 1 MG/ML CARPUJECT IVP PRN ×8 (00:29→21:28)
[2021-05-11 05:39] LABS: BASOPHILS % (AUTO) 0.4 %; EOSINOPHILS # (AUTO) 0.1 10^3/uL (0.0-0.7); EOSINOPHILS % (AUTO) 0.8 %; HCT - HEMATOCRIT 36.4 % (42.0-52.0); HGB - HEMOGLOBIN 12.4 g/dL (14.0-18.0); LYMPHOCYTES # (AUTO) 2.3 10^3/uL (1.5-3.5); LYMPHOCYTES % (AUTO) 22.6 %; MEAN CORPUSCULAR HGB CONC 34.1 g/dL (32.0-36.0); MEAN PLATELET VOLUME 8.7 fL (7.4-11.4); MONOCYTES # (AUTO) 0.8 10^3/uL (0.0-1.0); MONOCYTES % (AUTO) 8.1 %; NEUTROPHILS # (AUTO) 6.8 10^3/uL (1.5-6.6); NEUTROPHILS % (AUTO) 67.9 %; PLT - PLATELET COUNT 366 10^3/uL (130-450); RED CELL DISTRIBUTION WIDTH 12.1 % (12.0-15.0)
[2021-05-11 05:47] LABS: CALCIUM 7.7 mg/dL (8.5-10.3); CREATININE 0.8 mg/dL (0.6-1.2); POTASSIUM 3.5 mmol/L (3.5-5.0)
[2021-05-11] MEDS: BENZOCAINE/MENTHOL LOZENGE MM PRN ×2 (08:19→18:25)
--- NOTE | 2021-05-11 09:27 | PROVIDER PROGRESS NOTE ---
Assessment/Plan - Problem List (1) SBO (small bowel obstruction) Assessment/Plan: 05/11 s/p day 1 from yesterday operation. pt report he feel better but report he has not much sleep although pt had Ativan PRN, possible he just had operation on yesterday afternoon. documented fluid from last night is 100cc, significant reduced from previous. surgeon see pt, continue TPN now, pain control, incentive spirometer, encourage ambulate safely, d/c Carter on today. 05/10 pt continue have over 1000cc fluid from NG tube, KUB still reveal SBP pattern. surgeon took pt for surgery on today morning, we will continue help medical management for pt, continue NPO 05/09 pt report he did not have much sleep on last night, anxiety and worry about his medical conditions. pt also report he feel ache and uncomfortable on his throat and ear which is likely caused by NG tube. pt still has 1200cc fluid from NG. Xray of abdomen show progress and reduced degree of small bowel distention. pt ask for sleep pill, add Ambien. Call pt's per her request, explained and discussed the care plan, she understood. continue surgeon consultation. encourage pt ambulation safely, continue TPN, NG tube now, and NPO. 05/08, pt still has 700cc fluid from NG tube, mild hypoactive bowel sound. surgeon order PICC line and consult with digital solutions architect for TPN (2) Hx of coronary artery disease Conclusion/Plan: 05/11 denies chest pain, Hemodynamic stable, continue Aspirin ND, continue IV metoprolol and tele monitor pt. 05/09 stable, denies chest pain, continue Aspirin ND, continue IV metoprolol and tele monitor pt. 05/09, pt was report to have unsuspension V-T on last night when pt is cough. EKG show SR, troponin and Electrolytes are in the normal range. Continue intravenous metoprolol, Continue aspirin ND, continue tele monitor. pt denies chest pain. stable, resume home Aspirin by ND, switch to IV of Metoprolol of pt's home PO Metoprolol. tele monitor for first 24 hours, Continue DVT prophylaxis. pt had cardiac stenting in October 2020, it is okay to hold the Plavix for now. 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 (3)Anxiety pt present significant anxiety, continue PRN Ativan. - Current Meds Current Meds: Current Medications Generic Name Dose Route Start Last Admin Trade Name Baron PRN Reason Stop Dose Admin Aspirin 300 mg 05/08/21 11:00 05/10/21 09:12 Aspirin 300 Mg Supp ND Not Given DAILY ANTHONY Enoxaparin Sodium 40 mg 05/09/21 09:00 05/10/21 09:12 Enoxaparin 40 Mg/0.4 Ml Syringe SUBQ Not Given DAILY ANTHONY Hydromorphone HCl 1 mg 05/10/21 11:33 05/11/21 08:19 Hydromorphone 1 Mg/Ml Carpuject IVP 1 mg Q2H PRN Administration PAIN Fat Emulsion-Soy/MCT/Ackerly/Fish Oil 250 ml in 250 mls @ 21 mls/hr 05/08/21 19:00 05/11/21 07:36 Smoflipid 20% Iv Fat Emulsion IV Infused 1900 ANTHONY Infusion Acetaminophen 100 mls @ 400 mls/hr 05/09/21 12:00 05/11/21 05:50 Ofirmev IV Infused Q6HR ANTHONY Infusion Multivitamins 10 ml/ TRACE 2,011 mls @ 75 mls/hr 05/09/21 19:00 05/10/21 21:32 ELEMENTS 1 ml/ Amino Ac/ IV 75 mls/hr Electrol/Dextrose/Calcium TPN/PPN ANTHONY Infusion Lactobacillus Rhamnosus 1 cap 05/08/21 09:00 05/10/21 09:13 Lactobacillus Rhamnosus Gg Capsule PO Not Given DAILY ANTHONY Lorazepam 0.5 mg 05/07/21 18:33 05/09/21 17:05 Lorazepam 2 Mg/Ml Vial IVP 0.5 mg Q2H PRN Administration Anxiety Metoprolol Tartrate 5 mg 05/10/21 20:00 05/11/21 05:32 Metoprolol 5 Mg/5 Ml Vial IVP 5 mg Q6HR ANTHONY Administration Ondansetron HCl 4 mg 05/07/21 11:12 05/09/21 18:21 Ondansetron 4 Mg/2 Ml Vial IVP 4 mg Q4HR PRN Administration Nausea / Vomiting Pantoprazole Sodium 40 mg 05/09/21 10:00 05/10/21 20:33 Pantoprazole 40 Mg Vial IVP 40 mg BID ANTHONY Administration Prochlorperazine Edisylate 10 mg 05/07/21 18:23 05/08/21 13:30 Prochlorperazine 10 Mg/2 Ml Vial IVP 10 mg Q6HR PRN Administration Nausea / Vomiting Sodium Chloride 10 ml 05/07/21 07:51 05/10/21 06:13 Sodium Chloride Flush 0.9% 10 Ml Syringe IVP 10 ml PRN PRN Administration NEEDED PER PROVIDER ORDERS Sodium Chloride 10 ml 05/07/21 09:00 05/11/21 00:18 Sodium Chloride Flush 0.9% 10 Ml Syringe IVP 10 ml 0100,0900,1700 ANTHONY Administration Throat Lozenges 1 lozenge 05/07/21 11:46 05/11/21 08:19 Benzocaine/Menthol Lozenge MM 1 lozenge Q2HR PRN Administration Throat pain - Lab Result Fish Bone Diagrams: 05/11/21 05:15 05/11/21 05:15 - Additional Planning My Orders: My Active Orders 05/10/21 12:05 Incentive Spirometry - RT [RC] .TID 05/10/21 20:00 Metoprolol Inj [Lopressor Inj] 5 mg IVP Q6HR 05/12/21 05:00 CBC - COMP BLD CT W/AUTO DIFF [HEME] DAILYLAB 05/13/21 05:00 CBC - COMP BLD CT W/AUTO DIFF [HEME] DAILYLAB 05/14/21 05:00 CBC - COMP BLD CT W/AUTO DIFF [HEME] DAILYLAB 05/15/21 05:00 CBC - COMP BLD CT W/AUTO DIFF [HEME] DAILYLAB 05/16/21 05:00 CBC - COMP BLD CT W/AUTO DIFF [HEME] DAILYLAB Subjective - Subjective Patient Reports: Feeling Better, Resting Comfortably Objective Vital Signs: Vital Signs - 24 hr 05/10/21 05/10/21 05/10/21 11:33 11:35 11:41 Temperature 36.3 C L Heart Rate 101 H 100 101 H Heart Rate [ Brachial] Heart Rate [ Monitoring electrodes] Respiratory 20 22 26 H Rate Blood Pressure 130/81 H 133/81 H 122/69 Blood Pressure [Left Brachial artery] O2 Saturation 100 100 99 05/10/21 05/10/21 05/10/21 11:45 11:50 11:56 Temperature 36.5 C Heart Rate 97 98 96 Heart Rate [ Brachial] Heart Rate [ Monitoring electrodes] Respiratory 22 20 21 Rate Blood Pressure 118/70 122/69 128/68 Blood Pressure [Left Brachial artery] O2 Saturation 96 96 97 05/10/21 05/10/21 05/10/21 12:00 12:06 12:11 Temperature 36.5 C Heart Rate 94 92 95 Heart Rate [ Brachial] Heart Rate [ Monitoring electrodes] Respiratory 21 19 16 Rate Blood Pressure 117/69 116/66 117/72 Blood Pressure [Left Brachial artery] O2 Saturation 96 96 96 05/10/21 05/10/21 05/10/21 12:15 12:21 12:26 Temperature Heart Rate 93 91 90 Heart Rate [ Brachial] Heart Rate [ Monitoring electrodes] Respiratory 19 19 18 Rate Blood Pressure 118/73 115/72 118/66 Blood Pressure [Left Brachial artery] O2 Saturation 96 97 97 05/10/21 05/10/21 05/10/21 12:45 13:00 13:06 Temperature 36.6 C 36.7 C Heart Rate Heart Rate [ Brachial] Heart Rate [ 81 81 Monitoring electrodes] Respiratory 17 17 Rate Blood Pressure 115/59 L Blood Pressure 118/63 115/59 L [Left Brachial artery] O2 Saturation 96 96 05/10/21 05/10/21 05/10/21 13:20 13:55 14:00 Temperature 36.6 C 36.6 C Heart Rate Heart Rate [ 67 Brachial] Heart Rate [ 68 Monitoring electrodes] Respiratory 17 16 Rate Blood Pressure Blood Pressure 108/56 L 98/50 L 102/62 [Left Brachial artery] O2 Saturation 96 97 05/10/21 05/10/21 05/10/21 15:50 17:50 20:11 Temperature 36.4 C L 36.6 C Heart Rate Heart Rate [ 79 73 78 Brachial] Heart Rate [ Monitoring electrodes] Respiratory 16 17 Rate Blood Pressure 125/60 Blood Pressure 123/65 112/61 125/60 [Left Brachial artery] O2 Saturation 97 97 05/10/21 05/10/21 05/10/21 20:16 20:21 20:26 Temperature Heart Rate Heart Rate [ 64 64 61 Brachial] Heart Rate [ Monitoring electrodes] Respiratory Rate Blood Pressure Blood Pressure 123/60 115/58 L 103/56 L [Left Brachial artery] O2 Saturation 05/10/21 05/10/21 05/10/21 20:41 20:56 21:11 Temperature Heart Rate Heart Rate [ 65 65 69 Brachial] Heart Rate [ Monitoring electrodes] Respiratory Rate Blood Pressure Blood Pressure 106/56 L 109/59 L 110/58 L [Left Brachial artery] O2 Saturation 05/10/21 05/11/21 05/11/21 21:50 00:10 01:12 Temperature 37.0 C 36.5 C Heart Rate Heart Rate [ 69 72 73 Brachial] Heart Rate [ Monitoring electrodes] Respiratory 16 20 Rate Blood Pressure Blood Pressure 109/59 L 130/65 132/61 H [Left Brachial artery] O2 Saturation 93 94 05/11/21 05/11/21 05:32 08:41 Temperature 36.5 C 36.5 C Heart Rate Heart Rate [ 70 74 Brachial] Heart Rate [ Monitoring electrodes] Respiratory 20 18 Rate Blood Pressure Blood Pressure 119/58 L 122/60 [Left Brachial artery] O2 Saturation 94 97 Oxygen O2 Source Room air I&O (Last 24 Hrs): Intake and Output Totals x24h 05/09/21 05/10/21 05/11/21 23:59 23:59 23:59 Intake Total 2590.333 2525.00 395.75 Output Total 2200 1310 550 Balance 532.663 2828.00 -154.25 General: Alert, Oriented x3, Cooperative, No acute distress HEENT: Atraumatic Neck: Supple Lymphatic: no adenopathy Neuro: Alert, Non Focal, Oriented Times 3 Cardiovascular: Regular rate, Normal S1, Normal S2 Respiratory: Chest non-tender, No respiratory distress Abdomen: Normal bowel sounds, Soft, No tenderness Extremities: Normal pulses - Results Results: Laboratory Results WBC 10.0 x10^3/uL (4.8-10.8) 05/11/21 05:15 RBC 4.00 10^6/uL (4.70-6.10) L 05/11/21 05:15 Hgb 12.4 g/dL (14.0-18.0) L 05/11/21 05:15 Hct 36.4 % (42.0-52.0) L 05/11/21 05:15 MCV 91.0 fL (80.0-94.0) 05/11/21 05:15 MCH 31.0 pg (27.0-31.0) 05/11/21 05:15 MCHC 34.1 g/dL (32.0-36.0) 05/11/21 05:15 RDW 12.1 % (12.0-15.0) 05/11/21 05:15 Plt Count 366 10^3/uL (130-450) 05/11/21 05:15 MPV 8.7 fL (7.4-11.4) 05/11/21 05:15 Neut # (Auto) 6.8 10^3/uL (1.5-6.6) H 05/11/21 05:15 Lymph # (Auto) 2.3 10^3/uL (1.5-3.5) 05/11/21 05:15 [place] # (Auto) 0.8 10^3/uL (0.0-1.0) 05/11/21 05:15 Eos # (Auto) 0.1 10^3/uL (0.0-0.7) 05/11/21 05:15 Baso # (Auto) 0.0 10^3/uL (0.0-0.1) 05/11/21 05:15 Absolute Nucleated RBC 0.00 x10^3/uL 05/11/21 05:15 Nucleated RBC % 0.0 /100WBC 05/11/21 05:15 Sodium 133 mmol/L (135-145) L 05/11/21 05:15 Potassium 3.5 mmol/L (3.5-5.0) 05/11/21 05:15 Chloride 97 mmol/L (101-111) L 05/11/21 05:15 Carbon Dioxide 27 mmol/L (21-32) 05/11/21 05:15 Anion Gap 9.0 (6-13) 05/11/21 05:15 BUN 29 mg/dL (6-20) H 05/11/21 05:15 Creatinine 0.8 mg/dL (0.6-1.2) 05/11/21 05:15 Estimated GFR (MDRD) 94 (>89) 05/11/21 05:15 Glucose 139 mg/dL (70-100) H 05/11/21 05:15 POC Whole Bld Glucose 152 mg/dL (70 - 100) H 05/11/21 06:10 Calcium 7.7 mg/dL (8.5-10.3) L 05/11/21 05:15 Ionized Calcium 5.1 mg/dL (4.8-5.6) 05/07/21 04:40 Phosphorus 3.9 mg/dL (2.5-4.6) 05/10/21 05:34 Magnesium 2.4 mg/dL (1.7-2.8) 05/10/21 05:34 Total Bilirubin 0.4 mg/dL (0.2-1.0) 05/10/21 05:34 AST 16 IU/L (10-42) 05/10/21 05:34 ALT 33 IU/L (10-60) 05/10/21 05:34 Alkaline Phosphatase 63 IU/L (42-121) 05/10/21 05:34 Troponin I High Sens 9.1 ng/L (2.3-19.7) 05/09/21 05:50 Total Protein 6.4 g/dL (6.7-8.2) L 05/10/21 05:34 Albumin 3.2 g/dL (3.2-5.5) 05/10/21 05:34 Globulin 3.2 g/dL (2.1-4.2) 05/10/21 05:34 Albumin/Globulin Ratio 1.0 (1.0-2.2) 05/10/21 05:34 Prealbumin 17 mg/dL (18-45) L 05/10/21 05:34 Triglycerides 112 mg/dL (-149) 05/10/21 05:34 Lipase 22 U/L (22-51) 05/07/21 04:40 Urine Color YELLOW 05/07/21 05:20 Urine Clarity CLEAR (CLEAR) 05/07/21 05:20 Urine pH 6.0 PH (5.0-7.5) 05/07/21 05:20 Ur Specific [place] 1.015 (1.002-1.030) 05/07/21 05:20 Urine Protein NEGATIVE mg/dL (NEGATIVE) 05/07/21 05:20 Urine Glucose (UA) NEGATIVE mg/dL (NEGATIVE) 05/07/21 05:20 Urine Ketones NEGATIVE mg/dL (NEGATIVE) 05/07/21 05:20 Urine Occult Blood NEGATIVE (NEGATIVE) 05/07/21 05:20 Urine Nitrite NEGATIVE (NEGATIVE) 05/07/21 05:20 Urine Bilirubin NEGATIVE (NEGATIVE) 05/07/21 05:20 Urine Urobilinogen 0.2 (NORMAL) E.U./dL (NORMAL) 05/07/21 05:20 Ur Leukocyte Esterase NEGATIVE (NEGATIVE) 05/07/21 05:20 Ur Microscopic Review NOT INDICATED 05/07/21 05:20 Urine Culture Comments NOT INDICATED 05/07/21 05:20 Nasal Adenovirus (PCR) NOT DETECTED 05/07/21 08:30 Nasal B. parapertussis DNA (PCR) NOT DETECTED 05/07/21 08:30 Nasal Coronavir 229E PCR NOT DETECTED 05/07/21 08:30 Nasal Coronavir HKU1 PCR NOT DETECTED 05/07/21 08:30 Nasal Coronavir NL63 PCR NOT DETECTED 05/07/21 08:30 Nasal Coronavir OC43 PCR NOT DETECTED 05/07/21 08:30 Nasal Enterovir/Rhinovir PCR NOT DETECTED 05/07/21 08:30 Nasal Influenza B PCR NOT DETECTED 05/07/21 08:30 Nasal Influenza A PCR NOT DETECTED 05/07/21 08:30 Nasal Parainfluen 1 PCR NOT DETECTED 05/07/21 08:30 Nasal Parainfluen 2 PCR NOT DETECTED 05/07/21 08:30 Nasal Parainfluen 3 PCR NOT DETECTED 05/07/21 08:30 Nasal Parainfluen 4 PCR NOT DETECTED 05/07/21 08:30 Nasal RSV (PCR) NOT DETECTED 05/07/21 08:30 Nasal B.pertussis DNA PCR NOT DETECTED 05/07/21 08:30 Nasal C.pneumoniae (PCR) NOT DETECTED 05/07/21 08:30 Benny Human Metapneumo PCR NOT DETECTED 05/07/21 08:30 Nasal M.pneumoniae (PCR) NOT DETECTED 05/07/21 08:30 Nasal SARS-CoV-2 (PCR) NOT DETECTED 05/07/21 08:30 - Procedures Procedures: Procedures RELEASE SMALL INTESTINE, OPEN APPROACH (04/26/21) ABX Reporting Has patient been on IV antibiotics over the past 48 hours?: No Current Medications - Current Medications Current Medications: Active Medications Aspirin (Aspirin 300 Mg Supp) 300 mg ND DAILY [facility] Last Admin: 05/11/21 09:28 Dose: 300 mg Documented by: Enoxaparin Sodium (Enoxaparin 40 Mg/0.4 Ml Syringe) 40 mg SUBQ DAILY [facility] Last Admin: 05/11/21 09:28 Dose: 40 mg Documented by: Hydromorphone HCl (Hydromorphone 1 Mg/Ml Carpuject) 1 mg IVP Q2H PRN PRN Reason: PAIN Last Admin: 05/11/21 08:19 Dose: 1 mg Documented by: Fat Emulsion-Soy/MCT/Ackerly/Fish Oil (Smoflipid 20% Iv Fat Emulsion) 250 ml in 250 mls @ 21 mls/hr IV 1900 [facility] Last Infusion: 05/11/21 07:36 Dose: Infused Documented by: Acetaminophen (Ofirmev) 100 mls @ 400 mls/hr IV Q6HR [facility] Last Infusion: 05/11/21 05:50 Dose: Infused Documented by: Multivitamins 10 ml/ TRACE ELEMENTS 1 ml/ Amino Ac/Electrol/Dextrose/Calcium 2,011 mls @ 75 mls/hr IV TPN/PPN [facility] Last Infusion: 05/10/21 21:32 Dose: 75 mls/hr Documented by: Lactobacillus Rhamnosus (Lactobacillus Rhamnosus Gg Capsule) 1 cap PO DAILY [facility] Last Admin: 05/11/21 09:28 Dose: 1 cap Documented by: Lorazepam (Lorazepam 2 Mg/Ml Vial) 0.5 mg IVP Q2H PRN PRN Reason: Anxiety Last Admin: 05/09/21 17:05 Dose: 0.5 mg Documented by: Metoprolol Tartrate (Metoprolol 5 Mg/5 Ml Vial) 5 mg IVP Q6HR [facility] Last Admin: 05/11/21 05:32 Dose: 5 mg Documented by: Ondansetron HCl (Ondansetron 4 Mg/2 Ml Vial) 4 mg IVP Q4HR PRN PRN Reason: Nausea / Vomiting Last Admin: 05/09/21 18:21 Dose: 4 mg Documented by: Pantoprazole Sodium (Pantoprazole 40 Mg Vial) 40 mg IVP BID [facility] Last Admin: 05/11/21 09:28 Dose: 40 mg Documented by: Prochlorperazine Edisylate (Prochlorperazine 10 Mg/2 Ml Vial) 10 mg IVP Q6HR PRN PRN Reason: Nausea / Vomiting Last Admin: 05/08/21 13:30 Dose: 10 mg Documented by: Sodium Chloride (Sodium Chloride Flush 0.9% 10 Ml Syringe) 10 ml IVP PRN PRN PRN Reason: NEEDED PER PROVIDER ORDERS Last Admin: 05/10/21 06:13 Dose: 10 ml Documented by: Sodium Chloride (Sodium Chloride Flush 0.9% 10 Ml Syringe) 10 ml IVP 0100,0900,1700 ANTHONY Last Admin: 05/11/21 09:28 Dose: 10 ml Documented by: Throat Lozenges (Benzocaine/Menthol Lozenge) 1 lozenge MM Q2HR PRN PRN Reason: Throat pain Last Admin: 05/11/21 08:19 Dose: 1 lozenge Documented by: Zolpidem Tartrate (Zolpidem 5 Mg Tablet) 5 mg PO QPM PRN PRN Reason: Insomnia Atorvastatin Calcium 40 mg PO QPM 04/24/21 Clopidogrel [Plavix] 75 mg PO DAILY 04/24/21 Lisinopril [Zestril] 2.5 mg PO DAILY 04/24/21 Metoprolol Tartrate [Lopressor] 12.5 mg PO BID 04/24/21 Aspirin [Aspirin EC] 81 mg PO DAILY 04/25/21
[2021-05-11] MEDS: LACTOBACILLUS RHAMNOSUS GG CAPSULE PO SCH (09:28)
[2021-05-11] MEDS: ENOXAPARIN 40 MG/0.4 ML SYRINGE SUBQ SCH (09:28)
[2021-05-11] MEDS: ASPIRIN 300 MG SUPP PR SCH (09:28)
[2021-05-11] MEDS: PANTOPRAZOLE 40 MG VIAL IVP SCH ×2 (09:28→21:28)
--- NOTE | 2021-05-11 11:38 | PROVIDER PROGRESS NOTE ---
Subjective - Prog Note Date Prog Note Date: 05/11/21 - Subjective Pt reports feeling: Improved Objective - Vital Signs/Intake & Output Reviewed Vital Signs: Yes Vital Signs: Vital Signs x48h Temp Pulse Resp BP Pulse Ox 05/11/21 08:41 36.5 C 74 18 122/60 97 05/11/21 05:32 36.5 C 70 20 119/58 L 94 Intake & Output: Intake & Output 05/08/21 05/09/21 05/10/21 05/11/21 23:59 23:59 23:59 23:59 Intake Total 2560.334 2590.333 2525.00 395.75 Output Total 2150 2200 1310 1150 Balance 410.334 748.123 0148.00 -754.25 - Objective General Appearance: positive: No acute distress, Alert Eyes Bilateral: positive: PERRL, EOMI ENT: positive: No signs of dehydration Neck: positive: No JVD Respiratory: positive: No respiratory distress Abdomen: positive: Non-tender, No distention, Other (ngt output much improved. decreased and thin) Neurologic/Psychiatric: positive: Oriented x3 - Lab Results Fish Bones: 05/11/21 05:15 05/11/21 05:15 Other Labs: Lab Results x24hrs 05/11/21 05/11/21 05/11/21 Range/Units 06:10 05:15 05:15 WBC 10.0 (4.8-10.8) x10^3/uL RBC 4.00 L (4.70-6.10) 10^6/uL Hgb 12.4 L (14.0-18.0) g/dL Hct 36.4 L (42.0-52.0) % MCV 91.0 (80.0-94.0) fL MCH 31.0 (27.0-31.0) pg MCHC 34.1 (32.0-36.0) g/dL RDW 12.1 (12.0-15.0) % Plt Count 366 (130-450) 10^3/uL MPV 8.7 (7.4-11.4) fL Neut # (Auto) 6.8 H (1.5-6.6) 10^3/uL Lymph # (Auto) 2.3 (1.5-3.5) 10^3/uL [place] # (Auto) 0.8 (0.0-1.0) 10^3/uL Eos # (Auto) 0.1 (0.0-0.7) 10^3/uL Baso # (Auto) 0.0 (0.0-0.1) 10^3/uL Absolute Nucleated RBC 0.00 x10^3/uL Nucleated RBC % 0.0 /100WBC Sodium 133 L (135-145) mmol/L Potassium 3.5 (3.5-5.0) mmol/L Chloride 97 L (101-111) mmol/L Carbon Dioxide 27 (21-32) mmol/L Anion Gap 9.0 (6-13) BUN 29 H (6-20) mg/dL Creatinine 0.8 (0.6-1.2) mg/dL Estimated GFR (MDRD) 94 (>89) Glucose 139 H (70-100) mg/dL POC Whole Bld Glucose 152 H (70 - 100) mg/dL Calcium 7.7 L (8.5-10.3) mg/dL 05/11/21 05/10/21 Range/Units 00:17 18:29 WBC (4.8-10.8) x10^3/uL RBC (4.70-6.10) 10^6/uL Hgb (14.0-18.0) g/dL Hct (42.0-52.0) % MCV (80.0-94.0) fL MCH (27.0-31.0) pg MCHC (32.0-36.0) g/dL RDW (12.0-15.0) % Plt Count (130-450) 10^3/uL MPV (7.4-11.4) fL Neut # (Auto) (1.5-6.6) 10^3/uL Lymph # (Auto) (1.5-3.5) 10^3/uL [place] # (Auto) (0.0-1.0) 10^3/uL Eos # (Auto) (0.0-0.7) 10^3/uL Baso # (Auto) (0.0-0.1) 10^3/uL Absolute Nucleated RBC x10^3/uL Nucleated RBC % /100WBC Sodium (135-145) mmol/L Potassium (3.5-5.0) mmol/L Chloride (101-111) mmol/L Carbon Dioxide (21-32) mmol/L Anion Gap (6-13) BUN (6-20) mg/dL Creatinine (0.6-1.2) mg/dL Estimated GFR (MDRD) (>89) Glucose (70-100) mg/dL POC Whole Bld Glucose 174 H 181 H (70 - 100) mg/dL Calcium (8.5-10.3) mg/dL Assessment/Plan - Problem List (1) SBO (small bowel obstruction) Impression: improving. benign abdomen ngt output much improved. continue tpn likely d/c ngt tomorrow if continues to improve
[2021-05-11] MEDS: PROCHLORPERAZINE 10 MG/2 ML VIAL IVP PRN (14:47)
[2021-05-11] MEDS: LORazepam 2 MG/ML VIAL IVP PRN (15:55)
[2021-05-11] MEDS: FISH OIL IV SCH (19:19)
[2021-05-11] MEDS: OLIV IV SCH (19:19)
[2021-05-11] MEDS: FAT EMUL IV SCH (19:19)
[2021-05-11] MEDS: SOY IV SCH (19:19)
[2021-05-11] MEDS: MCT IV SCH (19:19)
[2021-05-11] MEDS: TPN (CLINIMIX E 5/15) 2,000 ML with MULTIVITAMIN 10 ML, TRACE ELEMENTS 1 ML IV SCH ×3 (19:20)
[2021-05-12] MEDS: METOPROLOL 5 MG/5 ML VIAL IVP SCH ×4 (00:07→17:08)
[2021-05-12] MEDS: ACETAMINOPHEN 1,000 MG/100 ML 100 ML IV SCH ×4 (00:12→18:19)
[2021-05-12] MEDS: SODIUM CHLORIDE FLUSH 0.9% 10 ML SYRINGE IVP SCH ×3 (00:13→15:32)
[2021-05-12] MEDS: HYDROmorphone 1 MG/ML CARPUJECT IVP PRN ×7 (02:08→21:39)
[2021-05-12 05:41] LABS: BASOPHILS # (AUTO) 0.1 10^3/uL (0.0-0.1); BASOPHILS % (AUTO) 0.6 %; EOSINOPHILS # (AUTO) 0.5 10^3/uL (0.0-0.7); EOSINOPHILS % (AUTO) 5.4 %; HCT - HEMATOCRIT 36.6 % (42.0-52.0); LYMPHOCYTES # (AUTO) 1.8 10^3/uL (1.5-3.5); LYMPHOCYTES % (AUTO) 18.4 %; MEAN CORPUSCULAR HEMOGLOBIN 30.2 pg (27.0-31.0); MEAN CORPUSCULAR HGB CONC 32.8 g/dL (32.0-36.0); MEAN PLATELET VOLUME 8.7 fL (7.4-11.4); MONOCYTES # (AUTO) 0.7 10^3/uL (0.0-1.0); MONOCYTES % (AUTO) 6.8 %; NEUTROPHILS # (AUTO) 6.6 10^3/uL (1.5-6.6); NEUTROPHILS % (AUTO) 68.4 %; PLT - PLATELET COUNT 358 10^3/uL (130-450); RED BLOOD COUNT 3.98 10^6/uL (4.70-6.10); RED CELL DISTRIBUTION WIDTH 12.3 % (12.0-15.0); WHITE BLOOD COUNT 9.7 x10^3/uL (4.8-10.8)
[2021-05-12 05:53] LABS: ALBUMIN 2.8 g/dL (3.2-5.5); ALBUMIN/GLOBULIN RATIO 0.9 (1.0-2.2); BILIRUBIN,TOTAL 0.3 mg/dL (0.2-1.0); CALCIUM 7.8 mg/dL (8.5-10.3); CREATININE 0.8 mg/dL (0.6-1.2); MAGNESIUM 2.3 mg/dL (1.7-2.8); POTASSIUM 3.2 mmol/L (3.5-5.0); TOTAL PROTEIN 5.8 g/dL (6.7-8.2)
[2021-05-12] MEDS: PANTOPRAZOLE 40 MG VIAL IVP SCH ×2 (08:23→21:39)
[2021-05-12] MEDS: LACTOBACILLUS RHAMNOSUS GG CAPSULE PO SCH (08:23)
[2021-05-12] MEDS: ENOXAPARIN 40 MG/0.4 ML SYRINGE SUBQ SCH (08:23)
[2021-05-12] MEDS: POTASSIUM CHLOR 10 MEQ/100 ML 10 MEQ/100 ML BAG IV SCH ×2 (08:24→09:22)
[2021-05-12] MEDS: ASPIRIN 300 MG SUPP PR SCH (08:25)
--- NOTE | 2021-05-12 10:52 | PROVIDER PROGRESS NOTE ---
Subjective - Prog Note Date Prog Note Date: 05/12/21 - Subjective Pt reports feeling: Improved Subjective: Pt reports he slept okay overnight. Denies pain, nausea, vomiting or chills this morning. He is hoping to get his NG tube out and start drinking orange juice and clear liquids after he sees the surgeon. He would like to start moving around more today without so many tubes so he can progress toward discharge. Has been using the IS "about 50 times a day". Objective - Vital Signs/Intake & Output Reviewed Vital Signs: Yes Vital Signs: Vital Signs x48h Temp Pulse Resp BP BP Pulse Ox 05/12/21 07:50 36.6 C 71 18 135/58 H 96 05/12/21 06:29 37.1 C 100 20 139/71 H 97 05/12/21 06:22 139/71 H Intake & Output: Intake & Output 05/09/21 05/10/21 05/11/21 05/12/21 23:59 23:59 23:59 23:59 Intake Total 2590.333 2525.00 2280.75 546.667 Output Total 2200 1310 2025 400 Balance 827.376 9297.00 255.75 146.667 - Objective General Appearance: positive: No acute distress, Alert Eyes Bilateral: positive: Normal inspection ENT: positive: ENT inspection nml, No signs of dehydration Neck: positive: Nml inspection Respiratory: positive: Chest non-tender, No respiratory distress, Breath sounds nml Cardiovascular: positive: Regular rate & rhythm Peripheral Pulses: 2+ Dorsalis pedis (R), 2+ Dorsalis pedis (L) Abdomen: positive: Non-tender, No organomegaly, Other (Slight distention, hypoactive bowel tones; clear green output from NG tube) Skin: positive: Color nml, Other (Abdominal incisional mepilex dressing intact without strikethrough) Extremities: positive: Non-tender, Full ROM, Nml appearance, No pedal edema Neurologic/Psychiatric: positive: Oriented x3 - Lab Results Fish Bones: 05/12/21 05:00 05/12/21 05:00 Other Labs: Lab Results x24hrs 05/12/21 05/12/21 05/12/21 Range/Units 06:51 05:00 05:00 WBC 9.7 (4.8-10.8) x10^3/uL RBC 3.98 L (4.70-6.10) 10^6/uL Hgb 12.0 L (14.0-18.0) g/dL Hct 36.6 L (42.0-52.0) % MCV 92.0 (80.0-94.0) fL MCH 30.2 (27.0-31.0) pg MCHC 32.8 (32.0-36.0) g/dL RDW 12.3 (12.0-15.0) % Plt Count 358 (130-450) 10^3/uL MPV 8.7 (7.4-11.4) fL Neut # (Auto) 6.6 (1.5-6.6) 10^3/uL Lymph # (Auto) 1.8 (1.5-3.5) 10^3/uL [place] # (Auto) 0.7 (0.0-1.0) 10^3/uL Eos # (Auto) 0.5 (0.0-0.7) 10^3/uL Baso # (Auto) 0.1 (0.0-0.1) 10^3/uL Absolute Nucleated RBC 0.00 x10^3/uL Nucleated RBC % 0.0 /100WBC Sodium 135 (135-145) mmol/L Potassium 3.2 L (3.5-5.0) mmol/L Chloride 99 L (101-111) mmol/L Carbon Dioxide 28 (21-32) mmol/L Anion Gap 8.0 (6-13) BUN 22 H (6-20) mg/dL Creatinine 0.8 (0.6-1.2) mg/dL Estimated GFR (MDRD) 94 (>89) Glucose 145 H (70-100) mg/dL POC Whole Bld Glucose 143 H (70 - 100) mg/dL Calcium 7.8 L (8.5-10.3) mg/dL Phosphorus 3.0 (2.5-4.6) mg/dL Magnesium 2.3 (1.7-2.8) mg/dL Total Bilirubin 0.3 (0.2-1.0) mg/dL AST 16 (10-42) IU/L ALT 23 (10-60) IU/L Alkaline Phosphatase 60 (42-121) IU/L Total Protein 5.8 L (6.7-8.2) g/dL Albumin 2.8 L (3.2-5.5) g/dL Globulin 3.0 (2.1-4.2) g/dL Albumin/Globulin Ratio 0.9 L (1.0-2.2) Prealbumin 14 L (18-45) mg/dL Triglycerides 74 ( - 149) mg/dL 05/12/21 05/11/21 05/11/21 Range/Units 00:26 17:39 11:33 WBC (4.8-10.8) x10^3/uL RBC (4.70-6.10) 10^6/uL Hgb (14.0-18.0) g/dL Hct (42.0-52.0) % MCV (80.0-94.0) fL MCH (27.0-31.0) pg MCHC (32.0-36.0) g/dL RDW (12.0-15.0) % Plt Count (130-450) 10^3/uL MPV (7.4-11.4) fL Neut # (Auto) (1.5-6.6) 10^3/uL Lymph # (Auto) (1.5-3.5) 10^3/uL [place] # (Auto) (0.0-1.0) 10^3/uL Eos # (Auto) (0.0-0.7) 10^3/uL Baso # (Auto) (0.0-0.1) 10^3/uL Absolute Nucleated RBC x10^3/uL Nucleated RBC % /100WBC Sodium (135-145) mmol/L Potassium (3.5-5.0) mmol/L Chloride (101-111) mmol/L Carbon Dioxide (21-32) mmol/L Anion Gap (6-13) BUN (6-20) mg/dL Creatinine (0.6-1.2) mg/dL Estimated GFR (MDRD) (>89) Glucose (70-100) mg/dL POC Whole Bld Glucose 134 H 156 H 151 H (70 - 100) mg/dL Calcium (8.5-10.3) mg/dL Phosphorus (2.5-4.6) mg/dL Magnesium (1.7-2.8) mg/dL Total Bilirubin (0.2-1.0) mg/dL AST (10-42) IU/L ALT (10-60) IU/L Alkaline Phosphatase (42-121) IU/L Total Protein (6.7-8.2) g/dL Albumin (3.2-5.5) g/dL Globulin (2.1-4.2) g/dL Albumin/Globulin Ratio (1.0-2.2) Prealbumin (18-45) mg/dL Triglycerides ( - 149) mg/dL ABX Reporting Has patient been on IV antibiotics over the past 48 hours?: No Assessment/Plan - Problem List (1) SBO (small bowel obstruction) Impression: Stable. He underwent ex lap with lysis of adhesions with Dr. Mancera on 05/10. the NG tube put out 350mL yesterday and has put out 150mL overnight. It is dark green but clear. He is hoping to have this removed. Denying nausea or significant pain. Has not had a bowel movement but is passing gas. Using the IS appropriately. (2) Hx of coronary artery disease Impression: stable. Denying chest pain or palpitations. HR 70s-100s, BP has been appropriate. Hemodynamically stable. Will continue current medications and telemetry. Per FENG Plasencia's previous progress note, Pt underwent cardiac stenting October 2020, holding Plavix for now. Remains on rectal aspirin. Will resume plavix once okay per General Surgery. Recommend Pt discuss with his [employer] use of long-term dual antiplatelet therapy after discharge. (3) Anxiety Impression: Stable. Pt presented with significant anxiety which continues to wax and wane. PRN Ativan continued.
[2021-05-12] MEDS: SODIUM CHLORIDE FLUSH 0.9% 10 ML SYRINGE IVP PRN ×3 (11:10→21:42)
--- NOTE | 2021-05-12 11:58 | PROVIDER PROGRESS NOTE ---
Subjective - Subjective Pt reports feeling: No change (abdomen still quiet. no pain) Objective - Vital Signs/Intake & Output Reviewed Vital Signs: Yes Vital Signs: Vital Signs x48h Temp Pulse Resp BP BP Pulse Ox 05/12/21 07:50 36.6 C 71 18 135/58 H 96 05/12/21 06:29 37.1 C 100 20 139/71 H 97 05/12/21 06:22 139/71 H Intake & Output: Intake & Output 05/09/21 05/10/21 05/11/21 05/12/21 23:59 23:59 23:59 23:59 Intake Total 2590.333 2525.00 2280.75 546.667 Output Total 2200 1310 2025 400 Balance 985.852 1631.00 255.75 146.667 - Objective General Appearance: positive: No acute distress, Alert Eyes Bilateral: positive: PERRL, EOMI Respiratory: positive: No respiratory distress Abdomen: positive: Non-tender, No distention, Other (abdomen soft. dressing c/d/i no erythema ngt still too green for removal/ risk having to have it repla chago) - Lab Results Fish Bones: 05/12/21 05:00 05/12/21 05:00 Other Labs: Lab Results x24hrs 05/12/21 05/12/21 05/12/21 Range/Units 11:31 06:51 05:00 WBC 9.7 (4.8-10.8) x10^3/uL RBC 3.98 L (4.70-6.10) 10^6/uL Hgb 12.0 L (14.0-18.0) g/dL Hct 36.6 L (42.0-52.0) % MCV 92.0 (80.0-94.0) fL MCH 30.2 (27.0-31.0) pg MCHC 32.8 (32.0-36.0) g/dL RDW 12.3 (12.0-15.0) % Plt Count 358 (130-450) 10^3/uL MPV 8.7 (7.4-11.4) fL Neut # (Auto) 6.6 (1.5-6.6) 10^3/uL Lymph # (Auto) 1.8 (1.5-3.5) 10^3/uL [place] # (Auto) 0.7 (0.0-1.0) 10^3/uL Eos # (Auto) 0.5 (0.0-0.7) 10^3/uL Baso # (Auto) 0.1 (0.0-0.1) 10^3/uL Absolute Nucleated RBC 0.00 x10^3/uL Nucleated RBC % 0.0 /100WBC Sodium (135-145) mmol/L Potassium (3.5-5.0) mmol/L Chloride (101-111) mmol/L Carbon Dioxide (21-32) mmol/L Anion Gap (6-13) BUN (6-20) mg/dL Creatinine (0.6-1.2) mg/dL Estimated GFR (MDRD) (>89) Glucose (70-100) mg/dL POC Whole Bld Glucose 144 H 143 H (70 - 100) mg/dL Calcium (8.5-10.3) mg/dL Phosphorus (2.5-4.6) mg/dL Magnesium (1.7-2.8) mg/dL Total Bilirubin (0.2-1.0) mg/dL AST (10-42) IU/L ALT (10-60) IU/L Alkaline Phosphatase (42-121) IU/L Total Protein (6.7-8.2) g/dL Albumin (3.2-5.5) g/dL Globulin (2.1-4.2) g/dL Albumin/Globulin Ratio (1.0-2.2) Prealbumin (18-45) mg/dL Triglycerides ( - 149) mg/dL 05/12/21 05/12/21 05/11/21 Range/Units 05:00 00:26 17:39 WBC (4.8-10.8) x10^3/uL RBC (4.70-6.10) 10^6/uL Hgb (14.0-18.0) g/dL Hct (42.0-52.0) % MCV (80.0-94.0) fL MCH (27.0-31.0) pg MCHC (32.0-36.0) g/dL RDW (12.0-15.0) % Plt Count (130-450) 10^3/uL MPV (7.4-11.4) fL Neut # (Auto) (1.5-6.6) 10^3/uL Lymph # (Auto) (1.5-3.5) 10^3/uL [place] # (Auto) (0.0-1.0) 10^3/uL Eos # (Auto) (0.0-0.7) 10^3/uL Baso # (Auto) (0.0-0.1) 10^3/uL Absolute Nucleated RBC x10^3/uL Nucleated RBC % /100WBC Sodium 135 (135-145) mmol/L Potassium 3.2 L (3.5-5.0) mmol/L Chloride 99 L (101-111) mmol/L Carbon Dioxide 28 (21-32) mmol/L Anion Gap 8.0 (6-13) BUN 22 H (6-20) mg/dL Creatinine 0.8 (0.6-1.2) mg/dL Estimated GFR (MDRD) 94 (>89) Glucose 145 H (70-100) mg/dL POC Whole Bld Glucose 134 H 156 H (70 - 100) mg/dL Calcium 7.8 L (8.5-10.3) mg/dL Phosphorus 3.0 (2.5-4.6) mg/dL Magnesium 2.3 (1.7-2.8) mg/dL Total Bilirubin 0.3 (0.2-1.0) mg/dL AST 16 (10-42) IU/L ALT 23 (10-60) IU/L Alkaline Phosphatase 60 (42-121) IU/L Total Protein 5.8 L (6.7-8.2) g/dL Albumin 2.8 L (3.2-5.5) g/dL Globulin 3.0 (2.1-4.2) g/dL Albumin/Globulin Ratio 0.9 L (1.0-2.2) Prealbumin 14 L (18-45) mg/dL Triglycerides 74 ( - 149) mg/dL Assessment/Plan - Problem List (1) SBO (small bowel obstruction) Impression: I was hopeful ngt could be removed today. Abdomen is still quiet and ngt output still a little high and green. This is dicussed with him. Recommend continued care with ngt and tpn ngt may be clamped for 1 hour for oral meds and ambulation ok to shower and get the dressing wet
[2021-05-12] MEDS: FISH OIL IV SCH (18:33)
[2021-05-12] MEDS: MCT IV SCH (18:33)
[2021-05-12] MEDS: SOY IV SCH (18:33)
[2021-05-12] MEDS: TPN IV SCH (18:33)
[2021-05-12] MEDS: OLIV IV SCH (18:33)
[2021-05-12] MEDS: TRACE ELEMENTS IV SCH (18:33)
[2021-05-12] MEDS: FAT EMUL IV SCH (18:33)
[2021-05-12] MEDS: MULTIVITAMIN IV SCH (18:33)
[2021-05-13] MEDS: HYDROmorphone 1 MG/ML CARPUJECT IVP PRN ×6 (00:21→22:54)
[2021-05-13] MEDS: METOPROLOL 5 MG/5 ML VIAL IVP SCH ×2 (00:25→05:19)
[2021-05-13] MEDS: ACETAMINOPHEN 1,000 MG/100 ML 100 ML IV SCH ×2 (00:28→05:21)
[2021-05-13] MEDS: SODIUM CHLORIDE FLUSH 0.9% 10 ML SYRINGE IVP SCH ×3 (00:29→16:10)
[2021-05-13 06:12] LABS: BASOPHILS # (AUTO) 0.1 10^3/uL (0.0-0.1); BASOPHILS % (AUTO) 0.8 %; EOSINOPHILS # (AUTO) 0.5 10^3/uL (0.0-0.7); EOSINOPHILS % (AUTO) 5.5 %; HCT - HEMATOCRIT 36.9 % (42.0-52.0); HGB - HEMOGLOBIN 11.9 g/dL (14.0-18.0); LYMPHOCYTES # (AUTO) 1.8 10^3/uL (1.5-3.5); LYMPHOCYTES % (AUTO) 20.6 %; MEAN CORPUSCULAR HEMOGLOBIN 29.9 pg (27.0-31.0); MEAN CORPUSCULAR HGB CONC 32.2 g/dL (32.0-36.0); MEAN CORPUSCULAR VOLUME 92.7 fL (80.0-94.0); MEAN PLATELET VOLUME 8.8 fL (7.4-11.4); MONOCYTES # (AUTO) 0.7 10^3/uL (0.0-1.0); MONOCYTES % (AUTO) 7.7 %; NEUTROPHILS # (AUTO) 5.6 10^3/uL (1.5-6.6); NEUTROPHILS % (AUTO) 65.1 %; PLT - PLATELET COUNT 372 10^3/uL (130-450); RED BLOOD COUNT 3.98 10^6/uL (4.70-6.10); RED CELL DISTRIBUTION WIDTH 12.1 % (12.0-15.0); WHITE BLOOD COUNT 8.7 x10^3/uL (4.8-10.8)
[2021-05-13 07:37] LABS: CALCIUM 7.9 mg/dL (8.5-10.3); CREATININE 0.9 mg/dL (0.6-1.2); POTASSIUM 3.6 mmol/L (3.5-5.0)
[2021-05-13] MEDS: ASPIRIN 300 MG SUPP PR SCH (09:25)
[2021-05-13] MEDS: PANTOPRAZOLE 40 MG VIAL IVP SCH (09:25)
[2021-05-13] MEDS: ENOXAPARIN 40 MG/0.4 ML SYRINGE SUBQ SCH (09:25)
[2021-05-13] MEDS: LACTOBACILLUS RHAMNOSUS GG CAPSULE PO SCH (09:25)
[2021-05-13] MEDS ORDERED: METOCLOPRAMIDE 10 MG TABLET PO PRN (11:51)
[2021-05-13] MEDS ORDERED: ONDANSETRON ODT 4 MG TABLET TL PRN (11:52)
[2021-05-13] MEDS ORDERED: ACETAMINOPHEN 500 MG TABLET PO PRN (11:53)
--- NOTE | 2021-05-13 11:56 | PROVIDER PROGRESS NOTE ---
Subjective - Prog Note Date Prog Note Date: 05/13/21 - Subjective Pt reports feeling: Improved (no nausea. no bloating. minimal incisional pain) Objective - Vital Signs/Intake & Output Reviewed Vital Signs: Yes Vital Signs: Vital Signs x48h Temp Pulse Resp BP BP Pulse Ox 05/13/21 09:00 36.3 C L 72 16 127/61 97 05/13/21 05:20 36.6 C 81 16 127/67 95 05/13/21 05:19 127/67 Intake & Output: Intake & Output 05/10/21 05/11/21 05/12/21 05/13/21 23:59 23:59 23:59 23:59 Intake Total 2525.00 2280.75 2632.667 450 Output Total 1310 2025 2075 1225 Balance 1215.00 255.75 557.667 775 - Objective General Appearance: positive: No acute distress, Alert Eyes Bilateral: positive: PERRL, EOMI ENT: positive: No signs of dehydration Neck: positive: No JVD Respiratory: positive: No respiratory distress Abdomen: positive: Non-tender, No distention, Other (dressing c/d/i no erythema. ngt scant clear) Neurologic/Psychiatric: positive: Oriented x3 - Lab Results Fish Bones: 05/13/21 05:40 05/13/21 05:40 Other Labs: Lab Results x24hrs 05/13/21 05/13/21 05/13/21 Range/Units 11:13 05:40 05:40 WBC 8.7 (4.8-10.8) x10^3/uL RBC 3.98 L (4.70-6.10) 10^6/uL Hgb 11.9 L (14.0-18.0) g/dL Hct 36.9 L (42.0-52.0) % MCV 92.7 (80.0-94.0) fL MCH 29.9 (27.0-31.0) pg MCHC 32.2 (32.0-36.0) g/dL RDW 12.1 (12.0-15.0) % Plt Count 372 (130-450) 10^3/uL MPV 8.8 (7.4-11.4) fL Neut # (Auto) 5.6 (1.5-6.6) 10^3/uL Lymph # (Auto) 1.8 (1.5-3.5) 10^3/uL [place] # (Auto) 0.7 (0.0-1.0) 10^3/uL Eos # (Auto) 0.5 (0.0-0.7) 10^3/uL Baso # (Auto) 0.1 (0.0-0.1) 10^3/uL Absolute Nucleated RBC 0.00 x10^3/uL Nucleated RBC % 0.0 /100WBC Sodium 135 (135-145) mmol/L Potassium 3.6 (3.5-5.0) mmol/L Chloride 98 L (101-111) mmol/L Carbon Dioxide 28 (21-32) mmol/L Anion Gap 9.0 (6-13) BUN 19 (6-20) mg/dL Creatinine 0.9 (0.6-1.2) mg/dL Estimated GFR (MDRD) 82 L (>89) Glucose 131 H (70-100) mg/dL POC Whole Bld Glucose 142 H (70 - 100) mg/dL Calcium 7.9 L (8.5-10.3) mg/dL 05/13/21 05/13/21 05/12/21 Range/Units 05:16 00:21 16:59 WBC (4.8-10.8) x10^3/uL RBC (4.70-6.10) 10^6/uL Hgb (14.0-18.0) g/dL Hct (42.0-52.0) % MCV (80.0-94.0) fL MCH (27.0-31.0) pg MCHC (32.0-36.0) g/dL RDW (12.0-15.0) % Plt Count (130-450) 10^3/uL MPV (7.4-11.4) fL Neut # (Auto) (1.5-6.6) 10^3/uL Lymph # (Auto) (1.5-3.5) 10^3/uL [place] # (Auto) (0.0-1.0) 10^3/uL Eos # (Auto) (0.0-0.7) 10^3/uL Baso # (Auto) (0.0-0.1) 10^3/uL Absolute Nucleated RBC x10^3/uL Nucleated RBC % /100WBC Sodium (135-145) mmol/L Potassium (3.5-5.0) mmol/L Chloride (101-111) mmol/L Carbon Dioxide (21-32) mmol/L Anion Gap (6-13) BUN (6-20) mg/dL Creatinine (0.6-1.2) mg/dL Estimated GFR (MDRD) (>89) Glucose (70-100) mg/dL POC Whole Bld Glucose 139 H 136 H 137 H (70 - 100) mg/dL Calcium (8.5-10.3) mg/dL Assessment/Plan - Problem List (1) SBO (small bowel obstruction) Impression: improving. d/c ngt continue npo except sips continue tpn
[2021-05-13] MEDS: METOPROLOL TARTRATE 25 MG TABLET PO SCH ×2 (12:32→21:17)
--- NOTE | 2021-05-13 14:42 | PROVIDER PROGRESS NOTE ---
Subjective - Prog Note Date Prog Note Date: 05/13/21 - Subjective Pt reports feeling: Improved Subjective: Pt reports he is feeling okay today, with good pain control. He slept okay overnight and denies nausea. Has not yet had a bowel movement. Objective - Vital Signs/Intake & Output Reviewed Vital Signs: Yes Vital Signs: Vital Signs x48h Temp Pulse Resp BP BP Pulse Ox 05/13/21 12:36 36.6 C 101 H 16 141/73 H 98 05/13/21 12:32 143/71 H 05/13/21 09:00 36.3 C L 72 16 127/61 97 Intake & Output: Intake & Output 05/10/21 05/11/21 05/12/21 05/13/21 23:59 23:59 23:59 23:59 Intake Total 2525.00 2280.75 2632.667 450 Output Total 1310 5 2075 1225 Balance 1215.00 255.75 557.667 -775 - Objective General Appearance: positive: No acute distress, Alert Eyes Bilateral: positive: Normal inspection, PERRL ENT: positive: ENT inspection nml, No signs of dehydration Neck: positive: Nml inspection Respiratory: positive: Chest non-tender, No respiratory distress, Breath sounds nml Cardiovascular: positive: Regular rate & rhythm Peripheral Pulses: 2+ Dorsalis pedis (R), 2+ Dorsalis pedis (L) Abdomen: positive: Non-tender, No organomegaly, No distention, Other (hypoactive bowel tones in left lower quadrant) Skin: positive: Color nml, Other (Incision dressing clean and dry with no signs of strikethrough) Extremities: positive: Non-tender, Full ROM, Nml appearance Neurologic/Psychiatric: positive: Oriented x3 - Lab Results Fish Bones: 05/13/21 05:40 05/13/21 05:40 Other Labs: Lab Results x24hrs 05/13/21 05/13/21 05/13/21 Range/Units 11:13 05:40 05:40 WBC 8.7 (4.8-10.8) x10^3/uL RBC 3.98 L (4.70-6.10) 10^6/uL Hgb 11.9 L (14.0-18.0) g/dL Hct 36.9 L (42.0-52.0) % MCV 92.7 (80.0-94.0) fL MCH 29.9 (27.0-31.0) pg MCHC 32.2 (32.0-36.0) g/dL RDW 12.1 (12.0-15.0) % Plt Count 372 (130-450) 10^3/uL MPV 8.8 (7.4-11.4) fL Neut # (Auto) 5.6 (1.5-6.6) 10^3/uL Lymph # (Auto) 1.8 (1.5-3.5) 10^3/uL [place] # (Auto) 0.7 (0.0-1.0) 10^3/uL Eos # (Auto) 0.5 (0.0-0.7) 10^3/uL Baso # (Auto) 0.1 (0.0-0.1) 10^3/uL Absolute Nucleated RBC 0.00 x10^3/uL Nucleated RBC % 0.0 /100WBC Sodium 135 (135-145) mmol/L Potassium 3.6 (3.5-5.0) mmol/L Chloride 98 L (101-111) mmol/L Carbon Dioxide 28 (21-32) mmol/L Anion Gap 9.0 (6-13) BUN 19 (6-20) mg/dL Creatinine 0.9 (0.6-1.2) mg/dL Estimated GFR (MDRD) 82 L (>89) Glucose 131 H (70-100) mg/dL POC Whole Bld Glucose 142 H (70 - 100) mg/dL Calcium 7.9 L (8.5-10.3) mg/dL 05/13/21 05/13/21 05/12/21 Range/Units 05:16 00:21 16:59 WBC (4.8-10.8) x10^3/uL RBC (4.70-6.10) 10^6/uL Hgb (14.0-18.0) g/dL Hct (42.0-52.0) % MCV (80.0-94.0) fL MCH (27.0-31.0) pg MCHC (32.0-36.0) g/dL RDW (12.0-15.0) % Plt Count (130-450) 10^3/uL MPV (7.4-11.4) fL Neut # (Auto) (1.5-6.6) 10^3/uL Lymph # (Auto) (1.5-3.5) 10^3/uL [place] # (Auto) (0.0-1.0) 10^3/uL Eos # (Auto) (0.0-0.7) 10^3/uL Baso # (Auto) (0.0-0.1) 10^3/uL Absolute Nucleated RBC x10^3/uL Nucleated RBC % /100WBC Sodium (135-145) mmol/L Potassium (3.5-5.0) mmol/L Chloride (101-111) mmol/L Carbon Dioxide (21-32) mmol/L Anion Gap (6-13) BUN (6-20) mg/dL Creatinine (0.6-1.2) mg/dL Estimated GFR (MDRD) (>89) Glucose (70-100) mg/dL POC Whole Bld Glucose 139 H 136 H 137 H (70 - 100) mg/dL Calcium (8.5-10.3) mg/dL ABX Reporting Has patient been on IV antibiotics over the past 48 hours?: No Assessment/Plan - Problem List (1) SBO (small bowel obstruction) Impression: Stable. He underwent ex lap with lysis of adhesions with Dr. Mancera on 05/10. Dr. Guzman removed the NG tube today and the Pt is happy with this. Denying nausea or significant pain. Has not had a bowel movement but is passing gas. Using the IS appropriately. Remains NPO however medications have been transitioned to orals and he is tolerating this well. -NPO and care as per Dr. Guzman and colleagues -Monitor for n/v, increasing distention and pain (2) Hx of coronary artery disease Impression: stable. Denying chest pain or palpitations. HR 70s-100s, BP has been appropriate. Hemodynamically stable. Will continue current medications and telemetry. Per FENG Plasencia's previous progress note, Pt underwent cardiac stenting October 2020, holding Plavix for now. Remains on aspirin. Will resume plavix once okay per General Surgery. Recommend Pt discuss with his [employer] use of long-term dual antiplatelet therapy after discharge. (3) Anxiety Impression: Stable. Pt presented with significant anxiety which continues to wax and wane. PRN Ativan continued.
[2021-05-13] MEDS: SODIUM CHLORIDE FLUSH 0.9% 10 ML SYRINGE IVP PRN ×2 (18:42→22:54)
[2021-05-13] MEDS: FAT EMUL IV SCH (18:46)
[2021-05-13] MEDS: SOY IV SCH (18:46)
[2021-05-13] MEDS: TPN IV SCH (18:46)
[2021-05-13] MEDS: MCT IV SCH (18:46)
[2021-05-13] MEDS: MULTIVITAMIN IV SCH (18:46)
[2021-05-13] MEDS: FISH OIL IV SCH (18:46)
[2021-05-13] MEDS: OLIV IV SCH (18:46)
[2021-05-13] MEDS: TRACE ELEMENTS IV SCH (18:46)
[2021-05-14] MEDS: SODIUM CHLORIDE FLUSH 0.9% 10 ML SYRINGE IVP SCH ×3 (00:56→17:41)
[2021-05-14] MEDS: HYDROmorphone 1 MG/ML CARPUJECT IVP PRN ×4 (01:09→21:24)
[2021-05-14] MEDS: PANTOPRAZOLE 40 MG TABLET PO SCH (06:15)
[2021-05-14 06:17] LABS: BASOPHILS # (AUTO) 0.1 10^3/uL (0.0-0.1); BASOPHILS % (AUTO) 0.6 %; EOSINOPHILS # (AUTO) 0.5 10^3/uL (0.0-0.7); EOSINOPHILS % (AUTO) 6.6 %; HCT - HEMATOCRIT 36.4 % (42.0-52.0); MEAN CORPUSCULAR HEMOGLOBIN 30.2 pg (27.0-31.0); MEAN CORPUSCULAR VOLUME 91.7 fL (80.0-94.0); MEAN PLATELET VOLUME 8.8 fL (7.4-11.4); MONOCYTES # (AUTO) 0.6 10^3/uL (0.0-1.0); MONOCYTES % (AUTO) 7.7 %; NEUTROPHILS # (AUTO) 4.7 10^3/uL (1.5-6.6); NEUTROPHILS % (AUTO) 59.6 %; PLT - PLATELET COUNT 360 10^3/uL (130-450); RED BLOOD COUNT 3.97 10^6/uL (4.70-6.10); RED CELL DISTRIBUTION WIDTH 12.3 % (12.0-15.0); WHITE BLOOD COUNT 7.8 x10^3/uL (4.8-10.8)
[2021-05-14 06:30] LABS: ALBUMIN 2.8 g/dL (3.2-5.5); ALBUMIN/GLOBULIN RATIO 0.8 (1.0-2.2); BILIRUBIN,TOTAL 0.3 mg/dL (0.2-1.0); CALCIUM 8.3 mg/dL (8.5-10.3); CREATININE 0.8 mg/dL (0.6-1.2); MAGNESIUM 2.3 mg/dL (1.7-2.8); PHOSPHORUS 3.1 mg/dL (2.5-4.6); POTASSIUM 3.5 mmol/L (3.5-5.0); TOTAL PROTEIN 6.2 g/dL (6.7-8.2)
[2021-05-14] MEDS: LACTOBACILLUS RHAMNOSUS GG CAPSULE PO SCH (08:54)
[2021-05-14] MEDS: ASPIRIN EC 81 MG TABLET PO SCH (08:54)
[2021-05-14] MEDS: ENOXAPARIN 40 MG/0.4 ML SYRINGE SUBQ SCH (08:55)
[2021-05-14] MEDS: METOPROLOL TARTRATE 25 MG TABLET PO SCH ×2 (08:55→20:29)
[2021-05-14] MEDS: METOCLOPRAMIDE 10 MG/2 ML VIAL IVP SCH ×3 (15:36→23:59)
--- NOTE | 2021-05-14 16:16 | PROVIDER PROGRESS NOTE ---
Assessment/Plan - Problem List (1) SBO (small bowel obstruction) Assessment/Plan: NG tube removed yesterday. Tolerated clear liquid diet for breakfast and lunch today Diet advanced to soft for dinner Reported large bowel movement today Continues to ambulate around the med/surg floor Anticipating discharge tomorrow 05/15/21 (2) Hx of coronary artery disease Assessment/Plan: Plavix on hold due to surgery. Currently on aspirin 81mg po daily Lopressor 12.5mg po bid Patient to follow up with cardilogist upon discharge regarding recs for continuing dual platelet therapy (3) Anxiety Assessment/Plan: Ativan prn - Current Meds Current Meds: Current Medications Generic Name Dose Route Start Last Admin Trade Name Freq PRN Reason Stop Dose Admin Acetaminophen 500 mg 05/13/21 11:53 05/13/21 12:30 Acetaminophen 500 Mg Tablet PO 500 mg Q4HR PRN Administration Pain or Fever > 38C (100.4F) Aspirin 81 mg 05/14/21 09:00 05/14/21 08:54 Aspirin Ec 81 Mg Tablet PO 81 mg DAILY ANTHONY Administration Enoxaparin Sodium 40 mg 05/09/21 09:00 05/14/21 08:55 Enoxaparin 40 Mg/0.4 Ml Syringe SUBQ 40 mg DAILY ANTHONY Administration Hydromorphone HCl 1 mg 05/10/21 11:33 05/14/21 06:15 Hydromorphone 1 Mg/Ml Carpuject IVP 1 mg Q2H PRN Administration PAIN Fat Emulsion-Soy/MCT/[place]/Fish Oil 250 ml in 250 mls @ 21 mls/hr 05/08/21 19:00 05/14/21 06:53 Smoflipid 20% Iv Fat Emulsion IV Infused 1900 ANTHONY Infusion Multivitamins 10 ml/ TRACE 2,011 mls @ 65 mls/hr 05/12/21 19:00 05/13/21 18:46 ELEMENTS 1 ml/ Amino Acids/ IV 65 mls/hr Electrolytes TPN/PPN ANTHONY Administration Protocol Lactobacillus Rhamnosus 1 cap 05/08/21 09:00 05/14/21 08:54 Lactobacillus Rhamnosus Gg Capsule PO 1 cap DAILY ANTHONY Administration Lorazepam 0.5 mg 05/07/21 18:33 05/11/21 15:55 Lorazepam 2 Mg/Ml Vial IVP 0.5 mg Q2H PRN Administration Anxiety Metoclopramide HCl 5 mg 05/14/21 09:00 05/14/21 15:36 Metoclopramide 10 Mg/2 Ml Vial IVP Not Given Q6HR ANTHONY Metoprolol Tartrate 12.5 mg 05/13/21 13:00 05/14/21 08:55 Metoprolol Tartrate 25 Mg Tablet PO 12.5 mg BID ANTHONY Administration Ondansetron HCl 4 mg 05/07/21 11:12 05/09/21 18:21 Ondansetron 4 Mg/2 Ml Vial IVP 4 mg Q4HR PRN Administration Nausea / Vomiting Pantoprazole Sodium 40 mg 05/14/21 07:00 05/14/21 06:15 Pantoprazole 40 Mg Tablet PO 40 mg QDAC ANTHONY Administration Sodium Chloride 10 ml 05/07/21 07:51 05/13/21 22:54 Sodium Chloride Flush 0.9% 10 Ml Syringe IVP 10 ml PRN PRN Administration NEEDED PER PROVIDER ORDERS Sodium Chloride 10 ml 05/07/21 09:00 05/14/21 00:56 Sodium Chloride Flush 0.9% 10 Ml Syringe IVP Not Given 0100,0900,1700 ANTHONY Throat Lozenges 1 lozenge 05/07/21 11:46 05/11/21 18:25 Benzocaine/Menthol Lozenge MM 1 lozenge Q2HR PRN Administration Throat pain Zolpidem Tartrate 5 mg 05/09/21 08:50 05/12/21 21:40 Zolpidem 5 Mg Tablet PO 5 mg QPM PRN Administration Insomnia - Lab Result Fish Bone Diagrams: 05/14/21 05:05 05/14/21 05:05 Subjective - Subjective Patient Reports: Other (Resting comfortably in bed at time of exam. Denies any significant complaint. Tolerated a liquid diet for lunch well. Reports having a large bowel movement today. Has been ambulating around the med/surg floor with no difficulty) Objective Vital Signs: Vital Signs - 24 hr 05/13/21 05/13/21 05/14/21 16:19 21:00 00:18 Temperature 36.9 C 37.0 C 37.1 C Heart Rate [ 79 77 76 Brachial] Heart Rate [ Radial] Respiratory 18 16 18 Rate Blood Pressure Blood Pressure 124/66 129/72 113/63 [Left Brachial artery] O2 Saturation 95 97 94 05/14/21 05/14/21 05/14/21 04:21 08:13 08:55 Temperature 37.1 C 37 C Heart Rate [ 74 Brachial] Heart Rate [ 77 Radial] Respiratory 18 18 Rate Blood Pressure 125/61 Blood Pressure 114/60 125/61 [Left Brachial artery] O2 Saturation 94 95 Oxygen O2 Source Room air I&O (Last 24 Hrs): Intake and Output Totals x24h 05/12/21 05/13/21 05/14/21 23:59 23:59 23:59 Intake Total 2632.667 2024.083 250 Output Total 2075 1675 950 Balance 557.667 349.083 -700 General: Alert, Oriented x3, No acute distress HEENT: PERRLA, EOMI Neck: Supple, No JVD Neuro: Alert, Oriented Times 3 Cardiovascular: Regular rate Respiratory: Chest non-tender, No respiratory distress, Breath sounds nml Abdomen: Normal bowel sounds, Soft Extremities: No clubbing, No cyanosis, No edema Skin: No rashes, No breakdown, No significant lesion - Results Results: Laboratory Results WBC 7.8 x10^3/uL (4.8-10.8) 05/14/21 05:05 RBC 3.97 10^6/uL (4.70-6.10) L 05/14/21 05:05 Hgb 12.0 g/dL (14.0-18.0) L 05/14/21 05:05 Hct 36.4 % (42.0-52.0) L 05/14/21 05:05 MCV 91.7 fL (80.0-94.0) 05/14/21 05:05 MCH 30.2 pg (27.0-31.0) 05/14/21 05:05 MCHC 33.0 g/dL (32.0-36.0) 05/14/21 05:05 RDW 12.3 % (12.0-15.0) 05/14/21 05:05 Plt Count 360 10^3/uL (130-450) 05/14/21 05:05 MPV 8.8 fL (7.4-11.4) 05/14/21 05:05 Neut # (Auto) 4.7 10^3/uL (1.5-6.6) 05/14/21 05:05 Lymph # (Auto) 2.0 10^3/uL (1.5-3.5) 05/14/21 05:05 [place] # (Auto) 0.6 10^3/uL (0.0-1.0) 05/14/21 05:05 Eos # (Auto) 0.5 10^3/uL (0.0-0.7) 05/14/21 05:05 Baso # (Auto) 0.1 10^3/uL (0.0-0.1) 05/14/21 05:05 Absolute Nucleated RBC 0.00 x10^3/uL 05/14/21 05:05 Nucleated RBC % 0.0 /100WBC 05/14/21 05:05 Sodium 134 mmol/L (135-145) L 05/14/21 05:05 Potassium 3.5 mmol/L (3.5-5.0) 05/14/21 05:05 Chloride 98 mmol/L (101-111) L 05/14/21 05:05 Carbon Dioxide 27 mmol/L (21-32) 05/14/21 05:05 Anion Gap 9.0 (6-13) 05/14/21 05:05 BUN 21 mg/dL (6-20) H 05/14/21 05:05 Creatinine 0.8 mg/dL (0.6-1.2) 05/14/21 05:05 Estimated GFR (MDRD) 94 (>89) 05/14/21 05:05 Glucose 152 mg/dL (70-100) H 05/14/21 05:05 POC Whole Bld Glucose 156 mg/dL (70 - 100) H 05/14/21 11:28 Calcium 8.3 mg/dL (8.5-10.3) L 05/14/21 05:05 Ionized Calcium 5.1 mg/dL (4.8-5.6) 05/07/21 04:40 Phosphorus 3.1 mg/dL (2.5-4.6) 05/14/21 05:05 Magnesium 2.3 mg/dL (1.7-2.8) 05/14/21 05:05 Total Bilirubin 0.3 mg/dL (0.2-1.0) 05/14/21 05:05 AST 32 IU/L (10-42) 05/14/21 05:05 ALT 48 IU/L (10-60) 05/14/21 05:05 Alkaline Phosphatase 109 IU/L (42-121) 05/14/21 05:05 Troponin I High Sens 9.1 ng/L (2.3-19.7) 05/09/21 05:50 Total Protein 6.2 g/dL (6.7-8.2) L 05/14/21 05:05 Albumin 2.8 g/dL (3.2-5.5) L 05/14/21 05:05 Globulin 3.4 g/dL (2.1-4.2) 05/14/21 05:05 Albumin/Globulin Ratio 0.8 (1.0-2.2) L 05/14/21 05:05 Prealbumin 18 mg/dL (18-45) 05/14/21 05:05 Triglycerides 77 mg/dL (-149) 05/14/21 05:05 Lipase 22 U/L (22-51) 05/07/21 04:40 Urine Color YELLOW 05/07/21 05:20 Urine Clarity CLEAR (CLEAR) 05/07/21 05:20 Urine pH 6.0 PH (5.0-7.5) 05/07/21 05:20 Ur Specific [place] 1.015 (1.002-1.030) 05/07/21 05:20 Urine Protein NEGATIVE mg/dL (NEGATIVE) 05/07/21 05:20 Urine Glucose (UA) NEGATIVE mg/dL (NEGATIVE) 05/07/21 05:20 Urine Ketones NEGATIVE mg/dL (NEGATIVE) 05/07/21 05:20 Urine Occult Blood NEGATIVE (NEGATIVE) 05/07/21 05:20 Urine Nitrite NEGATIVE (NEGATIVE) 05/07/21 05:20 Urine Bilirubin NEGATIVE (NEGATIVE) 05/07/21 05:20 Urine Urobilinogen 0.2 (NORMAL) E.U./dL (NORMAL) 05/07/21 05:20 Ur Leukocyte Esterase NEGATIVE (NEGATIVE) 05/07/21 05:20 Ur Microscopic Review NOT INDICATED 05/07/21 05:20 Urine Culture Comments NOT INDICATED 05/07/21 05:20 Nasal Adenovirus (PCR) NOT DETECTED 05/07/21 08:30 Nasal B. parapertussis DNA (PCR) NOT DETECTED 05/07/21 08:30 Nasal Coronavir 229E PCR NOT DETECTED 05/07/21 08:30 Nasal Coronavir HKU1 PCR NOT DETECTED 05/07/21 08:30 Nasal Coronavir NL63 PCR NOT DETECTED 05/07/21 08:30 Nasal Coronavir OC43 PCR NOT DETECTED 05/07/21 08:30 Nasal Enterovir/Rhinovir PCR NOT DETECTED 05/07/21 08:30 Nasal Influenza B PCR NOT DETECTED 05/07/21 08:30 Nasal Influenza A PCR NOT DETECTED 05/07/21 08:30 Nasal Parainfluen 1 PCR NOT DETECTED 05/07/21 08:30 Nasal Parainfluen 2 PCR NOT DETECTED 05/07/21 08:30 Nasal Parainfluen 3 PCR NOT DETECTED 05/07/21 08:30 Nasal Parainfluen 4 PCR NOT DETECTED 05/07/21 08:30 Nasal RSV (PCR) NOT DETECTED 05/07/21 08:30 Nasal B.pertussis DNA PCR NOT DETECTED 05/07/21 08:30 Nasal C.pneumoniae (PCR) NOT DETECTED 05/07/21 08:30 Benny Human Metapneumo PCR NOT DETECTED 05/07/21 08:30 Nasal M.pneumoniae (PCR) NOT DETECTED 05/07/21 08:30 Nasal SARS-CoV-2 (PCR) NOT DETECTED 05/07/21 08:30 - Procedures Procedures: Procedures RELEASE SMALL INTESTINE, OPEN APPROACH (04/26/21) ABX Reporting Has patient been on IV antibiotics over the past 48 hours?: No
[2021-05-14] MEDS: OLIV IV SCH (19:44)
[2021-05-14] MEDS: SOY IV SCH (19:44)
[2021-05-14] MEDS: TRACE ELEMENTS IV SCH (19:44)
[2021-05-14] MEDS: MCT IV SCH (19:44)
[2021-05-14] MEDS: FISH OIL IV SCH (19:44)
[2021-05-14] MEDS: MULTIVITAMIN IV SCH (19:44)
[2021-05-14] MEDS: TPN IV SCH (19:44)
[2021-05-14] MEDS: FAT EMUL IV SCH (19:44)
--- NOTE | 2021-05-14 20:49 | PROVIDER PROGRESS NOTE ---
Subjective - General Admit Date: 05/09/21 Procedure Date: 05/10/21 Post Op Days: 4 Procedure Performed: Exploratory laparotomy - Review of Systems Wound/Incisions: positive: Healing well General: positive: Weakness, Fatigue HEENT: positive: Headaches, Sore throat, Other (Complaining of an earache in his right ear from the NG tube. He reports the tube is so painful its almost unbearable.) Pulmonary: positive: No symptoms Cardiovascular: positive: No symptoms Gastrointestinal: positive: Abdominal pain. negative: Nausea, Vomiting Genitourinary: positive: No symptoms All Other Systems: positive: Reviewed and negative - Other Other Information/Narrative: Patient seen earlier this morning but unable to document due to computer issues. He had a large bowel movement and has been walking the halls today. Reports incisional pain with activity but moving around well and wearing the binder for comfort. Denies any nausea. Anxious to get home Objective - Patient Data Reviewed Vital Signs: Yes Vital Signs: Vital Signs x48h Temp Pulse Resp BP BP Pulse Ox 05/14/21 20:33 37.2 C 73 16 116/67 97 05/14/21 20:29 116/67 05/14/21 16:23 37.1 C 84 14 124/70 95 Weight: Weight 05/12/21 05/13/21 05/14/21 23:59 23:59 23:59 Weight (kg) 71 kg 69.5 kg 68.5 kg Intake & Output: Intake and Output Totals x24h 05/12/21 05/13/21 05/14/21 23:59 23:59 23:59 Intake Total 2632.667 2024.083 1972.833 Output Total 2075 1675 950 Balance 557.667 981.662 6817.833 - Lab Results Lab Results: 05/14/21 05:05 05/14/21 05:05 Other Lab Results: Lab Results x24hrs 05/14/21 05/14/21 05/14/21 Range/Units 11:28 05:05 05:05 WBC 7.8 (4.8-10.8) x10^3/uL RBC 3.97 L (4.70-6.10) 10^6/uL Hgb 12.0 L (14.0-18.0) g/dL Hct 36.4 L (42.0-52.0) % MCV 91.7 (80.0-94.0) fL MCH 30.2 (27.0-31.0) pg MCHC 33.0 (32.0-36.0) g/dL RDW 12.3 (12.0-15.0) % Plt Count 360 (130-450) 10^3/uL MPV 8.8 (7.4-11.4) fL Neut # (Auto) 4.7 (1.5-6.6) 10^3/uL Lymph # (Auto) 2.0 (1.5-3.5) 10^3/uL [place] # (Auto) 0.6 (0.0-1.0) 10^3/uL Eos # (Auto) 0.5 (0.0-0.7) 10^3/uL Baso # (Auto) 0.1 (0.0-0.1) 10^3/uL Absolute Nucleated RBC 0.00 x10^3/uL Nucleated RBC % 0.0 /100WBC Sodium 134 L (135-145) mmol/L Potassium 3.5 (3.5-5.0) mmol/L Chloride 98 L (101-111) mmol/L Carbon Dioxide 27 (21-32) mmol/L Anion Gap 9.0 (6-13) BUN 21 H (6-20) mg/dL Creatinine 0.8 (0.6-1.2) mg/dL Estimated GFR (MDRD) 94 (>89) Glucose 152 H (70-100) mg/dL POC Whole Bld Glucose 156 H (70 - 100) mg/dL Calcium 8.3 L (8.5-10.3) mg/dL Phosphorus 3.1 (2.5-4.6) mg/dL Magnesium 2.3 (1.7-2.8) mg/dL Total Bilirubin 0.3 (0.2-1.0) mg/dL AST 32 (10-42) IU/L ALT 48 (10-60) IU/L Alkaline Phosphatase 109 (42-121) IU/L Total Protein 6.2 L (6.7-8.2) g/dL Albumin 2.8 L (3.2-5.5) g/dL Globulin 3.4 (2.1-4.2) g/dL Albumin/Globulin Ratio 0.8 L (1.0-2.2) Prealbumin 18 (18-45) mg/dL Triglycerides 77 ( - 149) mg/dL 05/14/21 Range/Units 00:43 WBC (4.8-10.8) x10^3/uL RBC (4.70-6.10) 10^6/uL Hgb (14.0-18.0) g/dL Hct (42.0-52.0) % MCV (80.0-94.0) fL MCH (27.0-31.0) pg MCHC (32.0-36.0) g/dL RDW (12.0-15.0) % Plt Count (130-450) 10^3/uL MPV (7.4-11.4) fL Neut # (Auto) (1.5-6.6) 10^3/uL Lymph # (Auto) (1.5-3.5) 10^3/uL [place] # (Auto) (0.0-1.0) 10^3/uL Eos # (Auto) (0.0-0.7) 10^3/uL Baso # (Auto) (0.0-0.1) 10^3/uL Absolute Nucleated RBC x10^3/uL Nucleated RBC % /100WBC Sodium (135-145) mmol/L Potassium (3.5-5.0) mmol/L Chloride (101-111) mmol/L Carbon Dioxide (21-32) mmol/L Anion Gap (6-13) BUN (6-20) mg/dL Creatinine (0.6-1.2) mg/dL Estimated GFR (MDRD) (>89) Glucose (70-100) mg/dL POC Whole Bld Glucose 163 H (70 - 100) mg/dL Calcium (8.5-10.3) mg/dL Phosphorus (2.5-4.6) mg/dL Magnesium (1.7-2.8) mg/dL Total Bilirubin (0.2-1.0) mg/dL AST (10-42) IU/L ALT (10-60) IU/L Alkaline Phosphatase (42-121) IU/L Total Protein (6.7-8.2) g/dL Albumin (3.2-5.5) g/dL Globulin (2.1-4.2) g/dL Albumin/Globulin Ratio (1.0-2.2) Prealbumin (18-45) mg/dL Triglycerides ( - 149) mg/dL - Current Medications Current Medications: Current Medications Generic Name Dose Route Start Last Admin Trade Name Freq PRN Reason Stop Dose Admin Acetaminophen 500 mg 05/13/21 11:53 05/13/21 12:30 Acetaminophen 500 Mg Tablet PO 500 mg Q4HR PRN Administration Pain or Fever > 38C (100.4F) Aspirin 81 mg 05/14/21 09:00 05/14/21 08:54 Aspirin Ec 81 Mg Tablet PO 81 mg DAILY ANTHONY Administration Enoxaparin Sodium 40 mg 05/09/21 09:00 05/14/21 08:55 Enoxaparin 40 Mg/0.4 Ml Syringe SUBQ 40 mg DAILY ANTHONY Administration Hydromorphone HCl 1 mg 05/10/21 11:33 05/14/21 17:25 Hydromorphone 1 Mg/Ml Carpuject IVP 1 mg Q2H PRN Administration PAIN Fat Emulsion-Soy/MCT/[place]/Fish Oil 250 ml in 250 mls @ 21 mls/hr 05/08/21 19:00 05/14/21 19:44 Smoflipid 20% Iv Fat Emulsion IV 21 mls/hr 1900 ANTHONY Administration Multivitamins 10 ml/ TRACE 2,011 mls @ 65 mls/hr 05/12/21 19:00 05/14/21 19:44 ELEMENTS 1 ml/ Amino Acids/ IV 65 mls/hr Electrolytes TPN/PPN ANTHONY Administration Protocol Lactobacillus Rhamnosus 1 cap 05/08/21 09:00 05/14/21 08:54 Lactobacillus Rhamnosus Gg Capsule PO 1 cap DAILY ANTHONY Administration Lorazepam 0.5 mg 05/07/21 18:33 05/11/21 15:55 Lorazepam 2 Mg/Ml Vial IVP 0.5 mg Q2H PRN Administration Anxiety Metoclopramide HCl 5 mg 05/14/21 09:00 05/14/21 18:12 Metoclopramide 10 Mg/2 Ml Vial IVP 5 mg Q6HR ANTHONY Administration Metoprolol Tartrate 12.5 mg 05/13/21 13:00 05/14/21 20:29 Metoprolol Tartrate 25 Mg Tablet PO 12.5 mg BID ANTHONY Administration Ondansetron HCl 4 mg 05/07/21 11:12 05/09/21 18:21 Ondansetron 4 Mg/2 Ml Vial IVP 4 mg Q4HR PRN Administration Nausea / Vomiting Pantoprazole Sodium 40 mg 05/14/21 07:00 05/14/21 06:15 Pantoprazole 40 Mg Tablet PO 40 mg QDAC ANTHONY Administration Sodium Chloride 10 ml 05/07/21 07:51 05/13/21 22:54 Sodium Chloride Flush 0.9% 10 Ml Syringe IVP 10 ml PRN PRN Administration NEEDED PER PROVIDER ORDERS Sodium Chloride 10 ml 05/07/21 09:00 05/14/21 17:41 Sodium Chloride Flush 0.9% 10 Ml Syringe IVP 10 ml 0100,0900,1700 ANTHONY Administration Throat Lozenges 1 lozenge 05/07/21 11:46 05/11/21 18:25 Benzocaine/Menthol Lozenge MM 1 lozenge Q2HR PRN Administration Throat pain Zolpidem Tartrate 5 mg 05/09/21 08:50 05/12/21 21:40 Zolpidem 5 Mg Tablet PO 5 mg QPM PRN Administration Insomnia - Physical Exam Wound/Incisions: positive: Healing well, No drainage General Appearance: positive: No acute distress, Alert Eyes Bilateral: positive: Normal inspection, PERRL, EOMI ENT: positive: ENT inspection nml, No signs of dehydration Neck: positive: Nml inspection Respiratory: positive: Chest non-tender, No respiratory distress, Breath sounds nml Cardiovascular: positive: Regular rate & rhythm Abdomen: positive: Nml bowel sounds, No distention, Tenderness Skin: positive: Color nml Extremities: positive: Non-tender Neurologic/Psychiatric: positive: Oriented x3 ABX Reporting Has patient been on IV antibiotics over the past 48 hours?: No Impression/Plan - Problem List Problem List: Tolerated clears today. Will advance to soft mechanical tonight. If he tolerates it well and we are able to start po meds, may be able to discharge in the AM.
[2021-05-15] MEDS: HYDROmorphone 1 MG/ML CARPUJECT IVP PRN ×2 (00:01→05:03)
[2021-05-15] MEDS: SODIUM CHLORIDE FLUSH 0.9% 10 ML SYRINGE IVP SCH ×2 (00:07→09:13)
[2021-05-15] MEDS: PANTOPRAZOLE 40 MG TABLET PO SCH (05:02)
[2021-05-15] MEDS: METOCLOPRAMIDE 10 MG/2 ML VIAL IVP SCH (05:02)
[2021-05-15 07:11] LABS: BASOPHILS % (AUTO) 0.6 %; EOSINOPHILS # (AUTO) 0.6 10^3/uL (0.0-0.7); EOSINOPHILS % (AUTO) 9.2 %; HCT - HEMATOCRIT 36.5 % (42.0-52.0); HGB - HEMOGLOBIN 12.2 g/dL (14.0-18.0); LYMPHOCYTES # (AUTO) 1.4 10^3/uL (1.5-3.5); LYMPHOCYTES % (AUTO) 21.3 %; MEAN CORPUSCULAR HEMOGLOBIN 30.7 pg (27.0-31.0); MEAN CORPUSCULAR HGB CONC 33.4 g/dL (32.0-36.0); MEAN CORPUSCULAR VOLUME 91.7 fL (80.0-94.0); MEAN PLATELET VOLUME 8.7 fL (7.4-11.4); MONOCYTES # (AUTO) 0.6 10^3/uL (0.0-1.0); MONOCYTES % (AUTO) 8.6 %; NEUTROPHILS # (AUTO) 3.9 10^3/uL (1.5-6.6); NEUTROPHILS % (AUTO) 59.8 %; PLT - PLATELET COUNT 366 10^3/uL (130-450); RED BLOOD COUNT 3.98 10^6/uL (4.70-6.10); RED CELL DISTRIBUTION WIDTH 12.2 % (12.0-15.0); WHITE BLOOD COUNT 6.5 x10^3/uL (4.8-10.8)
[2021-05-15 07:18] LABS: CALCIUM 8.2 mg/dL (8.5-10.3); CREATININE 0.8 mg/dL (0.6-1.2); POTASSIUM 3.7 mmol/L (3.5-5.0)
[2021-05-15] MEDS ORDERED: oxyCODONE 5 MG TABLET PO PRN (07:55)
--- NOTE | 2021-05-15 08:33 | Discharge Plan ---
Discharge Plan Problem Reviewed?: Yes Disposition: Home, Self Care Condition: Stable Prescriptions: oxyCODONE [Roxicodone] 5 mg PO Q4HR PRN #14 tablet PRN Reason: Pain Ondansetron Odt [Zofran Odt] 4 mg TL Q4HR PRN #10 tablet PRN Reason: Nausea / Vomiting Docusate Sodium 100Mg Capsule [Colace 100Mg Capsule] 200 mg PO DAILY #20 cap Diet: Soft Activity Restrictions: Additional Comments (10 pound lifting limit) Shower Restrictions: No Driving Restrictions: Yes (Not until after follow up appt) No Smoking: If you smoke, Please STOP! Call for help. Follow-up with: Rosa Mensah MD [Primary Care Provider] - Zeeshan Mancera MD [Provider Admit Priv/Credential] -
--- NOTE | 2021-05-15 08:35 | DISCHARGE SUMMARY ---
"Discharge Summary Admit Date: 06/07/21 Discharge Date: 05/15/21 Discharging Provider: Fiordaliza Primary Care Provider: Rodrick Code Status: Attempt Resuscitation Condition at Discharge: Stable Discharge Disposition: 01 Home, Self Care - DIAGNOSES Admission Diagnoses: Nausea and vomiting Post operative ileus Discharge Diagnoses with Status of Each Condition: Small bowel obstruction - resolved Nausea and vomiting - resolved - HPI History of Present Illness: 76 yo male on Plavix six months post angioplasty and stent had an exploratory laparotomy one week ago for SBO secondary to an adhesive band across the base of two or three loops of small bowel. He did well postop and was discharged home three days ago. He advanced his diet quicly and came in yesterday with complaint of nausea, no abdominal pain, and had a benign abdominal exam. He was given Zofran and sent home with caution to stay on liquids. He then had an episode of abdominal cramping pain very similar to his initial presentation and came back to the ER. No vomiting. He took his Plavix yesterday. - CONSULTS | PROCEDURES Consultations: Hospitalist Service Procedures: Exploratory laparotomy with lysis of adhesions - HOSPITAL COURSE Hospital Course: NG tube was placed in the emergency room and the patient was admitted to the [facility] floor for convalescence and supportive care. We initially attempted conservative management with presumptive diagnosis of ileus. TPN was continued until bowel function returned completely.On hospital day 3, it became clear that he was no longer making forward progress and I made the decision to return to the OR. Exploratory laparotomy was done. We found a tight adhesive band creating a near complete bowel obstruction. This band was lysed and no other abnormalities were identified. The patient was returned to the [facility] unit and began to improve. He had a short 48-hour postoperative ileus and then began to have some bowel function. TPN was continued until bowel function returned completely.By postop day 2, he was walking the halls. He was able to remove his own NG tube and his pain was resolved with the exception of incisional pain.By postop day 2, he was walking the halls. He was able to remove his own NG tube and his pain was resolved with the exception of incisional pain. - ALLERGIES Allergies/Adverse Reactions: Allergies Allergy/AdvReac Type Severity Reaction Status Date / Time No Known Drug Allergies Allergy Verified 05/07/21 02:51 - MEDICATIONS Home Medications: Ambulatory Orders Medication Instructions Recorded Confirmed Atorvastatin Calcium 40 mg PO QPM 04/24/21 05/07/21 Clopidogrel [Plavix] 75 mg PO DAILY 04/24/21 05/07/21 Lisinopril [Zestril] 2.5 mg PO DAILY 04/24/21 05/07/21 Metoprolol Tartrate [Lopressor] 12.5 mg PO BID 04/24/21 05/07/21 Aspirin [Aspirin EC] 81 mg PO DAILY 04/25/21 05/07/21 Ondansetron Odt [Zofran Odt] 4 mg TL Q6H PRN #10 tablet 05/06/21 05/07/21 Acetaminophen [Tylenol] 500 mg PO Q4HR PRN tablet 05/15/21 Docusate Sodium 100Mg Capsule 200 mg PO DAILY #20 cap 05/15/21 [Colace 100Mg Capsule] Ondansetron Odt [Zofran Odt] 4 mg TL Q4HR PRN #10 tablet 05/15/21 oxyCODONE [Roxicodone] 5 mg PO Q4HR PRN #14 tablet 05/15/21 - LABS Result Diagrams: 05/15/21 06:32 05/15/21 06:32"
[2021-05-15] MEDS ORDERED: DOCUSATE SODIUM 100 MG CAPSULE PO SCH (09:00)
[2021-05-15] MEDS ORDERED: CLOPIDOGREL 75 MG TABLET PO SCH (09:00)
[2021-05-15] MEDS: LACTOBACILLUS RHAMNOSUS GG CAPSULE PO SCH (09:10)
[2021-05-15] MEDS: METOPROLOL TARTRATE 25 MG TABLET PO SCH (09:10)
[2021-05-15] MEDS: ENOXAPARIN 40 MG/0.4 ML SYRINGE SUBQ SCH (09:13)
[2021-05-15] MEDS: ASPIRIN EC 81 MG TABLET PO SCH (09:13)
[2021-05-15 09:16] VITALS: BP 114/67
[2021-05-15] MEDS ORDERED: ATORVASTATIN 40 MG TABLET PO SCH (21:00)
== END 2021-05-15 11:10 | disposition home or self-care (01) | DRG 336 ==
LOC: ED 02:26 → MS2 07:51 → OBSVTOIN 05-09 12:31
PROVIDERS: ADMIT Surgery; ATTEND Surgery
PROC: 3E0336Z Introduction of Nutritional Substance into Peripheral Vein, Percutaneous Approach (ICD-10-PCS; 2021-05-09)
PROC: 0DNA0ZZ Release Jejunum, Open Approach (ICD-10-PCS; principal; 2021-05-10 10:00)
DX: K56.51 Intestinal adhesions [bands], with partial obstruction (principal); R10.33 Periumbilical pain; Z98.890 Other specified postprocedural states; K91.89 Other postprocedural complications and disorders of digestive system; K56.7 Ileus, unspecified; I25.10 Atherosclerotic heart disease of native coronary artery without angina pectoris; Z95.5 Presence of coronary angioplasty implant and graft; Z20.822 Contact with and (suspected) exposure to COVID-19; Z79.01 Long term (current) use of anticoagulants; I25.2 Old myocardial infarction; Z87.891 Personal history of nicotine dependence; Z79.82 Long term (current) use of aspirin; H92.01 Otalgia, right ear; F41.9 Anxiety disorder, unspecified
CPT/HCPCS: 36415; 36569; 71045; 74018; 74177; 80048; 80053; 81003; 82330; 83690; 83735; 84100; 84134; 84478; 84484; 85025; 87631; 93005; 96365; 96366; 96372; 96375; 96376; 99285; A9270; C1751; G0378; J0131; J1170; J1650; J2060; J2765; J3490; J7120; Q9963; Q9967; 0202U; 81001; 87086

== ENCOUNTER 2021-10-29 17:32 | Outpatient (CLI) | payer MEDICARE ==
[2021-10-29 17:55] LABS: RAPID STREP SCREEN Negative (Negative)
== END 2021-10-29 17:33 | disposition home or self-care (01) ==
LOC: LAB.R 17:32
PROVIDERS: ATTEND Internal Medicine
DX: J02.9 Acute pharyngitis, unspecified (principal)
CPT/HCPCS: 87070; 87430

== ENCOUNTER 2022-07-22 13:59 | Emergency (ER) | payer MEDICARE ==
[2022-07-22 14:42] LABS: BASOPHILS # (AUTO) 0.1 10^3/uL (0.0-0.1); BASOPHILS % (AUTO) 0.8 %; EOSINOPHILS % (AUTO) 0.5 %; HCT - HEMATOCRIT 44.8 % (42.0-52.0); HGB - HEMOGLOBIN 14.7 g/dL (14.0-18.0); LYMPHOCYTES # (AUTO) 2.5 10^3/uL (1.5-3.5); LYMPHOCYTES % (AUTO) 40.7 %; MEAN CORPUSCULAR HEMOGLOBIN 29.9 pg (27.0-31.0); MEAN CORPUSCULAR HGB CONC 32.8 g/dL (32.0-36.0); MEAN CORPUSCULAR VOLUME 91.2 fL (80.0-94.0); MEAN PLATELET VOLUME 8.3 fL (7.4-11.4); MONOCYTES # (AUTO) 0.5 10^3/uL (0.0-1.0); MONOCYTES % (AUTO) 7.9 %; NEUTROPHILS % (AUTO) 49.8 %; PLT - PLATELET COUNT 240 10^3/uL (130-450); RED BLOOD COUNT 4.91 10^6/uL (4.70-6.10); RED CELL DISTRIBUTION WIDTH 12.4 % (12.0-15.0); WHITE BLOOD COUNT 6.1 x10^3/uL (4.8-10.8)
[2022-07-22 14:43] LABS: BILIRUBIN,URINE NEGATIVE (NEGATIVE); GLUCOSE, URINE (UA) NEGATIVE (NEGATIVE); KETONES,URINE (UA) NEGATIVE (NEGATIVE); LEUKOCYTE ESTERASE, URINE NEGATIVE (NEGATIVE); NITRITE,URINE NEGATIVE (NEGATIVE); OCCULT BLOOD,URINE NEGATIVE (NEGATIVE); PH,URINE 6.5 PH (5.0-7.5); PROTEIN,URINE NEGATIVE (NEGATIVE); UROBILINOGEN,URINE 0.2 (NORMAL) E.U./dL (NORMAL)
[2022-07-22 14:45] LABS: CLARITY,URINE CLEAR (CLEAR)
[2022-07-22 14:53] LABS: ALBUMIN 4.4 g/dL (3.2-5.5); ALBUMIN/GLOBULIN RATIO 1.3 (1.0-2.2); BILIRUBIN,TOTAL 0.5 mg/dL (0.2-1.0); CALCIUM 9.7 mg/dL (8.5-10.3); CREATININE 1.1 mg/dL (0.6-1.2); TOTAL PROTEIN 7.7 g/dL (6.7-8.2)
--- NOTE | 2022-07-22 16:12 | ED Physician Documentation ---
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 This is not anything he has ever had before. It is not associated with fevers, chills, nausea, changes in bowel movements, or specific urinary complaints. PD PAST MEDICAL HISTORY - Past Medical History Cardiovascular: Coronary artery disease (stent 10/2020), [place] Respiratory: None Neuro: None Endocrine/Autoimmune: None GI: Other (Small bowel obstruction) : None HEENT: None Psych: None Musculoskeletal: None Derm: None - Past Surgical History Past Surgical History: Yes General: Bowel surgery (Expiratory laparotomy with lysis of adhesions) Cardiovascular: Coronary stent, Cardiac catheterization - Present Medications Home Medications: Ambulatory Orders Medication Instructions Recorded Confirmed Atorvastatin Calcium 40 mg PO QPM 04/24/21 05/07/21 Clopidogrel [Plavix] 75 mg PO DAILY 04/24/21 05/07/21 Lisinopril [Zestril] 2.5 mg PO DAILY 04/24/21 05/07/21 Metoprolol Tartrate [Lopressor] 12.5 mg PO BID 04/24/21 05/07/21 Aspirin [Aspirin EC] 81 mg PO DAILY 04/25/21 05/07/21 Ondansetron Odt [Zofran Odt] 4 mg TL Q6H PRN #10 tablet 05/06/21 05/07/21 Acetaminophen [Tylenol] 500 mg PO Q4HR PRN tablet 05/15/21 Docusate Sodium 100Mg Capsule 200 mg PO DAILY #20 cap 05/15/21 [Colace 100Mg Capsule] Ondansetron Odt [Zofran Odt] 4 mg TL Q4HR PRN #10 tablet 05/15/21 oxyCODONE [Roxicodone] 5 mg PO Q4HR PRN #14 tablet 05/15/21 polyethylene glycoL 3350(BULK) 17 gm PO DAILY PRN #1 each 07/22/22 [Miralax] - Allergies Allergies/Adverse Reactions: Allergies Allergy/AdvReac Type Severity Reaction Status Date / Time No Known Drug Allergies Allergy Verified 07/22/22 14:14 - Social History Does the pt smoke?: No Smoking Status: Former smoker Does the pt drink ETOH?: No Does the pt have substance abuse?: No - Immunizations Immunizations are current?: Yes PD ED PE NORMAL - Vitals Vital signs reviewed: Yes - General General: Alert and oriented X 3, No acute distress - Cardiac Cardiac: RRR, No murmur - Respiratory Respiratory: No respiratory distress, Clear bilaterally - Abdomen Abdomen: Soft, Non tender, Other (Hyperactive bowel sounds, soft and nontender.) - Male Male : Other (Bedside ultrasound demonstrates a large prostate without evidence of urinary retention. Rectal examination demonstrates a boggy but nontender large prostate.) - Neuro Neuro: Alert and oriented X 3, Normal speech - Psych Psych: Normal mood, Normal affect Results - Vitals Vitals: Vital Signs - 24 hr 07/22/22 07/22/22 07/22/22 14:08 16:00 16:05 Temperature 36.4 C L Heart Rate 64 72 70 Respiratory 14 16 16 Rate Blood Pressure 136/79 H 134/87 H 134/97 H O2 Saturation 100 100 100 Oxygen O2 Source Room air - Labs Labs: Laboratory Tests 07/22/22 07/22/22 07/22/22 14:15 14:34 14:34 WBC 6.1 RBC 4.91 Hgb 14.7 Hct 44.8 MCV 91.2 MCH 29.9 MCHC 32.8 RDW 12.4 Plt Count 240 MPV 8.3 Neut # (Auto) 3.0 Lymph # (Auto) 2.5 [place] # (Auto) 0.5 Eos # (Auto) 0.0 Baso # (Auto) 0.1 Absolute Nucleated RBC 0.00 Nucleated RBC % 0.0 Sodium 141 Potassium 4.0 Chloride 103 Carbon Dioxide 31 Anion Gap 7.0 BUN 20 Creatinine 1.1 Estimated GFR (MDRD) 65 L Glucose 101 H Calcium 9.7 Total Bilirubin 0.5 AST 20 ALT 19 Alkaline Phosphatase 53 Total Protein 7.7 Albumin 4.4 Globulin 3.3 Albumin/Globulin Ratio 1.3 Lipase 28 Urine Color LIGHT YELLOW Urine Clarity CLEAR Urine pH 6.5 Ur Specific [place] <=1.005 Urine Protein NEGATIVE Urine Glucose (UA) NEGATIVE Urine Ketones NEGATIVE Urine Occult Blood NEGATIVE Urine Nitrite NEGATIVE Urine Bilirubin NEGATIVE Urine Urobilinogen 0.2 (NORMAL) Ur Leukocyte Esterase NEGATIVE Ur Microscopic Review NOT INDICATED Urine Culture Comments NOT INDICATED - Rads (name of study) CT SCan A/P Relevant Findings:: Final report received, EMP independent interpretation of test (CT scan of the abdomen pelvis demonstrates chronic stable pancreatic cyst, mild diverticulitis or colitis. Not noted by the radiologist is probably a high fecal impaction.) PD Medical Decision Making - ED course ED course: 77-year-old gentleman presents with suprapubic cramping. CBC reviewed and normal. CMP reviewed and normal. Urinalysis removed reviewed and normal. Prostate exam normal. Bedside ultrasound shows he is not retaining urine. CT scan demonstrating focal area of diverticulitis or colitis and not noted was probably a high fecal impaction. A chronic pancreatic cyst that was discussed with patient and follow-up MRCP recommended. We will treat with clear liquid diet and laxatives. Departure - Departure Disposition: 01 Home, Self Care Clinical Impression: Pancreatic cyst, Abdominal pain, Diverticulitis of gastrointestinal tract, Constipation Condition: Good Record reviewed to determine appropriate education?: Yes Instructions: ED Constipation Prescriptions: polyethylene glycoL 3350(BULK) [Miralax] 17 gm PO DAILY PRN #1 each PRN Reason: Constipation Comments: As discussed, your labs are normal. You are not retaining urine. Although your prostate is large, does not seem inflamed on exam. CAT scan showed a possible high fecal impaction, and a mild case of diverticulitis/colitis. You also have a chronic pancreatic cyst that the radiologist recommends a MRI of. You can talk with your doctor about that to get an MRCP. That said that has been stable over prior scans, so doubt it will amount to anything concerning or bad. Clear liquid diet for the next day or 2 accompanied by the MiraLAX. I suspect that will make it much better. Return if not better after a couple good bowel movements or anytime if worse.
[2022-07-22] MEDS ORDERED: iohexoL-300 100 ML VIAL ONE (16:14)
[2022-07-22] MEDS ORDERED: iohexoL-300 100 ML VIAL IVP ONE (16:25)
--- NOTE | 2022-07-22 16:57 | CT Report ---
PROCEDURE: ABDOMEN/PELVIS W INDICATIONS: IV only, low abd pain CONTRAST: 100mL Omni 300 TECHNIQUE: After the administration of intravenous contrast, 5 mm thick sections acquired from the diaphragms to the symphysis. 5 mm thick coronal and sagittal reformats were acquired. For radiation dose reducti on, the following was used: automated exposure control, adjustment of mA and/or kV according to cecy ent size. COMPARISON: CT 05/07/2021 FINDINGS: Image quality: Excellent. ABDOMEN: Lung bases: Lung bases are clear. Heart size is normal. Solid organs: Stable low attenuating liver lesions, probably a combination of cysts and hemangiomas g iven stability. Gallbladder is unremarkable. 1.5 cm hypoattenuating lesion in the uncinate process of the pancreas, stable from prior, and probably a cyst (3/36). No adrenal nodules. Spleen is unremarka ble. No complex renal cystic lesions which require follow-up. Punctate, nonobstructing stones in the inferior calyx of the left kidney. Peritoneum and bowel: Perceived wall thickening of the sigmoid colon. Diverticula present, which do n ot appear inflamed. Nodes and vessels: No retroperitoneal or mesenteric adenopathy by size criteria. Aorta and inferior vena cava are normal in size. Miscellaneous: No ventral hernias. PELVIS: Genitourinary: Bladder wall thickness is normal. Miscellaneous: No inguinal hernias or adenopathy. Bones: No suspicious bony lesions. No vertebral body compression fractures. IMPRESSION: 1.Short segment of sigmoid wall thickening. This could be an artifact due to underdistention, or repr esent focal colitis or colonic diverticulitis. 2.1.5 cm hypoattenuating lesion in the uncinate process of the pancreas, stable from prior, and proba ayush a cyst. Recommend nonemergent MRI/MRCP for confirmation, as these are typically followed for appr oximately 10 years. Reviewed by: Kenrick Flores on 07/22/2022 4:55 PM PDT Approved by: Kenrick Flores on 07/22/2022 4:55 PM PDT Station ID: [id number]
[2022-07-22 18:11] VITALS: BP 148/84
== END 2022-07-22 18:11 | disposition home or self-care (01) ==
LOC: ED 13:59
DX: K86.2 Cyst of pancreas (principal); K57.92 Diverticulitis of intestine, part unspecified, without perforation or abscess without bleeding; K59.00 Constipation, unspecified; I25.10 Atherosclerotic heart disease of native coronary artery without angina pectoris; I25.2 Old myocardial infarction; Z79.82 Long term (current) use of aspirin; Z79.899 Other long term (current) drug therapy; Z79.02 Long term (current) use of antithrombotics/antiplatelets; Z87.891 Personal history of nicotine dependence
CPT/HCPCS: 36415; 74177; 80053; 81003; 83690; 85025; 99284; Q9967; 81001; 87086

== ENCOUNTER 2022-10-11 11:48 | Emergency (ER) | payer MEDICARE ==
[2022-10-11 12:01] VITALS: BP 122/66
[2022-10-11] MEDS ORDERED: TETANUS/DIPHTHERIA/PERTUSSIS 0.5 ML SYRINGE IM ONE (12:07)
[2022-10-11] MEDS ORDERED: lidocaine 1% 20 ML MDV SUBQ ONE (12:09)
--- NOTE | 2022-10-11 12:10 | ED Physician Documentation ---
History of Present Illness - Stated complaint Stated Complaint: LT FINGER LAC - Chief complaint Chief Complaint: Laceration - Additonal information Additional information: 77-year-old male presents emergency department for evaluation of a left index finger laceration sustained 48 hours ago when using a saw. He sustained an approximate 2 cm laceration on the ulnar/lateral side of the index finger that extends into the lateral edge of the nail. Because he is on Plavix he has had difficulty getting it to stop bleeding. He has been placing Neosporin over the wound. He is right-hand dominant. Reports last tetanus is more than 30 years ago. Review of Systems Constitutional: reports: Reviewed and negative Skin: reports: Laceration (s) PD PAST MEDICAL HISTORY - Past Medical History Cardiovascular: Coronary artery disease (stent 10/2020), [facility] Respiratory: None Neuro: None Endocrine/Autoimmune: None GI: Other (Small bowel obstruction) : None HEENT: None Psych: None Musculoskeletal: None Derm: None - Past Surgical History Past Surgical History: Yes General: Bowel surgery (Expiratory laparotomy with lysis of adhesions) Cardiovascular: Coronary stent, Cardiac catheterization - Present Medications Home Medications: Ambulatory Orders Medication Instructions Recorded Confirmed Atorvastatin Calcium 40 mg PO QPM 04/24/21 05/07/21 Clopidogrel [Plavix] 75 mg PO DAILY 04/24/21 05/07/21 Lisinopril [Zestril] 2.5 mg PO DAILY 04/24/21 05/07/21 Metoprolol Tartrate [Lopressor] 12.5 mg PO BID 04/24/21 05/07/21 Aspirin [Aspirin EC] 81 mg PO DAILY 04/25/21 05/07/21 Ondansetron Odt [Zofran Odt] 4 mg TL Q6H PRN #10 tablet 05/06/21 05/07/21 Acetaminophen [Tylenol] 500 mg PO Q4HR PRN tablet 05/15/21 Docusate Sodium 100Mg Capsule 200 mg PO DAILY #20 cap 05/15/21 [Colace 100Mg Capsule] Ondansetron Odt [Zofran Odt] 4 mg TL Q4HR PRN #10 tablet 05/15/21 oxyCODONE [Roxicodone] 5 mg PO Q4HR PRN #14 tablet 05/15/21 polyethylene glycoL 3350(BULK) 17 gm PO DAILY PRN #1 each 07/22/22 [Miralax] cephALEXin [Keflex] 500 mg PO Q6H #20 cap 10/11/22 - Allergies Allergies/Adverse Reactions: Allergies Allergy/AdvReac Type Severity Reaction Status Date / Time No Known Drug Allergies Allergy Verified 10/11/22 11:59 - Social History Does the pt smoke?: No Smoking Status: Former smoker Does the pt drink ETOH?: No Does the pt have substance abuse?: No - Immunizations Immunizations are current?: Yes PD ED PE EXPANDED - Extremities Extremities: Left finger(s) (Macerated 2 cm laceration left lateral/ulnar side of index finger that begins distal to the DIP joint and it extends into the nailbed. Preserved flexion extension. Does describe some numbness laterally. Skin is macerated and wet.) ELMER UE/Hands Visual: 1 - laceration Results - Vitals Vitals: Vital Signs - 24 hr 10/11/22 11:56 Temperature 36.4 C L Heart Rate 74 Respiratory 16 Rate Blood Pressure 122/66 O2 Saturation 100 Oxygen O2 Source Room air - Rads (name of study) left finger xr Relevant Findings:: Final report received (No acute bony abnormality) Procedures - Laceration (location) left index finger Length in cm: 2 Wound type: Linear, Into muscle, Contaminated Anesthesia: Lidocaine 1% Wound preparation: Chlorhexadine, Irrigated copiously NS Skin layer closure: Nylon, Interrupted, Size #-0 - enter number (4), Sutures - enter # (4) Other: Patient tolerated well, Neurovascular intact, Tetanus booster given PD Medical Decision Making - ED course Complexity details: reviewed results, d/w patient ED course: 77-year-old male who is anticoagulated on Plavix presents emergency department for evaluation of persistent bleeding from the left index finger wound sustained 2 days ago when using a saw. He has been unable to get a slow leak to stop bleeding. His tetanus was updated today. On exam there is a 2 cm macerated appearing lesion on the lateral ulnar edge of the index finger that extends into the nail. And x-rays confirm by the radiologist showed no fracture. But given the depth of the wound I am not surprised that it had not stopped bleeding. I discussed risk benefits of delayed closure with the patient he agreed to continue. Therefore 3 sutures were placed in the wound through the nailbed to approximate the wound and tamponade it. Given the delayed closure he will be started on cephalexin. Advise routine wound care as well as the usual emergent return precautions for concerns of infection Departure - Departure Disposition: 01 Home, Self Care Clinical Impression: Laceration of index finger Qualifiers: Encounter type: initial encounter Damage to nail status: with damage Foreign body presence: without foreign body Laterality: left Qualified Code(s): S61.311A - Laceration without foreign body of left index finger with damage to nail, initial encounter Condition: Stable Record reviewed to determine appropriate education?: Yes Prescriptions: cephALEXin [Keflex] 500 mg PO Q6H #20 cap Comments: Your sutures (3) should be removed in 7 to 10 days. In 24 hours you may remove the dressing wash gently with warm soap and water, apply any antibiotic ointment and a simple bandage. Your tetanus is up-to-date. Please attempt to keep your wound clean and dry. Do not submerge it in dirty dishwater or bath water. Return to the emergency department if you have any concerns of infection such as redness, fevers milky drainage increased pain. Because we did do a delayed closure of this wound you are at higher risk for infection. Please monitor closely and return should you have any concerns of infection
--- NOTE | 2022-10-11 12:26 | XRAY Report ---
PROCEDURE: Finger(s) LT INDICATIONS: index finger laceration TECHNIQUE: AP hand, 2 views of the second finger(s) acquired. COMPARISON: None. FINDINGS: Bones: No fractures or dislocations. No suspicious bony lesions. Soft tissues: No suspicious soft tissue calcifications or masses. IMPRESSION: No acute bony abnormality. Reviewed by: Jan Anderson MD on 10/11/2022 12:25 PM PDT Approved by: Jan Anderson MD on 10/11/2022 12:25 PM PDT Station ID: [id number]
== END 2022-10-11 13:07 | disposition home or self-care (01) ==
LOC: ED 11:48
DX: S61.311A Laceration without foreign body of left index finger with damage to nail, initial encounter (principal); W29.3XXA Contact with powered garden and outdoor hand tools and machinery, initial encounter; Z79.02 Long term (current) use of antithrombotics/antiplatelets; Z79.899 Other long term (current) drug therapy; Z79.82 Long term (current) use of aspirin; Z87.891 Personal history of nicotine dependence; Z23 Encounter for immunization
CPT/HCPCS: 12001; 90471; 99283

== ENCOUNTER 2022-11-21 13:17 | Outpatient (CLI) | payer MEDICARE ==
[2022-11-21 13:30] LABS: ABSOLUTE RETICS # AUTO 0.092 10^6/uL (0.020-0.110); RED BLOOD COUNT 3.68 10^6/uL (4.70-6.10); RETICULOCYTE COUNT % (AUTO) 2.51 % (0.5-2.3)
[2022-11-21 13:48] LABS: % IRON SATURATION 6 % (20-50); IRON 27 ug/dL (45-182); TOTAL IRON BINDING CAPACITY 419 ug/dL (250-450); TRANSFERRIN 299 mg/dL (180-329)
[2022-11-21 14:00] LABS: THYROID STIMULATING HORMONE 2.3 uIU/mL (0.34-5.60)
[2022-11-21 14:07] LABS: FERRITIN 4.6 ng/mL (23.9-336.2)
[2022-11-21 14:11] LABS: FOLATE 16.1 ng/mL (5.90 - >24.8)
== END 2022-11-21 13:18 | disposition home or self-care (01) ==
LOC: LAB 13:17
PROVIDERS: ATTEND Internal Medicine
DX: D64.9 Anemia, unspecified (principal); R06.00 Dyspnea, unspecified; R53.83 Other fatigue
CPT/HCPCS: 36415; 82607; 82728; 82746; 83540; 84443; 84466; 85045

== ENCOUNTER 2023-03-23 04:40 | Emergency (ER) | payer MEDICARE ==
--- NOTE | 2023-03-23 05:00 | ED Physician Documentation ---
PD HPI DYSPNEA - Stated complaint Stated Complaint: SOA - Chief complaint Chief Complaint: Resp - History obtained from History obtained from: Patient - History of Present Illness Timing - onset: How many days ago (few days of cough and developing dyspnea. No chest pain. No edema.) Timing - onset during: Rest, Light activity Timing - duration: Days (few) Timing - details: Gradual onset, Still present Inciting event(s): URI Improved by: No: Sitting up Worsened by: Exertion, Coughing. No: Laying flat Associated symptoms: Cough, Wheezing. No: Chest pain / discomfort, Bilateral edema Similar symptoms before: Has not had sx before Review of Systems Constitutional: reports: Chills, Myalgias, Fatigue. denies: Fever Nose: reports: Congestion. denies: Rhinorrhea / runny nose Throat: denies: Sore throat Cardiac: denies: Palpitations, Pedal edema Respiratory: reports: Dyspnea, Cough GI: denies: Abdominal Pain, Vomiting, Diarrhea Musculoskeletal: denies: Extremity swelling Neurologic: reports: Generalized weakness. denies: Near syncope PD PAST MEDICAL HISTORY - Past Medical History Cardiovascular: Coronary artery disease, [facility] Respiratory: None Neuro: None Endocrine/Autoimmune: None GI: Other : None HEENT: None Psych: None Musculoskeletal: None Derm: None - Past Surgical History Past Surgical History: Yes General: Bowel surgery Cardiovascular: Coronary stent, Cardiac catheterization - Present Medications Home Medications: Ambulatory Orders Medication Instructions Recorded Confirmed Atorvastatin Calcium 40 mg PO QPM 04/24/21 05/07/21 Clopidogrel [Plavix] 75 mg PO DAILY 04/24/21 05/07/21 Lisinopril [Zestril] 2.5 mg PO DAILY 04/24/21 05/07/21 Metoprolol Tartrate [Lopressor] 12.5 mg PO BID 04/24/21 05/07/21 Aspirin [Aspirin EC] 81 mg PO DAILY 04/25/21 05/07/21 Ondansetron Odt [Zofran Odt] 4 mg TL Q6H PRN #10 tablet 05/06/21 05/07/21 Acetaminophen [Tylenol] 500 mg PO Q4HR PRN tablet 05/15/21 Docusate Sodium 100Mg Capsule 200 mg PO DAILY #20 cap 05/15/21 [Colace 100Mg Capsule] Ondansetron Odt [Zofran Odt] 4 mg TL Q4HR PRN #10 tablet 05/15/21 oxyCODONE [Roxicodone] 5 mg PO Q4HR PRN #14 tablet 05/15/21 polyethylene glycoL 3350(BULK) 17 gm PO DAILY PRN #1 each 07/22/22 [Miralax] cephALEXin [Keflex] 500 mg PO Q6H #20 cap 10/11/22 Albuterol Sulf [Ventolin Hfa 2 - 3 puffs INH QID 7 Days #1 each 03/23/23 Inhaler] Amoxicillin 500 mg PO TID #18 cap 03/23/23 dexAMETHasone [Decadron] 4 mg PO DAILY #5 tablet 03/23/23 - Allergies Allergies/Adverse Reactions: Allergies Allergy/AdvReac Type Severity Reaction Status Date / Time No Known Drug Allergies Allergy Verified 10/11/22 11:59 - Social History Does the pt smoke?: No Smoking Status: Never smoker Does the pt drink ETOH?: No Does the pt have substance abuse?: No - Immunizations Immunizations are current?: Yes PD ED PE NORMAL - Vitals Vital signs reviewed: Yes - General General: Alert and oriented X 3, No acute distress, Well developed/nourished - HEENT HEENT: Pharynx benign - Neck Neck: Supple, no meningeal sign, No adenopathy - Cardiac Cardiac: RRR, No murmur - Respiratory Respiratory: No respiratory distress. No: Clear bilaterally (no coarse sounds. Does have end exp wheezing diffusely. ) - Abdomen Abdomen: Soft, Non tender - Derm Derm: Normal color - Extremities Extremities: No edema, No calf tenderness / cord Results - Vitals Vitals: Oxygen O2 Source Room air - EKG (time done) 04:50 EKG releavant findings:: EKG personally interpreted by author of this note. Relevant findings are: Rate: Rate (enter#) (83) Rhythm: NSR [place]: Normal Intervals: Normal HI QRS: Normal Ischemia: Normal ST segments. No: ST elevation c/w ischemia, ST depression - Labs Labs: Laboratory Tests 03/23/23 03/23/23 03/23/23 04:55 04:55 04:55 WBC 6.7 RBC 5.33 Hgb 15.3 Hct 47.9 MCV 89.9 MCH 28.7 MCHC 31.9 L RDW 13.2 Plt Count 221 MPV 8.3 Neut # (Auto) 2.6 Lymph # (Auto) 3.2 Cass # (Auto) 0.7 Eos # (Auto) 0.2 Baso # (Auto) 0.1 Absolute Nucleated RBC 0.00 Nucleated RBC % 0.0 Sodium 139 Potassium 4.0 Chloride 102 Carbon Dioxide 30 Anion Gap 7.0 BUN 17 Creatinine 1.4 H Estimated GFR (MDRD) 49 L Glucose 111 H Calcium 9.0 Total Bilirubin 0.5 AST 12 ALT 12 Alkaline Phosphatase 54 Troponin I High Sens 2.6 Total Protein 7.0 Albumin 4.6 Globulin 2.4 Albumin/Globulin Ratio 1.9 Lipase < 10 L Nasal Adenovirus (PCR) NOT DETECTED Nasal B. parapertussis DNA (PCR) NOT DETECTED Nasal Coronavir 229E PCR NOT DETECTED Nasal Coronavir HKU1 PCR NOT DETECTED Nasal Coronavir NL63 PCR NOT DETECTED Nasal Coronavir OC43 PCR NOT DETECTED Nasal Enterovir/Rhinovir PCR NOT DETECTED Nasal Influenza B PCR NOT DETECTED Nasal Influenza A PCR NOT DETECTED Nasal Parainfluen 1 PCR NOT DETECTED Nasal Parainfluen 2 PCR NOT DETECTED Nasal Parainfluen 3 PCR NOT DETECTED Nasal Parainfluen 4 PCR NOT DETECTED Nasal RSV (PCR) NOT DETECTED Nasal B.pertussis DNA PCR NOT DETECTED Nasal C.pneumoniae (PCR) NOT DETECTED Benny Human Metapneumo PCR NOT DETECTED Nasal M.pneumoniae (PCR) NOT DETECTED Nasal SARS-CoV-2 (PCR) NOT DETECTED - Rads (name of study) chest xray Relevant Findings:: Prelim report reviewed (no acute cardiopulmonary process), EMP independent interpretation of test (no acute lung findings. ) PD Medical Decision Making - ED course Complexity details: re-evaluated patient (he felt much improved with albuterol neb treatments. Given decadron subsequently as well. ), considered differential, d/w patient Reviewed Lab Results: chest xray without infiltrates. ECG without ischemic changes and Trop is normal. CBC and chemistries reviewed by me and without acute abnormalities. Departure - Departure Disposition: 01 Home, Self Care Clinical Impression: Acute dyspnea Upper respiratory infection Qualifiers: URI type: unspecified URI Qualified Code(s): J06.9 - Acute upper respiratory infection, unspecified Condition: Stable Record reviewed to determine appropriate education?: Yes Instructions: ED URI Viral W Wheezing Follow-Up: Rosa Mensah MD [Primary Care Provider] - Prescriptions: Amoxicillin 500 mg PO TID #18 cap dexAMETHasone [Decadron] 4 mg PO DAILY #5 tablet Albuterol Sulf [Ventolin Hfa Inhaler] 2 - 3 puffs INH QID 7 Days #1 each Comments: Your respiratory viral panel is negative for the more common viral illnesses, in particular negative for COVID, RSV, flu, parainfluenza and rhinovirus. Negative for some others as well. However this does not include all viral type illnesses and given the duration, its possible you had one of the other viruses listed but it is actually passing with just the persistence of bronchial irritation. Other consideration would be development of a bacterial type process now given the worsening and wheezing and breathing. He did seem to have some improvement with the albuterol. I prescribed an inhaler to use 2 to 3 puffs 4 times a day regularly for the next week or until you are better. You can use it in addition every 1 or 2 hours if needed for the wheeziness. In addition we will reduce of bronchial inflammation with the steroid medicine daily for the next 5 days, dexamethasone. Given the potential of some bacterial development, I would also prescribe amoxicillin 3 times a day for the next 5 or 6 days. I sent these prescriptions to your preferred pharmacy. Your chest x-ray is clear without any signs of pneumonia but obviously still have bronchial symptoms (bronchitis). Again this can be persistent viral irritation or development of some bacterial now as well. Your EKG and blood tests are normal without any signs of heart attack/heart injury or heart failure. Follow-up with your primary if not improving well over the next few days and return to the ER if worsened again. Forms: PCP List Discharge Date/Time: 03/23/23 07:25
[2023-03-23 05:04] VITALS: BP 128/74; O2SAT 100
[2023-03-23 05:06] LABS: BASOPHILS # (AUTO) 0.1 10^3/uL (0.0-0.1); EOSINOPHILS # (AUTO) 0.2 10^3/uL (0.0-0.7); EOSINOPHILS % (AUTO) 3.1 %; HCT - HEMATOCRIT 47.9 % (42.0-52.0); HGB - HEMOGLOBIN 15.3 g/dL (14.0-18.0); LYMPHOCYTES # (AUTO) 3.2 10^3/uL (1.5-3.5); LYMPHOCYTES % (AUTO) 46.9 %; MEAN CORPUSCULAR HEMOGLOBIN 28.7 pg (27.0-31.0); MEAN CORPUSCULAR HGB CONC 31.9 g/dL (32.0-36.0); MEAN CORPUSCULAR VOLUME 89.9 fL (80.0-94.0); MEAN PLATELET VOLUME 8.3 fL (7.4-11.4); MONOCYTES # (AUTO) 0.7 10^3/uL (0.0-1.0); MONOCYTES % (AUTO) 10.3 %; NEUTROPHILS # (AUTO) 2.6 10^3/uL (1.5-6.6); NEUTROPHILS % (AUTO) 38.6 %; PLT - PLATELET COUNT 221 10^3/uL (130-450); RED BLOOD COUNT 5.33 10^6/uL (4.70-6.10); RED CELL DISTRIBUTION WIDTH 13.2 % (12.0-15.0); WHITE BLOOD COUNT 6.7 x10^3/uL (4.8-10.8)
[2023-03-23 05:30] LABS: TROPONIN I HIGH SENSITIVITY 2.6 ng/L (2.3-19.7)
[2023-03-23] MEDS ORDERED: DEXAMETHASONE 10 MG/ML VIAL IVP STA (05:43)
[2023-03-23] MEDS ORDERED: ALBUTEROL NEB 2.5 MG/3 ML INH STA (05:43)
[2023-03-23] MEDS ORDERED: AMOXICILLIN 250 MG CAPSULE PO STA (05:46)
[2023-03-23 06:32] LABS: B. PARAPERTUSSIS- RESP PCR PAN NOT DETECTED; B. PERTUSSIS- RESP PCR PANEL NOT DETECTED; C. PNEUMONIAE- RESP PCR PANEL NOT DETECTED; CORONAVIRUS 229E-RESP PCR NOT DETECTED; CORONAVIRUS HKU1-RESP PCR NOT DETECTED; CORONAVIRUS NL63-RESP PCR NOT DETECTED; CORONAVIRUS OC43-RESP PCR NOT DETECTED; HUMAN METAPNEUMOVIRUS NOT DETECTED; INFLUENZA A- RESP PCR PANEL NOT DETECTED; INFLUENZA B - RESP PCR PANEL NOT DETECTED; M. PNEUMONIAE- RESP PCR PANEL NOT DETECTED; PARAINFLUENZA VIRUS 1 NOT DETECTED; PARAINFLUENZA VIRUS 2 NOT DETECTED; PARAINFLUENZA VIRUS 3 NOT DETECTED; PARAINFLUENZA VIRUS 4 NOT DETECTED; RHINOVIRUS/ENTEROVIRUS NOT DETECTED; RSV- RESP PCR PANEL NOT DETECTED; SARS-CoV-2 -RESP PCR PANEL NOT DETECTED
[2023-03-23] MEDS ORDERED: ALBUTEROL 1 PUFF INH STA (06:39)
[2023-03-23 07:13] LABS: ALBUMIN 4.6 g/dL (3.2-5.5); ALBUMIN/GLOBULIN RATIO 1.9 (1.0-2.2); ALKALINE PHOSPHATASE 54 IU/L (42-121); ALT ALANINE AMINOTRANSFERASE 12 IU/L (10-60); AST ASPARTATE AMINOTRANSFERASE 12 IU/L (10-42); BILIRUBIN,TOTAL 0.5 mg/dL (0.2-1.0); BUN - BLOOD UREA NITROGEN 17 mg/dL (6-20); CARBON DIOXIDE - CO2 30 mmol/L (21-32); CHLORIDE 102 mmol/L (101-111); CREATININE 1.4 mg/dL (0.6-1.3); GFR - MDRD 49 (>89); GLUCOSE 111 mg/dL (74-104); SODIUM 139 mmol/L (135-145)
[2023-03-23 07:14] LABS: LIPASE < 10 U/L (11-82)
--- NOTE | 2023-03-23 08:59 | XRAY Report ---
PROCEDURE: Chest 1 View X-Ray INDICATIONS: Chest pain TECHNIQUE: One view of the chest was acquired. COMPARISON: Chest x-ray 05/07/2021 FINDINGS: Surgical changes and devices: None. Lungs and pleura: No pleural effusions or pneumothorax. Lungs are clear. Mediastinum: Mediastinal contours appear normal. Heart size is normal. Bones and chest wall: No suspicious bony lesions. Overlying soft tissues appear unremarkable. IMPRESSION: No acute cardiopulmonary process. The above findings are concordant with preliminary report. Reviewed by: Giana Jalloh MD on 03/23/2023 8:58 AM PST Approved by: Giana Jalloh MD on 03/23/2023 8:58 AM [facility] Station ID: [id number]
== END 2023-03-23 07:25 | disposition home or self-care (01) ==
LOC: ED 04:40
DX: R06.00 Dyspnea, unspecified (principal); J06.9 Acute upper respiratory infection, unspecified; Z20.822 Contact with and (suspected) exposure to COVID-19
CPT/HCPCS: 36415; 71045; 80053; 83690; 84484; 85025; 87633; 93005; 94640; 96374; 99284; A9270

== ENCOUNTER 2023-05-13 13:02 | Outpatient (CLI) | payer MEDICARE ==
[2023-05-13 13:42] LABS: BASOPHILS # (AUTO) 0.1 10^3/uL (0.0-0.1); EOSINOPHILS # (AUTO) 0.1 10^3/uL (0.0-0.7); EOSINOPHILS % (AUTO) 1.3 %; HCT - HEMATOCRIT 44.3 % (42.0-52.0); HGB - HEMOGLOBIN 14.2 g/dL (14.0-18.0); LYMPHOCYTES # (AUTO) 2.4 10^3/uL (1.5-3.5); LYMPHOCYTES % (AUTO) 39.6 %; MEAN CORPUSCULAR HEMOGLOBIN 29.5 pg (27.0-31.0); MEAN CORPUSCULAR HGB CONC 32.1 g/dL (32.0-36.0); MEAN CORPUSCULAR VOLUME 92.1 fL (80.0-94.0); MEAN PLATELET VOLUME 8.6 fL (7.4-11.4); MONOCYTES # (AUTO) 0.5 10^3/uL (0.0-1.0); NEUTROPHILS # (AUTO) 2.9 10^3/uL (1.5-6.6); NEUTROPHILS % (AUTO) 48.8 %; PLT - PLATELET COUNT 245 10^3/uL (130-450); RED BLOOD COUNT 4.81 10^6/uL (4.70-6.10); RED CELL DISTRIBUTION WIDTH 12.7 % (12.0-15.0)
[2023-05-13 14:27] LABS: FERRITIN 17.3 ng/mL (23.9-336.2)
== END 2023-05-13 13:03 | disposition home or self-care (01) ==
LOC: LAB 13:02
PROVIDERS: ATTEND Internal Medicine Gastroenterology
DX: K25.3 Acute gastric ulcer without hemorrhage or perforation (principal); D50.9 Iron deficiency anemia, unspecified
CPT/HCPCS: 36415; 82728; 83540; 84466; 85025

== ENCOUNTER 2023-07-28 15:13 | Outpatient (CLI) | payer MEDICARE ==
[2023-07-28 15:27] LABS: BASOPHILS % (AUTO) 0.6 %; EOSINOPHILS # (AUTO) 0.1 10^3/uL (0.0-0.7); EOSINOPHILS % (AUTO) 1.7 %; HCT - HEMATOCRIT 45.2 % (42.0-52.0); HGB - HEMOGLOBIN 14.7 g/dL (14.0-18.0); LYMPHOCYTES # (AUTO) 2.8 10^3/uL (1.5-3.5); LYMPHOCYTES % (AUTO) 42.3 %; MEAN CORPUSCULAR HEMOGLOBIN 30.1 pg (27.0-31.0); MEAN CORPUSCULAR HGB CONC 32.5 g/dL (32.0-36.0); MEAN CORPUSCULAR VOLUME 92.6 fL (80.0-94.0); MEAN PLATELET VOLUME 8.5 fL (7.4-11.4); MONOCYTES # (AUTO) 0.5 10^3/uL (0.0-1.0); NEUTROPHILS # (AUTO) 3.2 10^3/uL (1.5-6.6); NEUTROPHILS % (AUTO) 48.1 %; PLT - PLATELET COUNT 238 10^3/uL (130-450); RED BLOOD COUNT 4.88 10^6/uL (4.70-6.10); WHITE BLOOD COUNT 6.6 x10^3/uL (4.8-10.8)
[2023-07-28 16:03] LABS: FERRITIN 14.9 ng/mL (23.9-336.2)
== END 2023-07-28 15:14 | disposition home or self-care (01) ==
LOC: LAB 15:13
PROVIDERS: ATTEND Internal Medicine Gastroenterology
DX: K29.60 Other gastritis without bleeding (principal); D50.9 Iron deficiency anemia, unspecified
CPT/HCPCS: 36415; 82728; 83540; 84466; 85025

== ENCOUNTER 2023-11-10 09:51 | Outpatient (CLI) | payer MEDICARE ==
[2023-11-10 10:03] LABS: BASOPHILS # (AUTO) 0.1 10^3/uL (0.0-0.1); BASOPHILS % (AUTO) 0.8 %; EOSINOPHILS # (AUTO) 0.1 10^3/uL (0.0-0.7); EOSINOPHILS % (AUTO) 2.3 %; HCT - HEMATOCRIT 45.4 % (42.0-52.0); HGB - HEMOGLOBIN 14.4 g/dL (14.0-18.0); LYMPHOCYTES # (AUTO) 2.4 10^3/uL (1.5-3.5); LYMPHOCYTES % (AUTO) 39.1 %; MEAN CORPUSCULAR HEMOGLOBIN 29.7 pg (27.0-31.0); MEAN CORPUSCULAR HGB CONC 31.7 g/dL (32.0-36.0); MEAN CORPUSCULAR VOLUME 93.6 fL (80.0-94.0); MEAN PLATELET VOLUME 8.5 fL (7.4-11.4); MONOCYTES # (AUTO) 0.4 10^3/uL (0.0-1.0); MONOCYTES % (AUTO) 6.3 %; NEUTROPHILS # (AUTO) 3.2 10^3/uL (1.5-6.6); NEUTROPHILS % (AUTO) 51.3 %; PLT - PLATELET COUNT 235 10^3/uL (130-450); RED BLOOD COUNT 4.85 10^6/uL (4.70-6.10); RED CELL DISTRIBUTION WIDTH 12.5 % (12.0-15.0); WHITE BLOOD COUNT 6.2 x10^3/uL (4.8-10.8)
== END 2023-11-10 09:52 | disposition home or self-care (01) ==
LOC: LAB 09:51
PROVIDERS: ATTEND Internal Medicine Gastroenterology
DX: D50.9 Iron deficiency anemia, unspecified (principal); K29.60 Other gastritis without bleeding
CPT/HCPCS: 36415; 82306; 82607; 82728; 83540; 84466; 85025